=== PATIENT | female | born 1950 | race African-American/Black ===

== ENCOUNTER 2018-10-11 17:40 | Emergency (ER) | payer MEDICARE, MEDICAID ==
[2018-10-11 18:35] LABS: ANION GAP 15.7; CHLORIDE,CL 102 mmol/L (101-111); SODIUM,NA 135 mmol/L (135-145)
[2018-10-11] MEDS ORDERED: Iopamidol 755 Mg/ML 100 ML Bottle IVPUSH ONE (18:59)
[2018-10-11] MEDS ORDERED: Ondansetron 4 MG/2 ML SDV IV ONE (18:59)
[2018-10-11] MEDS ORDERED: Morphine 2 MG/ML Syringe IVPUSH ONE (18:59)
[2018-10-11] MEDS ORDERED: Sodium Chloride 0.9% 1,000 ML IV SCH (19:00)
--- NOTE | 2018-10-11 19:03 | EDM.PDOC ---
ED HPI GENERAL MEDICAL PROBLEM - General Chief Complaint: Upper Extremity Injury/Pain Stated Complaint: AMBULANCE Time Seen by Provider: 10/11/18 19:00 Source of Information: Reports: Patient History Limitations: Reports: No Limitations - History of Present Illness INITIAL COMMENTS - FREE TEXT/NARRATIVE: 2 days h/o progressive worsening left arm pain, gives h/o gout in hand but never had pain in whole arm. denies CP, has occasional SOB since smoker. denies fever, cough. Left Arm Pain Score (Numeric/FACES): 8 - Related Data Allergies Allergy/AdvReac Type Severity Reaction Status Date / Time codeine Allergy Stomach Verified 10/11/18 17:49 Upset Penicillins Allergy Rash Verified 10/11/18 17:49 povidone-iodine Allergy Rash Verified 10/11/18 17:49 [From Betadine] soap [From Betadine] Allergy Rash Verified 10/11/18 17:49 Sulfa (Sulfonamide Allergy Hives Verified 10/11/18 17:49 Antibiotics) tetracycline Allergy Cannot Verified 10/11/18 17:49 Remember Home Meds: Home Meds Albuterol [Ventolin HFA] 1 - 2 puff INH Q8HR PRN 07/25/18 [History] Allopurinol [Zyloprim] 300 mg PO DAILY 07/25/18 [History] Citalopram [Citalopram HBr] 20 mg PO DAILY 07/25/18 [History] Famotidine [Pepcid] 40 mg PO BID 07/25/18 [History] Losartan/Hydrochlorothiazide [Losartan-HCTZ 100-12.5 MG] 1 tab PO BID 07/25/18 [ History] Tiotropium [Spiriva HandiHaler] 18 mcg INH DAILY 07/25/18 [History] Verapamil HCl [Verapamil ER] 180 mg PO DAILY 07/25/18 [History] amLODIPine Besylate [Amlodipine Besylate] 10 mg PO BEDTIME 07/25/18 [History] atorvaSTATin [Lipitor] 20 mg PO DAILY 07/25/18 [History] Fluticasone/Salmeterol [Advair 250-50] 2 puff INH BID #1 diskus 07/28/18 [Rx] Past Medical History Cardiovascular History: Reports: High Cholesterol, Hypertension, [place] Respiratory History: Reports: Asthma, COPD Gastrointestinal History: Reports: GERD Genitourinary History: Reports: Urinary Incontinence 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: Musculoskeletal History: Reports: Arthritis - Past Surgical History Other HEENT Surgeries/Procedures: glasses Female Surgical History: Reports: Hysterectomy, Tubal Ligation, Other (See Below) Other Female Surgeries/Procedures: bladder repair Social & Family History - Family History Family Medical History: Noncontributory - Tobacco Use Smoking Status *Q: Current Every Day Smoker Years of Tobacco use: 47 Packs/Tins Daily: 0.5 - Caffeine Use Caffeine Use: Reports: Coffee - Recreational Drug Use Recreational Drug Use: No Review of Systems - Review of Systems Review Of Systems: ROS reveals no pertinent complaints other than HPI. ED EXAM, GENERAL - Physical Exam Exam: See Below Exam Limited By: No Limitations General Appearance: Alert, WD/WN, Mild Distress, Moderate Distress, Other ( crying) Ears: Hearing Grossly Normal Throat/Mouth: Normal Voice, No Airway Compromise Head: Atraumatic Neck: Non-Tender, Full Range of Motion Respiratory/Chest: No Respiratory Distress Cardiovascular: Regular Rate, Rhythm GI/Abdominal: Soft, Non-Tender Neurological: Alert, Oriented, Normal Cognition, Normal Gait, No Motor/Sensory Deficits Psychiatric: Tearful Skin Exam: Warm, Dry, Normal Color Lymphatic: No Adenopathy Course - Vital Signs Last Recorded V/S: Last Vital Signs Temp 36.6 C 10/11/18 17:46 Pulse 135 H 10/11/18 17:46 Resp 20 10/11/18 17:46 BP 162/111 H 10/11/18 17:46 Pulse Ox 97 10/11/18 17:46 - Orders/Labs/Meds Orders: Active Orders 24 hr Category Date Time Status CULTURE BLOOD [BC] Stat Lab 10/11/18 18:10 Results Sodium Chloride 0.9% [Normal Saline] 1,000 ml Med 10/11/18 19:00 Active IV ASDIRECTED Medication Orders Sodium Chloride (Normal Saline) 1,000 mls @ 250 mls/hr IV ASDIRECTED TONNY Last Admin: 10/11/18 19:18 Dose: 250 mls/hr Labs: Laboratory Tests 10/11/18 10/11/18 10/11/18 Range/Units 18:10 18:10 18:10 WBC 19.8 H (5.0-10.0) 10^3/uL RBC 6.02 H (4.2-5.4) 10^6/uL Hgb 15.1 (12.0-16.0) g/dL Hct 46.0 (37.0-47.0) % MCV 76.4 L (80-100) fL MCH 25.1 L (27.0-34.0) pg MCHC 32.8 L (33.0-35.0) g/dL Plt Count 300 (150-450) 10^3/uL Neut % (Auto) 74.3 (42.2-75.2) % Lymph % (Auto) 16.3 L (20.5-50.1) % [place] % (Auto) 9.2 H (2-8) % Eos % (Auto) 0.1 L (1.0-3.0) % Baso % (Auto) 0.1 (0.0-1.0) % D-Dimer, Quantitative 1520 H (0-400) ng/mL Sodium (135-145) mmol/L Potassium (3.6-5.0) mmol/L Chloride (101-111) mmol/L Carbon Dioxide (21.0-31.0) mmol/L Anion Gap BUN (7-18) mg/dL Creatinine (0.6-1.3) mg/dL Est Cr Clr Drug Dosing mL/min Estimated GFR (MDRD) BUN/Creatinine Ratio Glucose (74-105) mg/dL Lactic Acid 1.2 (0.5-2.2) mmol/L Calcium (8.4-10.2) mg/dl Total Bilirubin (0.2-1.0) mg/dL AST (10-42) IU/L ALT (10-60) IU/L Alkaline Phosphatase (42-121) IU/L Total Protein (6.7-8.2) g/dl Albumin (3.2-5.5) g/dl Globulin Albumin/Globulin Ratio Urine Color (YELLOW) Urine Appearance (CLEAR) Urine pH (5.0-9.0) Ur Specific [place] (1.005-1.030) Urine Protein (NEGATIVE) Urine Glucose (UA) (NEGATIVE) Urine Ketones (NEGATIVE) Urine Occult Blood (NEGATIVE) Urine Nitrite (NEGATIVE) Urine Bilirubin (NEGATIVE) Urine Urobilinogen (0.2-1.0) mg/dL Ur Leukocyte Esterase (NEGATIVE) Urine RBC /HPF Urine WBC (0-5/HPF) /HPF Ur Epithelial Cells /HPF Amorphous Sediment (0/HPF) /HPF Urine Bacteria (0-FEW/HPF) /HPF Urine Opiates Screen (NEGATIVE) Ur Oxycodone Screen (NEGATIVE) Urine Methadone Screen (NEGATIVE) Ur Barbiturates Screen (NEGATIVE) U Tricyclic Antidepress (NEGATIVE) Ur Phencyclidine Scrn (NEGATIVE) Ur Amphetamine Screen (NEGATIVE) U Methamphetamines Scrn (NEGATIVE) Urine MDMA Screen (NEGATIVE) U Benzodiazepines Scrn (NEGATIVE) Urine Cocaine Screen (NEGATIVE) U Marijuana (THC) Screen (NEGATIVE) 10/11/18 10/11/18 10/11/18 Range/Units 18:10 18:20 18:20 WBC (5.0-10.0) 10^3/uL RBC (4.2-5.4) 10^6/uL Hgb (12.0-16.0) g/dL Hct (37.0-47.0) % MCV (80-100) fL MCH (27.0-34.0) pg MCHC (33.0-35.0) g/dL Plt Count (150-450) 10^3/uL Neut % (Auto) (42.2-75.2) % Lymph % (Auto) (20.5-50.1) % [place] % (Auto) (2-8) % Eos % (Auto) (1.0-3.0) % Baso % (Auto) (0.0-1.0) % D-Dimer, Quantitative (0-400) ng/mL Sodium 135 (135-145) mmol/L Potassium 3.7 (3.6-5.0) mmol/L Chloride 102 (101-111) mmol/L Carbon Dioxide 21.0 (21.0-31.0) mmol/L Anion Gap 15.7 BUN 13 (7-18) mg/dL Creatinine 0.9 (0.6-1.3) mg/dL Est Cr Clr Drug Dosing 48.80 mL/min Estimated GFR (MDRD) > 60 BUN/Creatinine Ratio 14.44 Glucose 138 H (74-105) mg/dL Lactic Acid (0.5-2.2) mmol/L Calcium 8.7 (8.4-10.2) mg/dl Total Bilirubin 0.8 (0.2-1.0) mg/dL AST 18 (10-42) IU/L ALT 14 (10-60) IU/L Alkaline Phosphatase 98 (42-121) IU/L Total Protein 8.0 (6.7-8.2) g/dl Albumin 3.3 (3.2-5.5) g/dl Globulin 4.7 Albumin/Globulin Ratio 0.70 Urine Color Yellow (YELLOW) Urine Appearance Slightly cloudy (CLEAR) Urine pH 6.5 (5.0-9.0) Ur Specific [place] 1.020 (1.005-1.030) Urine Protein 30 H (NEGATIVE) Urine Glucose (UA) Negative (NEGATIVE) Urine Ketones Negative (NEGATIVE) Urine Occult Blood Trace-intact H (NEGATIVE) Urine Nitrite Negative (NEGATIVE) Urine Bilirubin Negative (NEGATIVE) Urine Urobilinogen 0.2 (0.2-1.0) mg/dL Ur Leukocyte Esterase Negative (NEGATIVE) Urine RBC 0-5 /HPF Urine WBC 0-5 (0-5/HPF) /HPF Ur Epithelial Cells Few /HPF Amorphous Sediment Occasional (0/HPF) /HPF Urine Bacteria Few (0-FEW/HPF) /HPF Urine Opiates Screen Negative (NEGATIVE) Ur Oxycodone Screen Negative (NEGATIVE) Urine Methadone Screen Negative (NEGATIVE) Ur Barbiturates Screen Negative (NEGATIVE) U Tricyclic Antidepress Negative (NEGATIVE) Ur Phencyclidine Scrn Negative (NEGATIVE) Ur Amphetamine Screen Negative (NEGATIVE) U Methamphetamines Scrn Negative (NEGATIVE) Urine MDMA Screen Negative (NEGATIVE) U Benzodiazepines Scrn Negative (NEGATIVE) Urine Cocaine Screen Negative (NEGATIVE) U Marijuana (THC) Screen Negative (NEGATIVE) Meds: Medications Generic Name Dose Route Start Last Admin Trade Name Freq PRN Reason Stop Dose Admin Sodium Chloride 1,000 mls @ 250 mls/hr 10/11/18 19:00 10/11/18 19:18 Normal Saline IV 250 mls/hr ASDIRECTED TONNY Administration Discontinued Medications Generic Name Dose Route Start Last Admin Trade Name Freq PRN Reason Stop Dose Admin Iopamidol 100 ml 10/11/18 18:59 10/11/18 19:28 Isovue-370 (76%) IVPUSH 10/11/18 19:00 100 ml ONETIME ONE Administration Morphine Sulfate 2 mg 10/11/18 18:59 10/11/18 19:19 Morphine IVPUSH 10/11/18 19:00 2 mg ONETIME ONE Administration Ondansetron HCl 4 mg 10/11/18 18:59 10/11/18 19:19 Zofran IV 10/11/18 19:00 4 mg ONETIME ONE Administration - Re-Assessments/Exams Free Text/Narrative Re-Assessment/Exam: 10/11/18 21:16 results discussed with pt who is feeling better s/p Rx. Departure - Departure Time of Disposition: 21:16 Disposition: Home, Self-Care 01 Condition: Fair Clinical Impression: Neuropathic pain of upper extremity, Renal cyst, Lung cyst - Discharge Information Instructions: Neuropathic Pain Forms: ED Department Discharge Additional Instructions: 1) see clinic tomorrow for possible MRI SCAN of neck for left arm pain and chest for left lung cyste and abdomen for renal cyste - My Orders Last 24 Hours: My Active Orders 10/11/18 19:00 Sodium Chloride 0.9% [Normal Saline] 1,000 ml IV ASDIRECTED - Assessment/Plan Last 24 Hours: My Active Orders 10/11/18 19:00 Sodium Chloride 0.9% [Normal Saline] 1,000 ml IV ASDIRECTED
== END 2018-10-11 21:32 | disposition home or self-care (01) ==
LOC: DL.ED 17:40
DX: M79.2 Neuralgia and neuritis, unspecified (principal); N28.1 Cyst of kidney, acquired; J98.4 Other disorders of lung; E78.00 Pure hypercholesterolemia, unspecified; I10 Essential (primary) hypertension; I25.2 Old myocardial infarction; J44.9 Chronic obstructive pulmonary disease, unspecified; K21.9 Gastro-esophageal reflux disease without esophagitis; F17.210 Nicotine dependence, cigarettes, uncomplicated; Z88.5 Allergy status to narcotic agent; Z88.0 Allergy status to penicillin; Z88.2 Allergy status to sulfonamides; Z88.1 Allergy status to other antibiotic agents; Z79.899 Other long term (current) drug therapy
CPT/HCPCS: 36415; 71260; 80053; 80305; 81001; 83605; 85025; 85379; 87040; 96361; 96374; 96375; 99284; J2270; J2405; J7030; Q9967

== ENCOUNTER 2019-11-16 16:16 | Inpatient (IN) | payer MEDICARE, MEDICAID ==
[2019-11-16 17:05] LABS: ANION GAP 13.6; CHLORIDE,CL 99 mmol/L (101-111); SODIUM,NA 138 mmol/L (135-145)
[2019-11-16] MEDS ORDERED: Furosemide 40 MG/4 ML VIAL IVPUSH ONE (17:16)
[2019-11-16] MEDS ORDERED: Aspirin 81 MG Tab.Chew PO ONE (17:17)
--- NOTE | 2019-11-16 17:45 | EDM.PDOC ---
<ShelleySammie Paul - Last Filed: 11/16/19 17:40> ED HPI GENERAL MEDICAL PROBLEM - General Chief Complaint: Respiratory Problem Stated Complaint: CALL IN Time Seen by Provider: 11/16/19 16:20 Source of Information: Reports: Patient History Limitations: Reports: No Limitations - History of Present Illness INITIAL COMMENTS - FREE TEXT/NARRATIVE: ED via [facility] with c/o SOB, Cough, clear phlegm, swelling yesterday, some better today. Denies fever or chills. No routine use of oxygen, no chest pain, - Related Data Allergies Allergy/AdvReac Type Severity Reaction Status Date / Time codeine Allergy Stomach Verified 11/16/19 16:30 Upset Penicillins Allergy Rash Verified 11/16/19 16:30 povidone-iodine Allergy Rash Verified 11/16/19 16:30 [From Betadine] soap [From Betadine] Allergy Rash Verified 11/16/19 16:30 Sulfa (Sulfonamide Allergy Hives Verified 11/16/19 16:30 Antibiotics) tetracycline Allergy Cannot Verified 11/16/19 16:30 Remember Home Meds: Home Meds Albuterol [Ventolin HFA] 1 - 2 puff INH Q8HR PRN 07/25/18 [History] Citalopram [Citalopram HBr] 20 mg PO DAILY 07/25/18 [History] Famotidine [Pepcid] 40 mg PO BID 07/25/18 [History] Losartan/Hydrochlorothiazide [Losartan-HCTZ 100-12.5 MG] 1 tab PO BID 07/25/18 [ History] Tiotropium [Spiriva HandiHaler] 18 mcg INH DAILY 07/25/18 [History] Verapamil HCl [Verapamil ER] 180 mg PO DAILY 07/25/18 [History] allopurinoL [Zyloprim] 300 mg PO DAILY 07/25/18 [History] amLODIPine Besylate [Amlodipine Besylate] 10 mg PO BEDTIME 07/25/18 [History] atorvaSTATin [Lipitor] 20 mg PO DAILY 07/25/18 [History] Fluticasone/Salmeterol [Advair 250-50] 2 puff INH BID #1 diskus 07/28/18 [Rx] Past Medical History HEENT History: Reports: Impaired Vision Cardiovascular History: Reports: High Cholesterol, Hypertension, [place] Respiratory History: Reports: Asthma, COPD Gastrointestinal History: Reports: GERD Genitourinary History: Reports: Urinary Incontinence 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: Musculoskeletal History: Reports: Arthritis Neurological History: Reports: None Psychiatric History: Reports: None Endocrine/Metabolic History: Reports: Obesity/BMI 30+ Hematologic History: Reports: None Immunologic History: Reports: None Oncologic (Cancer) History: Reports: None Dermatologic History: Reports: None - Infectious Disease History Infectious Disease History: Reports: None - Past Surgical History Head Surgeries/Procedures: Reports: None Other HEENT Surgeries/Procedures: glasses Female Surgical History: Reports: Hysterectomy, Tubal Ligation, Other (See Below) Other Female Surgeries/Procedures: bladder repair Social & Family History - Family History Family Medical History: Noncontributory - Tobacco Use Smoking Status *Q: Current Every Day Smoker Years of Tobacco use: 49 Packs/Tins Daily: 1 - Caffeine Use Caffeine Use: Reports: Coffee - Recreational Drug Use Recreational Drug Use: No ED ROS GENERAL - Review of Systems Review Of Systems: See Below Constitutional: Reports: Malaise. Denies: Fever, Chills HEENT: Reports: No Symptoms Respiratory: Reports: Shortness of Breath, Cough, Sputum Cardiovascular: Reports: Dyspnea on Exertion. Denies: Chest Pain, Orthopnea, Palpitations GI/Abdominal: Reports: No Symptoms Skin: Denies: No Symptoms Neurological: Reports: No Symptoms ED EXAM, GENERAL - Physical Exam Exam: See Below Exam Limited By: No Limitations General Appearance: Alert, No Apparent Distress, Lethargic Ears: Normal External Exam, Normal TMs Nose: Normal Inspection, Normal Mucosa, Nasal Tenderness Throat/Mouth: Normal Inspection, Normal Voice Head: Atraumatic, Normocephalic Neck: Normal Inspection, Full Range of Motion Respiratory/Chest: No Respiratory Distress, Lungs Clear, Normal Breath Sounds Cardiovascular: Normal Peripheral Pulses, Regular Rate, Rhythm, No JVD. No: No Edema (2) GI/Abdominal: Normal Bowel Sounds, Soft, Non-Tender Extremities: Normal Range of Motion, Pedal Edema (2+) Neurological: Alert, Oriented, Normal Cognition Psychiatric: Normal Affect Skin Exam: Warm, Dry, Intact Course - Vital Signs Last Recorded V/S: Last Vital Signs Temp 98.1 F 11/16/19 19:07 Pulse 93 11/16/19 19:07 Resp 24 H 11/16/19 19:07 BP 113/57 L 11/16/19 19:07 Pulse Ox 98 11/16/19 19:51 - Orders/Labs/Meds Orders: Active Orders 24 hr Category Date Time Status BLOOD GAS ARTERIAL [BG] Stat Lab 11/16/19 16:10 Ordered CULTURE BLOOD [BC] Stat Lab 11/16/19 16:11 Ordered CULTURE BLOOD [BC] Stat Lab 11/16/19 17:25 Results Blood Culture x2 Reflex Set [OM.PC] Stat Oth 11/16/19 16:10 Ordered Medication Orders Acetaminophen (Tylenol) 650 mg PO Q4H PRN PRN Reason: Pain (mild 1-3) Albuterol (Proventil Neb Soln) 2.5 mg NEB Q2H PRN PRN Reason: shortness of breath/wheezing Albuterol/Ipratropium (Duoneb 3.0-0.5 Mg/3 Ml) 3 ml NEB Q6H [facility] Allopurinol (Zyloprim) 300 mg PO DAILY [facility] Amlodipine Besylate (Norvasc) 10 mg PO BEDTIME [facility] Atorvastatin Calcium (Lipitor) 20 mg PO DAILY [facility] Azithromycin (Zithromax) 500 mg PO DAILY [facility] Citalopram Hydrobromide (Celexa) 20 mg PO DAILY [facility] Enoxaparin Sodium (Lovenox) 40 mg SUBCUT DAILY [facility] Famotidine (Pepcid) 40 mg PO ONETIME ONE Stop: 11/16/19 21:01 Hydrochlorothiazide (Hydrochlorothiazide) 12.5 mg PO BID [facility] Ceftriaxone Sodium 2 gm/ (Sodium Chloride) 100 mls @ 200 mls/hr IV Q24H [facility] Losartan Potassium (Cozaar) 100 mg PO BID [facility] Nicotine (Habitrol) 14 mg TRDERM DAILY [facility] Non-Formulary Medication (Famotidine [Pepcid]) 40 mg PO BID [facility] Non-Formulary Medication (Fluticasone/Salmeterol) 2 puff INH BID [facility] Ondansetron HCl (Zofran Odt) 4 mg PO Q6H PRN PRN Reason: nausea, able to take PO Ondansetron HCl (Zofran) 4 mg IVPUSH Q4H PRN PRN Reason: Nausea/Vomiting Prednisone (Prednisone) 40 mg PO DAILY [facility] Stop: 11/20/19 09:01 Senna/Docusate Sodium (Senna Plus) 1 tab PO BEDTIME PRN PRN Reason: Constipation Tiotropium [place] (Spiriva Handihaler) 18 mcg INH DAILY TONNY Verapamil HCl (Calan Sr) 180 mg PO DAILY TONNY Labs: Laboratory Tests 11/16/19 11/16/19 11/16/19 Range/Units 16:21 16:21 16:21 WBC 12.3 H (5.0-10.0) 10^3/uL RBC 5.70 H (4.2-5.4) 10^6/uL Hgb 14.2 (12.0-16.0) g/dL Hct 44.9 (37.0-47.0) % MCV 78.8 L (80-100) fL MCH 24.9 L (27.0-34.0) pg MCHC 31.6 L (33.0-35.0) g/dL Plt Count 284 (150-450) 10^3/uL Neut % (Auto) 61.4 (42.2-75.2) % Lymph % (Auto) 27.5 (20.5-50.1) % [place] % (Auto) 9.5 H (2-8) % Eos % (Auto) 1.4 (1.0-3.0) % Baso % (Auto) 0.2 (0.0-1.0) % PT 9.8 (9.0-12.0) SEC INR 1.0 (0.9-1.2) Sodium 138 (135-145) mmol/L Potassium 3.6 (3.6-5.0) mmol/L Chloride 99 L (101-111) mmol/L Carbon Dioxide 29.0 (21.0-31.0) mmol/L Anion Gap 13.6 BUN 13 (7-18) mg/dL Creatinine 1.0 (0.6-1.3) mg/dL Est Cr Clr Drug Dosing 41.40 mL/min Estimated GFR (MDRD) > 60 BUN/Creatinine Ratio 13.00 Glucose 86 (74-105) mg/dL Lactic Acid (0.5-2.0) mmol/L Calcium 8.7 (8.4-10.2) mg/dl Total Bilirubin 0.4 (0.2-1.0) mg/dL AST 17 (10-42) IU/L ALT 11 (10-60) IU/L Alkaline Phosphatase 116 (42-121) IU/L Troponin I < 0.02 (0.00-0.02) ng/ml B-Natriuretic Peptide 60 (0-100) pg/ml Total Protein 8.3 H (6.7-8.2) g/dl Albumin 3.5 (3.2-5.5) g/dl Globulin 4.8 Albumin/Globulin Ratio 0.73 02/29/20 Range/Units 17:25 WBC (5.0-10.0) 10^3/uL RBC (4.2-5.4) 10^6/uL Hgb (12.0-16.0) g/dL Hct (37.0-47.0) % MCV (80-100) fL MCH (27.0-34.0) pg MCHC (33.0-35.0) g/dL Plt Count (150-450) 10^3/uL Neut % (Auto) (42.2-75.2) % Lymph % (Auto) (20.5-50.1) % [place] % (Auto) (2-8) % Eos % (Auto) (1.0-3.0) % Baso % (Auto) (0.0-1.0) % PT (9.0-12.0) SEC INR (0.9-1.2) Sodium (135-145) mmol/L Potassium (3.6-5.0) mmol/L Chloride (101-111) mmol/L Carbon Dioxide (21.0-31.0) mmol/L Anion Gap BUN (7-18) mg/dL Creatinine (0.6-1.3) mg/dL Est Cr Clr Drug Dosing mL/min Estimated GFR (MDRD) BUN/Creatinine Ratio Glucose (74-105) mg/dL Lactic Acid 2.5 H* (0.5-2.0) mmol/L Calcium (8.4-10.2) mg/dl Total Bilirubin (0.2-1.0) mg/dL AST (10-42) IU/L ALT (10-60) IU/L Alkaline Phosphatase (42-121) IU/L Troponin I (0.00-0.02) ng/ml B-Natriuretic Peptide (0-100) pg/ml Total Protein (6.7-8.2) g/dl Albumin (3.2-5.5) g/dl Globulin Albumin/Globulin Ratio Meds: Medications Generic Name Dose Route Start Last Admin Trade Name Freq PRN Reason Stop Dose Admin Acetaminophen 650 mg 11/16/19 19:51 Tylenol PO Q4H PRN Pain (mild 1-3) Albuterol 2.5 mg 11/16/19 19:51 Proventil Neb Soln NEB Q2H PRN shortness of breath/wheezing Albuterol/Ipratropium 3 ml 11/16/19 20:00 Duoneb 3.0-0.5 Mg/3 Ml NEB Q6H [facility] Allopurinol 300 mg 11/17/19 09:00 Zyloprim PO DAILY [facility] Amlodipine Besylate 10 mg 11/16/19 21:00 Norvasc PO BEDTIME [facility] Atorvastatin Calcium 20 mg 11/17/19 09:00 Lipitor PO DAILY [facility] Azithromycin 500 mg 11/16/19 20:00 Zithromax PO DAILY [facility] Citalopram Hydrobromide 20 mg 11/17/19 09:00 Celexa PO DAILY [facility] Enoxaparin Sodium 40 mg 11/17/19 09:00 Lovenox SUBCUT DAILY [facility] Famotidine 40 mg 11/16/19 21:00 Pepcid PO 11/16/19 21:01 ONETIME ONE Hydrochlorothiazide 12.5 mg 11/16/19 21:00 Hydrochlorothiazide PO BID [facility] Ceftriaxone Sodium 2 gm/ 100 mls @ 200 mls/hr 11/16/19 20:00 Sodium Chloride IV Q24H [facility] Losartan Potassium 100 mg 11/16/19 21:00 Cozaar PO BID [facility] Nicotine 14 mg 11/16/19 20:30 Habitrol TRDERM DAILY [facility] Non-Formulary Medication 40 mg 11/16/19 21:00 Famotidine [Pepcid] PO BID [facility] Non-Formulary Medication 2 puff 11/16/19 21:00 Fluticasone/Salmeterol INH BID [facility] Ondansetron HCl 4 mg 11/16/19 19:51 Zofran Odt PO Q6H PRN nausea, able to take PO Ondansetron HCl 4 mg 11/16/19 19:51 Zofran IVPUSH Q4H PRN Nausea/Vomiting Prednisone 40 mg 11/16/19 20:45 Prednisone PO 11/20/19 09:01 DAILY TONNY Senna/Docusate Sodium 1 tab 11/16/19 19:51 Senna Plus PO BEDTIME PRN Constipation Tiotropium [place] 18 mcg 11/17/19 09:00 Spiriva Handihaler INH DAILY TONNY Verapamil HCl 180 mg 11/17/19 09:00 Calan Sr PO DAILY TONNY Discontinued Medications Generic Name Dose Route Start Last Admin Trade Name Freq PRN Reason Stop Dose Admin Aspirin 324 mg 11/16/19 17:17 11/16/19 17:23 Aspirin PO 11/16/19 17:18 324 mg ONETIME ONE Administration Furosemide 40 mg 11/16/19 17:16 11/16/19 17:25 Lasix IVPUSH 11/16/19 17:17 40 mg NOW ONE Administration Sodium Chloride 1,000 mls @ 100 mls/hr 11/16/19 20:00 Normal Saline IV ASDIRECTED [facility] - Re-Assessments/Exams Free Text/Narrative Re-Assessment/Exam: 11/16/19 18:28 Dyspnea with minimal exertion while up to commode. SOB with conversation. Diuresing with continues SOB. TC Dr Raul ALVARADO Hospitalist. accepting patient for amission CHF exacerbation Departure - Departure Disposition: Admitted As Inpatient 65 Condition: Good Clinical Impression: Congestive heart failure Qualifiers: Heart failure type: unspecified Heart failure chronicity: unspecified Qualified Code(s): I50.9 - Heart failure, unspecified Dyspnea Qualifiers: Dyspnea type: unspecified Qualified Code(s): R06.00 - Dyspnea, unspecified - Discharge Information *PRESCRIPTION DRUG MONITORING PROGRAM REVIEWED*: No *COPY OF PRESCRIPTION DRUG MONITORING REPORT IN PATIENT SONJA: No Sepsis Event Note - Evaluation Sepsis Screening Result: No Definite Risk - Focused Exam Vital Signs: Vital Signs Temp Pulse Resp BP Pulse Ox 11/16/19 16:11 98.8 F 107 H 12 147/89 H 98 Date Exam was Performed: 11/16/19 Time Exam was Performed: 17:40 <Latha Mitchell - Last Filed: 11/16/19 20:48> Departure - Departure Time of Disposition: 18:29 Sepsis Event Note - Focused Exam Date Exam was Performed: 11/16/19 Time Exam was Performed: 20:48
[2019-11-16] MEDS ORDERED: Albuterol 0.083% 2.5 MG/3 ML Neb Soln NEB PRN (19:51)
[2019-11-16] MEDS ORDERED: Ondansetron 4 MG/2 ML SDV IVPUSH PRN (19:51)
[2019-11-16] MEDS ORDERED: Acetaminophen 325 MG Tab PO PRN (19:51)
[2019-11-16] MEDS ORDERED: Ondansetron 4 MG Tab.DIS PO PRN (19:51)
[2019-11-16] MEDS ORDERED: Sodium Chloride 0.9% 1,000 ML IV SCH (20:00)
[2019-11-16] MEDS ORDERED: cefTRIAXone 2 GM in Sodium Chloride 0.9% 100 ML IV SCH (20:00)
--- NOTE | 2019-11-16 20:17 | PCM.HP ---
H&P History of Present Illness - General Date of Service: 11/16/19 (t) Admit Problem/Dx: Admission Diagnosis/Problem Admission Diagnosis/Problem Severe sepsis Source of Information: Patient, EMS Notes Reviewed, Old Records, Provider History Limitations: Reports: No Limitations - History of Present Illness Initial Comments - Free Text/Narative: Ms. Lamar is a 69-year-old female with medical history significant for COPD, essential hypertension, hyperlipidemia, history of CHF, coronary artery disease and GA, morbid obesity who presented to the ED with complaints of nausea. Patient reports that she has been having progressively worsening shortness of breath for the past 2 to 3 days. She reports that symptoms have gotten to the point where she can barely take a few steps without stopping to catch her breath. Also reports that she gets short of breath when she talks. She endorses cough with copious clear sputum production. States that cough and sputum production is new compared to baseline. Fevers or night sweats. Denies chest pains, neck pain, jaw pain, arm pain, shoulder pain, diaphoresis, headache , neck pain, nausea, vomiting, diarrhea, constipation, dysuria, hematuria, edema , or any new symptoms. States that she has spiriva at home, which was not helping. Reports she is on a water pill but does not recall the name or the dose. States she has used 2 pillows for a long time and does not know what will happen if she uses one pillow. Reports occasional PND. States she misses her medications once in a while. She smokes about half a pack cigarettes daily. She smokes marijuana from a pipe about 5 times daily. Denies alcohol or other illicit drug use. In the ED, patient was noted to have blood pressure of 147/89 with heart rate of 70 and temperature of 98.8. Respiratory rate was 12. O2 saturation was 98% on 2 L of oxygen. WBC count was 12.3. Checks x-ray showed cardiomegaly and pulmonary vascular prominence consistent with volume overload or congestive heart failure. Her lactic acid acid was 2.5. - Related Data Allergies/Adverse Reactions: Allergies Allergy/AdvReac Type Severity Reaction Status Date / Time codeine Allergy Stomach Verified 11/16/19 16:30 Upset Penicillins Allergy Rash Verified 11/16/19 16:30 povidone-iodine Allergy Rash Verified 02/29/20 16:30 [From Betadine] soap [From Betadine] Allergy Rash Verified 11/16/19 16:30 Sulfa (Sulfonamide Allergy Hives Verified 11/16/19 16:30 Antibiotics) tetracycline Allergy Cannot Verified 11/16/19 16:30 Remember Home Medications: Home Meds Albuterol [Ventolin HFA] 1 - 2 puff INH Q8HR PRN 07/25/18 [History] Citalopram [Citalopram HBr] 20 mg PO DAILY 07/25/18 [History] Famotidine [Pepcid] 40 mg PO BID 07/25/18 [History] Losartan/Hydrochlorothiazide [Losartan-HCTZ 100-12.5 MG] 1 tab PO BID 07/25/18 [ History] Tiotropium [Spiriva HandiHaler] 18 mcg INH DAILY 07/25/18 [History] Verapamil HCl [Verapamil ER] 180 mg PO DAILY 07/25/18 [History] allopurinoL [Zyloprim] 300 mg PO DAILY 07/25/18 [History] amLODIPine Besylate [Amlodipine Besylate] 10 mg PO BEDTIME 07/25/18 [History] atorvaSTATin [Lipitor] 20 mg PO DAILY 07/25/18 [History] Fluticasone/Salmeterol [Advair 250-50] 2 puff INH BID #1 diskus 07/28/18 [Rx] Past Medical History HEENT History: Reports: Impaired Vision Cardiovascular History: Reports: High Cholesterol, Hypertension, GA, SOB on Exertion Respiratory History: Reports: Asthma, COPD, SOB Gastrointestinal History: Reports: GERD Genitourinary History: Reports: Urinary Incontinence [employer]ER History: Reports: Musculoskeletal History: Reports: Arthritis Neurological History: Reports: None Psychiatric History: Reports: None Endocrine/Metabolic History: Reports: Obesity/BMI 30+ Hematologic History: Reports: None Immunologic History: Reports: None Oncologic (Cancer) History: Reports: Malignant Melanoma Dermatologic History: Reports: None - Infectious Disease History Infectious Disease History: Reports: Chicken Pox, Measles, Mumps - Past Surgical History Head Surgeries/Procedures: Reports: None HEENT Surgical History: Reports: None Other HEENT Surgeries/Procedures: glasses Cardiovascular Surgical History: Reports: None Respiratory Surgical History: Reports: None GI Surgical History: Reports: Appendectomy, Colonoscopy Female Surgical History: Reports: Hysterectomy, Tubal Ligation, Other (See Below) Other Female Surgeries/Procedures: bladder repair Endocrine Surgical History: Reports: None Neurological Surgical History: Reports: None Musculoskeletal Surgical History: Reports: Shoulder Replacement Social & Family History - Family History Family Medical History: Noncontributory - Tobacco Use Smoking Status *Q: Current Every Day Smoker Years of Tobacco use: 40 Packs/Tins Daily: 0.2 Second Hand Smoke Exposure: Yes - Caffeine Use Caffeine Use: Reports: Coffee, Soda - Recreational Drug Use Recreational Drug Use: No H&P Review of Systems - Review of Systems: Review Of Systems: Comprehensive ROS is negative, except as noted in HPI. Exam - Exam Exam: See Below - Vital Signs Vital Signs: Last Vital Signs Temp 98.1 F 11/16/19 19:07 Pulse 93 11/16/19 19:07 Resp 24 H 11/16/19 19:07 BP 113/57 L 11/16/19 19:07 Pulse Ox 98 11/16/19 19:51 Weight: 248 lb 4 oz - Exam General: Alert, Oriented, Cooperative, Moderate Distress HEENT: Conjunctiva Clear, EACs Clear, Hearing Intact, Mucosa Moist & Pierpoint Neck: Supple, Trachea Midline Lungs: Crackles, Rales, Rhonchi, Wheezing Cardiovascular: Regular Rhythm, Tachycardia GI/Abdominal Exam: Normal Bowel Sounds, Soft, No Distention Extremities: Normal Inspection, Non-Tender, No Pedal Edema Peripheral Pulses: 2+: Radial (L), Radial (R), Dorsalis Pedis (L), Dorsalis Pedis (R) Skin: Warm, Dry, Intact Neuro Extensive - Mental Status: Alert, Oriented x3, Normal Mood/Affect, Normal Cognition, Memory Intact Psychiatric: Alert, Normal Affect, Normal Mood - Patient Data Lab Results Last 24 hrs: Laboratory Results - last 24 hr 11/16/19 11/16/19 11/16/19 Range/Units 16:21 16:21 16:21 WBC 12.3 H (5.0-10.0) 10^3/uL RBC 5.70 H (4.2-5.4) 10^6/uL Hgb 14.2 (12.0-16.0) g/dL Hct 44.9 (37.0-47.0) % MCV 78.8 L (80-100) fL MCH 24.9 L (27.0-34.0) pg MCHC 31.6 L (33.0-35.0) g/dL Plt Count 284 (150-450) 10^3/uL Neut % (Auto) 61.4 (42.2-75.2) % Lymph % (Auto) 27.5 (20.5-50.1) % Terrell % (Auto) 9.5 H (2-8) % Eos % (Auto) 1.4 (1.0-3.0) % Baso % (Auto) 0.2 (0.0-1.0) % PT 9.8 (9.0-12.0) SEC INR 1.0 (0.9-1.2) Sodium 138 (135-145) mmol/L Potassium 3.6 (3.6-5.0) mmol/L Chloride 99 L (101-111) mmol/L Carbon Dioxide 29.0 (21.0-31.0) mmol/L Anion Gap 13.6 BUN 13 (7-18) mg/dL Creatinine 1.0 (0.6-1.3) mg/dL Est Cr Clr Drug Dosing 41.40 mL/min Estimated GFR (MDRD) > 60 BUN/Creatinine Ratio 13.00 Glucose 86 (74-105) mg/dL Lactic Acid (0.5-2.0) mmol/L Calcium 8.7 (8.4-10.2) mg/dl Total Bilirubin 0.4 (0.2-1.0) mg/dL AST 17 (10-42) IU/L ALT 11 (10-60) IU/L Alkaline Phosphatase 116 (42-121) IU/L Troponin I < 0.02 (0.00-0.02) ng/ml B-Natriuretic Peptide 60 (0-100) pg/ml Total Protein 8.3 H (6.7-8.2) g/dl Albumin 3.5 (3.2-5.5) g/dl Globulin 4.8 Albumin/Globulin Ratio 0.73 / Range/Units 17:25 WBC (5.0-10.0) 10^3/uL RBC (4.2-5.4) 10^6/uL Hgb (12.0-16.0) g/dL Hct (37.0-47.0) % MCV (80-100) fL MCH (27.0-34.0) pg MCHC (33.0-35.0) g/dL Plt Count (150-450) 10^3/uL Neut % (Auto) (42.2-75.2) % Lymph % (Auto) (20.5-50.1) % Terrell % (Auto) (2-8) % Eos % (Auto) (1.0-3.0) % Baso % (Auto) (0.0-1.0) % PT (9.0-12.0) SEC INR (0.9-1.2) Sodium (135-145) mmol/L Potassium (3.6-5.0) mmol/L Chloride (101-111) mmol/L Carbon Dioxide (21.0-31.0) mmol/L Anion Gap BUN (7-18) mg/dL Creatinine (0.6-1.3) mg/dL Est Cr Clr Drug Dosing mL/min Estimated GFR (MDRD) BUN/Creatinine Ratio Glucose (74-105) mg/dL Lactic Acid 2.5 H* (0.5-2.0) mmol/L Calcium (8.4-10.2) mg/dl Total Bilirubin (0.2-1.0) mg/dL AST (10-42) IU/L ALT (10-60) IU/L Alkaline Phosphatase (42-121) IU/L Troponin I (0.00-0.02) ng/ml B-Natriuretic Peptide (0-100) pg/ml Total Protein (6.7-8.2) g/dl Albumin (3.2-5.5) g/dl Globulin Albumin/Globulin Ratio Result Diagrams: 11/16/19 16:21 11/16/19 16:21 Oz Results Last 24 hrs: Microbiology 11/16/19 17:25 Anaerobic Blood Culture - Final Blood - Venous - Problem List (1) COPD exacerbation SNOMED Code(s): 226667760 ICD Code: J44.1 - CHRONIC OBSTRUCTIVE PULMONARY DISEASE W (ACUTE) EXACERBATION Status: Acute Current Visit: No (2) HTN (hypertension) SNOMED Code(s): 30248036 ICD Code: I10 - ESSENTIAL (PRIMARY) HYPERTENSION Status: Acute Current Visit: No Qualifiers: Hypertension type: essential hypertension Qualified Code(s): I10 - Essential (primary) hypertension (3) Severe sepsis with acute organ dysfunction SNOMED Code(s): 90217208 ICD Code: A41.9 - SEPSIS, UNSPECIFIED ORGANISM; R65.20 - SEVERE SEPSIS WITHOUT SEPTIC SHOCK Status: Acute Current Visit: Yes (4) COPD exacerbation SNOMED Code(s): 357830508 ICD Code: J44.1 - CHRONIC OBSTRUCTIVE PULMONARY DISEASE W (ACUTE) EXACERBATION Status: Acute Current Visit: Yes (5) CHF exacerbation SNOMED Code(s): 932305032, 31957108944744 ICD Code: I50.9 - HEART FAILURE, UNSPECIFIED Status: Acute Current Visit : Yes Problem List Initiated/Reviewed/Updated: Yes Orders Last 24hrs: Active Orders 24 hr Category Date Time Status Admission Diagnosis [ADT] Stat ADT 11/16/19 18:26 Ordered Admission Status [Patient Status] [ADT] Routine ADT 11/16/19 18:26 Active Ambulate [RC] QID Care 11/17/19 07:00 Active Cardiac Monitoring [RC] 08,20 Care 11/16/19 18:26 Active Height and Weight [RC] 06 Care 11/16/19 19:51 Active Intake and Output [RC] QSHIFT Care 11/16/19 19:53 Active Oxygen Therapy [RC] PRN Care 11/16/19 19:51 Active RT Aerosol Therapy [RC] ASDIRECTED Care 11/16/19 19:55 Active VTE/DVT Education [RC] PER UNIT ROUTINE Care 11/16/19 19:51 Active Vital Signs [RC] 00,04,08,12,16,20 Care 11/16/19 19:51 Active 2 Gram Sodium Diet [DIET] Diet 11/16/19 Dinner Active BASIC METABOLIC PANEL,BMP [CHEM] DAILY Lab 11/16/19 20:00 Ordered BLOOD GAS ARTERIAL [BG] Stat Lab 11/16/19 16:10 Ordered CBC W/O DIFF,HEMOGRAM [HEME] DAILY Lab 11/16/19 20:00 Ordered CULTURE BLOOD [BC] Stat Lab 11/16/19 16:11 Ordered CULTURE BLOOD [BC] Stat Lab 11/16/19 17:25 Results LACTIC ACID [CHEM] Q4H Lab 11/17/19 00:00 Ordered LACTIC ACID [CHEM] Q4H Lab 11/17/19 04:00 Ordered MAGNESIUM [CHEM] DAILY Lab 11/16/19 20:00 Ordered PHOSPHORUS [CHEM] DAILY Lab 11/16/19 20:00 Ordered Acetaminophen [Tylenol] Med 11/16/19 19:51 Ordered 650 mg PO Q4H PRN Albuterol [Proventil Neb Soln] Med 11/16/19 19:51 Ordered 2.5 mg NEB Q2H PRN Albuterol/Ipratropium [DuoNeb 3.0-0.5 MG/3 ML] Med 11/16/19 20:00 Ordered 3 ml NEB Q6H Azithromycin [Zithromax] Med 11/16/19 20:00 Ordered 500 mg PO DAILY Citalopram [Celexa] Med 11/17/19 09:00 Ordered 20 mg PO DAILY Docusate Sodium/Sennosides [Senna Plus] Med 11/16/19 19:51 Ordered 1 tab PO BEDTIME PRN Enoxaparin [Lovenox] Med 11/17/19 09:00 Ordered 40 mg SUBCUT DAILY Famotidine [Pepcid] Med 11/16/19 21:00 Ordered 40 mg PO BID Fluticasone/Salmeterol Med 11/16/19 21:00 Ordered 2 puff INH BID Losartan/Hydrochlorothiazide [Losartan-HCTZ 100-12.5 MG Med 11/16/19 21:00 Ordered ] 1 tab PO BID Ondansetron [Zofran ODT] Med 11/16/19 19:51 Ordered 4 mg PO Q6H PRN Ondansetron [Zofran] Med 11/16/19 19:51 Ordered 4 mg IVPUSH Q4H PRN Sodium Chloride 0.9% [Normal Saline] 1,000 ml Med 11/16/19 20:00 Ordered IV ASDIRECTED Tiotropium [Spiriva HandiHaler] Med 11/17/19 09:00 Ordered 18 mcg INH DAILY Verapamil Med 11/17/19 09:00 Ordered 180 mg PO DAILY allopurinoL [Zyloprim] Med 11/17/19 09:00 Ordered 300 mg PO DAILY amLODIPine Besylate [Amlodipine Besylate] Med 11/16/19 21:00 Ordered 10 mg PO BEDTIME atorvaSTATin [Lipitor] Med 11/17/19 09:00 Ordered 20 mg PO DAILY cefTRIAXone [Rocephin] 2 gm Med 11/16/19 20:00 Ordered Sodium Chloride 0.9% [Normal Saline] 100 ml IV Q24H Blood Culture x2 Reflex Set [OM.PC] Stat Oth 11/16/19 16:10 Ordered Resuscitation Status Routine Resus Stat 11/16/19 19:51 Ordered Medication Orders Acetaminophen (Tylenol) 650 mg PO Q4H PRN PRN Reason: Pain (mild 1-3) Albuterol (Proventil Neb Soln) 2.5 mg NEB Q2H PRN PRN Reason: shortness of breath/wheezing Albuterol/Ipratropium (Duoneb 3.0-0.5 Mg/3 Ml) 3 ml NEB Q6H REPLACED BY [facility] Allopurinol (Zyloprim) 300 mg PO DAILY REPLACED BY [facility] Atorvastatin Calcium (Lipitor) 20 mg PO DAILY REPLACED BY [facility] Azithromycin (Zithromax) 500 mg PO DAILY REPLACED BY [facility] Citalopram Hydrobromide (Celexa) 20 mg PO DAILY REPLACED BY [facility] Enoxaparin Sodium (Lovenox) 40 mg SUBCUT DAILY REPLACED BY [facility] Ceftriaxone Sodium 2 gm/ (Sodium Chloride) 100 mls @ 200 mls/hr IV Q24H REPLACED BY [facility] Sodium Chloride (Normal Saline) 1,000 mls @ 100 mls/hr IV ASDIRECTED [facility] Non-Formulary Medication (Amlodipine Besylate [Amlodipine Besylate]) 10 mg PO BEDTIME [facility] Non-Formulary Medication (Famotidine [Pepcid]) 40 mg PO BID [facility] Non-Formulary Medication (Fluticasone/Salmeterol) 2 puff INH BID REPLACED BY [facility] Non-Formulary Medication (Losartan/Hydrochlorothiazide [Losartan-Hctz 100-12.5 Mg]) 1 tab PO BID REPLACED BY [facility] Non-Formulary Medication (Verapamil) 180 mg PO DAILY REPLACED BY [facility] Ondansetron HCl (Zofran Odt) 4 mg PO Q6H PRN PRN Reason: nausea, able to take PO Ondansetron HCl (Zofran) 4 mg IVPUSH Q4H PRN PRN Reason: Nausea/Vomiting Senna/Docusate Sodium (Senna Plus) 1 tab PO BEDTIME PRN PRN Reason: Constipation Tiotropium [place] (Spiriva Handihaler) 18 mcg INH DAILY REPLACED BY [facility] Assessment/Plan Comment:: Severe sepsis with acute organ dysfunction: Patient with WBC count of 12.3, with heart rate of 107, and checks x-ray per my independent review showing probable right lower lobe infiltrate with superimposed left pleural effusion and bilateral pulmonary edema. Telemonitoring Trend lactic Started azithromycin and meropenem #CHF patient: Patient with bilateral pulmonary congestion. Patient was started on O2 prior to arrival in the ED. O2 level at home not documented. However patient with significant progressively worsening shortness of breath and chest x -ray findings confirming clinical diagnosis. Ports PND and orthopnea. Not on any diuretic at home besides hydrochlorothiazide. IV Lasix Low-sodium diet Daily weight Encourage ambulation's Incentive spirometer Echocardiogram #Acute COPD exacerbation: Patient with diffuse rhonchi, worsening cough, worsening shortness of breath, and worsening sputum production. Nebulized and inhaled treatments. IS Encourage ambulation I will hold off on steroids due to probable superimposed infection #Lactic acidosis 2.5. Monitor lactic acid level while on IV diuresis for now If lactic acid increases on diuretics, will start IV fluids #Tobacco use disorder: Patient reports that she smokes half pack cigarettes daily. Smoking cessation counseling provided Patient reports that she will try to quit smoking Nicotine patch Continue support #Hypertension: BP is at goal. Continue home blood pressure medications #Obesity: BMI of 45.4 Weight loss counseling P PX: DVT: Lovenox GI: Cardiac diet Code status: DNR/DNI
[2019-11-16] MEDS: Azithromycin 250 MG Tab PO SCH (20:55)
[2019-11-16] MEDS: Albuterol/Ipratropium 3.0-0.5 MG/3 ML Neb Soln NEB SCH (20:55)
[2019-11-16] MEDS: amLODIPine 5 MG Tab PO SCH (20:55)
[2019-11-16] MEDS: Hydrochlorothiazide 25 MG Tab PO SCH (20:56)
[2019-11-16] MEDS ORDERED: Famotidine 20 MG Tab PO ONE (21:00)
[2019-11-16] MEDS: Losartan 50 MG Tab PO SCH (21:15)
[2019-11-16] MEDS: Formoterol/Mometasone 200-5 MCG 8.8 GM Inhaler IH SCH (21:20)
[2019-11-16] MEDS: predniSONE 20 MG Tab PO SCH (21:20)
[2019-11-16] MEDS: Nicotine 14 MG/24 Hr Patch TRDERM SCH (21:20)
[2019-11-16 21:42] LABS: ANION GAP 15.1
[2019-11-17] MEDS ORDERED: Potassium Chloride 10 MEQ Tab.ER PO ONE (00:24)
[2019-11-17] MEDS: Albuterol/Ipratropium 3.0-0.5 MG/3 ML Neb Soln NEB SCH ×4 (01:18→19:41)
[2019-11-17] MEDS: POTASSIUM CHLORIDE IV SCH ×2 (01:18→05:46)
[2019-11-17] MEDS: Verapamil 180 MG Tab.ER PO SCH (08:45)
[2019-11-17] MEDS: Hydrochlorothiazide 25 MG Tab PO SCH ×2 (08:45→21:38)
[2019-11-17] MEDS: atorvaSTATin 20 MG Tab PO SCH (08:46)
[2019-11-17] MEDS: Allopurinol 300 MG Tab PO SCH (08:46)
[2019-11-17] MEDS: predniSONE 20 MG Tab PO SCH (08:46)
[2019-11-17] MEDS: Azithromycin 250 MG Tab PO SCH (08:46)
[2019-11-17] MEDS: Citalopram 20 MG Tab PO SCH (08:46)
[2019-11-17] MEDS: Nicotine 14 MG/24 Hr Patch TRDERM SCH (08:48)
[2019-11-17] MEDS: Losartan 50 MG Tab PO SCH ×2 (08:50→21:48)
[2019-11-17] MEDS: Formoterol/Mometasone 200-5 MCG 8.8 GM Inhaler IH SCH ×2 (08:50→21:43)
[2019-11-17] MEDS: Tiotropium Inhaler 18 MCG Inhalation Powder Cap Kit of 5 INH SCH (08:51)
[2019-11-17] MEDS: Enoxaparin 40 MG/0.4 ML Syringe SUBCUT SCH (08:53)
[2019-11-17] MEDS ORDERED: Furosemide 40 MG/4 ML VIAL IVPUSH ONE ×2 (09:00→18:41)
[2019-11-17] MEDS: Non-Formulary Medication 1 Each (Famotidine [Pepcid] 40 MG) PO SCH (11:44)
--- NOTE | 2019-11-17 11:46 | PCM.PN ---
- General Info Date of Service: 11/17/19 Admission Dx/Problem (Free Text): Admission Diagnosis/Problem Admission Diagnosis/Problem Severe sepsis Subjective Update: Patient continues to be hypoxic. Saturating 83% on room air. Has not been keeping nasal cannula on. Continues to have cough. Having significant urine output. No chest pain, fevers, chills, nausea, vomiting, diarrhea, constipation , dysuria, or any acute symptoms. - Review of Systems General: Reports: No Symptoms HEENT: Reports: No Symptoms Pulmonary: Reports: Shortness of Breath, Cough, Sputum, Wheezing Cardiovascular: Reports: Dyspnea on Exertion Gastrointestinal: Reports: No Symptoms Genitourinary: Reports: Frequency (Due to diuretic) Musculoskeletal: Reports: No Symptoms Skin: Reports: No Symptoms Neurological: Reports: No Symptoms Psychiatric: Reports: No Symptoms - Patient Data Vitals - Most Recent: Last Vital Signs Temp 97.4 F 11/17/19 08:21 Pulse 88 11/17/19 08:21 Resp 24 H 11/17/19 08:21 BP 116/72 11/17/19 08:21 Pulse Ox 100 11/17/19 08:21 Weight - Most Recent: 249 lb 3.2 oz I&O - Last 24 Hours: Intake & Output 11/16/19 11/17/19 11/17/19 22:59 06:59 14:59 Output Total 50 500 Balance -50 -500 Lab Results Last 24 Hours: Laboratory Results - last 24 hr 11/16/19 11/16/19 11/16/19 Range/Units 16:21 16:21 16:21 WBC 12.3 H (5.0-10.0) 10^3/uL RBC 5.70 H (4.2-5.4) 10^6/uL Hgb 14.2 (12.0-16.0) g/dL Hct 44.9 (37.0-47.0) % MCV 78.8 L (80-100) fL MCH 24.9 L (27.0-34.0) pg MCHC 31.6 L (33.0-35.0) g/dL Plt Count 284 (150-450) 10^3/uL Neut % (Auto) 61.4 (42.2-75.2) % Lymph % (Auto) 27.5 (20.5-50.1) % [place] % (Auto) 9.5 H (2-8) % Eos % (Auto) 1.4 (1.0-3.0) % Baso % (Auto) 0.2 (0.0-1.0) % PT 9.8 (9.0-12.0) SEC INR 1.0 (0.9-1.2) Sodium 138 (135-145) mmol/L Potassium 3.6 (3.6-5.0) mmol/L Chloride 99 L (101-111) mmol/L Carbon Dioxide 29.0 (21.0-31.0) mmol/L Anion Gap 13.6 BUN 13 (7-18) mg/dL Creatinine 1.0 (0.6-1.3) mg/dL Est Cr Clr Drug Dosing 41.40 mL/min Estimated GFR (MDRD) > 60 BUN/Creatinine Ratio 13.00 Glucose 86 (74-105) mg/dL Lactic Acid (0.5-2.0) mmol/L Calcium 8.7 (8.4-10.2) mg/dl Phosphorus (2.5-4.6) mg/dL Magnesium (1.8-2.5) mg/dL Total Bilirubin 0.4 (0.2-1.0) mg/dL AST 17 (10-42) IU/L ALT 11 (10-60) IU/L Alkaline Phosphatase 116 (42-121) IU/L Troponin I < 0.02 (0.00-0.02) ng/ml B-Natriuretic Peptide 60 (0-100) pg/ml Total Protein 8.3 H (6.7-8.2) g/dl Albumin 3.5 (3.2-5.5) g/dl Globulin 4.8 Albumin/Globulin Ratio 0.73 11/16/19 11/16/19 11/16/19 Range/Units 17:25 21:16 21:16 WBC 13.1 H (5.0-10.0) 10^3/uL RBC 5.45 H (4.2-5.4) 10^6/uL Hgb 13.6 (12.0-16.0) g/dL Hct 43.4 (37.0-47.0) % MCV 79.6 L (80-100) fL MCH 25.0 L (27.0-34.0) pg MCHC 31.3 L (33.0-35.0) g/dL Plt Count 282 (150-450) 10^3/uL Neut % (Auto) (42.2-75.2) % Lymph % (Auto) (20.5-50.1) % [place] % (Auto) (2-8) % Eos % (Auto) (1.0-3.0) % Baso % (Auto) (0.0-1.0) % PT (9.0-12.0) SEC INR (0.9-1.2) Sodium 138 (135-145) mmol/L Potassium 3.1 L (3.6-5.0) mmol/L Chloride 101 (101-111) mmol/L Carbon Dioxide 25.0 (21.0-31.0) mmol/L Anion Gap 15.1 BUN 13 (7-18) mg/dL Creatinine 1.1 (0.6-1.3) mg/dL Est Cr Clr Drug Dosing 37.64 mL/min Estimated GFR (MDRD) 60 BUN/Creatinine Ratio Glucose 113 H (74-105) mg/dL Lactic Acid 2.5 H* (0.5-2.0) mmol/L Calcium 8.6 (8.4-10.2) mg/dl Phosphorus 2.9 (2.5-4.6) mg/dL Magnesium 1.8 (1.8-2.5) mg/dL Total Bilirubin (0.2-1.0) mg/dL AST (10-42) IU/L ALT (10-60) IU/L Alkaline Phosphatase (42-121) IU/L Troponin I (0.00-0.02) ng/ml B-Natriuretic Peptide (0-100) pg/ml Total Protein (6.7-8.2) g/dl Albumin (3.2-5.5) g/dl Globulin Albumin/Globulin Ratio 11/17/19 11/17/19 11/17/19 Range/Units 00:30 04:09 04:09 WBC (5.0-10.0) 10^3/uL RBC (4.2-5.4) 10^6/uL Hgb (12.0-16.0) g/dL Hct (37.0-47.0) % MCV (80-100) fL MCH (27.0-34.0) pg MCHC (33.0-35.0) g/dL Plt Count (150-450) 10^3/uL Neut % (Auto) (42.2-75.2) % Lymph % (Auto) (20.5-50.1) % [place] % (Auto) (2-8) % Eos % (Auto) (1.0-3.0) % Baso % (Auto) (0.0-1.0) % PT (9.0-12.0) SEC INR (0.9-1.2) Sodium (135-145) mmol/L Potassium (3.6-5.0) mmol/L Chloride (101-111) mmol/L Carbon Dioxide (21.0-31.0) mmol/L Anion Gap BUN (7-18) mg/dL Creatinine (0.6-1.3) mg/dL Est Cr Clr Drug Dosing mL/min Estimated GFR (MDRD) BUN/Creatinine Ratio Glucose (74-105) mg/dL Lactic Acid 2.6 H* 2.5 H* (0.5-2.0) mmol/L Calcium (8.4-10.2) mg/dl Phosphorus (2.5-4.6) mg/dL Magnesium 2.0 (1.8-2.5) mg/dL Total Bilirubin (0.2-1.0) mg/dL AST (10-42) IU/L ALT (10-60) IU/L Alkaline Phosphatase (42-121) IU/L Troponin I (0.00-0.02) ng/ml B-Natriuretic Peptide (0-100) pg/ml Total Protein (6.7-8.2) g/dl Albumin (3.2-5.5) g/dl Globulin Albumin/Globulin Ratio Oz Results Last 24 Hours: Microbiology 11/16/19 21:16 Anaerobic Blood Culture - Final Blood - Venous - Lab Draw 11/16/19 17:25 Anaerobic Blood Culture - Final Blood - Venous Med Orders - Current: Current Medications Acetaminophen (Tylenol) 650 mg PO Q4H PRN PRN Reason: Pain (mild 1-3) Albuterol (Proventil Neb Soln) 2.5 mg NEB Q2H PRN PRN Reason: shortness of breath/wheezing Albuterol/Ipratropium (Duoneb 3.0-0.5 Mg/3 Ml) 3 ml NEB Q6H [facility] Last Admin: 11/17/19 07:26 Dose: 3 ml Allopurinol (Zyloprim) 300 mg PO DAILY [facility] Last Admin: 11/17/19 08:46 Dose: 300 mg Amlodipine Besylate (Norvasc) 10 mg PO BEDTIME [facility] Last Admin: 11/16/19 20:55 Dose: 10 mg Atorvastatin Calcium (Lipitor) 20 mg PO DAILY [facility] Last Admin: 11/17/19 08:46 Dose: 20 mg Azithromycin (Zithromax) 250 mg PO DAILY [facility] Citalopram Hydrobromide (Celexa) 20 mg PO DAILY [facility] Last Admin: 11/17/19 08:46 Dose: 20 mg Enoxaparin Sodium (Lovenox) 40 mg SUBCUT DAILY [facility] Last Admin: 11/17/19 08:53 Dose: 40 mg Famotidine (Pepcid) 40 mg PO DAILY [facility] Hydrochlorothiazide (Hydrochlorothiazide) 12.5 mg PO BID [facility] Last Admin: 11/17/19 08:45 Dose: 12.5 mg Ceftriaxone Sodium 2 gm/ (Sodium Chloride) 100 mls @ 200 mls/hr IV Q24H [facility] Last Infusion: 11/16/19 23:27 Dose: Infused Losartan Potassium (Cozaar) 100 mg PO BID [facility] Last Admin: 11/16/19 21:15 Dose: Not Given Mometasone Furoate/Formoterol Fumar (Dulera 200-5 Mcg) 2 puff IH BID [facility] Last Admin: 11/17/19 08:50 Dose: 2 puff Nicotine (Habitrol) 14 mg TRDERM DAILY [facility] Last Admin: 11/17/19 08:48 Dose: 14 mg Ondansetron HCl (Zofran Odt) 4 mg PO Q6H PRN PRN Reason: nausea, able to take PO Ondansetron HCl (Zofran) 4 mg IVPUSH Q4H PRN PRN Reason: Nausea/Vomiting Prednisone (Prednisone) 40 mg PO DAILY [facility] Stop: 11/20/19 09:01 Last Admin: 11/17/19 08:46 Dose: 40 mg Senna/Docusate Sodium (Senna Plus) 1 tab PO BEDTIME PRN PRN Reason: Constipation Tiotropium [place] (Spiriva Handihaler) 18 mcg INH DAILY [facility] Last Admin: 11/17/19 08:51 Dose: 18 mcg Verapamil HCl (Calan Sr) 180 mg PO DAILY [facility] Last Admin: 11/17/19 08:45 Dose: 180 mg Discontinued Medications Aspirin (Aspirin) 324 mg PO ONETIME ONE Stop: 11/16/19 17:18 Last Admin: 11/16/19 17:23 Dose: 324 mg Azithromycin (Zithromax) 500 mg PO DAILY [facility] Last Admin: 11/17/19 08:46 Dose: 500 mg Famotidine (Pepcid) 40 mg PO ONETIME ONE Stop: 11/16/19 21:01 Last Admin: 11/16/19 20:55 Dose: 40 mg Furosemide (Lasix) 40 mg IVPUSH NOW ONE Stop: 11/16/19 17:17 Last Admin: 11/16/19 17:25 Dose: 40 mg Furosemide (Lasix) 40 mg IVPUSH ONETIME ONE Stop: 11/17/19 09:01 Last Admin: 11/17/19 08:47 Dose: 40 mg Sodium Chloride (Normal Saline) 1,000 mls @ 100 mls/hr IV ASDIRECTED [facility] Potassium Chloride 20 meq/ (Premix) 0 mls @ 50 mls/hr IV Q2H [facility] Stop: 11/17/19 02:31 Last Admin: 11/17/19 05:46 Dose: 25 mls/hr Non-Formulary Medication (Famotidine [Pepcid]) 40 mg PO BID [facility] Potassium Chloride (Klor-Con 10) 40 meq PO ONETIME ONE Stop: 11/17/19 00:25 Last Admin: 11/17/19 01:17 Dose: 40 meq - Exam Quality Assessment: Supplemental Oxygen (Has not been keeping nasal cannula on but tolerates it when kept on. ) General: Alert, Oriented, Cooperative, Moderate Distress HEENT: Pupils Equal, Pupils Reactive, Mucous Membr. Moist/[place] Neck: Supple Lungs: Crackles, Rhonchi, Wheezing Cardiovascular: Regular Rhythm, No Murmurs, Tachycardia, Murmurs GI/Abdominal Exam: Normal Bowel Sounds, Soft, Non-Tender, No Distention Extremities: Normal Inspection, Non-Tender, No Pedal Edema Peripheral Pulses: 2+: Radial (L), Radial (R), Dorsalis Pedis (L), Dorsalis Pedis (R) Skin: Warm, Dry, Intact Neurological: No New Focal Deficit Psy/Mental Status: Alert, Normal Affect, Normal Mood Sepsis Event Note - Evaluation Sepsis Screening Result: Severe Sepsis Risk - Focused Exam Vital Signs: Vital Signs Temp Pulse Resp BP Pulse Ox 11/17/19 08:21 97.4 F 88 24 H 116/72 100 11/17/19 07:26 86 11/17/19 04:00 91 22 H 90 L 11/17/19 00:00 97.2 F 85 22 H 107/50 L 96 Date Exam was Performed: 11/17/19 Time Exam was Performed: 11:40 - Problem List & Annotations (1) COPD exacerbation SNOMED Code(s): 118949461 Code(s): J44.1 - CHRONIC OBSTRUCTIVE PULMONARY DISEASE W (ACUTE) EXACERBATION Status: Acute Current Visit: No (2) HTN (hypertension) SNOMED Code(s): 16654583 Code(s): I10 - ESSENTIAL (PRIMARY) HYPERTENSION Status: Acute Current Visit: No Qualifiers: Hypertension type: essential hypertension Qualified Code(s): I10 - Essential (primary) hypertension (3) Severe sepsis with acute organ dysfunction SNOMED Code(s): 16708031 Code(s): A41.9 - SEPSIS, UNSPECIFIED ORGANISM; R65.20 - SEVERE SEPSIS WITHOUT SEPTIC SHOCK Status: Acute Current Visit: Yes (4) COPD exacerbation SNOMED Code(s): 206180161 Code(s): J44.1 - CHRONIC OBSTRUCTIVE PULMONARY DISEASE W (ACUTE) EXACERBATION Status: Acute Current Visit: Yes (5) CHF exacerbation SNOMED Code(s): 453041341, 59345017290360 Code(s): I50.9 - HEART FAILURE, UNSPECIFIED Status: Acute Current Visit: Yes - Problem List Review Problem List Initiated/Reviewed/Updated: Yes - My Orders Last 24 Hours: My Active Orders 11/16/19 19:51 Height and Weight [RC] 0600 Oxygen Therapy [RC] PRN VTE/DVT Education [RC] PER UNIT ROUTINE Vital Signs [RC] 00,04,08,12,16,20 Acetaminophen [Tylenol] 650 mg PO Q4H PRN Albuterol [Proventil Neb Soln] 2.5 mg NEB Q2H PRN Docusate Sodium/Sennosides [Senna Plus] 1 tab PO BEDTIME PRN Ondansetron [Zofran ODT] 4 mg PO Q6H PRN Ondansetron [Zofran] 4 mg IVPUSH Q4H PRN Resuscitation Status Routine 11/16/19 19:53 Intake and Output [RC] QSHIFT 11/16/19 19:55 RT Aerosol Therapy [RC] ASDIRECTED 11/16/19 20:00 Albuterol/Ipratropium [DuoNeb 3.0-0.5 MG/3 ML] 3 ml NEB Q6H cefTRIAXone [Rocephin] 2 gm Sodium Chloride 0.9% [Normal Saline] 100 ml IV Q24H 11/16/19 20:30 Echo Comp wo Cont [US] Routine Nicotine [Habitrol] 14 mg TRDERM DAILY 11/16/19 20:32 Incentive Spirometry [RT Incentive Spirometry] [RC] Q1HWA 11/16/19 20:45 predniSONE 40 mg PO DAILY 11/16/19 21:00 Losartan [Cozaar] 100 mg PO BID Mometasone/Formoterol [Dulera 200-5 MCG] 2 puff IH BID amLODIPine [Norvasc] 10 mg PO BEDTIME hydroCHLOROthiazide 12.5 mg PO BID 11/16/19 Dinner 2 Gram Sodium Diet [DIET] 11/17/19 07:00 Ambulate [RC] QID 11/17/19 09:00 Citalopram [Celexa] 20 mg PO DAILY Enoxaparin [Lovenox] 40 mg SUBCUT DAILY Tiotropium [Spiriva HandiHaler] 18 mcg INH DAILY Verapamil [Calan SR] 180 mg PO DAILY allopurinoL [Zyloprim] 300 mg PO DAILY atorvaSTATin [Lipitor] 20 mg PO DAILY 11/17/19 10:00 CBC W/O DIFF,HEMOGRAM [HEME] Routine 11/18/19 05:11 BASIC METABOLIC PANEL,BMP [CHEM] AM CBC W/O DIFF,HEMOGRAM [HEME] AM MAGNESIUM [CHEM] AM PHOSPHORUS [CHEM] AM 11/18/19 09:00 Azithromycin [Zithromax] 250 mg PO DAILY Famotidine [Pepcid] 40 mg PO DAILY - Plan Plan:: #Severe sepsis with acute organ dysfunction: Patient with WBC count of 12.3, with heart rate of 107, and checks x-ray per my independent review showing probable right lower lobe infiltrate with superimposed left pleural effusion and bilateral pulmonary edema. -Telemonitoring -Trend lactic -Continue azithromycin and rocephin #CHF patient: Patient with bilateral pulmonary congestion. Patient was started on O2 prior to arrival in the ED. O2 level at home not documented. However patient with significant progressively worsening shortness of breath and chest x -ray findings confirming clinical diagnosis. Ports PND and orthopnea. Not on any diuretic at home besides hydrochlorothiazide. - Continue IV Lasix - Low-sodium diet - Daily weight - Encourage ambulation's - Incentive spirometer - Echocardiogram #Acute COPD exacerbation: Patient with diffuse rhonchi, worsening cough, worsening shortness of breath, and worsening sputum production. - Nebulized and inhaled treatments. - IS - Encourage ambulation - Continue prednisone #Lactic acidosis 2.5: Went up to 2.6 and then came back down to 2.5. - Monitor lactic acid level while on IV diuresis for now - If lactic acid increases on diuretics, will start IV fluids - Since lactic acid is not increasing much, persistent levels could be due to albuterol treatments. #Acute respiratory failure with hypoxia: Patient with O2 saturation of 83% on room air today. - Supplemental oxygen, titrate to SPO2 of 88 to 92% - Obtain ABG - Encourage IS and flutter valve use #Hypokalemia: K was down to 3.1. Mag is 2.0. - Received IV and oral replacements. - Monitor BMP - Monitor and replace electrolytes. #Tobacco use disorder: Patient reports that she smokes half pack cigarettes daily. - Smoking cessation counseling provided - Patient reports that she will try to quit smoking - Nicotine patch - Continue support #Hypertension: BP is at goal. - Continue home blood pressure medications #Obesity: BMI of 45.4 - Weight loss counseling P PX: DVT: Lovenox GI: Cardiac diet Code status: DNR/DNI
[2019-11-17] MEDS ORDERED: Sodium Chloride 0.9% 1,000 ML IV SCH ×2 (13:15→18:45)
[2019-11-17 13:43] LABS: O2 DELIVERY DEVICE NON REBR MASK
[2019-11-17 13:45] LABS: BASE EXCESS ARTERIAL 0 mmol/L ((-2)-(+3)); BICARBONATE,ARTERIAL 24.3 mmol/L (22-26); O2 SATURATION ARTERIAL 92 % (95-100); PCO2 ARTERIAL 41 mmHg (35-45); PO2 ARTERIAL 63 mmHg (70-100)
[2019-11-17 13:48] LABS: ALLEN TEST pos; O2 FLOW RATE 2
[2019-11-17] MEDS: Meropenem Premix 1 GM in Premix Bag 1 BAG IV SCH (14:09)
[2019-11-17] MEDS: guaiFENesin 100 MG/5 ML Soln 5 ML UD Cup PO PRN ×2 (15:14→23:50)
[2019-11-17] MEDS: amLODIPine 5 MG Tab PO SCH (21:36)
[2019-11-17] MEDS: Losartan 25 MG Tab PO SCH (21:39)
[2019-11-18] MEDS: Meropenem Premix 1 GM in Premix Bag 1 BAG IV SCH ×2 (02:11→14:05)
[2019-11-18] MEDS: Albuterol/Ipratropium 3.0-0.5 MG/3 ML Neb Soln NEB SCH ×4 (02:15→18:32)
[2019-11-18 07:07] LABS: ANION GAP 12.5; CHLORIDE,CL 104 mmol/L (101-111); SODIUM,NA 138 mmol/L (135-145)
[2019-11-18] MEDS: guaiFENesin 100 MG/5 ML Soln 5 ML UD Cup PO PRN ×3 (07:26→21:24)
[2019-11-18] MEDS: Nicotine 14 MG/24 Hr Patch TRDERM SCH (08:34)
[2019-11-18] MEDS: Enoxaparin 40 MG/0.4 ML Syringe SUBCUT SCH (08:34)
[2019-11-18] MEDS: predniSONE 20 MG Tab PO SCH (08:37)
[2019-11-18] MEDS: Losartan 25 MG Tab PO SCH ×2 (08:38→21:22)
[2019-11-18] MEDS: Hydrochlorothiazide 25 MG Tab PO SCH ×2 (08:39→21:23)
[2019-11-18] MEDS: Verapamil 180 MG Tab.ER PO SCH (08:39)
[2019-11-18] MEDS: Citalopram 20 MG Tab PO SCH (08:39)
[2019-11-18] MEDS: Famotidine 20 MG Tab PO SCH (08:40)
[2019-11-18] MEDS: Allopurinol 300 MG Tab PO SCH (08:40)
[2019-11-18] MEDS: atorvaSTATin 20 MG Tab PO SCH (08:40)
[2019-11-18] MEDS: Tiotropium Inhaler 18 MCG Inhalation Powder Cap Kit of 5 INH SCH (08:42)
[2019-11-18] MEDS: Formoterol/Mometasone 200-5 MCG 8.8 GM Inhaler IH SCH ×2 (08:42→21:24)
[2019-11-18] MEDS ORDERED: Azithromycin 250 MG Tab PO SCH (09:00)
[2019-11-18] MEDS ORDERED: Potassium Chloride 10 MEQ Tab.ER PO ONE (10:15)
--- NOTE | 2019-11-18 10:50 | PCM.PN ---
- General Info Date of Service: 11/18/19 Admission Dx/Problem (Free Text): Admission Diagnosis/Problem Admission Diagnosis/Problem Severe sepsis Subjective Update: Patient continues to have wheezing and shortness of breath with exertion. Lactic improved with IVF. Continues to have cough. No chest pain, fevers, chills , nausea, vomiting, diarrhea, constipation, dysuria, or any acute symptoms. - Patient Data Vitals - Most Recent: Last Vital Signs Temp 97.6 F 11/18/19 08:08 Pulse 75 11/18/19 08:08 Resp 20 11/18/19 08:08 BP 113/71 11/18/19 08:38 Pulse Ox 98 11/18/19 08:08 Weight - Most Recent: 253 lb I&O - Last 24 Hours: Intake & Output 11/17/19 11/18/19 11/18/19 22:59 06:59 14:59 Intake Total 340 1604 715 Output Total 1000 1250 Balance -660 354 715 Lab Results Last 24 Hours: Laboratory Results - last 24 hr 11/17/19 11/17/19 11/17/19 Range/Units 12:26 12:26 12:26 WBC 11.2 H (5.0-10.0) 10^3/uL RBC 5.57 H (4.2-5.4) 10^6/uL Hgb 13.7 (12.0-16.0) g/dL Hct 43.8 (37.0-47.0) % MCV 78.6 L (80-100) fL MCH 24.6 L (27.0-34.0) pg MCHC 31.3 L (33.0-35.0) g/dL Plt Count 262 (150-450) 10^3/uL ABG pH (7.35-7.45) ABG pCO2 (35-45) mmHg ABG pO2 (70-100) mmHg ABG HCO3 (22-26) mmol/L ABG O2 Saturation (95-100) % ABG Base Excess ((-2)-(+3)) mmol/L Sanju Test O2 Delivery Device Oxygen Flow Rate Sodium 135 (135-145) mmol/L Potassium 5.0 D (3.6-5.0) mmol/L Chloride 100 L (101-111) mmol/L Carbon Dioxide 22.0 (21.0-31.0) mmol/L Anion Gap 18.0 BUN 18 (7-18) mg/dL Creatinine 1.2 (0.6-1.3) mg/dL Est Cr Clr Drug Dosing 34.50 mL/min Estimated GFR (MDRD) 54 Glucose 144 H (74-105) mg/dL Lactic Acid 3.7 H* (0.5-2.0) mmol/L Calcium 8.9 (8.4-10.2) mg/dl Phosphorus (2.5-4.6) mg/dL Magnesium (1.8-2.5) mg/dL 11/17/19 11/17/19 11/17/19 Range/Units 13:35 17:47 22:10 WBC (5.0-10.0) 10^3/uL RBC (4.2-5.4) 10^6/uL Hgb (12.0-16.0) g/dL Hct (37.0-47.0) % MCV (80-100) fL MCH (27.0-34.0) pg MCHC (33.0-35.0) g/dL Plt Count (150-450) 10^3/uL ABG pH 7.39 (7.35-7.45) ABG pCO2 41 (35-45) mmHg ABG pO2 63 L (70-100) mmHg ABG HCO3 24.3 (22-26) mmol/L ABG O2 Saturation 92 L (95-100) % ABG Base Excess 0 ((-2)-(+3)) mmol/L Sanju Test pos O2 Delivery Device Non rebr mask Oxygen Flow Rate 2 Sodium (135-145) mmol/L Potassium (3.6-5.0) mmol/L Chloride (101-111) mmol/L Carbon Dioxide (21.0-31.0) mmol/L Anion Gap BUN (7-18) mg/dL Creatinine (0.6-1.3) mg/dL Est Cr Clr Drug Dosing mL/min Estimated GFR (MDRD) Glucose (74-105) mg/dL Lactic Acid 4.5 H* 2.7 H* (0.5-2.0) mmol/L Calcium (8.4-10.2) mg/dl Phosphorus (2.5-4.6) mg/dL Magnesium (1.8-2.5) mg/dL 11/18/19 11/18/19 11/18/19 Range/Units 02:05 06:05 06:05 WBC 13.2 H (5.0-10.0) 10^3/uL RBC 4.80 (4.2-5.4) 10^6/uL Hgb 11.9 L D (12.0-16.0) g/dL Hct 37.8 (37.0-47.0) % MCV 78.8 L (80-100) fL MCH 24.8 L (27.0-34.0) pg MCHC 31.5 L (33.0-35.0) g/dL Plt Count 253 (150-450) 10^3/uL ABG pH (7.35-7.45) ABG pCO2 (35-45) mmHg ABG pO2 (70-100) mmHg ABG HCO3 (22-26) mmol/L ABG O2 Saturation (95-100) % ABG Base Excess ((-2)-(+3)) mmol/L Sanju Test O2 Delivery Device Oxygen Flow Rate Sodium 138 (135-145) mmol/L Potassium 3.5 L D (3.6-5.0) mmol/L Chloride 104 (101-111) mmol/L Carbon Dioxide 25.0 (21.0-31.0) mmol/L Anion Gap 12.5 BUN 19 H (7-18) mg/dL Creatinine 1.0 (0.6-1.3) mg/dL Est Cr Clr Drug Dosing 41.40 mL/min Estimated GFR (MDRD) > 60 Glucose 110 H (74-105) mg/dL Lactic Acid 1.3 (0.5-2.0) mmol/L Calcium 8.1 L (8.4-10.2) mg/dl Phosphorus 2.9 (2.5-4.6) mg/dL Magnesium 1.9 (1.8-2.5) mg/dL Oz Results Last 24 Hours: Microbiology 11/16/19 21:16 Aerobic Blood Culture - Preliminary Blood - Venous - Lab Draw NO GROWTH AFTER 1 DAY Anaerobic Blood Culture - Final 11/16/19 17:25 Aerobic Blood Culture - Preliminary Blood - Venous NO GROWTH AFTER 1 DAY Anaerobic Blood Culture - Final Med Orders - Current: Current Medications Acetaminophen (Tylenol) 650 mg PO Q4H PRN PRN Reason: Pain (mild 1-3) Albuterol/Ipratropium (Duoneb 3.0-0.5 Mg/3 Ml) 3 ml NEB Q6HRRT [facility] Allopurinol (Zyloprim) 300 mg PO DAILY [facility] Last Admin: 11/18/19 08:40 Dose: 300 mg Amlodipine Besylate (Norvasc) 10 mg PO BEDTIME [facility] Last Admin: 11/17/19 21:36 Dose: 10 mg Atorvastatin Calcium (Lipitor) 20 mg PO DAILY [facility] Last Admin: 11/18/19 08:40 Dose: 20 mg Citalopram Hydrobromide (Celexa) 20 mg PO DAILY [facility] Last Admin: 11/18/19 08:39 Dose: 20 mg Enoxaparin Sodium (Lovenox) 40 mg SUBCUT DAILY [facility] Last Admin: 11/18/19 08:34 Dose: 40 mg Famotidine (Pepcid) 40 mg PO DAILY [facility] Last Admin: 11/18/19 08:40 Dose: 40 mg Guaifenesin (Robitussin) 100 mg PO Q6H PRN PRN Reason: Cough Last Admin: 11/18/19 07:26 Dose: 100 mg Hydrochlorothiazide (Hydrochlorothiazide) 12.5 mg PO BID [facility] Last Admin: 11/18/19 08:39 Dose: 12.5 mg Meropenem/Sodium Chloride 1 gm (/ Premix) 50 mls @ 100 mls/hr IV Q12H [facility] Last Infusion: 11/18/19 02:49 Dose: Infused Vancomycin HCl 1.5 gm/ Premix 300 mls @ 200 mls/hr IV Q24H [facility] Losartan Potassium (Cozaar) 100 mg PO BID [facility] Last Admin: 11/18/19 08:38 Dose: 100 mg Mometasone Furoate/Formoterol Fumar (Dulera 200-5 Mcg) 2 puff IH BID [facility] Last Admin: 11/18/19 08:42 Dose: 2 puff Nicotine (Habitrol) 14 mg TRDERM DAILY [facility] Last Admin: 11/18/19 08:34 Dose: 14 mg Ondansetron HCl (Zofran Odt) 4 mg PO Q6H PRN PRN Reason: nausea, able to take PO Ondansetron HCl (Zofran) 4 mg IVPUSH Q4H PRN PRN Reason: Nausea/Vomiting Prednisone (Prednisone) 40 mg PO DAILY [facility] Stop: 11/20/19 09:01 Last Admin: 11/18/19 08:37 Dose: 40 mg Senna/Docusate Sodium (Senna Plus) 1 tab PO BEDTIME PRN PRN Reason: Constipation Tiotropium [place] (Spiriva Handihaler) 18 mcg INH DAILY [facility] Last Admin: 11/18/19 08:42 Dose: 18 mcg Vancomycin HCl (Pharmacy To Dose - Vancomycin) 1 dose .XX ASDIRECTED [facility] Verapamil HCl (Calan Sr) 180 mg PO DAILY [facility] Last Admin: 11/18/19 08:39 Dose: 180 mg Discontinued Medications Albuterol (Proventil Neb Soln) 2.5 mg NEB Q2H PRN PRN Reason: shortness of breath/wheezing Albuterol/Ipratropium (Duoneb 3.0-0.5 Mg/3 Ml) 3 ml NEB Q6H [facility] Last Admin: 11/18/19 07:27 Dose: 3 ml Aspirin (Aspirin) 324 mg PO ONETIME ONE Stop: 11/16/19 17:18 Last Admin: 11/16/19 17:23 Dose: 324 mg Azithromycin (Zithromax) 500 mg PO DAILY [facility] Last Admin: 11/17/19 08:46 Dose: 500 mg Azithromycin (Zithromax) 250 mg PO DAILY [facility] Famotidine (Pepcid) 40 mg PO ONETIME ONE Stop: 11/16/19 21:01 Last Admin: 11/16/19 20:55 Dose: 40 mg Furosemide (Lasix) 40 mg IVPUSH NOW ONE Stop: 11/16/19 17:17 Last Admin: 11/16/19 17:25 Dose: 40 mg Furosemide (Lasix) 40 mg IVPUSH ONETIME ONE Stop: 11/17/19 09:01 Last Admin: 11/17/19 08:47 Dose: 40 mg Furosemide (Lasix) 40 mg IVPUSH NOW ONE Stop: 11/17/19 18:42 Last Admin: 11/17/19 19:35 Dose: 40 mg Ceftriaxone Sodium 2 gm/ (Sodium Chloride) 100 mls @ 200 mls/hr IV Q24H [facility] Last Infusion: 11/16/19 23:27 Dose: Infused Sodium Chloride (Normal Saline) 1,000 mls @ 100 mls/hr IV ASDIRECTED [facility] Potassium Chloride 20 meq/ (Premix) 0 mls @ 50 mls/hr IV Q2H [facility] Stop: 11/17/19 02:31 Last Admin: 11/17/19 05:46 Dose: 25 mls/hr Sodium Chloride (Normal Saline) 1,000 mls @ 200 mls/hr IV ASDIRECTED [facility] Stop: 11/17/19 18:14 Last Admin: 11/17/19 13:22 Dose: 200 mls/hr Vancomycin HCl 1,500 mg/ (Sodium Chloride) 500 mls @ 333.333 mls/hr IV Q24H [facility] Last Admin: 11/17/19 15:11 Dose: 333.333 mls/hr Sodium Chloride (Normal Saline) 1,000 mls @ 100 mls/hr IV ASDIRECTED [facility] Last Infusion: 11/18/19 09:42 Dose: Infused Losartan Potassium (Cozaar) 100 mg PO BID [facility] Last Admin: 11/17/19 21:48 Dose: Not Given Non-Formulary Medication (Famotidine [Pepcid]) 40 mg PO BID [facility] Last Admin: 11/17/19 11:44 Dose: Not Given Potassium Chloride (Klor-Con 10) 40 meq PO ONETIME ONE Stop: 11/17/19 00:25 Last Admin: 11/17/19 01:17 Dose: 40 meq Potassium Chloride (Klor-Con 10) 40 meq PO ONETIME ONE Stop: 11/18/19 10:16 Last Admin: 11/18/19 10:22 Dose: 40 meq - Exam General: Alert, Oriented, Cooperative, No Acute Distress HEENT: Pupils Equal, Pupils Reactive, EOMI Neck: Supple Lungs: Wheezing Cardiovascular: Regular Rate, Regular Rhythm GI/Abdominal Exam: Normal Bowel Sounds, Soft, Non-Tender, No Distention Extremities: Normal Inspection, Normal Range of Motion, No Pedal Edema Peripheral Pulses: 2+: Radial (L), Radial (R), Dorsalis Pedis (L), Dorsalis Pedis (R) Skin: Warm, Dry, Intact Neurological: No New Focal Deficit Psy/Mental Status: Alert, Normal Affect, Normal Mood Sepsis Event Note - Evaluation Sepsis Screening Result: Sepsis Risk - Focused Exam Vital Signs: Vital Signs Temp Pulse Resp BP BP Pulse Ox Pulse Ox 11/18/19 08:38 113/71 11/18/19 08:08 97.6 F 75 20 113/71 98 11/18/19 07:28 78 96 11/18/19 02:58 98.4 F 74 24 H 112/59 L 99 11/18/19 02:24 74 99 Date Exam was Performed: 11/18/19 Time Exam was Performed: 10:42 - Problem List & Annotations (1) COPD exacerbation SNOMED Code(s): 552103244 Code(s): J44.1 - CHRONIC OBSTRUCTIVE PULMONARY DISEASE W (ACUTE) EXACERBATION Status: Acute Current Visit: No (2) HTN (hypertension) SNOMED Code(s): 56665972 Code(s): I10 - ESSENTIAL (PRIMARY) HYPERTENSION Status: Acute Current Visit: No Qualifiers: Hypertension type: essential hypertension Qualified Code(s): I10 - Essential (primary) hypertension (3) Severe sepsis with acute organ dysfunction SNOMED Code(s): 14036063 Code(s): A41.9 - SEPSIS, UNSPECIFIED ORGANISM; R65.20 - SEVERE SEPSIS WITHOUT SEPTIC SHOCK Status: Acute Current Visit: Yes (4) COPD exacerbation SNOMED Code(s): 436251746 Code(s): J44.1 - CHRONIC OBSTRUCTIVE PULMONARY DISEASE W (ACUTE) EXACERBATION Status: Acute Current Visit: Yes (5) CHF exacerbation SNOMED Code(s): 648932528, 94702242747286 Code(s): I50.9 - HEART FAILURE, UNSPECIFIED Status: Acute Current Visit: Yes - Problem List Review Problem List Initiated/Reviewed/Updated: Yes - My Orders Last 24 Hours: My Active Orders 11/17/19 13:15 Pharmacy to Dose - Vancomycin 1 dose .XX ASDIRECTED 11/17/19 14:00 Meropenem Premix [Meropenem] 1 gm Premix Bag 1 bag IV Q12H 11/17/19 15:00 guaiFENesin [Robitussin] 100 mg PO Q6H PRN 11/17/19 18:39 Communication Order [RC] ROUTINE 11/17/19 18:42 Urinary Catheter Assessment [RC] 11/17/19 21:29 Losartan [Cozaar] 100 mg PO BID 11/18/19 09:00 Famotidine [Pepcid] 40 mg PO DAILY 11/18/19 10:23 Remove Awad Catheter [Urinary Catheter Removal] [RC] Per Unit Routine 11/18/19 13:00 Albuterol/Ipratropium [DuoNeb 3.0-0.5 MG/3 ML] 3 ml NEB Q6HRRT 11/18/19 15:00 VANCOmycin/Water for INJ (PEG) [VANCOmycin 1.5 GM/300 ML Premix] 1.5 gm Premix Bag 1 bag IV Q24H - Plan Plan:: #Severe sepsis with acute organ dysfunction: Patient with WBC count of 12.3, with heart rate of 107, and checks x-ray per my independent review showing probable right lower lobe infiltrate with superimposed left pleural effusion and bilateral pulmonary edema. Lactic acidosis resolved with IVF and broadened antibiotics. -Continue vancomycin and meropenem #CHF patient: Patient with bilateral pulmonary congestion. Patient was started on O2 prior to arrival in the ED. O2 level at home not documented. However patient with significant progressively worsening shortness of breath and chest x -ray findings confirming clinical diagnosis. Ports PND and orthopnea. Not on any diuretic at home besides hydrochlorothiazide. - Continue IV Lasix - Low-sodium diet - Daily weight - Encourage ambulation's - Incentive spirometer - Echocardiogram report pending. #Acute COPD exacerbation: Patient with diffuse rhonchi, worsening cough, worsening shortness of breath, and worsening sputum production. - Nebulized and inhaled treatments. - IS - Encourage ambulation - Continue prednisone #Lactic acidosis: Resolved. Lactic went up to 4.5. -Improved with discontinue albuterol, IVF, and broadened Abx spectrum. W #Acute respiratory failure with hypoxia: Patient with O2 saturation of 83% on room air on 11/17/2019. - Encourage IS and flutter valve use #Hypokalemia: K was down to 3.1. Mag is 2.0. - Received IV and oral replacements. - Monitor BMP - Monitor and replace electrolytes. #Tobacco use disorder: Patient reports that she smokes half pack cigarettes daily. - Smoking cessation counseling provided - Patient reports that she will try to quit smoking - Nicotine patch - Continue support #Hypertension: BP is at goal. - Continue home blood pressure medications #Obesity: BMI of 45.4 - Weight loss counseling P PX: DVT: Lovenox GI: Cardiac diet Code status: DNR/DNI
[2019-11-18] MEDS: amLODIPine 5 MG Tab PO SCH (21:22)
[2019-11-19] MEDS: Albuterol/Ipratropium 3.0-0.5 MG/3 ML Neb Soln NEB SCH ×5 (00:29→18:00)
[2019-11-19] MEDS: Meropenem Premix 1 GM in Premix Bag 1 BAG IV SCH ×2 (01:53→17:27)
[2019-11-19 07:04] LABS: ANION GAP 13.1; CHLORIDE,CL 104 mmol/L (101-111); SODIUM,NA 138 mmol/L (135-145)
[2019-11-19] MEDS: Nicotine 14 MG/24 Hr Patch TRDERM SCH (09:36)
[2019-11-19] MEDS: Enoxaparin 40 MG/0.4 ML Syringe SUBCUT SCH (09:36)
[2019-11-19] MEDS: Allopurinol 300 MG Tab PO SCH (09:36)
[2019-11-19] MEDS: atorvaSTATin 20 MG Tab PO SCH (09:36)
[2019-11-19] MEDS: Citalopram 20 MG Tab PO SCH (09:37)
[2019-11-19] MEDS: Losartan 25 MG Tab PO SCH ×2 (09:37→21:47)
[2019-11-19] MEDS: Verapamil 180 MG Tab.ER PO SCH (09:37)
[2019-11-19] MEDS: predniSONE 20 MG Tab PO SCH (09:38)
[2019-11-19] MEDS: Hydrochlorothiazide 25 MG Tab PO SCH ×2 (09:39→21:48)
[2019-11-19] MEDS: Famotidine 20 MG Tab PO SCH (09:39)
[2019-11-19] MEDS: Tiotropium Inhaler 18 MCG Inhalation Powder Cap Kit of 5 INH SCH (09:40)
[2019-11-19] MEDS: Formoterol/Mometasone 200-5 MCG 8.8 GM Inhaler IH SCH ×2 (09:41→21:51)
[2019-11-19] MEDS ORDERED: Iopamidol 755 Mg/ML 100 ML Bottle IVPUSH ONE (11:31)
--- NOTE | 2019-11-19 11:34 | PCM.PN ---
- General Info Date of Service: 11/19/19 Admission Dx/Problem (Free Text): Admission Diagnosis/Problem Admission Diagnosis/Problem Severe sepsis Subjective Update: Patient continues to have wheezing and shortness of breath with exertion. Walking desat had to be stopped as patient was significantly wheezy, short of breath, and tired after walking for one minute. Continues to have cough. No chest pain, fevers, chills, nausea, vomiting, diarrhea, constipation, dysuria, or any other acute symptoms. - Patient Data Vitals - Most Recent: Last Vital Signs Temp 98.0 F 11/19/19 08:05 Pulse 78 11/19/19 08:05 Resp 20 11/19/19 08:05 BP 107/64 11/19/19 09:37 Pulse Ox 98 11/19/19 08:05 Weight - Most Recent: 254 lb 9.6 oz I&O - Last 24 Hours: Intake & Output 11/18/19 11/19/19 11/19/19 22:59 06:59 14:59 Intake Total 1916 650 520 Output Total 900 1300 Balance 1016 -650 520 Lab Results Last 24 Hours: Laboratory Results - last 24 hr 11/19/19 11/19/19 Range/Units 06:00 06:00 WBC 15.2 H (5.0-10.0) 10^3/uL RBC 4.90 (4.2-5.4) 10^6/uL Hgb 12.2 (12.0-16.0) g/dL Hct 39.2 (37.0-47.0) % MCV 80.0 (80-100) fL MCH 24.9 L (27.0-34.0) pg MCHC 31.1 L (33.0-35.0) g/dL Plt Count 263 (150-450) 10^3/uL Sodium 138 (135-145) mmol/L Potassium 4.1 (3.6-5.0) mmol/L Chloride 104 (101-111) mmol/L Carbon Dioxide 25.0 (21.0-31.0) mmol/L Anion Gap 13.1 BUN 20 H (7-18) mg/dL Creatinine 0.9 (0.6-1.3) mg/dL Est Cr Clr Drug Dosing 46.00 mL/min Estimated GFR (MDRD) > 60 Glucose 109 H (74-105) mg/dL Calcium 8.5 (8.4-10.2) mg/dl Oz Results Last 24 Hours: Microbiology 11/16/19 21:16 Aerobic Blood Culture - Preliminary Blood - Venous - Lab Draw NO GROWTH AFTER 2 DAYS Anaerobic Blood Culture - Final 11/16/19 17:25 Aerobic Blood Culture - Preliminary Blood - Venous NO GROWTH AFTER 2 DAYS Anaerobic Blood Culture - Final Med Orders - Current: Current Medications Acetaminophen (Tylenol) 650 mg PO Q4H PRN PRN Reason: Pain (mild 1-3) Last Admin: 11/18/19 21:43 Dose: 650 mg Albuterol/Ipratropium (Duoneb 3.0-0.5 Mg/3 Ml) 3 ml NEB Q6HRRT [facility] Last Admin: 11/19/19 08:06 Dose: 3 ml Allopurinol (Zyloprim) 300 mg PO DAILY [facility] Last Admin: 11/19/19 09:36 Dose: 300 mg Amlodipine Besylate (Norvasc) 10 mg PO BEDTIME [facility] Last Admin: 11/18/19 21:22 Dose: 10 mg Atorvastatin Calcium (Lipitor) 20 mg PO DAILY [facility] Last Admin: 11/19/19 09:36 Dose: 20 mg Citalopram Hydrobromide (Celexa) 20 mg PO DAILY [facility] Last Admin: 11/19/19 09:37 Dose: 20 mg Enoxaparin Sodium (Lovenox) 40 mg SUBCUT DAILY [facility] Last Admin: 11/19/19 09:36 Dose: 40 mg Famotidine (Pepcid) 40 mg PO DAILY [facility] Last Admin: 11/19/19 09:39 Dose: 40 mg Guaifenesin (Robitussin) 100 mg PO Q6H PRN PRN Reason: Cough Last Admin: 11/18/19 21:24 Dose: 100 mg Hydrochlorothiazide (Hydrochlorothiazide) 12.5 mg PO BID [facility] Last Admin: 11/19/19 09:39 Dose: 12.5 mg Meropenem/Sodium Chloride 1 gm (/ Premix) 50 mls @ 100 mls/hr IV Q12H [facility] Last Infusion: 11/19/19 02:29 Dose: Infused Vancomycin HCl 1.5 gm/ Premix 300 mls @ 200 mls/hr IV Q24H [facility] Last Infusion: 11/18/19 16:45 Dose: 200 mls/hr Losartan Potassium (Cozaar) 100 mg PO BID [facility] Last Admin: 11/19/19 09:37 Dose: 100 mg Mometasone Furoate/Formoterol Fumar (Dulera 200-5 Mcg) 2 puff IH BID [facility] Last Admin: 11/19/19 09:41 Dose: 2 puff Nicotine (Habitrol) 14 mg TRDERM DAILY [facility] Last Admin: 11/19/19 09:36 Dose: 14 mg Ondansetron HCl (Zofran Odt) 4 mg PO Q6H PRN PRN Reason: nausea, able to take PO Ondansetron HCl (Zofran) 4 mg IVPUSH Q4H PRN PRN Reason: Nausea/Vomiting Prednisone (Prednisone) 40 mg PO DAILY [facility] Stop: 11/20/19 09:01 Last Admin: 11/19/19 09:38 Dose: 40 mg Senna/Docusate Sodium (Senna Plus) 1 tab PO BEDTIME PRN PRN Reason: Constipation Tiotropium [place] (Spiriva Handihaler) 18 mcg INH DAILY [facility] Last Admin: 11/19/19 09:40 Dose: 18 mcg Vancomycin HCl (Pharmacy To Dose - Vancomycin) 1 dose .XX ASDIRECTED [facility] Verapamil HCl (Calan Sr) 180 mg PO DAILY [facility] Last Admin: 11/19/19 09:37 Dose: 180 mg Discontinued Medications Albuterol (Proventil Neb Soln) 2.5 mg NEB Q2H PRN PRN Reason: shortness of breath/wheezing Albuterol/Ipratropium (Duoneb 3.0-0.5 Mg/3 Ml) 3 ml NEB Q6H [facility] Last Admin: 11/18/19 07:27 Dose: 3 ml Aspirin (Aspirin) 324 mg PO ONETIME ONE Stop: 11/16/19 17:18 Last Admin: 11/16/19 17:23 Dose: 324 mg Azithromycin (Zithromax) 500 mg PO DAILY [facility] Last Admin: 11/17/19 08:46 Dose: 500 mg Azithromycin (Zithromax) 250 mg PO DAILY [facility] Famotidine (Pepcid) 40 mg PO ONETIME ONE Stop: 11/16/19 21:01 Last Admin: 11/16/19 20:55 Dose: 40 mg Furosemide (Lasix) 40 mg IVPUSH NOW ONE Stop: 02/29/20 17:17 Last Admin: 11/16/19 17:25 Dose: 40 mg Furosemide (Lasix) 40 mg IVPUSH ONETIME ONE Stop: 11/17/19 09:01 Last Admin: 11/17/19 08:47 Dose: 40 mg Furosemide (Lasix) 40 mg IVPUSH NOW ONE Stop: 11/17/19 18:42 Last Admin: 11/17/19 19:35 Dose: 40 mg Ceftriaxone Sodium 2 gm/ (Sodium Chloride) 100 mls @ 200 mls/hr IV Q24H [facility] Last Infusion: 11/16/19 23:27 Dose: Infused Sodium Chloride (Normal Saline) 1,000 mls @ 100 mls/hr IV ASDIRECTED [facility] Potassium Chloride 20 meq/ (Premix) 0 mls @ 50 mls/hr IV Q2H [facility] Stop: 11/17/19 02:31 Last Admin: 11/17/19 05:46 Dose: 25 mls/hr Sodium Chloride (Normal Saline) 1,000 mls @ 200 mls/hr IV ASDIRECTED [facility] Stop: 11/17/19 18:14 Last Admin: 11/17/19 13:22 Dose: 200 mls/hr Vancomycin HCl 1,500 mg/ (Sodium Chloride) 500 mls @ 333.333 mls/hr IV Q24H [facility] Last Admin: 11/17/19 15:11 Dose: 333.333 mls/hr Sodium Chloride (Normal Saline) 1,000 mls @ 100 mls/hr IV ASDIRECTED [facility] Last Infusion: 11/18/19 09:42 Dose: Infused Losartan Potassium (Cozaar) 100 mg PO BID [facility] Last Admin: 11/17/19 21:48 Dose: Not Given Non-Formulary Medication (Famotidine [Pepcid]) 40 mg PO BID [facility] Last Admin: 11/17/19 11:44 Dose: Not Given Potassium Chloride (Klor-Con 10) 40 meq PO ONETIME ONE Stop: 11/17/19 00:25 Last Admin: 11/17/19 01:17 Dose: 40 meq Potassium Chloride (Klor-Con 10) 40 meq PO ONETIME ONE Stop: 11/18/19 10:16 Last Admin: 11/18/19 10:22 Dose: 40 meq - Exam General: Alert, Oriented, Cooperative, Moderate Distress (Respiratory distress. ) HEENT: Pupils Equal, Pupils Reactive, Mucous Membr. Moist/[place] Neck: Supple Lungs: Decreased Breath Sounds (Lower lungs. ), Rhonchi (Bilateral. ), Wheezing Cardiovascular: Regular Rhythm, Tachycardia GI/Abdominal Exam: Normal Bowel Sounds, Soft, Non-Tender, No Distention Extremities: Normal Inspection, Non-Tender, No Pedal Edema Peripheral Pulses: 2+: Radial (L), Radial (R), Dorsalis Pedis (L), Dorsalis Pedis (R) Skin: Warm, Dry, Intact Neurological: No New Focal Deficit Psy/Mental Status: Alert, Normal Affect, Normal Mood Sepsis Event Note - Evaluation Sepsis Screening Result: Sepsis Risk - Focused Exam Vital Signs: Vital Signs Temp Pulse Resp BP BP BP Pulse Ox 11/19/19 09:37 107/64 11/19/19 08:05 98.0 F 78 20 107/64 98 11/19/19 07:00 104 H 11/19/19 06:09 24 H 95 11/19/19 04:00 98.4 F 90 24 H 136/63 94 L 11/19/19 01:00 98 Pulse Ox Pulse Ox 11/19/19 09:37 11/19/19 08:05 11/19/19 07:00 91 L 11/19/19 06:09 11/19/19 04:00 11/19/19 01:00 92 L Date Exam was Performed: 11/19/19 Time Exam was Performed: 11:28 - Problem List & Annotations (1) COPD exacerbation SNOMED Code(s): 802054529 Code(s): J44.1 - CHRONIC OBSTRUCTIVE PULMONARY DISEASE W (ACUTE) EXACERBATION Status: Acute Current Visit: No (2) HTN (hypertension) SNOMED Code(s): 72525890 Code(s): I10 - ESSENTIAL (PRIMARY) HYPERTENSION Status: Acute Current Visit: No Qualifiers: Hypertension type: essential hypertension Qualified Code(s): I10 - Essential (primary) hypertension (3) Severe sepsis with acute organ dysfunction SNOMED Code(s): 48383442 Code(s): A41.9 - SEPSIS, UNSPECIFIED ORGANISM; R65.20 - SEVERE SEPSIS WITHOUT SEPTIC SHOCK Status: Acute Current Visit: Yes (4) COPD exacerbation SNOMED Code(s): 562613911 Code(s): J44.1 - CHRONIC OBSTRUCTIVE PULMONARY DISEASE W (ACUTE) EXACERBATION Status: Acute Current Visit: Yes (5) CHF exacerbation SNOMED Code(s): 318974580, 42850177695644 Code(s): I50.9 - HEART FAILURE, UNSPECIFIED Status: Acute Current Visit: Yes - Problem List Review Problem List Initiated/Reviewed/Updated: Yes - My Orders Last 24 Hours: My Active Orders 11/18/19 13:00 Albuterol/Ipratropium [DuoNeb 3.0-0.5 MG/3 ML] 3 ml NEB Q6HRRT 11/18/19 15:00 VANCOmycin/Water for INJ (PEG) [VANCOmycin 1.5 GM/300 ML Premix] 1.5 gm Premix Bag 1 bag IV Q24H 11/19/19 09:03 6 Minute Walk Test [RT Physical Performance Test] [RESPCARE] Routine 11/19/19 11:13 PT Evaluation and Treatment [CONS] Routine 11/19/19 11:26 Chest w Cont [CT] Routine 11/20/19 05:11 CBC W/O DIFF,HEMOGRAM [HEME] AM - Plan Plan:: #Severe sepsis with acute organ dysfunction: Patient with WBC count of 12.3 on presentation, with heart rate of 107, and checks x-ray per my independent review showed probable right lower lobe infiltrate with superimposed left pleural effusion and bilateral pulmonary edema. Lactic acidosis resolved with IVF and broadened antibiotics. -Worsening leukocytosis could be due to steroids. -Continues to have shortness of breath. -Continue vancomycin and meropenem #CHF patient: Patient with bilateral pulmonary congestion. Patient was started on O2 prior to arrival in the ED. O2 level at home not documented. However patient with significant progressively worsening shortness of breath and chest x -ray findings confirming clinical diagnosis. Ports PND and orthopnea. Not on any diuretic at home besides hydrochlorothiazide. - Continue IV Lasix - Low-sodium diet - Daily weight - Encourage ambulation's - Incentive spirometer - Echocardiogram report pending. #Acute COPD exacerbation: Patient with diffuse rhonchi, worsening cough, worsening shortness of breath, and worsening sputum production. - Nebulized and inhaled treatments. - IS - Encourage ambulation - Continue prednisone #Lactic acidosis: Resolved. Lactic went up to 4.5. -Improved with discontinue albuterol, IVF, and broadened Abx spectrum. W #Acute respiratory failure with hypoxia: Patient with O2 saturation of 83% on room air on 11/17/2019. - Encourage IS and flutter valve use - Obtain CT chest with contrast to rule out PE. #Hypokalemia: K was down to 3.1. Mag is 2.0. - Received IV and oral replacements. - Monitor BMP - Monitor and replace electrolytes. #Tobacco use disorder: Patient reports that she smokes half pack cigarettes daily. - Smoking cessation counseling provided - Patient reports that she will try to quit smoking - Nicotine patch - Continue support #Hypertension: BP is at goal. - Continue home blood pressure medications #Obesity: BMI of 45.4 - Weight loss counseling P PX: DVT: Lovenox GI: Cardiac diet Code status: DNR/DNI
--- NOTE | 2019-11-19 13:58 | PCM.PRNOTE ---
- Free Text/Narrative Note: Consulted by apartment house manager to insert an IV on a patient who has had multiple attempts by RN. Request by radiology for an 18 in AC secondary to PE protocol. Upon entering the room, pt is sitting in bed with some labored breathing. Pt is calm and understanding. A tourniquet was applied to the right bicep. Using ultrasound, a suitable vein was located medially to the AC fossa. The right AC area was cleaned with alcohol. Using a 18 gauge angiocath, an IV was inserted into the medial aspect of the right AC on first attempt. Excellent blood return. IV flushes without difficulty. IV was covered with tegaderm and secured with tape. RN was notified. Procedure Date & Time: 11/19/19 [id number]
--- NOTE | 2019-11-19 15:33 | CT ---
EXAMINATION: Chest wo Cont SEX: Female AGE: 69 years CLINICAL HISTORY: 69-year-old 254 pound hospitalized female patient (previous hysterectomy and appendectomy) with SOB. Rule out pulmonary embolism this patient with known malignant melanoma. Chest radiograph 16 November 2019 demonstrates "cardiomegaly and vascular prominence consistent with CHF". Chest CT 11 October 2018 revealed "cyst left lung base, and bibasilar atelectasis/infiltrate but no evidence of pulmonary embolism". No serum D dimer result immediately available. Scan technique: Volume acquisition of data unenhanced CT scan of the chest (bony thorax, lungs and mediastinum) obtained with the patient lying supine upon the Siemens multi slice scanner [place], [place]. All data archived in the PACS system for storage, reformatting axial/sagittal/coronal planes and study (bony thorax/lung/mediastinal windows). Note: No vascular access obtainable despite multiple "sticks" by various Hospital nurses with different skill sets. Interpretation: 1. Reasonable inspiratory effort morbidly obese female. Bilateral orthopedic shoulder procedures and lumbar spinal fusion. 2. 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 No fracture or dislocation. 3. Extreme posterior segment (costophrenic sulci) lower lobe atelectasis bilaterally present September 2018. Cyst left base. 4. No new lung mass, hilar lymphadenopathy or focal lobar pneumonia compared directly to images 11 October 2018. 5. Symmetric prominence of the unenhanced proximal pulmonary artery segments unchanged when compared to 2019 exam. 6. Main coronary artery calcifications. Normal cardiac size and configuration. No pericardial effusion. No pulmonary vascular congestion, alveolar edema or dependent new pleural fluid accumulation (effusion). Calcifications normal caliber aorta. 7. Inhomogeneously dense gallbladder RUQ. Unenhanced liver, stomach, spleen and most of the pancreas unremarkable. CONCLUSION: No acute new cardiopulmonary abnormality appreciated on this unenhanced CT scan of the chest. No sign of heart failure, new lung mass or focal lobar pneumonia. Usual signs of senescence and evidence of previous surgery.
[2019-11-19] MEDS: Levofloxacin 500 MG Tab PO SCH (17:31)
[2019-11-19] MEDS: amLODIPine 5 MG Tab PO SCH (21:48)
[2019-11-20] MEDS: Albuterol/Ipratropium 3.0-0.5 MG/3 ML Neb Soln NEB SCH ×6 (00:35→18:28)
[2019-11-20] MEDS: Meropenem Premix 1 GM in Premix Bag 1 BAG IV SCH (02:54)
[2019-11-20] MEDS: Losartan 25 MG Tab PO SCH ×2 (09:05→20:34)
[2019-11-20] MEDS: Allopurinol 300 MG Tab PO SCH (09:06)
[2019-11-20] MEDS: Citalopram 20 MG Tab PO SCH (09:06)
[2019-11-20] MEDS: predniSONE 20 MG Tab PO SCH ×2 (09:07→10:54)
[2019-11-20] MEDS: Hydrochlorothiazide 25 MG Tab PO SCH ×2 (09:07→20:32)
[2019-11-20] MEDS: Verapamil 180 MG Tab.ER PO SCH (09:08)
[2019-11-20] MEDS: atorvaSTATin 20 MG Tab PO SCH (09:08)
[2019-11-20] MEDS: Famotidine 20 MG Tab PO SCH (09:08)
[2019-11-20] MEDS: Nicotine 14 MG/24 Hr Patch TRDERM SCH (09:08)
[2019-11-20] MEDS: Enoxaparin 40 MG/0.4 ML Syringe SUBCUT SCH (09:10)
[2019-11-20] MEDS: Formoterol/Mometasone 200-5 MCG 8.8 GM Inhaler IH SCH ×2 (09:11→20:36)
[2019-11-20] MEDS: Tiotropium Inhaler 18 MCG Inhalation Powder Cap Kit of 5 INH SCH (09:12)
--- NOTE | 2019-11-20 10:20 | PCM.PN ---
- General Info Date of Service: 11/20/19 Admission Dx/Problem (Free Text): Admission Diagnosis/Problem Admission Diagnosis/Problem Severe sepsis Subjective Update: I saw and examined the patient at the bedside SOB is improved Cough is improved No CP, no dysuria Possible DC tomorrow Counseled the patient on need to quit smoking - Review of Systems General: Reports: No Symptoms HEENT: Reports: No Symptoms Pulmonary: Reports: Shortness of Breath, Cough, Wheezing Cardiovascular: Reports: No Symptoms Gastrointestinal: Reports: No Symptoms Genitourinary: Reports: No Symptoms Musculoskeletal: Reports: No Symptoms Skin: Reports: No Symptoms - Patient Data Vitals - Most Recent: Last Vital Signs Temp 36.8 C 11/20/19 08:06 Pulse 78 11/20/19 08:06 Resp 20 11/20/19 08:06 BP 122/79 11/20/19 09:05 Pulse Ox 94 L 11/20/19 08:06 Weight - Most Recent: 114.124 kg I&O - Last 24 Hours: Intake & Output 11/19/19 11/20/19 11/20/19 22:59 06:59 14:59 Intake Total 520 320 Output Total 500 Balance 520 -180 Lab Results Last 24 Hours: Laboratory Results - last 24 hr 11/20/19 Range/Units 06:07 WBC 15.4 H (5.0-10.0) 10^3/uL RBC 5.15 (4.2-5.4) 10^6/uL Hgb 12.9 (12.0-16.0) g/dL Hct 40.4 (37.0-47.0) % MCV 78.4 L (80-100) fL MCH 25.0 L (27.0-34.0) pg MCHC 31.9 L (33.0-35.0) g/dL Plt Count 275 (150-450) 10^3/uL Oz Results Last 24 Hours: Microbiology 11/16/19 21:16 Aerobic Blood Culture - Preliminary Blood - Venous - Lab Draw NO GROWTH AFTER 3 DAYS Anaerobic Blood Culture - Final 11/16/19 17:25 Aerobic Blood Culture - Preliminary Blood - Venous NO GROWTH AFTER 3 DAYS Anaerobic Blood Culture - Final Med Orders - Current: Current Medications Acetaminophen (Tylenol) 650 mg PO Q4H PRN PRN Reason: Pain (mild 1-3) Last Admin: 11/18/19 21:43 Dose: 650 mg Albuterol/Ipratropium (Duoneb 3.0-0.5 Mg/3 Ml) 3 ml NEB Q6HRRT [facility] Last Admin: 11/20/19 07:55 Dose: 3 ml Albuterol/Ipratropium (Duoneb 3.0-0.5 Mg/3 Ml) 3 ml NEB Q6HRRT [facility] Allopurinol (Zyloprim) 300 mg PO DAILY [facility] Last Admin: 11/20/19 09:06 Dose: 300 mg Amlodipine Besylate (Norvasc) 10 mg PO BEDTIME [facility] Last Admin: 11/19/19 21:48 Dose: 10 mg Atorvastatin Calcium (Lipitor) 20 mg PO DAILY [facility] Last Admin: 11/20/19 09:08 Dose: 20 mg Citalopram Hydrobromide (Celexa) 20 mg PO DAILY [facility] Last Admin: 11/20/19 09:06 Dose: 20 mg Enoxaparin Sodium (Lovenox) 40 mg SUBCUT DAILY [facility] Last Admin: 11/20/19 09:10 Dose: 40 mg Famotidine (Pepcid) 40 mg PO DAILY [facility] Last Admin: 11/20/19 09:08 Dose: 40 mg Guaifenesin (Robitussin) 100 mg PO Q6H PRN PRN Reason: Cough Last Admin: 11/18/19 21:24 Dose: 100 mg Hydrochlorothiazide (Hydrochlorothiazide) 12.5 mg PO BID [facility] Last Admin: 11/20/19 09:07 Dose: 12.5 mg Levofloxacin (Levaquin) 750 mg PO DAILY@1400 [facility] Last Admin: 11/19/19 17:31 Dose: 750 mg Losartan Potassium (Cozaar) 100 mg PO BID [facility] Last Admin: 11/20/19 09:05 Dose: 100 mg Mometasone Furoate/Formoterol Fumar (Dulera 200-5 Mcg) 2 puff IH BID [facility] Last Admin: 11/20/19 09:11 Dose: 2 puff Nicotine (Habitrol) 14 mg TRDERM DAILY [facility] Last Admin: 11/20/19 09:08 Dose: 14 mg Ondansetron HCl (Zofran Odt) 4 mg PO Q6H PRN PRN Reason: nausea, able to take PO Ondansetron HCl (Zofran) 4 mg IVPUSH Q4H PRN PRN Reason: Nausea/Vomiting Prednisone (Prednisone) 50 mg PO WITHBREAKFAST [facility] Senna/Docusate Sodium (Senna Plus) 1 tab PO BEDTIME PRN PRN Reason: Constipation Tiotropium [place] (Spiriva Handihaler) 18 mcg INH DAILY [facility] Last Admin: 11/20/19 09:12 Dose: 18 mcg Vancomycin HCl (Pharmacy To Dose - Vancomycin) 1 dose .XX ASDIRECTED [facility] Verapamil HCl (Calan Sr) 180 mg PO DAILY [facility] Last Admin: 11/20/19 09:08 Dose: 180 mg Discontinued Medications Albuterol (Proventil Neb Soln) 2.5 mg NEB Q2H PRN PRN Reason: shortness of breath/wheezing Albuterol/Ipratropium (Duoneb 3.0-0.5 Mg/3 Ml) 3 ml NEB Q6H [facility] Last Admin: 11/18/19 07:27 Dose: 3 ml Aspirin (Aspirin) 324 mg PO ONETIME ONE Stop: 11/16/19 17:18 Last Admin: 11/16/19 17:23 Dose: 324 mg Azithromycin (Zithromax) 500 mg PO DAILY [facility] Last Admin: 11/17/19 08:46 Dose: 500 mg Azithromycin (Zithromax) 250 mg PO DAILY [facility] Famotidine (Pepcid) 40 mg PO ONETIME ONE Stop: 11/16/19 21:01 Last Admin: 11/16/19 20:55 Dose: 40 mg Furosemide (Lasix) 40 mg IVPUSH NOW ONE Stop: 11/16/19 17:17 Last Admin: 11/16/19 17:25 Dose: 40 mg Furosemide (Lasix) 40 mg IVPUSH ONETIME ONE Stop: 11/17/19 09:01 Last Admin: 11/17/19 08:47 Dose: 40 mg Furosemide (Lasix) 40 mg IVPUSH NOW ONE Stop: 11/17/19 18:42 Last Admin: 11/17/19 19:35 Dose: 40 mg Ceftriaxone Sodium 2 gm/ (Sodium Chloride) 100 mls @ 200 mls/hr IV Q24H [facility] Last Infusion: 11/16/19 23:27 Dose: Infused Sodium Chloride (Normal Saline) 1,000 mls @ 100 mls/hr IV ASDIRECTED [facility] Potassium Chloride 20 meq/ (Premix) 0 mls @ 50 mls/hr IV Q2H [facility] Stop: 11/17/19 02:31 Last Admin: 11/17/19 05:46 Dose: 25 mls/hr Sodium Chloride (Normal Saline) 1,000 mls @ 200 mls/hr IV ASDIRECTED [facility] Stop: 11/17/19 18:14 Last Admin: 11/17/19 13:22 Dose: 200 mls/hr Meropenem/Sodium Chloride 1 gm (/ Premix) 50 mls @ 100 mls/hr IV Q12H [facility] Last Infusion: 11/19/19 02:29 Dose: Infused Vancomycin HCl 1,500 mg/ (Sodium Chloride) 500 mls @ 333.333 mls/hr IV Q24H [facility] Last Admin: 11/17/19 15:11 Dose: 333.333 mls/hr Sodium Chloride (Normal Saline) 1,000 mls @ 100 mls/hr IV ASDIRECTED [facility] Last Infusion: 11/18/19 09:42 Dose: Infused Vancomycin HCl 1.5 gm/ Premix 300 mls @ 200 mls/hr IV Q24H [facility] Last Infusion: 11/18/19 16:45 Dose: 200 mls/hr Meropenem/Sodium Chloride 1 gm (/ Premix) 50 mls @ 100 mls/hr IV Q12H [facility] Last Admin: 11/20/19 02:54 Dose: Not Given Vancomycin HCl 1.5 gm/ Premix 300 mls @ 200 mls/hr IV Q24H [facility] Last Admin: 11/19/19 17:26 Dose: Not Given Iopamidol (Isovue-370 (76%)) 100 ml IVPUSH ONETIME ONE Stop: 11/19/19 11:32 Last Admin: 11/20/19 07:39 Dose: Not Given Losartan Potassium (Cozaar) 100 mg PO BID [facility] Last Admin: 11/17/19 21:48 Dose: Not Given Non-Formulary Medication (Famotidine [Pepcid]) 40 mg PO BID [facility] Last Admin: 11/17/19 11:44 Dose: Not Given Potassium Chloride (Klor-Con 10) 40 meq PO ONETIME ONE Stop: 11/17/19 00:25 Last Admin: 11/17/19 01:17 Dose: 40 meq Potassium Chloride (Klor-Con 10) 40 meq PO ONETIME ONE Stop: 11/18/19 10:16 Last Admin: 11/18/19 10:22 Dose: 40 meq Prednisone (Prednisone) 40 mg PO DAILY [facility] Stop: 11/20/19 09:01 Last Admin: 11/20/19 09:07 Dose: 40 mg - Exam General: Alert, Oriented HEENT: Pupils Equal, Pupils Reactive Neck: Supple Lungs: Wheezing Cardiovascular: Regular Rate, Regular Rhythm GI/Abdominal Exam: Normal Bowel Sounds, Soft, Non-Tender Extremities: Normal Inspection, Normal Range of Motion, Non-Tender, No Pedal Edema Sepsis Event Note - Evaluation Sepsis Screening Result: Sepsis Risk - Focused Exam Vital Signs: Vital Signs Temp Pulse Resp BP BP BP Pulse Ox 11/20/19 09:05 122/79 11/20/19 08:06 36.8 C 78 20 122/79 94 L 11/20/19 07:00 93 11/20/19 04:48 37.2 C 96 20 118/67 91 L 11/20/19 00:35 84 11/19/19 23:06 37.1 C 89 22 H 135/67 95 Pulse Ox 11/20/19 09:05 11/20/19 08:06 11/20/19 07:00 90 L 11/20/19 04:48 11/20/19 00:35 90 L 11/19/19 23:06 Date Exam was Performed: 11/20/19 Time Exam was Performed: 10:17 - Problem List Review Problem List Initiated/Reviewed/Updated: Yes - My Orders Last 24 Hours: My Active Orders 11/20/19 09:23 RT Chest Physiotherapy [RC] ASDIRECTED RT Incentive Spirometry [RC] ASDIRECTED predniSONE 50 mg PO WITHBREAKFAST 11/20/19 10:00 Albuterol/Ipratropium [DuoNeb 3.0-0.5 MG/3 ML] 3 ml NEB Q6HRRT - Plan Plan:: #Severe sepsis with acute organ dysfunction: Patient with WBC count of 12.3 on presentation, with heart rate of 107, and checks x-ray per my independent review showed probable right lower lobe infiltrate with superimposed left pleural effusion and bilateral pulmonary edema. Lactic acidosis resolved with IVF and broadened antibiotics. -continue levaquin orally. Will plan to treat for 10 days total #Acute COPD exacerbation: improving with treatment - Nebulized and inhaled treatments. - IS - Encourage ambulation - Continue prednisone, ICS/LABA therapy, tiotropium #Tobacco use disorder: Patient reports that she smokes half pack cigarettes daily. - Smoking cessation counseling provided - Patient reports that she will try to quit smoking - Nicotine patch - Continue support #Hypertension: BP is at goal. - Continue home blood pressure medications #Obesity: BMI of 45.4 - Weight loss counseling P PX: DVT: Lovenox GI: Cardiac diet Code status: DNR/DNI
[2019-11-20] MEDS: Levofloxacin 500 MG Tab PO SCH (14:12)
[2019-11-20] MEDS ORDERED: Albuterol/Ipratropium 3.0-0.5 MG/3 ML Neb Soln NEB PRN (16:25)
[2019-11-20] MEDS: amLODIPine 5 MG Tab PO SCH (20:31)
[2019-11-21] MEDS: Albuterol/Ipratropium 3.0-0.5 MG/3 ML Neb Soln NEB SCH ×4 (00:25→17:47)
[2019-11-21] MEDS: Losartan 25 MG Tab PO SCH ×2 (08:12→20:19)
[2019-11-21] MEDS: predniSONE 20 MG Tab PO SCH (08:12)
[2019-11-21] MEDS: Hydrochlorothiazide 25 MG Tab PO SCH ×2 (08:14→20:17)
[2019-11-21] MEDS: Verapamil 180 MG Tab.ER PO SCH (08:14)
[2019-11-21] MEDS: Citalopram 20 MG Tab PO SCH (08:15)
[2019-11-21] MEDS: atorvaSTATin 20 MG Tab PO SCH (08:15)
[2019-11-21] MEDS: Allopurinol 300 MG Tab PO SCH (08:15)
[2019-11-21] MEDS: Famotidine 20 MG Tab PO SCH (08:16)
[2019-11-21] MEDS: Nicotine 14 MG/24 Hr Patch TRDERM SCH (08:16)
[2019-11-21] MEDS: Enoxaparin 40 MG/0.4 ML Syringe SUBCUT SCH (08:18)
[2019-11-21] MEDS: Formoterol/Mometasone 200-5 MCG 8.8 GM Inhaler IH SCH ×2 (08:19→20:17)
[2019-11-21] MEDS: Tiotropium Inhaler 18 MCG Inhalation Powder Cap Kit of 5 INH SCH (08:20)
[2019-11-21] MEDS: Loperamide 2 MG Cap PO PRN (09:46)
--- NOTE | 2019-11-21 09:51 | PCM.PN ---
- General Info Date of Service: 11/21/19 Admission Dx/Problem (Free Text): Admission Diagnosis/Problem Admission Diagnosis/Problem Severe sepsis Subjective Update: I saw and examined the patient at the bedside SOB is improved Cough is improved No CP, no dysuria Complains of loose stools. Still desats significantly with ambulation Possible DC tomorrow. Will need walking desat prior to DC - Review of Systems General: Reports: No Symptoms HEENT: Reports: No Symptoms Pulmonary: Reports: No Symptoms Cardiovascular: Reports: No Symptoms Gastrointestinal: Reports: Other (loose stools) Genitourinary: Reports: No Symptoms Musculoskeletal: Reports: No Symptoms Skin: Reports: No Symptoms Neurological: Reports: No Symptoms Psychiatric: Reports: No Symptoms - Patient Data Vitals - Most Recent: Last Vital Signs Temp 36.2 C 11/21/19 08:04 Pulse 87 11/21/19 08:04 Resp 20 11/21/19 08:04 BP 131/86 11/21/19 08:12 Pulse Ox 97 11/21/19 08:04 Weight - Most Recent: 114.305 kg I&O - Last 24 Hours: Intake & Output 11/20/19 11/21/19 11/21/19 22:59 06:59 14:59 Intake Total 300 500 770 Output Total 150 1500 300 Balance 150 -1000 470 Oz Results Last 24 Hours: Microbiology 11/16/19 21:16 Aerobic Blood Culture - Preliminary Blood - Venous - Lab Draw NO GROWTH AFTER 4 DAYS Anaerobic Blood Culture - Final 11/16/19 17:25 Aerobic Blood Culture - Preliminary Blood - Venous NO GROWTH AFTER 4 DAYS Anaerobic Blood Culture - Final Med Orders - Current: Current Medications Acetaminophen (Tylenol) 650 mg PO Q4H PRN PRN Reason: Pain (mild 1-3) Last Admin: 11/18/19 21:43 Dose: 650 mg Albuterol/Ipratropium (Duoneb 3.0-0.5 Mg/3 Ml) 3 ml NEB Q6HRRT [facility] Last Admin: 11/21/19 07:40 Dose: 3 ml Albuterol/Ipratropium (Duoneb 3.0-0.5 Mg/3 Ml) 3 ml NEB Q2H PRN PRN Reason: Shortness of Breath Allopurinol (Zyloprim) 300 mg PO DAILY [facility] Last Admin: 11/21/19 08:15 Dose: 300 mg Amlodipine Besylate (Norvasc) 10 mg PO BEDTIME [facility] Last Admin: 11/20/19 20:31 Dose: 10 mg Atorvastatin Calcium (Lipitor) 20 mg PO DAILY [facility] Last Admin: 11/21/19 08:15 Dose: 20 mg Citalopram Hydrobromide (Celexa) 20 mg PO DAILY [facility] Last Admin: 11/21/19 08:15 Dose: 20 mg Enoxaparin Sodium (Lovenox) 40 mg SUBCUT DAILY [facility] Last Admin: 11/21/19 08:18 Dose: 40 mg Famotidine (Pepcid) 40 mg PO DAILY [facility] Last Admin: 11/21/19 08:16 Dose: 40 mg Guaifenesin (Robitussin) 100 mg PO Q6H PRN PRN Reason: Cough Last Admin: 11/18/19 21:24 Dose: 100 mg Hydrochlorothiazide (Hydrochlorothiazide) 12.5 mg PO BID [facility] Last Admin: 11/21/19 08:14 Dose: 12.5 mg Levofloxacin (Levaquin) 750 mg PO DAILY@1400 [facility] Last Admin: 11/20/19 14:12 Dose: 750 mg Loperamide HCl (Imodium) 2 mg PO Q4H PRN PRN Reason: Diarrhea Last Admin: 11/21/19 09:46 Dose: 2 mg Losartan Potassium (Cozaar) 100 mg PO BID [facility] Last Admin: 11/21/19 08:12 Dose: 100 mg Mometasone Furoate/Formoterol Fumar (Dulera 200-5 Mcg) 2 puff IH BID [facility] Last Admin: 11/21/19 08:19 Dose: 2 puff Nicotine (Habitrol) 14 mg TRDERM DAILY [facility] Last Admin: 11/21/19 08:16 Dose: 14 mg Ondansetron HCl (Zofran Odt) 4 mg PO Q6H PRN PRN Reason: nausea, able to take PO Prednisone (Prednisone) 50 mg PO WITHBREAKFAST [facility] Last Admin: 11/21/19 08:12 Dose: 50 mg Senna/Docusate Sodium (Senna Plus) 1 tab PO BEDTIME PRN PRN Reason: Constipation Tiotropium [place] (Spiriva Handihaler) 18 mcg INH DAILY [facility] Last Admin: 11/21/19 08:20 Dose: 18 mcg Verapamil HCl (Calan Sr) 180 mg PO DAILY [facility] Last Admin: 11/21/19 08:14 Dose: 180 mg Discontinued Medications Albuterol (Proventil Neb Soln) 2.5 mg NEB Q2H PRN PRN Reason: shortness of breath/wheezing Albuterol/Ipratropium (Duoneb 3.0-0.5 Mg/3 Ml) 3 ml NEB Q6H [facility] Last Admin: 11/18/19 07:27 Dose: 3 ml Albuterol/Ipratropium (Duoneb 3.0-0.5 Mg/3 Ml) 3 ml NEB Q6HRRT [facility] Last Admin: 11/20/19 14:13 Dose: Not Given Aspirin (Aspirin) 324 mg PO ONETIME ONE Stop: 11/16/19 17:18 Last Admin: 11/16/19 17:23 Dose: 324 mg Azithromycin (Zithromax) 500 mg PO DAILY [facility] Last Admin: 11/17/19 08:46 Dose: 500 mg Azithromycin (Zithromax) 250 mg PO DAILY [facility] Famotidine (Pepcid) 40 mg PO ONETIME ONE Stop: 11/16/19 21:01 Last Admin: 11/16/19 20:55 Dose: 40 mg Furosemide (Lasix) 40 mg IVPUSH NOW ONE Stop: 11/16/19 17:17 Last Admin: 11/16/19 17:25 Dose: 40 mg Furosemide (Lasix) 40 mg IVPUSH ONETIME ONE Stop: 11/17/19 09:01 Last Admin: 11/17/19 08:47 Dose: 40 mg Furosemide (Lasix) 40 mg IVPUSH NOW ONE Stop: 11/17/19 18:42 Last Admin: 11/17/19 19:35 Dose: 40 mg Ceftriaxone Sodium 2 gm/ (Sodium Chloride) 100 mls @ 200 mls/hr IV Q24H [facility] Last Infusion: 11/16/19 23:27 Dose: Infused Sodium Chloride (Normal Saline) 1,000 mls @ 100 mls/hr IV ASDIRECTED [facility] Potassium Chloride 20 meq/ (Premix) 0 mls @ 50 mls/hr IV Q2H [facility] Stop: 11/17/19 02:31 Last Admin: 11/17/19 05:46 Dose: 25 mls/hr Sodium Chloride (Normal Saline) 1,000 mls @ 200 mls/hr IV ASDIRECTED [facility] Stop: 11/17/19 18:14 Last Admin: 11/17/19 13:22 Dose: 200 mls/hr Meropenem/Sodium Chloride 1 gm (/ Premix) 50 mls @ 100 mls/hr IV Q12H [facility] Last Infusion: 11/19/19 02:29 Dose: Infused Vancomycin HCl 1,500 mg/ (Sodium Chloride) 500 mls @ 333.333 mls/hr IV Q24H [facility] Last Infusion: 11/17/19 18:45 Dose: Infused Sodium Chloride (Normal Saline) 1,000 mls @ 100 mls/hr IV ASDIRECTED [facility] Last Infusion: 11/18/19 09:42 Dose: Infused Vancomycin HCl 1.5 gm/ Premix 300 mls @ 200 mls/hr IV Q24H [facility] Last Infusion: 11/18/19 16:45 Dose: 200 mls/hr Meropenem/Sodium Chloride 1 gm (/ Premix) 50 mls @ 100 mls/hr IV Q12H [facility] Last Admin: 11/20/19 02:54 Dose: Not Given Vancomycin HCl 1.5 gm/ Premix 300 mls @ 200 mls/hr IV Q24H [facility] Last Admin: 11/19/19 17:26 Dose: Not Given Iopamidol (Isovue-370 (76%)) 100 ml IVPUSH ONETIME ONE Stop: 11/19/19 11:32 Last Admin: 11/20/19 07:39 Dose: Not Given Losartan Potassium (Cozaar) 100 mg PO BID [facility] Last Admin: 11/17/19 21:48 Dose: Not Given Non-Formulary Medication (Famotidine [Pepcid]) 40 mg PO BID [facility] Last Admin: 11/17/19 11:44 Dose: Not Given Ondansetron HCl (Zofran) 4 mg IVPUSH Q4H PRN PRN Reason: Nausea/Vomiting Potassium Chloride (Klor-Con 10) 40 meq PO ONETIME ONE Stop: 11/17/19 00:25 Last Admin: 11/17/19 01:17 Dose: 40 meq Potassium Chloride (Klor-Con 10) 40 meq PO ONETIME ONE Stop: 11/18/19 10:16 Last Admin: 11/18/19 10:22 Dose: 40 meq Prednisone (Prednisone) 40 mg PO DAILY [facility] Stop: 11/20/19 09:01 Last Admin: 11/20/19 09:07 Dose: 40 mg Vancomycin HCl (Pharmacy To Dose - Vancomycin) 1 dose .XX ASDIRECTED [facility] - Exam General: Alert, Oriented HEENT: Pupils Equal Neck: Supple Lungs: Clear to Auscultation, Normal Respiratory Effort. No: Wheezing Cardiovascular: Regular Rate, Regular Rhythm GI/Abdominal Exam: Normal Bowel Sounds, Soft, Non-Tender Extremities: No Pedal Edema Sepsis Event Note - Evaluation Sepsis Screening Result: Sepsis Risk - Focused Exam Vital Signs: Vital Signs Temp Pulse Resp BP BP Pulse Ox Pulse Ox 11/21/19 08:12 131/86 11/21/19 08:04 36.2 C 87 20 131/86 97 11/21/19 07:00 74 92 L 11/21/19 02:21 36.4 C 95 20 133/82 95 11/21/19 00:25 90 92 L 11/20/19 23:11 37.1 C 101 H 22 H 122/66 92 L Date Exam was Performed: 11/21/19 Time Exam was Performed: 09:48 - Problem List Review Problem List Initiated/Reviewed/Updated: Yes - My Orders Last 24 Hours: My Active Orders 11/20/19 09:23 RT Chest Physiotherapy [RC] ASDIRECTED RT Incentive Spirometry [RC] ASDIRECTED predniSONE 50 mg PO WITHBREAKFAST 11/20/19 16:25 Albuterol/Ipratropium [DuoNeb 3.0-0.5 MG/3 ML] 3 ml NEB Q2H PRN 11/20/19 16:26 RT Aerosol Therapy [RC] ASDIRECTED 11/21/19 08:56 Loperamide [Imodium] 2 mg PO Q4H PRN - Plan Plan:: #Severe sepsis with acute organ dysfunction: Patient with WBC count of 12.3 on presentation, with heart rate of 107, and checks x-ray per my independent review showed probable right lower lobe infiltrate with superimposed left pleural effusion and bilateral pulmonary edema. Lactic acidosis resolved with IVF and broadened antibiotics. -continue levaquin orally. Will plan to treat for 10 days total #Acute COPD exacerbation: improving with treatment - No wheezing today - Nebulized and inhaled treatments. - IS - Encourage ambulation - Continue prednisone, ICS/LABA therapy, tiotropium #Tobacco use disorder: Patient reports that she smokes half pack cigarettes daily. - Smoking cessation counseling provided - Patient reports that she will try to quit smoking - Nicotine patch - Continue support #Hypertension: BP is at goal. - Continue home blood pressure medications #Obesity: BMI of 45.4 - Weight loss counseling P PX: DVT: Lovenox GI: Cardiac diet Code status: DNR/DNI Imodium for loose stools Still desats significantly with ambulation Possible DC tomorrow. Will need walking desat prior to DC
[2019-11-21] MEDS: Levofloxacin 500 MG Tab PO SCH (14:52)
[2019-11-21] MEDS: amLODIPine 5 MG Tab PO SCH (20:20)
[2019-11-22] MEDS: Albuterol/Ipratropium 3.0-0.5 MG/3 ML Neb Soln NEB SCH ×3 (00:19→13:30)
[2019-11-22] MEDS: predniSONE 20 MG Tab PO SCH (07:44)
[2019-11-22] MEDS: Loperamide 2 MG Cap PO PRN (07:44)
[2019-11-22] MEDS: Losartan 25 MG Tab PO SCH (08:43)
[2019-11-22] MEDS: Allopurinol 300 MG Tab PO SCH (08:44)
[2019-11-22] MEDS: atorvaSTATin 20 MG Tab PO SCH (08:44)
[2019-11-22] MEDS: Hydrochlorothiazide 25 MG Tab PO SCH (08:45)
[2019-11-22] MEDS: Famotidine 20 MG Tab PO SCH (08:45)
[2019-11-22] MEDS: Citalopram 20 MG Tab PO SCH (08:45)
[2019-11-22] MEDS: Tiotropium Inhaler 18 MCG Inhalation Powder Cap Kit of 5 INH SCH (08:46)
[2019-11-22] MEDS: Formoterol/Mometasone 200-5 MCG 8.8 GM Inhaler IH SCH (08:46)
[2019-11-22] MEDS: Verapamil 180 MG Tab.ER PO SCH (08:46)
[2019-11-22] MEDS: Enoxaparin 40 MG/0.4 ML Syringe SUBCUT SCH (08:46)
[2019-11-22] MEDS: Nicotine 14 MG/24 Hr Patch TRDERM SCH (08:48)
--- NOTE | 2019-11-22 10:29 | PCM.DCSUM1 ---
Discharge Summary - Hospital Course Free Text/Narrative:: 69 y.o female with medical history significant for COPD, smoking, essential hypertension, hyperlipidemia, history of CHF, coronary artery disease and [place], morbid obesity who is admitted for sepsis, COPD exacerbation, and acute respiratory failure with hypoxia. She was treated with antibiotics, COPD protocol including ICS/LABA therapy and steroids and symptoms improved. She still tends to desat with ambulation and may need home oxygen prior to discharge. She was evaluated by PT/OT and swingbed was recommended for weakness. Continue ICS/LABA therapy Can stop oral steroids Complete seven days of oral levofloxacin Follow up with PCP Discussed extensively with patient regarding the need to quit smoking Diagnosis: Stroke: No - Discharge Data Discharge Date: 11/22/19 Discharge Disposition: DC/Tfer W/I Hosp To Swing 61 Condition: Stable - Referral to Home Health Primary Care Physician: Jona Dahl NP - Patient Summary/Data Consults: Consultations 11/19/19 11:13 PT Evaluation and Treatment [CONS] Routine - Discharge Plan *PRESCRIPTION DRUG MONITORING PROGRAM REVIEWED*: No *COPY OF PRESCRIPTION DRUG MONITORING REPORT IN PATIENT SONJA: No Home Medications: Home Meds Albuterol [Ventolin HFA] 1 - 2 puff INH Q8HR PRN 07/25/18 [History] Citalopram [Citalopram HBr] 20 mg PO DAILY 07/25/18 [History] Famotidine [Pepcid] 40 mg PO BID 07/25/18 [History] Losartan/Hydrochlorothiazide [Losartan-HCTZ 100-12.5 MG] 1 tab PO BID 07/25/18 [ History] Tiotropium [Spiriva HandiHaler] 18 mcg INH DAILY 07/25/18 [History] Verapamil HCl [Verapamil ER] 180 mg PO DAILY 07/25/18 [History] allopurinoL [Zyloprim] 300 mg PO DAILY 07/25/18 [History] amLODIPine Besylate [Amlodipine Besylate] 10 mg PO BEDTIME 07/25/18 [History] atorvaSTATin [Lipitor] 20 mg PO DAILY 07/25/18 [History] Fluticasone/Salmeterol [Advair 250-50] 2 puff INH BID #1 diskus 07/28/18 [Rx] Oxygen Therapy Mode: Nasal Cannula Forms: ED Department Discharge Referrals: PCP,Unobtain [Ordering Only Provider] - - Discharge Summary/Plan Comment DC Time >30 min.: Yes - General Info Date of Service: 11/22/19 Admission Dx/Problem (Free Text: Admission Diagnosis/Problem Admission Diagnosis/Problem Severe sepsis Subjective Update: I saw and examined the patient at the bedside No cough or SOB No CP, no dysuria Complains of generalized weakness Still desats significantly with ambulation - Review of Systems General: Reports: Weakness HEENT: Reports: No Symptoms Pulmonary: Reports: No Symptoms Cardiovascular: Reports: No Symptoms Gastrointestinal: Reports: No Symptoms Genitourinary: Reports: No Symptoms Musculoskeletal: Reports: No Symptoms Skin: Reports: No Symptoms Neurological: Reports: No Symptoms - Patient Data Vitals - Most Recent: Last Vital Signs Temp 36.0 C L 11/22/19 07:44 Pulse 73 11/22/19 07:44 Resp 18 11/22/19 07:44 BP 125/75 11/22/19 08:43 Pulse Ox 100 11/22/19 07:44 Weight - Most Recent: 113.852 kg I&O - Last 24 hours: Intake & Output 11/21/19 11/22/19 11/22/19 22:59 06:59 14:59 Intake Total 639 655 400 Output Total 500 500 800 Balance 139 155 -400 RUTHIE Results - Last 24 hrs: Microbiology 11/16/19 21:16 Aerobic Blood Culture - Final Blood - Venous - Lab Draw NO GROWTH AFTER 5 DAYS Anaerobic Blood Culture - Final 11/16/19 17:25 Aerobic Blood Culture - Final Blood - Venous NO GROWTH AFTER 5 DAYS Anaerobic Blood Culture - Final Med Orders - Current: Current Medications Acetaminophen (Tylenol) 650 mg PO Q4H PRN PRN Reason: Pain (mild 1-3) Last Admin: 11/18/19 21:43 Dose: 650 mg Albuterol/Ipratropium (Duoneb 3.0-0.5 Mg/3 Ml) 3 ml NEB Q6HRRT [facility] Last Admin: 11/22/19 07:25 Dose: 3 ml Albuterol/Ipratropium (Duoneb 3.0-0.5 Mg/3 Ml) 3 ml NEB Q2H PRN PRN Reason: Shortness of Breath Allopurinol (Zyloprim) 300 mg PO DAILY [facility] Last Admin: 11/22/19 08:44 Dose: 300 mg Amlodipine Besylate (Norvasc) 10 mg PO BEDTIME [facility] Last Admin: 11/21/19 20:20 Dose: 10 mg Atorvastatin Calcium (Lipitor) 20 mg PO DAILY [facility] Last Admin: 11/22/19 08:44 Dose: 20 mg Citalopram Hydrobromide (Celexa) 20 mg PO DAILY [facility] Last Admin: 11/22/19 08:45 Dose: 20 mg Enoxaparin Sodium (Lovenox) 40 mg SUBCUT DAILY [facility] Last Admin: 11/22/19 08:46 Dose: 40 mg Famotidine (Pepcid) 40 mg PO DAILY [facility] Last Admin: 11/22/19 08:45 Dose: 40 mg Guaifenesin (Robitussin) 100 mg PO Q6H PRN PRN Reason: Cough Last Admin: 11/18/19 21:24 Dose: 100 mg Hydrochlorothiazide (Hydrochlorothiazide) 12.5 mg PO BID [facility] Last Admin: 11/22/19 08:45 Dose: 12.5 mg Levofloxacin (Levaquin) 750 mg PO DAILY@1400 [facility] Last Admin: 11/21/19 14:52 Dose: 750 mg Loperamide HCl (Imodium) 2 mg PO Q4H PRN PRN Reason: Diarrhea Last Admin: 11/22/19 07:44 Dose: 2 mg Losartan Potassium (Cozaar) 100 mg PO BID [facility] Last Admin: 11/22/19 08:43 Dose: 100 mg Mometasone Furoate/Formoterol Fumar (Dulera 200-5 Mcg) 2 puff IH BID [facility] Last Admin: 11/22/19 08:46 Dose: 2 puff Nicotine (Habitrol) 14 mg TRDERM DAILY [facility] Last Admin: 11/22/19 08:48 Dose: 14 mg Ondansetron HCl (Zofran Odt) 4 mg PO Q6H PRN PRN Reason: nausea, able to take PO Prednisone (Prednisone) 50 mg PO WITHBREAKFAST [facility] Last Admin: 11/22/19 07:44 Dose: 50 mg Senna/Docusate Sodium (Senna Plus) 1 tab PO BEDTIME PRN PRN Reason: Constipation Tiotropium [place] (Spiriva Handihaler) 18 mcg INH DAILY [facility] Last Admin: 11/22/19 08:46 Dose: 18 mcg Verapamil HCl (Calan Sr) 180 mg PO DAILY [facility] Last Admin: 11/22/19 08:46 Dose: 180 mg Discontinued Medications Albuterol (Proventil Neb Soln) 2.5 mg NEB Q2H PRN PRN Reason: shortness of breath/wheezing Albuterol/Ipratropium (Duoneb 3.0-0.5 Mg/3 Ml) 3 ml NEB Q6H [facility] Last Admin: 11/18/19 07:27 Dose: 3 ml Albuterol/Ipratropium (Duoneb 3.0-0.5 Mg/3 Ml) 3 ml NEB Q6HRRT [facility] Last Admin: 11/20/19 14:13 Dose: Not Given Aspirin (Aspirin) 324 mg PO ONETIME ONE Stop: 11/16/19 17:18 Last Admin: 11/16/19 17:23 Dose: 324 mg Azithromycin (Zithromax) 500 mg PO DAILY [facility] Last Admin: 11/17/19 08:46 Dose: 500 mg Azithromycin (Zithromax) 250 mg PO DAILY [facility] Famotidine (Pepcid) 40 mg PO ONETIME ONE Stop: 11/16/19 21:01 Last Admin: 11/16/19 20:55 Dose: 40 mg Furosemide (Lasix) 40 mg IVPUSH NOW ONE Stop: 11/16/19 17:17 Last Admin: 11/16/19 17:25 Dose: 40 mg Furosemide (Lasix) 40 mg IVPUSH ONETIME ONE Stop: 11/17/19 09:01 Last Admin: 11/17/19 08:47 Dose: 40 mg Furosemide (Lasix) 40 mg IVPUSH NOW ONE Stop: 11/17/19 18:42 Last Admin: 11/17/19 19:35 Dose: 40 mg Ceftriaxone Sodium 2 gm/ (Sodium Chloride) 100 mls @ 200 mls/hr IV Q24H [facility] Last Infusion: 11/16/19 23:27 Dose: Infused Sodium Chloride (Normal Saline) 1,000 mls @ 100 mls/hr IV ASDIRECTED [facility] Potassium Chloride 20 meq/ (Premix) 0 mls @ 50 mls/hr IV Q2H [facility] Stop: 11/17/19 02:31 Last Admin: 11/17/19 05:46 Dose: 25 mls/hr Sodium Chloride (Normal Saline) 1,000 mls @ 200 mls/hr IV ASDIRECTED [facility] Stop: 11/17/19 18:14 Last Admin: 11/17/19 13:22 Dose: 200 mls/hr Meropenem/Sodium Chloride 1 gm (/ Premix) 50 mls @ 100 mls/hr IV Q12H [facility] Last Infusion: 11/19/19 02:29 Dose: Infused Vancomycin HCl 1,500 mg/ (Sodium Chloride) 500 mls @ 333.333 mls/hr IV Q24H [facility] Last Infusion: 11/17/19 18:45 Dose: Infused Sodium Chloride (Normal Saline) 1,000 mls @ 100 mls/hr IV ASDIRECTED [facility] Last Infusion: 11/18/19 09:42 Dose: Infused Vancomycin HCl 1.5 gm/ Premix 300 mls @ 200 mls/hr IV Q24H [facility] Last Infusion: 11/18/19 16:45 Dose: 200 mls/hr Meropenem/Sodium Chloride 1 gm (/ Premix) 50 mls @ 100 mls/hr IV Q12H [facility] Last Admin: 11/20/19 02:54 Dose: Not Given Vancomycin HCl 1.5 gm/ Premix 300 mls @ 200 mls/hr IV Q24H [facility] Last Admin: 11/19/19 17:26 Dose: Not Given Iopamidol (Isovue-370 (76%)) 100 ml IVPUSH ONETIME ONE Stop: 11/19/19 11:32 Last Admin: 11/20/19 07:39 Dose: Not Given Losartan Potassium (Cozaar) 100 mg PO BID [facility] Last Admin: 11/17/19 21:48 Dose: Not Given Non-Formulary Medication (Famotidine [Pepcid]) 40 mg PO BID [facility] Last Admin: 11/17/19 11:44 Dose: Not Given Ondansetron HCl (Zofran) 4 mg IVPUSH Q4H PRN PRN Reason: Nausea/Vomiting Potassium Chloride (Klor-Con 10) 40 meq PO ONETIME ONE Stop: 11/17/19 00:25 Last Admin: 11/17/19 01:17 Dose: 40 meq Potassium Chloride (Klor-Con 10) 40 meq PO ONETIME ONE Stop: 11/18/19 10:16 Last Admin: 11/18/19 10:22 Dose: 40 meq Prednisone (Prednisone) 40 mg PO DAILY [facility] Stop: 11/20/19 09:01 Last Admin: 11/20/19 09:07 Dose: 40 mg Vancomycin HCl (Pharmacy To Dose - Vancomycin) 1 dose .XX ASDIRECTED [facility] - Exam General: Reports: Alert, Oriented HEENT: Reports: Pupils Equal, Pupils Reactive Lungs: Reports: Clear to Auscultation, Normal Respiratory Effort Cardiovascular: Reports: Regular Rate, Regular Rhythm, No Murmurs GI/Abdominal Exam: Normal Bowel Sounds, Soft, Non-Tender Extremities: Normal Inspection, Non-Tender, No Pedal Edema
== END 2019-11-22 13:30 | disposition swing bed (61) | DRG 871 ==
LOC: DL.ED 16:16 → DL.MS 18:26
PROVIDERS: ADMIT Internal Medicine; ATTEND Hospitalist
PROC: 05HY33Z Insertion of Infusion Device into Upper Vein, Percutaneous Approach (ICD-10-PCS; principal; 2019-11-19)
DX: A41.9 Sepsis, unspecified organism (principal); J96.01 Acute respiratory failure with hypoxia; J44.1 Chronic obstructive pulmonary disease with (acute) exacerbation; Z68.42 Body mass index [BMI] 45.0-49.9, adult; R65.20 Severe sepsis without septic shock; E78.5 Hyperlipidemia, unspecified; Z66 Do not resuscitate; I25.10 Atherosclerotic heart disease of native coronary artery without angina pectoris; E87.6 Hypokalemia; I11.0 Hypertensive heart disease with heart failure; E66.01 Morbid (severe) obesity due to excess calories; I50.9 Heart failure, unspecified; R06.00 Dyspnea, unspecified; H54.7 Unspecified visual loss; Z96.619 Presence of unspecified artificial shoulder joint; E78.00 Pure hypercholesterolemia, unspecified; F17.210 Nicotine dependence, cigarettes, uncomplicated; I25.2 Old myocardial infarction; J44.9 Chronic obstructive pulmonary disease, unspecified; K21.9 Gastro-esophageal reflux disease without esophagitis; R32 Unspecified urinary incontinence; M19.90 Unspecified osteoarthritis, unspecified site; Z79.51 Long term (current) use of inhaled steroids; E66.9 Obesity, unspecified; Z90.710 Acquired absence of both cervix and uterus; Z90.49 Acquired absence of other specified parts of digestive tract; F17.200 Nicotine dependence, unspecified, uncomplicated; Z98.51 Tubal ligation status; Z71.6 Tobacco abuse counseling; Z88.1 Allergy status to other antibiotic agents; Z88.5 Allergy status to narcotic agent; Z88.0 Allergy status to penicillin; Z88.2 Allergy status to sulfonamides; Z88.8 Allergy status to other drugs, medicaments and biological substances; Z79.899 Other long term (current) drug therapy
CPT/HCPCS: 36415; 36600; 71045; 80053; 83605; 83880; 84484; 85025; 85610; 87040; 93005; 96374; 99284; 99285; A9270; J1940; 51702; 71250; 80048; 82803; 83735; 84100; 85027; 93306; 94640; 97110-GP; 97116-GP; 97162-GP; J0696; J1650; J2185; J3370; J3480; J7030; J7040; J7050; J7620-GY

== ENCOUNTER 2019-11-22 10:17 | Inpatient (IN) | payer MEDICARE, MEDICAID ==
[2019-11-22] MEDS ORDERED: Albuterol/Ipratropium 3.0-0.5 MG/3 ML Neb Soln NEB PRN (10:24)
[2019-11-22] MEDS ORDERED: Ondansetron 4 MG Tab.DIS PO PRN (10:24)
--- NOTE | 2019-11-22 10:29 | PCM.HP ---
H&P History of Present Illness - General Date of Service: 11/22/19 Admit Problem/Dx: Admission Diagnosis/Problem Admission Diagnosis/Problem Weakness Source of Information: Patient History Limitations: Reports: No Limitations - History of Present Illness Initial Comments - Free Text/Narative: 69 y.o female with medical history significant for COPD, smoking, essential hypertension, hyperlipidemia, history of CHF, coronary artery disease and [place], morbid obesity who is admitted for sepsis, COPD exacerbation, and acute respiratory failure with hypoxia. She was treated with antibiotics, COPD protocol including ICS/LABA therapy and steroids and symptoms improved. She still tends to desat with ambulation and may need home oxygen prior to discharge. She was evaluated by PT/OT and swingbed was recommended for weakness. - Related Data Allergies/Adverse Reactions: Allergies Allergy/AdvReac Type Severity Reaction Status Date / Time codeine Allergy Stomach Verified 11/16/19 16:30 Upset Penicillins Allergy Rash Verified 11/16/19 16:30 povidone-iodine Allergy Rash Verified 11/16/19 16:30 [From Betadine] soap [From Betadine] Allergy Rash Verified 11/16/19 16:30 Sulfa (Sulfonamide Allergy Hives Verified 11/16/19 16:30 Antibiotics) tetracycline Allergy Cannot Verified 11/16/19 16:30 Remember Home Medications: Home Meds Albuterol [Ventolin HFA] 1 - 2 puff INH Q8HR PRN 07/25/18 [History] Citalopram [Citalopram HBr] 20 mg PO DAILY 07/25/18 [History] Famotidine [Pepcid] 40 mg PO BID 07/25/18 [History] Losartan/Hydrochlorothiazide [Losartan-HCTZ 100-12.5 MG] 1 tab PO BID 07/25/18 [ History] Tiotropium [Spiriva HandiHaler] 18 mcg INH DAILY 07/25/18 [History] Verapamil HCl [Verapamil ER] 180 mg PO DAILY 07/25/18 [History] allopurinoL [Zyloprim] 300 mg PO DAILY 07/25/18 [History] amLODIPine Besylate [Amlodipine Besylate] 10 mg PO BEDTIME 07/25/18 [History] atorvaSTATin [Lipitor] 20 mg PO DAILY 07/25/18 [History] Fluticasone/Salmeterol [Advair 250-50] 2 puff INH BID #1 diskus 07/28/18 [Rx] Past Medical History HEENT History: Reports: Impaired Vision Cardiovascular History: Reports: High Cholesterol, Hypertension, [place], SOB on Exertion Respiratory History: Reports: Asthma, COPD, SOB Gastrointestinal History: Reports: GERD Genitourinary History: Reports: Urinary Incontinence [employer] History: Reports: Musculoskeletal History: Reports: Arthritis Neurological History: Reports: None Psychiatric History: Reports: None Endocrine/Metabolic History: Reports: Obesity/BMI 30+ Hematologic History: Reports: None Immunologic History: Reports: None Oncologic (Cancer) History: Reports: Malignant Melanoma Dermatologic History: Reports: None - Infectious Disease History Infectious Disease History: Reports: Chicken Pox, Measles, Mumps - Past Surgical History Head Surgeries/Procedures: Reports: None HEENT Surgical History: Reports: None Other HEENT Surgeries/Procedures: glasses Cardiovascular Surgical History: Reports: None Respiratory Surgical History: Reports: None GI Surgical History: Reports: Appendectomy, Colonoscopy Female Surgical History: Reports: Hysterectomy, Tubal Ligation, Other (See Below) Other Female Surgeries/Procedures: bladder repair Endocrine Surgical History: Reports: None Neurological Surgical History: Reports: None Musculoskeletal Surgical History: Reports: Shoulder Replacement Social & Family History - Family History Family Medical History: Noncontributory - Caffeine Use Caffeine Use: Reports: Coffee, Soda H&P Review of Systems - Review of Systems: Review Of Systems: See Below General: Reports: Weakness HEENT: Reports: No Symptoms Pulmonary: Reports: No Symptoms Cardiovascular: Reports: No Symptoms Gastrointestinal: Reports: No Symptoms Genitourinary: Reports: No Symptoms Musculoskeletal: Reports: No Symptoms Skin: Reports: No Symptoms Psychiatric: Reports: No Symptoms Neurological: Reports: No Symptoms Exam - Exam Exam: See Below - Exam General: Alert, Oriented HEENT: Conjunctiva Clear Neck: Supple, Trachea Midline Lungs: Clear to Auscultation, Normal Respiratory Effort Cardiovascular: Regular Rate, Regular Rhythm GI/Abdominal Exam: Normal Bowel Sounds, Soft, Non-Tender Extremities: Normal Inspection, Non-Tender, No Pedal Edema Problem List Initiated/Reviewed/Updated: Yes Orders Last 24hrs: Active Orders 24 hr Category Date Time Status Patient Status [ADT] Routine ADT 11/22/19 10:27 Ordered Ambulate [RC] QID Care 11/22/19 10:24 Ordered Communication Order [RC] ROUTINE Care 11/22/19 10:24 Ordered Height and Weight [RC] DAILY Care 11/22/19 10:24 Ordered Incentive Spirometry [RT Incentive Spirometry] [RC] Care 11/22/19 10:24 Ordered Q1HWA Intake and Output [RC] QSHIFT Care 11/22/19 10:24 Ordered Oxygen Therapy [RC] PRN Care 11/22/19 10:24 Ordered RT Aerosol Therapy [RC] ASDIRECTED Care 11/22/19 10:24 Ordered RT Aerosol Therapy [RC] ASDIRECTED Care 11/22/19 10:24 Ordered RT Aerosol Therapy [RC] ASDIRECTED Care 11/22/19 10:24 Ordered RT Chest Physiotherapy [RC] ASDIRECTED Care 11/22/19 10:24 Ordered RT Post Treatment Assessment [RC] Click to Edit Care 11/22/19 10:24 Ordered RT Pre-Treatment Assessment [RC] Click to Edit Care 11/22/19 10:24 Ordered VTE/DVT Education [RC] PER UNIT ROUTINE Care 11/22/19 10:24 Ordered Vital Signs [RC] PER UNIT ROUTINE Care 11/22/19 10:27 Ordered OT Evaluation and Treatment [CONS] Routine Cons 11/22/19 10:27 Ordered PT Evaluation and Treatment [CONS] Routine Cons 11/22/19 10:24 Ordered 2 Gram Sodium Diet [DIET] Diet 11/22/19 Dinner Ordered Acetaminophen [Tylenol] Med 11/22/19 10:24 Ordered 650 mg PO Q4H PRN Albuterol/Ipratropium [DuoNeb 3.0-0.5 MG/3 ML] Med 11/22/19 10:24 Ordered 3 ml NEB Q2H PRN Citalopram [Celexa] Med 11/23/19 09:00 Ordered 20 mg PO DAILY Docusate Sodium/Sennosides [Senna Plus] Med 11/22/19 10:24 Ordered 1 tab PO BEDTIME PRN Enoxaparin [Lovenox] Med 11/23/19 09:00 Ordered 40 mg SUBCUT DAILY Famotidine [Pepcid] Med 11/23/19 09:00 Ordered 40 mg PO DAILY Loperamide [Imodium] Med 11/22/19 10:24 Ordered 2 mg PO Q4H PRN Losartan [Cozaar] Med 11/22/19 21:00 Ordered 100 mg PO BID Mometasone/Formoterol [Dulera 200-5 MCG] Med 11/22/19 21:00 Ordered 2 puff IH BID Nicotine [Habitrol] Med 11/23/19 09:00 Ordered 14 mg TRDERM DAILY Ondansetron [Zofran ODT] Med 11/22/19 10:24 Ordered 4 mg PO Q6H PRN Tiotropium [Spiriva HandiHaler] Med 11/23/19 09:00 Ordered 18 mcg INH DAILY Verapamil [Calan SR] Med 11/23/19 09:00 Ordered 180 mg PO DAILY allopurinoL [Zyloprim] Med 11/23/19 09:00 Ordered 300 mg PO DAILY amLODIPine [Norvasc] Med 11/22/19 21:00 Ordered 10 mg PO BEDTIME atorvaSTATin [Lipitor] Med 11/23/19 09:00 Ordered 20 mg PO DAILY guaiFENesin [Robitussin] Med 11/22/19 10:24 Ordered 100 mg PO Q6H PRN hydroCHLOROthiazide Med 11/22/19 21:00 Ordered 12.5 mg PO BID levoFLOXacin [Levaquin] Med 11/22/19 14:00 Ordered 750 mg PO DAILY@1400 predniSONE Med 11/23/19 08:00 Ordered 50 mg PO WITHBREAKFAST 6 Minute Walk Test [RT Physical Performance Test] [ Oth 11/22/19 10:24 Ordered RESPCARE] Routine Resuscitation Status Routine Resus Stat 11/22/19 10:27 Ordered Medication Orders Acetaminophen (Tylenol) 650 mg PO Q4H PRN PRN Reason: Pain (mild 1-3) Albuterol/Ipratropium (Duoneb 3.0-0.5 Mg/3 Ml) 3 ml NEB Q2H PRN PRN Reason: Shortness of Breath Allopurinol (Zyloprim) 300 mg PO DAILY [facility] Amlodipine Besylate (Norvasc) 10 mg PO BEDTIME [facility] Atorvastatin Calcium (Lipitor) 20 mg PO DAILY [facility] Citalopram Hydrobromide (Celexa) 20 mg PO DAILY [facility] Enoxaparin Sodium (Lovenox) 40 mg SUBCUT DAILY [facility] Famotidine (Pepcid) 40 mg PO DAILY [facility] Guaifenesin (Robitussin) 100 mg PO Q6H PRN PRN Reason: Cough Hydrochlorothiazide (Hydrochlorothiazide) 12.5 mg PO BID [facility] Levofloxacin (Levaquin) 750 mg PO DAILY@1400 [facility] Loperamide HCl (Imodium) 2 mg PO Q4H PRN PRN Reason: Diarrhea Losartan Potassium (Cozaar) 100 mg PO BID [facility] Mometasone Furoate/Formoterol Fumar (Dulera 200-5 Mcg) 2 puff IH BID [facility] Nicotine (Habitrol) 14 mg TRDERM DAILY [facility] Ondansetron HCl (Zofran Odt) 4 mg PO Q6H PRN PRN Reason: nausea, able to take PO Prednisone (Prednisone) 50 mg PO WITHBREAKFAST [facility] Senna/Docusate Sodium (Senna Plus) 1 tab PO BEDTIME PRN PRN Reason: Constipation Tiotropium [place] (Spiriva Handihaler) 18 mcg INH DAILY [facility] Verapamil HCl (Calan Sr) 180 mg PO DAILY [facility] Assessment/Plan Comment:: #Generalized weakness -s/p hospitalization -continue PT/OT #Pneumonia, Sepsis -recovering -continue levaquin orally. Antibiotic end date: 11/28/2019 #COPD: improving from acute exacerbation - IS - Encourage ambulation - Continue ICS/LABA therapy, tiotropium #Tobacco use disorder: Patient reports that she smokes half pack cigarettes daily. - Smoking cessation counseling provided - Patient reports that she will try to quit smoking - Nicotine patch - Continue support #Hypertension: BP is at goal. - Continue home blood pressure medications #Obesity: BMI of 45.4 - Weight loss counseling PPX: DVT: Lovenox GI: Cardiac diet Code status: DNR/DNI Imodium for loose stools Still desats significantly with ambulation Will need walking desat prior to DC
[2019-11-22] MEDS ORDERED: Loperamide 2 MG Cap PO PRN (12:00)
[2019-11-22] MEDS: Levofloxacin 500 MG Tab PO SCH (15:10)
[2019-11-22] MEDS: Hydrochlorothiazide 25 MG Tab PO SCH (20:47)
[2019-11-22] MEDS: Losartan 25 MG Tab PO SCH (20:48)
[2019-11-22] MEDS: Check Patch TRDERM SCH (20:48)
[2019-11-22] MEDS: Formoterol/Mometasone 200-5 MCG 8.8 GM Inhaler IH SCH (20:49)
[2019-11-22] MEDS: amLODIPine 5 MG Tab PO SCH (20:50)
[2019-11-23] MEDS: Acetaminophen 325 MG Tab PO PRN (02:48)
[2019-11-23] MEDS: guaiFENesin 100 MG/5 ML Soln 5 ML UD Cup PO PRN ×2 (02:49→21:10)
[2019-11-23] MEDS ORDERED: predniSONE 20 MG Tab PO SCH (08:00)
[2019-11-23] MEDS: Tiotropium Inhaler 18 MCG Inhalation Powder Cap Kit of 5 INH SCH (09:25)
[2019-11-23] MEDS: Enoxaparin 40 MG/0.4 ML Syringe SUBCUT SCH (09:25)
[2019-11-23] MEDS: atorvaSTATin 20 MG Tab PO SCH (09:26)
[2019-11-23] MEDS: Formoterol/Mometasone 200-5 MCG 8.8 GM Inhaler IH SCH ×2 (09:26→21:12)
[2019-11-23] MEDS: Citalopram 20 MG Tab PO SCH (09:26)
[2019-11-23] MEDS: Nicotine 14 MG/24 Hr Patch TRDERM SCH (09:26)
[2019-11-23] MEDS: Losartan 25 MG Tab PO SCH ×2 (09:27→21:10)
[2019-11-23] MEDS: Verapamil 180 MG Tab.ER PO SCH (09:29)
[2019-11-23] MEDS: Hydrochlorothiazide 25 MG Tab PO SCH ×2 (09:29→21:11)
[2019-11-23] MEDS: Famotidine 20 MG Tab PO SCH (09:44)
[2019-11-23] MEDS: Allopurinol 300 MG Tab PO SCH (09:44)
[2019-11-23] MEDS: Levofloxacin 500 MG Tab PO SCH (13:24)
[2019-11-23] MEDS: Check Patch TRDERM SCH (21:10)
[2019-11-23] MEDS: amLODIPine 5 MG Tab PO SCH (21:11)
[2019-11-24] MEDS: Hydrochlorothiazide 25 MG Tab PO SCH ×2 (09:38→21:42)
[2019-11-24] MEDS: Famotidine 20 MG Tab PO SCH (09:39)
[2019-11-24] MEDS: Verapamil 180 MG Tab.ER PO SCH (09:39)
[2019-11-24] MEDS: Citalopram 20 MG Tab PO SCH (09:39)
[2019-11-24] MEDS: atorvaSTATin 20 MG Tab PO SCH (09:40)
[2019-11-24] MEDS: Losartan 25 MG Tab PO SCH ×2 (09:40→21:42)
[2019-11-24] MEDS: Allopurinol 300 MG Tab PO SCH (09:40)
[2019-11-24] MEDS: Nicotine 14 MG/24 Hr Patch TRDERM SCH (09:42)
[2019-11-24] MEDS: Formoterol/Mometasone 200-5 MCG 8.8 GM Inhaler IH SCH ×2 (09:44→21:42)
[2019-11-24] MEDS: Tiotropium Inhaler 18 MCG Inhalation Powder Cap Kit of 5 INH SCH (09:45)
[2019-11-24] MEDS: Enoxaparin 40 MG/0.4 ML Syringe SUBCUT SCH (09:47)
[2019-11-24] MEDS: Levofloxacin 500 MG Tab PO SCH (13:41)
[2019-11-24] MEDS: amLODIPine 5 MG Tab PO SCH (21:43)
[2019-11-24] MEDS: Check Patch TRDERM SCH (21:45)
[2019-11-25] MEDS: Acetaminophen 325 MG Tab PO PRN ×2 (02:38→18:43)
[2019-11-25] MEDS: Verapamil 180 MG Tab.ER PO SCH (09:51)
[2019-11-25] MEDS: Hydrochlorothiazide 25 MG Tab PO SCH ×2 (09:52→21:03)
[2019-11-25] MEDS: atorvaSTATin 20 MG Tab PO SCH (09:52)
[2019-11-25] MEDS: Citalopram 20 MG Tab PO SCH (09:53)
[2019-11-25] MEDS: Allopurinol 300 MG Tab PO SCH (09:53)
[2019-11-25] MEDS: Famotidine 20 MG Tab PO SCH (09:53)
[2019-11-25] MEDS: Nicotine 14 MG/24 Hr Patch TRDERM SCH (09:54)
[2019-11-25] MEDS: Formoterol/Mometasone 200-5 MCG 8.8 GM Inhaler IH SCH ×2 (09:55→21:05)
[2019-11-25] MEDS: Enoxaparin 40 MG/0.4 ML Syringe SUBCUT SCH (09:55)
[2019-11-25] MEDS: Tiotropium Inhaler 18 MCG Inhalation Powder Cap Kit of 5 INH SCH (09:55)
[2019-11-25] MEDS: Losartan 25 MG Tab PO SCH (12:01)
[2019-11-25] MEDS: Losartan 50 MG Tab PO SCH ×2 (12:24→20:55)
[2019-11-25] MEDS: Levofloxacin 500 MG Tab PO SCH (13:53)
[2019-11-25] MEDS: amLODIPine 5 MG Tab PO SCH (21:02)
[2019-11-25] MEDS: Check Patch TRDERM SCH (21:04)
[2019-11-26] MEDS: Enoxaparin 40 MG/0.4 ML Syringe SUBCUT SCH (08:35)
[2019-11-26] MEDS: Formoterol/Mometasone 200-5 MCG 8.8 GM Inhaler IH SCH ×2 (08:35→22:33)
[2019-11-26] MEDS: Allopurinol 300 MG Tab PO SCH (08:36)
[2019-11-26] MEDS: Hydrochlorothiazide 25 MG Tab PO SCH ×2 (08:36→22:34)
[2019-11-26] MEDS: Citalopram 20 MG Tab PO SCH (08:36)
[2019-11-26] MEDS: Famotidine 20 MG Tab PO SCH (08:37)
[2019-11-26] MEDS: atorvaSTATin 20 MG Tab PO SCH (08:37)
[2019-11-26] MEDS: Losartan 50 MG Tab PO SCH ×2 (08:38→22:32)
[2019-11-26] MEDS: Nicotine 14 MG/24 Hr Patch TRDERM SCH (08:39)
[2019-11-26] MEDS: Verapamil 180 MG Tab.ER PO SCH (08:39)
[2019-11-26] MEDS: Tiotropium Inhaler 18 MCG Inhalation Powder Cap Kit of 5 INH SCH (08:40)
[2019-11-26] MEDS: Acetaminophen 325 MG Tab PO PRN (12:30)
[2019-11-26] MEDS: guaiFENesin 100 MG/5 ML Soln 5 ML UD Cup PO PRN (12:33)
[2019-11-26] MEDS: Levofloxacin 500 MG Tab PO SCH (13:40)
[2019-11-26] MEDS: Check Patch TRDERM SCH (22:31)
[2019-11-26] MEDS: amLODIPine 5 MG Tab PO SCH (22:34)
[2019-11-27] MEDS: Tiotropium Inhaler 18 MCG Inhalation Powder Cap Kit of 5 INH SCH (09:34)
[2019-11-27] MEDS: Formoterol/Mometasone 200-5 MCG 8.8 GM Inhaler IH SCH ×2 (09:34→21:22)
[2019-11-27] MEDS: Famotidine 20 MG Tab PO SCH (09:35)
[2019-11-27] MEDS: Allopurinol 300 MG Tab PO SCH (09:36)
[2019-11-27] MEDS: Citalopram 20 MG Tab PO SCH (09:37)
[2019-11-27] MEDS: Verapamil 180 MG Tab.ER PO SCH ×2 (09:37→09:47)
[2019-11-27] MEDS: atorvaSTATin 20 MG Tab PO SCH (09:37)
[2019-11-27] MEDS: Losartan 50 MG Tab PO SCH ×2 (09:40→21:12)
[2019-11-27] MEDS: Hydrochlorothiazide 25 MG Tab PO SCH ×2 (09:41→21:11)
[2019-11-27] MEDS: Nicotine 14 MG/24 Hr Patch TRDERM SCH (09:42)
[2019-11-27] MEDS: Acetaminophen 325 MG Tab PO PRN (09:46)
[2019-11-27] MEDS: Enoxaparin 40 MG/0.4 ML Syringe SUBCUT SCH ×2 (09:46→09:48)
[2019-11-27] MEDS: Levofloxacin 500 MG Tab PO SCH (14:43)
[2019-11-27] MEDS: Check Patch TRDERM SCH (21:09)
[2019-11-27] MEDS: amLODIPine 5 MG Tab PO SCH (21:12)
[2019-11-28] MEDS: Citalopram 20 MG Tab PO SCH (08:33)
[2019-11-28] MEDS: Verapamil 180 MG Tab.ER PO SCH (08:33)
[2019-11-28] MEDS: Losartan 50 MG Tab PO SCH ×2 (08:34→20:25)
[2019-11-28] MEDS: Hydrochlorothiazide 25 MG Tab PO SCH ×2 (08:35→20:26)
[2019-11-28] MEDS: Nicotine 14 MG/24 Hr Patch TRDERM SCH (08:35)
[2019-11-28] MEDS: atorvaSTATin 20 MG Tab PO SCH (08:36)
[2019-11-28] MEDS: Enoxaparin 40 MG/0.4 ML Syringe SUBCUT SCH (08:37)
[2019-11-28] MEDS: Famotidine 20 MG Tab PO SCH (08:37)
[2019-11-28] MEDS: Allopurinol 300 MG Tab PO SCH (08:38)
[2019-11-28] MEDS: Tiotropium Inhaler 18 MCG Inhalation Powder Cap Kit of 5 INH SCH (09:12)
[2019-11-28] MEDS: Formoterol/Mometasone 200-5 MCG 8.8 GM Inhaler IH SCH ×2 (09:12→20:24)
[2019-11-28] MEDS: Acetaminophen 325 MG Tab PO PRN (14:07)
[2019-11-28] MEDS: Levofloxacin 500 MG Tab PO SCH (14:09)
[2019-11-28] MEDS: guaiFENesin 100 MG/5 ML Soln 5 ML UD Cup PO PRN (16:45)
[2019-11-28] MEDS: Check Patch TRDERM SCH (20:23)
[2019-11-28] MEDS: amLODIPine 5 MG Tab PO SCH (20:26)
[2019-11-29] MEDS: guaiFENesin 100 MG/5 ML Soln 5 ML UD Cup PO PRN (00:01)
[2019-11-29] MEDS: Famotidine 20 MG Tab PO SCH (08:59)
[2019-11-29] MEDS: Citalopram 20 MG Tab PO SCH (09:00)
[2019-11-29] MEDS: atorvaSTATin 20 MG Tab PO SCH (09:00)
[2019-11-29] MEDS: Losartan 50 MG Tab PO SCH (09:00)
[2019-11-29] MEDS: Allopurinol 300 MG Tab PO SCH (09:01)
[2019-11-29] MEDS: Nicotine 14 MG/24 Hr Patch TRDERM SCH (09:01)
[2019-11-29] MEDS: Formoterol/Mometasone 200-5 MCG 8.8 GM Inhaler IH SCH (09:01)
[2019-11-29] MEDS: Tiotropium Inhaler 18 MCG Inhalation Powder Cap Kit of 5 INH SCH (09:02)
[2019-11-29] MEDS: Enoxaparin 40 MG/0.4 ML Syringe SUBCUT SCH (09:05)
[2019-11-29] MEDS: Hydrochlorothiazide 25 MG Tab PO SCH (09:05)
[2019-11-29] MEDS: Verapamil 180 MG Tab.ER PO SCH (09:06)
--- NOTE | 2019-11-29 11:27 | PN ---
DATE: 11/29/2019 SUBJECTIVE: The patient is doing well. The patient denies any worsening of shortness of breath. She mentioned that she is ready to be discharged. She denies any chest pain, orthopnea, PND, abdominal pain, fever, chills, or any other complaints. OBJECTIVE: Vital Signs: Blood pressure is 103/65, pulse of 102, respirations 20, temperature of 99.2, and saturation is 99% on room air. Heart: Regular rate and rhythm. No gallops. No rubs. Lungs: Diminished breath sounds on both bases, still with some mild expiratory wheeze, but no significant crackles. Abdomen: Obese, otherwise soft and nontender. Bowel sounds positive. Extremities: Negative for any significant pedal edema. No calf tenderness. PLAN: We will discharge the patient home today. [facility] /[id number]
--- NOTE | 2019-11-29 23:39 | DISCH ---
FINAL DIAGNOSES: 1. General debility status post hospitalization. 2. Pneumonia. 3. Chronic obstructive pulmonary disease with recent exacerbation. 4. Tobacco use disorder. 5. Hypertension. 6. Obesity. BRIEF HISTORY OF PRESENT ILLNESS: The patient is a 69-year-old female with history of COPD, smoking, essential hypertension, hyperlipidemia, coronary artery disease, and history of [place], who was admitted to [facility] for sepsis and COPD exacerbation and respiratory failure with hypoxia. She was treated with antibiotic and COPD protocol and long-acting bronchodilator and inhaled corticosteroids and she improved, but she was still desaturating with ambulation, and she was admitted to Swing Bed for PT and OT and strengthening. The patient did well during the swing bed hospitalization and it was uncomplicated, and she mentioned that she was feeling much better, and she was subsequently discharged. CONDITION ON DISCHARGE: Improved. DISCHARGE INSTRUCTIONS: Written and basically we will resume her home medications and continue with oral antibiotics for the next 5 days. Follow up with Jona Dahl, who is her primary care provider in about a week with some lab workup. [facility] /[id number]
== END 2019-11-29 12:50 | disposition home or self-care (01) | DRG 947 ==
LOC: DL.MS 10:27 → UNDOADMIN 13:30 → DL.MS 13:30
PROVIDERS: ADMIT Hospitalist; ATTEND Internal Medicine
DX: R53.1 Weakness (principal); A41.9 Sepsis, unspecified organism; J18.9 Pneumonia, unspecified organism; J44.0 Chronic obstructive pulmonary disease with (acute) lower respiratory infection; J44.1 Chronic obstructive pulmonary disease with (acute) exacerbation; Z68.42 Body mass index [BMI] 45.0-49.9, adult; Z66 Do not resuscitate; E66.01 Morbid (severe) obesity due to excess calories; F17.210 Nicotine dependence, cigarettes, uncomplicated; E78.00 Pure hypercholesterolemia, unspecified; I11.0 Hypertensive heart disease with heart failure; I50.9 Heart failure, unspecified; K21.9 Gastro-esophageal reflux disease without esophagitis; Z71.6 Tobacco abuse counseling; Z88.5 Allergy status to narcotic agent; Z88.0 Allergy status to penicillin; Z88.8 Allergy status to other drugs, medicaments and biological substances; Z88.2 Allergy status to sulfonamides; Z79.899 Other long term (current) drug therapy; I25.2 Old myocardial infarction; Z90.710 Acquired absence of both cervix and uterus; Z90.49 Acquired absence of other specified parts of digestive tract
CPT/HCPCS: 94010; 94618; 94667; 97110-GO; 97110-GP; 97116-GP; 97162-GP; 97165-GO; 97530-GO; A9270-GY; J1650

== ENCOUNTER 2019-12-06 13:31 | Inpatient (IN) | payer MEDICARE, MEDICAID ==
[2019-12-06] MEDS ORDERED: Albuterol/Ipratropium 3.0-0.5 MG/3 ML Neb Soln NEB ONE (13:47)
[2019-12-06] MEDS ORDERED: Furosemide 40 MG/4 ML VIAL IVPUSH ONE (13:47)
[2019-12-06] MEDS ORDERED: methylPREDNISolone Sodium Succinate 125 MG/2 ML SDV IVPUSH ONE (13:47)
--- NOTE | 2019-12-06 14:00 | EDM.PDOC ---
ED HPI GENERAL MEDICAL PROBLEM - General Chief Complaint: Respiratory Problem Stated Complaint: UNKNOWN-AMBULANCE Time Seen by Provider: 12/06/19 13:42 Source of Information: Reports: Patient, RN History Limitations: Reports: No Limitations - History of Present Illness INITIAL COMMENTS - FREE TEXT/NARRATIVE: Patient presents with EMS for complaints of shortness of breath 30 minutes ago. Patient reports that she was sitting on her couch and started coughing and became short of breath. She reports coughing up blood and sputum twice. She was just discharged from the hospital 1 week ago for complaints of the same. She denies any fever, chills, or recent travel. She is still smoking. Uses an inhaler as prescribed. No chest pain, palpitations, swollen legs reported. Onset: Today Duration: Getting Worse Location: Reports: Chest Quality: Reports: Ache Severity: Moderate Improves with: Reports: None - Related Data Allergies Allergy/AdvReac Type Severity Reaction Status Date / Time codeine Allergy Stomach Verified 11/22/19 14:27 Upset Penicillins Allergy Rash Verified 11/22/19 14:27 povidone-iodine Allergy Rash Verified 11/22/19 14:27 [From Betadine] soap [From Betadine] Allergy Rash Verified 11/22/19 14:27 Sulfa (Sulfonamide Allergy Hives Verified 11/22/19 14:27 Antibiotics) tetracycline Allergy Cannot Verified 11/22/19 14:27 Remember Home Meds: Home Meds Albuterol [Ventolin HFA] 1 - 2 puff INH Q8HR PRN 07/25/18 [History] Citalopram [Citalopram HBr] 20 mg PO DAILY 07/25/18 [History] Famotidine [Pepcid] 40 mg PO BID 07/25/18 [History] Losartan/Hydrochlorothiazide [Losartan-HCTZ 100-12.5 MG] 1 tab PO BID 07/25/18 [ History] Tiotropium [Spiriva HandiHaler] 18 mcg INH DAILY 07/25/18 [History] Verapamil HCl [Verapamil ER] 180 mg PO DAILY 07/25/18 [History] allopurinoL [Zyloprim] 300 mg PO DAILY 07/25/18 [History] amLODIPine Besylate [Amlodipine Besylate] 10 mg PO BEDTIME 07/25/18 [History] atorvaSTATin [Lipitor] 20 mg PO DAILY 07/25/18 [History] Fluticasone/Salmeterol [Advair 250-50] 2 puff INH BID #1 diskus 07/28/18 [Rx] Docusate Sodium/Sennosides [Senna Plus] 1 tab PO BEDTIME PRN tablet 11/29/19 [ Rx] Furosemide [Lasix] 20 mg PO DAILY 30 Days tablet 11/29/19 [Rx] levoFLOXacin [Levaquin] 750 mg PO DAILY@1400 #5 tablet 11/29/19 [Rx] Past Medical History HEENT History: Reports: Impaired Vision Cardiovascular History: Reports: High Cholesterol, Hypertension, MA, SOB on Exertion Respiratory History: Reports: Asthma, COPD, SOB Gastrointestinal History: Reports: GERD Genitourinary History: Reports: Urinary Incontinence [employer] History: Reports: Musculoskeletal History: Reports: Arthritis Neurological History: Reports: None Psychiatric History: Reports: None Endocrine/Metabolic History: Reports: Obesity/BMI 30+ Hematologic History: Reports: None Immunologic History: Reports: None Oncologic (Cancer) History: Reports: Malignant Melanoma Dermatologic History: Reports: None - Infectious Disease History Infectious Disease History: Reports: Chicken Pox, Measles, Mumps - Past Surgical History Head Surgeries/Procedures: Reports: None HEENT Surgical History: Reports: None Other HEENT Surgeries/Procedures: glasses Cardiovascular Surgical History: Reports: None Respiratory Surgical History: Reports: None GI Surgical History: Reports: Appendectomy, Colonoscopy Female Surgical History: Reports: Hysterectomy, Tubal Ligation, Other (See Below) Other Female Surgeries/Procedures: bladder repair Endocrine Surgical History: Reports: None Neurological Surgical History: Reports: None Musculoskeletal Surgical History: Reports: Shoulder Replacement Social & Family History - Family History Family Medical History: Noncontributory - Caffeine Use Caffeine Use: Reports: Coffee, Soda ED ROS GENERAL - Review of Systems Review Of Systems: Comprehensive ROS is negative, except as noted in HPI. ED EXAM, GENERAL - Physical Exam Exam: See Below Exam Limited By: No Limitations General Appearance: Alert, Moderate Distress Eye Exam: Bilateral Eye: Normal Inspection Ears: Normal External Exam, Normal Canal, Hearing Grossly Normal, Normal TMs Nose: Normal Inspection, Normal Mucosa, No Blood Throat/Mouth: Normal Inspection, Normal Lips, Normal Teeth, Normal Gums, Normal Oropharynx, Normal Voice, No Airway Compromise Head: Atraumatic, Normocephalic Neck: Normal Inspection, Supple, Non-Tender, Full Range of Motion Respiratory/Chest: No Accessory Muscle Use, Chest Non-Tender, Crackles (mild diffuse ), Wheezing (diffuse expiratory) Cardiovascular: Normal Peripheral Pulses, Regular Rate, Rhythm, No Edema GI/Abdominal: Normal Bowel Sounds (Female) Exam: Deferred Rectal (Female) Exam: Deferred Extremities: Normal Inspection, Normal Range of Motion, Non-Tender, No Pedal Edema Neurological: Alert, Oriented Psychiatric: Normal Affect, Normal Mood Skin Exam: Dry Lymphatic: No Adenopathy Course - Vital Signs Last Recorded V/S: Last Vital Signs Temp 98.6 F 12/06/19 16:14 Pulse 75 12/06/19 16:14 Resp 26 H 12/06/19 16:14 BP 115/49 L 12/06/19 16:14 Pulse Ox 94 L 12/06/19 16:14 - Orders/Labs/Meds Orders: Active Orders 24 hr Category Date Time Status RT Aerosol Therapy [RC] ASDIRECTED Care 12/06/19 13:47 Active Isolation [COMM] Routine Oth 12/06/19 13:42 Active Medication Orders Acetaminophen (Tylenol) 650 mg PO Q4H PRN PRN Reason: Pain (Mild 1-3)/fever Albuterol/Ipratropium (Duoneb 3.0-0.5 Mg/3 Ml) 3 ml NEB Q6HRRT TONNY Albuterol/Ipratropium (Duoneb 3.0-0.5 Mg/3 Ml) 3 ml NEB Q2H PRN PRN Reason: sob Allopurinol (Zyloprim) 300 mg PO DAILY [facility] Atorvastatin Calcium (Lipitor) 20 mg PO DAILY TONNY Budesonide (Pulmicort) 0.5 mg NEB BIDRT OTNNY Citalopram Hydrobromide (Celexa) 20 mg PO DAILY TONNY Furosemide (Lasix) 20 mg PO DAILY [facility] Heparin Sodium (Porcine) (Heparin Sodium) 5,000 units SUBCUT Q8HR TONNY Levofloxacin/Dextrose 750 mg/ (Premix) 150 mls @ 100 mls/hr IV Q24H [facility] Methylprednisolone Sodium Succinate (Solu-Medrol) 40 mg IVPUSH Q8H TONNY Non-Formulary Medication (Amlodipine Besylate [Amlodipine Besylate]) 10 mg PO BEDTIME TONNY Non-Formulary Medication (Famotidine [Pepcid]) 40 mg PO BID TONNY Non-Formulary Medication (Losartan/Hydrochlorothiazide [Losartan-Hctz 100-12.5 Mg]) 1 tab PO BID TONNY Non-Formulary Medication (Verapamil) 180 mg PO DAILY TONNY Ondansetron HCl (Zofran Odt) 4 mg PO Q6H PRN PRN Reason: nausea, able to take PO Senna/Docusate Sodium (Senna Plus) 1 tab PO BEDTIME PRN PRN Reason: Constipation Sodium Chloride (Saline Flush) 10 ml FLUSH ASDIRECTED PRN PRN Reason: Keep Vein Open Zolpidem Tartrate (Ambien) 5 mg PO BEDTIME PRN PRN Reason: Sleep Labs: Laboratory Tests 12/06/19 12/06/19 Range/Units 14:09 14:09 WBC 13.7 H (5.0-10.0) 10^3/uL RBC 5.22 (4.2-5.4) 10^6/uL Hgb 13.0 (12.0-16.0) g/dL Hct 41.7 (37.0-47.0) % MCV 79.9 L (80-100) fL MCH 24.9 L (27.0-34.0) pg MCHC 31.2 L (33.0-35.0) g/dL Plt Count 202 (150-450) 10^3/uL Neut % (Auto) 68.8 (42.2-75.2) % Lymph % (Auto) 24.2 (20.5-50.1) % Sebastian % (Auto) 5.8 (2-8) % Eos % (Auto) 1.1 (1.0-3.0) % Baso % (Auto) 0.1 (0.0-1.0) % Sodium 143 (136-145) mmol/L Potassium 4.1 (3.5-5.1) mmol/L Chloride 105 (98-107) mmol/L Carbon Dioxide 31 (21-32) mmol/L Anion Gap 11.1 (7-13) mEq/L BUN 11 (7-18) mg/dL Creatinine 1.03 H (0.55-1.02) mg/dL Est Cr Clr Drug Dosing 40.20 mL/min Estimated GFR (MDRD) > 60 BUN/Creatinine Ratio 10.7 (No establ ref range) Glucose 117 H (74-99) mg/dL Calcium 7.8 L (8.5-10.1) mg/dL Total Bilirubin 0.5 (0.2-1.0) mg/dL AST 19 (15-37) U/L ALT 16 (14-59) U/L Alkaline Phosphatase 101 (46-116) U/L Troponin I < 0.017 (0.000-0.056) ng/mL B-Natriuretic Peptide 50 (0-100) pg/ml Total Protein 7.2 (6.4-8.2) g/dL Albumin 2.7 L (3.4-5.0) g/dL Globulin 4.5 Albumin/Globulin Ratio 0.60 Meds: Medications Generic Name Dose Route Start Last Admin Trade Name Freq PRN Reason Stop Dose Admin Acetaminophen 650 mg 12/06/19 16:47 Tylenol PO Q4H PRN Pain (Mild 1-3)/fever Albuterol/Ipratropium 3 ml 12/06/19 18:00 Duoneb 3.0-0.5 Mg/3 Ml NEB Q6HRRT TONNY Albuterol/Ipratropium 3 ml 12/06/19 16:40 Duoneb 3.0-0.5 Mg/3 Ml NEB Q2H PRN sob Allopurinol 300 mg 12/07/19 09:00 Zyloprim PO DAILY [facility] Atorvastatin Calcium 20 mg 12/07/19 09:00 Lipitor PO DAILY TONNY Budesonide 0.5 mg 12/06/19 18:00 Pulmicort NEB BIDRT TONNY Citalopram Hydrobromide 20 mg 12/07/19 09:00 Celexa PO DAILY TONNY Furosemide 20 mg 12/07/19 09:00 Lasix PO DAILY [facility] Heparin Sodium (Porcine) 5,000 units 12/06/19 22:00 Heparin Sodium SUBCUT Q8HR TONNY Levofloxacin/Dextrose 750 mg/ 150 mls @ 100 mls/hr 12/06/19 17:00 Premix IV Q24H TONNY Methylprednisolone Sodium Succinate 40 mg 12/06/19 22:00 Solu-Medrol IVPUSH Q8H TONNY Non-Formulary Medication 10 mg 12/06/19 21:00 Amlodipine Besylate [Amlodipine Besylate] PO BEDTIME TONNY Non-Formulary Medication 40 mg 12/06/19 21:00 Famotidine [Pepcid] PO BID TONNY Non-Formulary Medication 1 tab 12/06/19 21:00 Losartan/Hydrochlorothiazide [Losartan-Hctz 100-12.5 Mg] PO BID TONNY Non-Formulary Medication 180 mg 12/07/19 09:00 Verapamil PO DAILY TONNY Ondansetron HCl 4 mg 12/06/19 16:47 Zofran Odt PO Q6H PRN nausea, able to take PO Senna/Docusate Sodium 1 tab 12/06/19 16:42 Senna Plus PO BEDTIME PRN Constipation Sodium Chloride 10 ml 12/06/19 16:47 Saline Flush FLUSH ASDIRECTED PRN Keep Vein Open Zolpidem Tartrate 5 mg 12/06/19 16:47 Ambien PO BEDTIME PRN Sleep Discontinued Medications Generic Name Dose Route Start Last Admin Trade Name Freq PRN Reason Stop Dose Admin Albuterol/Ipratropium 3 ml 12/06/19 13:47 12/06/19 14:07 Duoneb 3.0-0.5 Mg/3 Ml NEB 12/06/19 13:48 3 ml ONETIME ONE Administration Furosemide 40 mg 12/06/19 13:47 12/06/19 14:32 Lasix IVPUSH 12/06/19 13:48 40 mg NOW ONE Administration Methylprednisolone Sodium Succinate 125 mg 12/06/19 13:47 12/06/19 14:32 Solu-Medrol IVPUSH 12/06/19 13:48 125 mg ONETIME ONE Administration - Radiology Interpretation Free Text/Narrative:: Chest x-ray: Suggestion dependent pleural effusions (see above). No other new evidence of cardiopulmonary abnormality. See report. - Re-Assessments/Exams Free Text/Narrative Re-Assessment/Exam: Reviewed labs, EKG, and chest x-ray results with patient. DuoNeb, Lasix 40 mg, and Solu-Medrol 125 mg were administered with some relief. Patient is still short of breath with diffuse wheezing. Patient transferred to inpatient with Dr. Garcia admitting. Patient verbalized and agreement to treatment plan. Departure - Departure Time of Disposition: 15:30 Disposition: Admitted As Inpatient 65 Condition: Fair Clinical Impression: COPD exacerbation - Discharge Information Sepsis Event Note - Evaluation Sepsis Screening Result: No Definite Risk - Focused Exam Vital Signs: Vital Signs Temp Pulse Resp BP Pulse Ox Pulse Ox 03/20/20 13:47 84 94 L 12/06/19 13:39 98.8 F 89 20 114/64 91 L Date Exam was Performed: 12/06/19 Time Exam was Performed: 17:01 - My Orders Last 24 Hours: My Active Orders 12/06/19 13:42 Isolation [COMM] Routine 12/06/19 13:47 RT Aerosol Therapy [RC] ASDIRECTED - Assessment/Plan Last 24 Hours: My Active Orders 12/06/19 13:42 Isolation [COMM] Routine 12/06/19 13:47 RT Aerosol Therapy [RC] ASDIRECTED
--- NOTE | 2019-12-06 14:30 | CR ---
EXAMINATION: Chest 1V Frontal SEX: Female AGE: 69 years CLINICAL HISTORY: 69-year-old obese female experiencing shortness of breath (SOB). Comparison exam October. INTERPRETATION: Abnormal. 1. Right hemidiaphragm partially obscured suggesting interval accumulation dependent pleural fluid (effusion), on the right however this could represent technique differences large patient. 2. Total right shoulder replacement. External registered nurse cardiac telemetry leads. 3. Normal cardiac silhouette without pulmonary vascular congestion, cephalization of flow or alveolar edema. 4. No new lung mass, hilar lymphadenopathy or focal lobar pneumonia. 5. No pneumothorax or pneumomediastinum. Midline tracheal airway unremarkable. CONCLUSION: Suggestion dependent pleural effusions (see above). No other new evidence of cardiopulmonary abnormality.
[2019-12-06 14:37] LABS: ANION GAP 11.1 mEq/L (7-13); CHLORIDE,CL 105 mmol/L (98-107); SODIUM,NA 143 mmol/L (136-145)
[2019-12-06] MEDS ORDERED: Albuterol/Ipratropium 3.0-0.5 MG/3 ML Neb Soln NEB PRN (16:40)
[2019-12-06] MEDS ORDERED: Acetaminophen 325 MG Tab PO PRN (16:47)
[2019-12-06] MEDS ORDERED: Ondansetron 4 MG Tab.DIS PO PRN (16:47)
--- NOTE | 2019-12-06 16:54 | PCM.HP ---
H&P History of Present Illness - General Date of Service: 12/06/19 Admit Problem/Dx: Admission Diagnosis/Problem Admission Diagnosis/Problem Exacerbation of chronic obstructive pulmonary disease Source of Information: Patient, Provider (ER) - History of Present Illness Initial Comments - Free Text/Narative: 69-year-old lady with a history of hypertension, dyslipidemia, COPD. The patient is still smoking. The patient was recently hospitalized and treated for COPD. She was discharged and she says she was not taking antibiotics at home. She has no recent travel, sick contact. She lives with son who is healthy. She presented to the emergency room with shortness of breath, cough, small amount of bloody sputum. She denies fever. No chest pain. No leg swelling. - Related Data Allergies/Adverse Reactions: Allergies Allergy/AdvReac Type Severity Reaction Status Date / Time codeine Allergy Stomach Verified 11/22/19 14:27 Upset Penicillins Allergy Rash Verified 11/22/19 14:27 povidone-iodine Allergy Rash Verified 11/22/19 14:27 [From Betadine] soap [From Betadine] Allergy Rash Verified 11/22/19 14:27 Sulfa (Sulfonamide Allergy Hives Verified 11/22/19 14:27 Antibiotics) tetracycline Allergy Cannot Verified 11/22/19 14:27 Remember Home Medications: Home Meds Albuterol [Ventolin HFA] 1 - 2 puff INH Q8HR PRN 07/25/18 [History] Citalopram [Citalopram HBr] 20 mg PO DAILY 07/25/18 [History] Famotidine [Pepcid] 40 mg PO BID 07/25/18 [History] Losartan/Hydrochlorothiazide [Losartan-HCTZ 100-12.5 MG] 1 tab PO BID 07/25/18 [ History] Tiotropium [Spiriva HandiHaler] 18 mcg INH DAILY 07/25/18 [History] Verapamil HCl [Verapamil ER] 180 mg PO DAILY 07/25/18 [History] allopurinoL [Zyloprim] 300 mg PO DAILY 07/25/18 [History] amLODIPine Besylate [Amlodipine Besylate] 10 mg PO BEDTIME 07/25/18 [History] atorvaSTATin [Lipitor] 20 mg PO DAILY 07/25/18 [History] Fluticasone/Salmeterol [Advair 250-50] 2 puff INH BID #1 diskus 07/28/18 [Rx] Docusate Sodium/Sennosides [Senna Plus] 1 tab PO BEDTIME PRN tablet 11/29/19 [ Rx] Furosemide [Lasix] 20 mg PO DAILY 30 Days tablet 11/29/19 [Rx] levoFLOXacin [Levaquin] 750 mg PO DAILY@1400 #5 tablet 11/29/19 [Rx] Past Medical History HEENT History: Reports: Impaired Vision Cardiovascular History: Reports: High Cholesterol, Hypertension, PR, SOB on Exertion Respiratory History: Reports: Asthma, COPD, SOB Gastrointestinal History: Reports: GERD Genitourinary History: Reports: Urinary Incontinence [employer] History: Reports: Musculoskeletal History: Reports: Arthritis Neurological History: Reports: None Psychiatric History: Reports: None Endocrine/Metabolic History: Reports: Obesity/BMI 30+ Hematologic History: Reports: None Immunologic History: Reports: None Oncologic (Cancer) History: Reports: Malignant Melanoma Dermatologic History: Reports: None - Infectious Disease History Infectious Disease History: Reports: Chicken Pox, Measles, Mumps - Past Surgical History Head Surgeries/Procedures: Reports: None HEENT Surgical History: Reports: None Other HEENT Surgeries/Procedures: glasses Cardiovascular Surgical History: Reports: None Respiratory Surgical History: Reports: None GI Surgical History: Reports: Appendectomy, Colonoscopy Female Surgical History: Reports: Hysterectomy, Tubal Ligation, Other (See Below) Other Female Surgeries/Procedures: bladder repair Endocrine Surgical History: Reports: None Neurological Surgical History: Reports: None Musculoskeletal Surgical History: Reports: Shoulder Replacement Social & Family History - Family History Family Medical History: Noncontributory - Tobacco Use Smoking Status *Q: Current Every Day Smoker Years of Tobacco use: 40 Packs/Tins Daily: 0.5 Second Hand Smoke Exposure: Yes - Caffeine Use Caffeine Use: Reports: Coffee, Soda - Recreational Drug Use Recreational Drug Use: Yes Drug Use in Last 12 Months: Yes Recreational Drug Type: Reports: Marijuana/Hashish Recreational Drug Use Frequency: Daily H&P Review of Systems - Review of Systems: Review Of Systems: See Below General: Reports: No Symptoms. Denies: Fever, Chills Pulmonary: Reports: Shortness of Breath, Wheezing Cardiovascular: Denies: Chest Pain, Palpitations, Edema Gastrointestinal: Denies: Abdominal Pain Genitourinary: Denies: Dysuria Exam - Exam Exam: See Below - Vital Signs Vital Signs: Last Vital Signs Temp 98.6 F 12/06/19 16:14 Pulse 75 12/06/19 16:14 Resp 26 H 12/06/19 16:14 BP 115/49 L 12/06/19 16:14 Pulse Ox 94 L 12/06/19 16:14 Weight: 239 lb 4.8 oz - Exam Quality Assessment: No: Supplemental Oxygen General: Alert, Oriented Neck: Supple Lungs: Decreased Breath Sounds, Wheezing Cardiovascular: Regular Rate, Regular Rhythm GI/Abdominal Exam: Normal Bowel Sounds, Soft, Non-Tender Extremities: No Pedal Edema Neuro Extensive - Mental Status: Alert, Oriented x3, Normal Mood/Affect Psychiatric: Alert, Normal Affect, Normal Mood - Patient Data Lab Results Last 24 hrs: Laboratory Results - last 24 hr 12/06/19 12/06/19 Range/Units 14:09 14:09 WBC 13.7 H (5.0-10.0) 10^3/uL RBC 5.22 (4.2-5.4) 10^6/uL Hgb 13.0 (12.0-16.0) g/dL Hct 41.7 (37.0-47.0) % MCV 79.9 L (80-100) fL MCH 24.9 L (27.0-34.0) pg MCHC 31.2 L (33.0-35.0) g/dL Plt Count 202 (150-450) 10^3/uL Neut % (Auto) 68.8 (42.2-75.2) % Lymph % (Auto) 24.2 (20.5-50.1) % [place] % (Auto) 5.8 (2-8) % Eos % (Auto) 1.1 (1.0-3.0) % Baso % (Auto) 0.1 (0.0-1.0) % Sodium 143 (136-145) mmol/L Potassium 4.1 (3.5-5.1) mmol/L Chloride 105 (98-107) mmol/L Carbon Dioxide 31 (21-32) mmol/L Anion Gap 11.1 (7-13) mEq/L BUN 11 (7-18) mg/dL Creatinine 1.03 H (0.55-1.02) mg/dL Est Cr Clr Drug Dosing 40.20 mL/min Estimated GFR (MDRD) > 60 BUN/Creatinine Ratio 10.7 (No establ ref range) Glucose 117 H (74-99) mg/dL Calcium 7.8 L (8.5-10.1) mg/dL Total Bilirubin 0.5 (0.2-1.0) mg/dL AST 19 (15-37) U/L ALT 16 (14-59) U/L Alkaline Phosphatase 101 (46-116) U/L Troponin I < 0.017 (0.000-0.056) ng/mL B-Natriuretic Peptide 50 (0-100) pg/ml Total Protein 7.2 (6.4-8.2) g/dL Albumin 2.7 L (3.4-5.0) g/dL Globulin 4.5 Albumin/Globulin Ratio 0.60 Result Diagrams: 12/06/19 14:09 12/06/19 14:09 Oz Results Last 24 hrs: Microbiology 12/06/19 13:33 Influenza Type A Antigen Screen - Final Nasal, Left NEGATIVE INFLUENZA A VIRUS AG REFERENCE RANGE: NEGATIVE Influenza Type B Antigen Screen - Final NEGATIVE INFLUENZA B VIRUS AG REFERENCE RANGE: NEGATIVE - Problem List (1) COPD exacerbation SNOMED Code(s): 167087975 ICD Code: J44.1 - CHRONIC OBSTRUCTIVE PULMONARY DISEASE W (ACUTE) EXACERBATION Status: Acute Current Visit: No (2) HTN (hypertension) SNOMED Code(s): 47406927 ICD Code: I10 - ESSENTIAL (PRIMARY) HYPERTENSION Status: Acute Current Visit: No Qualifiers: Hypertension type: essential hypertension Qualified Code(s): I10 - Essential (primary) hypertension Problem List Initiated/Reviewed/Updated: Yes Orders Last 24hrs: Active Orders 24 hr Category Date Time Status Admission Diagnosis [ADT] Stat ADT 12/06/19 15:31 Ordered Admission Status [Patient Status] [ADT] Routine ADT 12/06/19 15:31 Active Antiembolic Devices [RC] PER UNIT ROUTINE Care 12/06/19 16:48 Ordered Oxygen Therapy [RC] PRN Care 12/06/19 16:47 Ordered Peripheral IV Care [RC] . DIRECTED Care 12/06/19 16:48 Ordered RT Aerosol Therapy [RC] ASDIRECTED Care 12/06/19 13:47 Active RT Aerosol Therapy [RC] ASDIRECTED Care 12/06/19 16:40 Ordered Up With Assistance [RC] ASDIRECTED Care 12/06/19 16:47 Ordered VTE/DVT Education [RC] PER UNIT ROUTINE Care 12/06/19 16:47 Ordered Vital Signs [RC] Q4H Care 12/06/19 16:47 Ordered Regular Diet [DIET] Diet 12/06/19 Dinner Ordered B-TYPE NATRIURETIC PEPTIDE,BNP [CHEM] AM Lab 12/08/19 05:11 Ordered BASIC METABOLIC PANEL,BMP [CHEM] AM Lab 12/07/19 05:15 Ordered CBC WITH AUTO DIFF [HEME] AM Lab 12/07/19 05:15 Ordered CULTURE SPUTUM + SMEAR [RM] Routine Lab 12/06/19 16:49 Ordered Acetaminophen [Tylenol] Med 12/06/19 16:47 Ordered 650 mg PO Q4H PRN Albuterol/Ipratropium [DuoNeb 3.0-0.5 MG/3 ML] Med 12/06/19 16:40 Ordered 3 ml NEB Q2H PRN Albuterol/Ipratropium [DuoNeb 3.0-0.5 MG/3 ML] Med 12/06/19 18:00 Ordered 3 ml NEB Q6HRRT Budesonide [Pulmicort] Med 12/06/19 18:00 Ordered 0.5 mg NEB BIDRT Citalopram [Celexa] Med 12/07/19 09:00 Ordered 20 mg PO DAILY Docusate Sodium/Sennosides [Senna Plus] Med 12/06/19 16:42 Ordered 1 tab PO BEDTIME PRN Famotidine [Pepcid] Med 12/06/19 21:00 Ordered 40 mg PO BID Furosemide [Lasix] Med 12/07/19 09:00 Ordered 20 mg PO DAILY Heparin Sodium Med 12/06/19 22:00 Ordered 5,000 units SUBCUT Q8HR Levofloxacin/Dextrose 5%-Water [Levaquin in D5W 750 MG/ Med 12/06/19 16:45 Ordered 150 ML] 750 mg Premix Bag 1 bag IV Q24H Losartan/Hydrochlorothiazide [Losartan-HCTZ 100-12.5 MG Med 12/06/19 21:00 Ordered ] 1 tab PO BID Ondansetron [Zofran ODT] Med 12/06/19 16:47 Ordered 4 mg PO Q6H PRN Sodium Chloride 0.9% [Saline Flush] Med 12/06/19 16:47 Ordered 10 ml FLUSH ASDIRECTED PRN Verapamil Med 12/07/19 09:00 Ordered 180 mg PO DAILY Zolpidem [Ambien] Med 12/06/19 16:47 Ordered 5 mg PO BEDTIME PRN allopurinoL [Zyloprim] Med 12/07/19 09:00 Ordered 300 mg PO DAILY amLODIPine Besylate [Amlodipine Besylate] Med 12/06/19 21:00 Ordered 10 mg PO BEDTIME atorvaSTATin [Lipitor] Med 12/07/19 09:00 Ordered 20 mg PO DAILY methylPREDNISolone Sod Succ [Solu-MEDROL] Med 12/06/19 16:45 Ordered 40 mg IVPUSH Q8H Antiembolic Hose [OM.PC] Per Unit Routine Oth 12/06/19 16:47 Ordered Isolation [COMM] Routine Oth 12/06/19 13:42 Active Peripheral IV Insertion Adult [OM.PC] Routine Oth 12/06/19 16:47 Ordered Saline Lock Insert [OM.PC] Routine Oth 12/06/19 16:47 Ordered Resuscitation Status Routine Resus Stat 12/06/19 16:47 Ordered Medication Orders Acetaminophen (Tylenol) 650 mg PO Q4H PRN PRN Reason: Pain (Mild 1-3)/fever Albuterol/Ipratropium (Duoneb 3.0-0.5 Mg/3 Ml) 3 ml NEB Q6HRRT [facility] Albuterol/Ipratropium (Duoneb 3.0-0.5 Mg/3 Ml) 3 ml NEB Q2H PRN PRN Reason: sob Allopurinol (Zyloprim) 300 mg PO DAILY [facility] Atorvastatin Calcium (Lipitor) 20 mg PO DAILY [facility] Budesonide (Pulmicort) 0.5 mg NEB BIDRT [facility] Citalopram Hydrobromide (Celexa) 20 mg PO DAILY [facility] Furosemide (Lasix) 20 mg PO DAILY [facility] Heparin Sodium (Porcine) (Heparin Sodium) 5,000 units SUBCUT Q8HR [facility] Levofloxacin/Dextrose 750 mg/ (Premix) 150 mls @ 100 mls/hr IV Q24H [facility] Methylprednisolone Sodium Succinate (Solu-Medrol) 40 mg IVPUSH Q8H [facility] Non-Formulary Medication (Amlodipine Besylate [Amlodipine Besylate]) 10 mg PO BEDTIME [facility] Non-Formulary Medication (Famotidine [Pepcid]) 40 mg PO BID [facility] Non-Formulary Medication (Losartan/Hydrochlorothiazide [Losartan-Hctz 100-12.5 Mg]) 1 tab PO BID [facility] Non-Formulary Medication (Verapamil) 180 mg PO DAILY [facility] Ondansetron HCl (Zofran Odt) 4 mg PO Q6H PRN PRN Reason: nausea, able to take PO Senna/Docusate Sodium (Senna Plus) 1 tab PO BEDTIME PRN PRN Reason: Constipation Sodium Chloride (Saline Flush) 10 ml FLUSH ASDIRECTED PRN PRN Reason: Keep Vein Open Zolpidem Tartrate (Ambien) 5 mg PO BEDTIME PRN PRN Reason: Sleep Assessment/Plan Comment:: 69-year-old lady with a history of hypertension, dyslipidemia, COPD. The patient is still smoking. The patient was recently hospitalized and treated for COPD. She was discharged and she says she was not taking antibiotics at home. She has no recent travel, sick contact. She lives with son who is healthy. She presented to the emergency room with shortness of breath, cough, small amount of bloody sputum. She denies fever. No chest pain. No leg swelling. Shortness of breath Acute hypoxemic respiratory failure On presentation to the emergency room oxygen saturation was below 88 Supplement oxygen as needed Likely secondary to acute COPD exacerbation Treat with [place] scheduled and as needed Give Solu-Medrol IV Possible upper respiratory tract infection No apparent pneumonia on chest x-ray Low risk for COVID-19 Obtain sputum culture Start levofloxacin Hypertension Treat with Norvasc, losartan, hydrochlorothiazide, verapamil Dyslipidemia Continue Lipitor Difficult to exclude pleural effusion given the patients body habitus chest x-ray is nondiagnostic No significant leg edema Continue diuretics Check BNP in the morning DVT prophylaxis with subcutaneous heparin
[2019-12-06] MEDS ORDERED: Levofloxacin/Dextrose 5%-Water 750 MG in Premix Bag 1 BAG IV SCH ×4 (17:00)
[2019-12-06] MEDS: Sodium Chloride 0.9% 10 ML Syringe FLUSH PRN ×2 (17:28→21:43)
[2019-12-06] MEDS: Albuterol/Ipratropium 3.0-0.5 MG/3 ML Neb Soln NEB SCH (18:24)
[2019-12-06] MEDS: Budesonide 0.5 MG/2 ML Neb Susp NEB SCH (18:24)
[2019-12-06] MEDS: Losartan 50 MG Tab PO SCH (21:42)
[2019-12-06] MEDS: methylPREDNISolone Sodium Succinate 40 MG/1 ML SDV IVPUSH SCH (21:42)
[2019-12-06] MEDS: Famotidine 20 MG Tab PO SCH (21:42)
[2019-12-06] MEDS: amLODIPine 5 MG Tab PO SCH (21:42)
[2019-12-06] MEDS: Zolpidem 5 MG Tab PO PRN (21:43)
[2019-12-06] MEDS: Heparin Sodium 5,000 Units/ML Vial SUBCUT SCH (21:43)
[2019-12-07] MEDS: Heparin Sodium 5,000 Units/ML Vial SUBCUT SCH ×3 (05:32→21:42)
[2019-12-07] MEDS: methylPREDNISolone Sodium Succinate 40 MG/1 ML SDV IVPUSH SCH ×3 (05:32→21:37)
[2019-12-07] MEDS: Sodium Chloride 0.9% 10 ML Syringe FLUSH PRN ×2 (05:32→08:59)
[2019-12-07 06:53] LABS: ANION GAP 13.3 mEq/L (7-13)
[2019-12-07] MEDS: Albuterol/Ipratropium 3.0-0.5 MG/3 ML Neb Soln NEB SCH ×4 (07:44→17:42)
[2019-12-07] MEDS: Budesonide 0.5 MG/2 ML Neb Susp NEB SCH ×2 (07:45→17:42)
[2019-12-07] MEDS: Famotidine 20 MG Tab PO SCH ×2 (08:58→20:39)
[2019-12-07] MEDS: Allopurinol 300 MG Tab PO SCH (08:58)
[2019-12-07] MEDS: Losartan 50 MG Tab PO SCH ×2 (08:58→20:40)
[2019-12-07] MEDS: atorvaSTATin 20 MG Tab PO SCH (08:59)
[2019-12-07] MEDS: Citalopram 20 MG Tab PO SCH (08:59)
[2019-12-07] MEDS: Furosemide 20 MG Tab PO SCH (08:59)
[2019-12-07] MEDS: Verapamil 180 MG Tab.ER PO SCH (08:59)
[2019-12-07] MEDS ORDERED: Benzocaine/Cetylpyridinium/Menthol Lozenge MUCMEM PRN (10:12)
--- NOTE | 2019-12-07 11:09 | PCM.PN ---
- General Info Date of Service: 12/07/19 Admission Dx/Problem (Free Text): Admission Diagnosis/Problem Admission Diagnosis/Problem Exacerbation of chronic obstructive pulmonary disease Subjective Update: Today she was seen in room, doing much better, shortness of breath has improved , No fever of chill, appetite is good, still has cough. slept well last night and have regular BM Functional Status: Reports: Pain Controlled, Tolerating Diet, Ambulating, Urinating - Review of Systems General: Reports: Weakness, Appetite (good). Denies: Fever, Chills HEENT: Denies: Headaches, Sinus Congestion, Sore Throat, Visual Changes Pulmonary: Reports: Shortness of Breath (mild), Cough. Denies: Sputum, Wheezing Cardiovascular: Denies: Chest Pain, Dyspnea on Exertion, Lightheadedness Gastrointestinal: Denies: Abdominal Pain, Constipation, Difficulty Swallowing, Nausea, Vomiting Genitourinary: Denies: Dysuria, Burning, Urgency, Flank Pain Musculoskeletal: Denies: Neck Pain, Shoulder Pain, Leg Pain, Joint Swelling Skin: Denies: Cyanosis, Jaundice, Bruising, Rash Neurological: Reports: Weakness. Denies: Confusion, Numbness, Tremors Psychiatric: Denies: Confusion, Anxiety, Agitation - Patient Data Vitals - Most Recent: Last Vital Signs Temp 36.4 C 12/07/19 08:00 Pulse 103 H 12/07/19 08:00 Resp 22 H 12/07/19 08:00 BP 123/71 12/07/19 08:58 Pulse Ox 92 L 12/07/19 08:00 Weight - Most Recent: 108.545 kg I&O - Last 24 Hours: Intake & Output 12/06/19 12/07/19 12/07/19 22:59 06:59 14:59 Intake Total 520 450 240 Output Total 250 400 Balance 270 50 240 Lab Results Last 24 Hours: Laboratory Results - last 24 hr 12/06/19 12/06/19 12/07/19 Range/Units 14:09 14:09 06:20 WBC 13.7 H 9.3 (5.0-10.0) 10^3/uL RBC 5.22 5.13 (4.2-5.4) 10^6/uL Hgb 13.0 12.7 (12.0-16.0) g/dL Hct 41.7 39.9 (37.0-47.0) % MCV 79.9 L 77.8 L (80-100) fL MCH 24.9 L 24.8 L (27.0-34.0) pg MCHC 31.2 L 31.8 L (33.0-35.0) g/dL Plt Count 202 247 (150-450) 10^3/uL Neut % (Auto) 68.8 89.0 H (42.2-75.2) % Lymph % (Auto) 24.2 10.2 L (20.5-50.1) % [place] % (Auto) 5.8 0.6 L (2-8) % Eos % (Auto) 1.1 0.1 L (1.0-3.0) % Baso % (Auto) 0.1 0.1 (0.0-1.0) % Sodium 143 (136-145) mmol/L Potassium 4.1 (3.5-5.1) mmol/L Chloride 105 (98-107) mmol/L Carbon Dioxide 31 (21-32) mmol/L Anion Gap 11.1 (7-13) mEq/L BUN 11 (7-18) mg/dL Creatinine 1.03 H (0.55-1.02) mg/dL Est Cr Clr Drug Dosing 40.20 mL/min Estimated GFR (MDRD) > 60 BUN/Creatinine Ratio 10.7 (No establ ref range) Glucose 117 H (74-99) mg/dL Calcium 7.8 L (8.5-10.1) mg/dL Total Bilirubin 0.5 (0.2-1.0) mg/dL AST 19 (15-37) U/L ALT 16 (14-59) U/L Alkaline Phosphatase 101 (46-116) U/L Troponin I < 0.017 (0.000-0.056) ng/mL B-Natriuretic Peptide 50 (0-100) pg/ml Total Protein 7.2 (6.4-8.2) g/dL Albumin 2.7 L (3.4-5.0) g/dL Globulin 4.5 Albumin/Globulin Ratio 0.60 03/21/20 Range/Units 06:20 WBC (5.0-10.0) 10^3/uL RBC (4.2-5.4) 10^6/uL Hgb (12.0-16.0) g/dL Hct (37.0-47.0) % MCV (80-100) fL MCH (27.0-34.0) pg MCHC (33.0-35.0) g/dL Plt Count (150-450) 10^3/uL Neut % (Auto) (42.2-75.2) % Lymph % (Auto) (20.5-50.1) % [place] % (Auto) (2-8) % Eos % (Auto) (1.0-3.0) % Baso % (Auto) (0.0-1.0) % Sodium 138 (136-145) mmol/L Potassium 3.3 L (3.5-5.1) mmol/L Chloride 99 (98-107) mmol/L Carbon Dioxide 29 (21-32) mmol/L Anion Gap 13.3 H (7-13) mEq/L BUN 21 H (7-18) mg/dL Creatinine 1.51 H (0.55-1.02) mg/dL Est Cr Clr Drug Dosing 27.42 mL/min Estimated GFR (MDRD) 41 BUN/Creatinine Ratio (No establ ref range) Glucose 241 H (74-99) mg/dL Calcium 8.1 L (8.5-10.1) mg/dL Total Bilirubin (0.2-1.0) mg/dL AST (15-37) U/L ALT (14-59) U/L Alkaline Phosphatase (46-116) U/L Troponin I (0.000-0.056) ng/mL B-Natriuretic Peptide (0-100) pg/ml Total Protein (6.4-8.2) g/dL Albumin (3.4-5.0) g/dL Globulin Albumin/Globulin Ratio Oz Results Last 24 Hours: Microbiology 12/06/19 18:22 Gram Stain - Final Sputum - Expectorated 12/06/19 13:33 Influenza Type A Antigen Screen - Final Nasal, Left NEGATIVE INFLUENZA A VIRUS AG REFERENCE RANGE: NEGATIVE Influenza Type B Antigen Screen - Final NEGATIVE INFLUENZA B VIRUS AG REFERENCE RANGE: NEGATIVE Med Orders - Current: Current Medications Acetaminophen (Tylenol) 650 mg PO Q4H PRN PRN Reason: Pain (Mild 1-3)/fever Albuterol/Ipratropium (Duoneb 3.0-0.5 Mg/3 Ml) 3 ml NEB Q6HRRT [facility] Last Admin: 12/07/19 07:44 Dose: 3 ml Albuterol/Ipratropium (Duoneb 3.0-0.5 Mg/3 Ml) 3 ml NEB Q2H PRN PRN Reason: sob Allopurinol (Zyloprim) 300 mg PO DAILY [facility] Last Admin: 12/07/19 08:58 Dose: 300 mg Amlodipine Besylate (Norvasc) 10 mg PO BEDTIME [facility] Last Admin: 12/06/19 21:42 Dose: 10 mg Atorvastatin Calcium (Lipitor) 20 mg PO DAILY [facility] Last Admin: 12/07/19 08:59 Dose: 20 mg Benzocaine/Menthol (Cepacol Sore Throat) 1 lozenge MUCMEM Q6H PRN PRN Reason: Cough Budesonide (Pulmicort) 0.5 mg NEB BIDRT [facility] Last Admin: 12/07/19 07:45 Dose: 0.5 mg Citalopram Hydrobromide (Celexa) 20 mg PO DAILY [facility] Last Admin: 12/07/19 08:59 Dose: 20 mg Famotidine (Pepcid) 40 mg PO BID [facility] Last Admin: 12/07/19 08:58 Dose: 40 mg Furosemide (Lasix) 20 mg PO DAILY [facility] Last Admin: 12/07/19 08:59 Dose: 20 mg Heparin Sodium (Porcine) (Heparin Sodium) 5,000 units SUBCUT Q8HR [facility] Last Admin: 12/07/19 05:32 Dose: 5,000 units Levofloxacin/Dextrose 750 mg/ (Premix) 150 mls @ 100 mls/hr IV Q48H [facility] Last Infusion: 12/06/19 18:59 Dose: Infused Losartan Potassium (Cozaar) 100 mg PO BID [facility] Last Admin: 12/07/19 08:58 Dose: 100 mg Methylprednisolone Sodium Succinate (Solu-Medrol) 40 mg IVPUSH Q8H [facility] Last Admin: 12/07/19 05:32 Dose: 40 mg Ondansetron HCl (Zofran Odt) 4 mg PO Q6H PRN PRN Reason: nausea, able to take PO Senna/Docusate Sodium (Senna Plus) 1 tab PO BEDTIME PRN PRN Reason: Constipation Sodium Chloride (Saline Flush) 10 ml FLUSH ASDIRECTED PRN PRN Reason: Keep Vein Open Last Admin: 12/07/19 08:59 Dose: 10 ml Verapamil HCl ([place] Sr) 180 mg PO DAILY [facility] Last Admin: 12/07/19 08:59 Dose: 180 mg Zolpidem Tartrate (Ambien) 5 mg PO BEDTIME PRN PRN Reason: Sleep Last Admin: 12/06/19 21:43 Dose: 5 mg Discontinued Medications Albuterol/Ipratropium (Duoneb 3.0-0.5 Mg/3 Ml) 3 ml NEB ONETIME ONE Stop: 12/06/19 13:48 Last Admin: 12/06/19 14:07 Dose: 3 ml Furosemide (Lasix) 40 mg IVPUSH NOW ONE Stop: 12/06/19 13:48 Last Admin: 12/06/19 14:32 Dose: 40 mg Levofloxacin/Dextrose 750 mg/ (Premix) 150 mls @ 100 mls/hr IV Q24H [facility] Last Admin: 12/06/19 17:48 Dose: Not Given Methylprednisolone Sodium Succinate (Solu-Medrol) 125 mg IVPUSH ONETIME ONE Stop: 12/06/19 13:48 Last Admin: 12/06/19 14:32 Dose: 125 mg - Exam Quality Assessment: DVT Prophylaxis. No: Supplemental Oxygen, Urine Catheter General: Alert, Oriented, Cooperative, No Acute Distress HEENT: Pupils Equal, EOMI, Mucous Membr. Moist/[place] Neck: No JVD, No Thyromegaly. No: Lymphadenopathy Lungs: Clear to Auscultation, Normal Respiratory Effort. No: Crackles, Wheezing Cardiovascular: Regular Rate, Regular Rhythm, Murmurs GI/Abdominal Exam: Normal Bowel Sounds, No Organomegaly, No Distention, No Abnormal Bruit, No Mass (Female) Exam: Deferred Back Exam: Normal Inspection, Full Range of Motion Extremities: Normal Inspection, No Pedal Edema Skin: Warm, Dry, Intact Neurological: No New Focal Deficit Psy/Mental Status: Alert, Normal Affect, Normal Mood Sepsis Event Note - Evaluation Sepsis Screening Result: No Definite Risk - Focused Exam Vital Signs: Vital Signs Temp Pulse Resp BP BP BP Pulse Ox 12/07/19 08:58 123/71 12/07/19 08:00 36.4 C 103 H 22 H 123/71 92 L 12/07/19 07:45 95 12/07/19 03:50 36.6 C 103 H 24 H 128/77 93 L 12/07/19 00:04 92 12/07/19 00:00 36.1 C 92 25 H 114/75 91 L Pulse Ox 12/07/19 08:58 12/07/19 08:00 12/07/19 07:45 90 L 12/07/19 03:50 12/07/19 00:04 91 L 12/07/19 00:00 Date Exam was Performed: 12/07/19 Time Exam was Performed: 11:01 - Problem List Review Problem List Initiated/Reviewed/Updated: Yes - My Orders Last 24 Hours: My Active Orders 12/07/19 10:12 Benzocaine/Cetylpyrd/Menthol [Cepacol Sore Throat] 1 lozenge MUCMEM Q6H PRN - Plan Plan:: 69-year-old lady with a history of hypertension, dyslipidemia, COPD. The patient is still smoking. The patient was recently hospitalized and treated for COPD. She was discharged recently and she says she was not taking antibiotics at home. She has no recent travel, sick contact. She lives with son who is healthy. She presented to the emergency room with shortness of breath, cough, small amount of bloody sputum. She denies fever. No chest pain. No leg swelling. Impression and Plan: 1. Shortness of breath: Likely secondary to acute COPD exacerbation Treat with Pulmicort, DuoNeb scheduled and as needed -Will continue Solu-Medrol IV -Influenza A and B negative No apparent pneumonia on chest x-ray Low risk for COVID-19 Obtain sputum culture Will continue levofloxacin 2. Hypertension Treat with Norvasc, losartan, hydrochlorothiazide, verapamil 3. Dyslipidemia Continue Lipitor 4. Edema of Extremities: No significant leg edema on examination - Continue diuretics 5. Hypokalemia: This is secondary to diuresis and will give potassium chloride 40 meq X 1 dose now DVT prophylaxis with subcutaneous heparin
[2019-12-07] MEDS ORDERED: Potassium Chloride 10 MEQ Tab.ER PO ONE (11:17)
[2019-12-07] MEDS: amLODIPine 5 MG Tab PO SCH (20:38)
[2019-12-07] MEDS ORDERED: Hydrochlorothiazide 25 MG Tab PO SCH ×2 (21:00)
[2019-12-07] MEDS: Hydrochlorothiazide 25 MG Tab PO SCH (21:38)
[2019-12-07] MEDS: Zolpidem 5 MG Tab PO PRN (21:38)
[2019-12-08] MEDS: Albuterol/Ipratropium 3.0-0.5 MG/3 ML Neb Soln NEB SCH ×3 (01:14→13:27)
[2019-12-08] MEDS: methylPREDNISolone Sodium Succinate 40 MG/1 ML SDV IVPUSH SCH ×2 (06:11→13:27)
[2019-12-08] MEDS: Heparin Sodium 5,000 Units/ML Vial SUBCUT SCH ×2 (06:11→13:27)
[2019-12-08] MEDS: Budesonide 0.5 MG/2 ML Neb Susp NEB SCH (07:37)
[2019-12-08 07:56] LABS: ANION GAP 14.7 mEq/L (7-13)
[2019-12-08] MEDS: Allopurinol 300 MG Tab PO SCH (09:13)
[2019-12-08] MEDS: Citalopram 20 MG Tab PO SCH (09:13)
[2019-12-08] MEDS: Furosemide 20 MG Tab PO SCH (09:14)
[2019-12-08] MEDS: Famotidine 20 MG Tab PO SCH (09:15)
[2019-12-08] MEDS: Verapamil 180 MG Tab.ER PO SCH (09:15)
[2019-12-08] MEDS: atorvaSTATin 20 MG Tab PO SCH (09:15)
[2019-12-08] MEDS: Losartan 50 MG Tab PO SCH (09:16)
[2019-12-08] MEDS: Hydrochlorothiazide 25 MG Tab PO SCH (09:21)
--- NOTE | 2019-12-08 12:07 | PCM.DCSUM1 ---
Discharge Summary - Hospital Course Free Text/Narrative:: 69-year-old lady with a history of hypertension, dyslipidemia, COPD. The patient is still smoking. The patient was recently hospitalized and treated for COPD. She was discharged recently and she says she was not taking antibiotics at home. She has no recent travel, sick contact. She lives with son who is healthy. She presented to the emergency room with shortness of breath, cough, small amount of bloody sputum. She denies fever. No chest pain. No leg swelling. After admission she was started on Levofloxacin and duo-nebs and she is doing well and will be going home on oral Levofloxacin, she will follow with PMD in this week with labs ( BMP and CBC) - Discharge Data Discharge Date: 12/08/19 Discharge Disposition: Home, Self-Care 01 Condition: Good - Referral to Home Health Primary Care Physician: PCP Unobtainable - Patient Instructions Diet: Usual Diet as Tolerated Activity: As Tolerated Driving: Do Not Drive (toady) Showering/Bathing: January Shower Notify Provider of: Fever, Nausea and/or Vomiting Other/Special Instructions: 69-year-old lady with a history of hypertension, dyslipidemia, COPD. The patient is still smoking. The patient was recently hospitalized and treated for COPD. She was discharged recently and she says she was not taking antibiotics at home. She has no recent travel, sick contact. She lives with son who is healthy. She presented to the emergency room with shortness of breath, cough, small amount of bloody sputum. She denies fever. No chest pain. No leg swelling. After admission she was started on Levofloxacin and duo-nebs and she is doing well and will be going home on oral Levofloxacin, she will follow with PMD in this week with labs ( BMP and CBC ) - Discharge Plan Prescriptions/Med Rec: levoFLOXacin [Levaquin] 750 mg PO DAILY@1400 #5 tablet predniSONE [Prednisone] 10 mg PO DAILY #30 tablet Home Medications: Home Meds Albuterol [Ventolin HFA] 1 - 2 puff INH Q8HR PRN 07/25/18 [History] Citalopram [Citalopram HBr] 20 mg PO DAILY 07/25/18 [History] Famotidine [Pepcid] 40 mg PO BID 07/25/18 [History] Losartan/Hydrochlorothiazide [Losartan-HCTZ 100-12.5 MG] 1 tab PO BID 07/25/18 [ History] Tiotropium [Spiriva HandiHaler] 18 mcg INH DAILY 07/25/18 [History] Verapamil HCl [Verapamil ER] 180 mg PO DAILY 07/25/18 [History] allopurinoL [Zyloprim] 300 mg PO DAILY 07/25/18 [History] amLODIPine Besylate [Amlodipine Besylate] 10 mg PO BEDTIME 07/25/18 [History] atorvaSTATin [Lipitor] 20 mg PO DAILY 07/25/18 [History] Fluticasone/Salmeterol [Advair 250-50] 2 puff INH BID #1 diskus 07/28/18 [Rx] Docusate Sodium/Sennosides [Senna Plus] 1 tab PO BEDTIME PRN tablet 11/29/19 [ Rx] Furosemide [Lasix] 20 mg PO DAILY 30 Days tablet 11/29/19 [Rx] levoFLOXacin [Levaquin] 750 mg PO DAILY@1400 #5 tablet 12/08/19 [Rx] predniSONE [Prednisone] 10 mg PO DAILY #30 tablet 12/08/19 [Rx] Oxygen Therapy Mode: Room Air Patient Handouts: Diverticulitis, [id number] Forms: ED Department Discharge Referrals: PCP,Unobtain [Primary Care Provider] - - Discharge Summary/Plan Comment DC Time >30 min.: Yes Discharge Summary/Plan Comment: 69-year-old lady with a history of hypertension, dyslipidemia, COPD. The patient is still smoking. The patient was recently hospitalized and treated for COPD. She was discharged recently and she says she was not taking antibiotics at home. She has no recent travel, sick contact. She lives with son who is healthy. She presented to the emergency room with shortness of breath, cough, small amount of bloody sputum. She denies fever. No chest pain. No leg swelling. Impression and Plan: 1. Shortness of breath: Likely secondary to acute COPD exacerbation Treat with Mague Platt scheduled and as needed -Influenza A and B negative No apparent pneumonia on chest x-ray Low risk for COVID-19 Will continue levofloxacin orally 2. Hypertension Treat with Norvasc, losartan, hydrochlorothiazide, verapamil 3. Dyslipidemia Continue Lipitor 4. Edema of Extremities: No significant leg edema on examination - Continue diuretics 5. Hypokalemia: This is secondary to diuresis and has received potassium chloride 40 meq X 1 dose and potassium is acceptable Disposition: she is doing well, will go home today and follow with PMD in this week ( week of 12/09/19) with labs CBC and BMP - General Info Date of Service: 12/08/19 Admission Dx/Problem (Free Text: Admission Diagnosis/Problem Admission Diagnosis/Problem Exacerbation of chronic obstructive pulmonary disease Subjective Update: Today she was seen in room, doing much better, shortness of breath has improved , No fever of chill, appetite is good, slept well last night and have regular BM and will go home today Functional Status: Reports: Pain Controlled, Tolerating Diet, Ambulating, Urinating - Review of Systems General: Reports: Weakness, Appetite (good). Denies: Fever, Chills HEENT: Denies: Headaches, Sinus Congestion, Sore Throat, Visual Changes Pulmonary: Reports: Cough, Wheezing. Denies: Shortness of Breath, Sputum Cardiovascular: Denies: Chest Pain, Dyspnea on Exertion, Lightheadedness Gastrointestinal: Denies: Abdominal Pain, Difficulty Swallowing, Nausea, Vomiting Genitourinary: Denies: Dysuria, Burning, Urgency, Flank Pain Musculoskeletal: Denies: Neck Pain, Leg Pain, Foot Pain Skin: Denies: Cyanosis, Jaundice, Bruising, Pruritis, Rash Neurological: Denies: Confusion, Numbness, Tremors Psychiatric: Reports: No Symptoms - Patient Data Vitals - Most Recent: Last Vital Signs Temp 36.3 C 12/08/19 08:00 Pulse 85 12/08/19 08:00 Resp 18 12/08/19 08:00 BP 128/84 12/08/19 09:16 Pulse Ox 91 L 12/08/19 08:00 Weight - Most Recent: 108.545 kg I&O - Last 24 hours: Intake & Output 12/07/19 12/08/19 12/08/19 22:59 06:59 14:59 Intake Total 200 400 300 Output Total 1000 Balance 200 -600 300 Lab Results - Last 24 hrs: Laboratory Results - last 24 hr 12/08/19 12/08/19 Range/Units 07:35 07:35 Sodium 139 (136-145) mmol/L Potassium 3.7 (3.5-5.1) mmol/L Chloride 101 (98-107) mmol/L Carbon Dioxide 27 (21-32) mmol/L Anion Gap 14.7 H (7-13) mEq/L BUN 27 H (7-18) mg/dL Creatinine 1.29 H (0.55-1.02) mg/dL Est Cr Clr Drug Dosing 32.09 mL/min Estimated GFR (MDRD) 50 Glucose 201 H (74-99) mg/dL Calcium 8.1 L (8.5-10.1) mg/dL B-Natriuretic Peptide 90 (0-100) pg/ml RUTHIE Results - Last 24 hrs: Microbiology 12/06/19 18:22 Gram Stain - Final Sputum - Expectorated Sputum Culture - Preliminary Normal [place] Med Orders - Current: Current Medications Acetaminophen (Tylenol) 650 mg PO Q4H PRN PRN Reason: Pain (Mild 1-3)/fever Last Admin: 12/07/19 16:08 Dose: 650 mg Albuterol/Ipratropium (Duoneb 3.0-0.5 Mg/3 Ml) 3 ml NEB Q6HRRT COUNT INCLUDES THE [facility] Last Admin: 12/08/19 07:37 Dose: 3 ml Albuterol/Ipratropium (Duoneb 3.0-0.5 Mg/3 Ml) 3 ml NEB Q2H PRN PRN Reason: sob Allopurinol (Zyloprim) 300 mg PO DAILY COUNT INCLUDES THE [facility] Last Admin: 12/08/19 09:13 Dose: 300 mg Amlodipine Besylate (Norvasc) 10 mg PO BEDTIME COUNT INCLUDES THE [facility] Last Admin: 12/07/19 20:38 Dose: 10 mg Atorvastatin Calcium (Lipitor) 20 mg PO DAILY COUNT INCLUDES THE [facility] Last Admin: 12/08/19 09:15 Dose: 20 mg Benzocaine/Menthol (Cepacol Sore Throat) 1 lozenge MUCMEM Q6H PRN PRN Reason: Cough Last Admin: 12/07/19 20:12 Dose: 1 lozenge Budesonide (Pulmicort) 0.5 mg NEB BIDRT COUNT INCLUDES THE [facility] Last Admin: 12/08/19 07:37 Dose: 0.5 mg Citalopram Hydrobromide (Celexa) 20 mg PO DAILY COUNT INCLUDES THE [facility] Last Admin: 12/08/19 09:13 Dose: 20 mg Famotidine (Pepcid) 40 mg PO BID COUNT INCLUDES THE [facility] Last Admin: 12/08/19 09:15 Dose: 40 mg Furosemide (Lasix) 20 mg PO DAILY COUNT INCLUDES THE [facility] Last Admin: 12/08/19 09:14 Dose: 20 mg Heparin Sodium (Porcine) (Heparin Sodium) 5,000 units SUBCUT Q8HR COUNT INCLUDES THE [facility] Last Admin: 12/08/19 06:11 Dose: 5,000 units Hydrochlorothiazide (Hydrochlorothiazide) 12.5 mg PO BID COUNT INCLUDES THE [facility] Last Admin: 12/08/19 09:21 Dose: 12.5 mg Levofloxacin/Dextrose 750 mg/ (Premix) 150 mls @ 100 mls/hr IV Q48H COUNT INCLUDES THE [facility] Last Infusion: 12/06/19 18:59 Dose: Infused Losartan Potassium (Cozaar) 100 mg PO BID COUNT INCLUDES THE [facility] Last Admin: 12/08/19 09:16 Dose: 100 mg Methylprednisolone Sodium Succinate (Solu-Medrol) 40 mg IVPUSH Q8H COUNT INCLUDES THE [facility] Last Admin: 12/08/19 06:11 Dose: 40 mg Ondansetron HCl (Zofran Odt) 4 mg PO Q6H PRN PRN Reason: nausea, able to take PO Senna/Docusate Sodium (Senna Plus) 1 tab PO BEDTIME PRN PRN Reason: Constipation Sodium Chloride (Saline Flush) 10 ml FLUSH ASDIRECTED PRN PRN Reason: Keep Vein Open Last Admin: 12/07/19 08:59 Dose: 10 ml Verapamil HCl (Calan Sr) 180 mg PO DAILY COUNT INCLUDES THE [facility] Last Admin: 12/08/19 09:15 Dose: 180 mg Zolpidem Tartrate (Ambien) 5 mg PO BEDTIME PRN PRN Reason: Sleep Last Admin: 12/07/19 21:38 Dose: 5 mg Discontinued Medications Albuterol/Ipratropium (Duoneb 3.0-0.5 Mg/3 Ml) 3 ml NEB ONETIME ONE Stop: 12/06/19 13:48 Last Admin: 12/06/19 14:07 Dose: 3 ml Furosemide (Lasix) 40 mg IVPUSH NOW ONE Stop: 12/06/19 13:48 Last Admin: 12/06/19 14:32 Dose: 40 mg Hydrochlorothiazide (Hydrochlorothiazide) 25 mg PO BID COUNT INCLUDES THE [facility] Hydrochlorothiazide (Hydrochlorothiazide) 0.5 mg PO BID COUNT INCLUDES THE [facility] Levofloxacin/Dextrose 750 mg/ (Premix) 150 mls @ 100 mls/hr IV Q24H COUNT INCLUDES THE [facility] Last Admin: 12/06/19 17:48 Dose: Not Given Methylprednisolone Sodium Succinate (Solu-Medrol) 125 mg IVPUSH ONETIME ONE Stop: 12/06/19 13:48 Last Admin: 12/06/19 14:32 Dose: 125 mg Potassium Chloride (Klor-Con 10) 40 meq PO ONETIME ONE Stop: 12/07/19 11:18 Last Admin: 12/07/19 12:22 Dose: 40 meq - Exam Quality Assessment: Reports: DVT Prophylaxis. Denies: Supplemental Oxygen, Urine Catheter General: Reports: Alert, Oriented, Cooperative, No Acute Distress HEENT: Reports: Pupils Equal, Pupils Reactive, EOMI, Mucous Membr. Moist/[place] Neck: Reports: Supple, No Thyromegaly Lungs: Reports: Clear to Auscultation, Normal Respiratory Effort, Wheezing ( minimal). Denies: Crackles Cardiovascular: Reports: Regular Rate, Regular Rhythm, Murmurs GI/Abdominal Exam: Normal Bowel Sounds, Non-Tender. No: Guarding, Rigid, Rebound (Female) Exam: Deferred Rectal (Female) Exam: Deferred Back Exam: Reports: Normal Inspection Extremities: Normal Inspection, No Pedal Edema Skin: Reports: Warm, Dry, Intact Neurological: Reports: No New Focal Deficit Psy/Mental Status: Reports: Alert, Normal Affect, Normal Mood
== END 2019-12-08 14:20 | disposition home or self-care (01) | DRG 191 ==
LOC: DL.ED 13:31 → DL.MS 15:31
PROVIDERS: ADMIT Internal Medicine; ATTEND Internal Medicine
DX: J44.1 Chronic obstructive pulmonary disease with (acute) exacerbation (principal); Z68.42 Body mass index [BMI] 45.0-49.9, adult; H54.7 Unspecified visual loss; E78.5 Hyperlipidemia, unspecified; F17.210 Nicotine dependence, cigarettes, uncomplicated; E78.00 Pure hypercholesterolemia, unspecified; Z79.52 Long term (current) use of systemic steroids; E87.6 Hypokalemia; R60.0 Localized edema; I25.2 Old myocardial infarction; Z88.8 Allergy status to other drugs, medicaments and biological substances; I10 Essential (primary) hypertension; K21.9 Gastro-esophageal reflux disease without esophagitis; R32 Unspecified urinary incontinence; M19.90 Unspecified osteoarthritis, unspecified site; E66.9 Obesity, unspecified; Z85.820 Personal history of malignant melanoma of skin; Z90.710 Acquired absence of both cervix and uterus; Z96.619 Presence of unspecified artificial shoulder joint; Z88.1 Allergy status to other antibiotic agents; Z88.5 Allergy status to narcotic agent; Z88.0 Allergy status to penicillin; Z88.2 Allergy status to sulfonamides; Z91.048 Other nonmedicinal substance allergy status; Z79.899 Other long term (current) drug therapy
CPT/HCPCS: 36415; 71045; 80048; 80053; 83880; 84484; 85025; 87070; 87205; 87804; 93005; 94640; 96374; 96375; 99284; 99285-25; A9270-GY; J1644; J1940; J1956; J2920; J2930; J7620-GY

== ENCOUNTER 2020-01-28 07:59 | Emergency (ER) | payer MEDICARE, MEDICAID ==
--- NOTE | 2020-01-28 08:20 | EDM.PDOC ---
ED HPI GENERAL MEDICAL PROBLEM - General Chief Complaint: Gastrointestinal Problem Stated Complaint: RECTAL BLEEDING Time Seen by Provider: 01/28/20 08:16 Source of Information: Reports: Patient, Old Records, RN, RN Notes Reviewed History Limitations: Reports: No Limitations - History of Present Illness INITIAL COMMENTS - FREE TEXT/NARRATIVE: Pt presents to ER with c/o bright red blood in toilet this morning after having a BM. Pt states that when she wiped there was both bright blood and tiny clots on the toilet tissue. Pt admits to mild LLQ abdominal "discomfort" that she first noticed this morning. She denies rectal pain, black stool, melena, N/V, diarrhea, constipation, fever, or chills. Denies urinary symptoms. Pt states that when she woke and felt the urge to have a BM she began leaking some blood in her under shorts, then had a BM and saw a lot of blood in the toilet water, so she came immediately to the ER. Denies chest pain, shortness of breath, lightheadedness, or any previous rectal bleeding. Denies Hx of anal fissures or hemorrhoids. Denies Hx history of rectal or GI bleeding. She says she last had a colonoscopy over five years ago, and she believes it was normal. 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 INSPECTOR: Reports: Breathing Treatments - Related Data Allergies Allergy/AdvReac Type Severity Reaction Status Date / Time codeine Allergy Stomach Verified 01/28/20 08:10 Upset Penicillins Allergy Rash Verified 01/28/20 08:10 povidone-iodine Allergy Rash Verified 01/28/20 08:10 [From Betadine] soap [From Betadine] Allergy Rash Verified 01/28/20 08:10 Sulfa (Sulfonamide Allergy Hives Verified 01/28/20 08:10 Antibiotics) tetracycline Allergy Cannot Verified 01/28/20 08:10 Remember Home Meds: Home Meds Albuterol [Ventolin HFA] 1 - 2 puff INH Q8HR PRN 07/25/18 [History] Citalopram [Citalopram HBr] 20 mg PO DAILY 07/25/18 [History] Famotidine [Pepcid] 40 mg PO BID 07/25/18 [History] Losartan/Hydrochlorothiazide [Losartan-HCTZ 100-12.5 MG] 1 tab PO BID 07/25/18 [ History] Tiotropium [Spiriva HandiHaler] 18 mcg INH DAILY 07/25/18 [History] Verapamil HCl [Verapamil ER] 180 mg PO DAILY 07/25/18 [History] allopurinoL [Zyloprim] 300 mg PO DAILY 07/25/18 [History] amLODIPine Besylate [Amlodipine Besylate] 10 mg PO BEDTIME 07/25/18 [History] atorvaSTATin [Lipitor] 20 mg PO DAILY 07/25/18 [History] Fluticasone/Salmeterol [Advair 250-50] 2 puff INH BID #1 diskus 07/28/18 [Rx] Docusate Sodium/Sennosides [Senna Plus] 1 tab PO BEDTIME PRN tablet 11/29/19 [ Rx] Furosemide [Lasix] 20 mg PO DAILY 30 Days tablet 11/29/19 [Rx] levoFLOXacin [Levaquin] 750 mg PO DAILY@1400 #5 tablet 12/08/19 [Rx] predniSONE [Prednisone] 10 mg PO DAILY #30 tablet 12/08/19 [Rx] Past Medical History HEENT History: Reports: Impaired Vision Cardiovascular History: Reports: High Cholesterol, Hypertension, DE, SOB on Exertion Respiratory History: Reports: Asthma, COPD, SOB, Other (See Below) (Tobacco/ cigarette dependence) Gastrointestinal History: Reports: GERD Genitourinary History: Reports: Urinary Incontinence CLINICAL SPECIALIST History: Reports: Musculoskeletal History: Reports: Arthritis Neurological History: Reports: None Psychiatric History: Reports: None Endocrine/Metabolic History: Reports: Obesity/BMI 30+ Hematologic History: Reports: None Immunologic History: Reports: None Oncologic (Cancer) History: Reports: Malignant Melanoma Dermatologic History: Reports: None - Infectious Disease History Infectious Disease History: Reports: Chicken Pox, Measles, Mumps - Past Surgical History Head Surgeries/Procedures: Reports: None HEENT Surgical History: Reports: None Other HEENT Surgeries/Procedures: glasses Cardiovascular Surgical History: Reports: None Respiratory Surgical History: Reports: None GI Surgical History: Reports: Appendectomy, Colonoscopy Female Surgical History: Reports: Hysterectomy, Tubal Ligation, Other (See Below) Other Female Surgeries/Procedures: bladder repair Endocrine Surgical History: Reports: None Neurological Surgical History: Reports: None Musculoskeletal Surgical History: Reports: Shoulder Replacement Social & Family History - Family History Family Medical History: Noncontributory - Tobacco Use Smoking Status *Q: Current Every Day Smoker Tobacco Use Within Last Twelve Months: Cigarettes Years of Tobacco use: 52 Packs/Tins Daily: 0.5 Smoking Cessation Information Provided To Patient: Patient Refused - Caffeine Use Caffeine Use: Reports: Coffee, Soda - Living Situation & Occupation Occupation: Retired ED ROS GENERAL - Review of Systems Review Of Systems: Comprehensive ROS is negative, except as noted in HPI. ED EXAM, GI/ABD - Physical Exam Exam: See Below Exam Limited By: No Limitations General Appearance: Alert, No Apparent Distress, Obese Eyes: Bilateral: Normal Appearance (No scleral icterus) Nose: Normal Inspection, No Blood Throat/Mouth: Normal Voice, No Airway Compromise Head: Atraumatic, Normocephalic Neck: Normal Inspection, Non-Tender, Full Range of Motion. No: Lymphadenopathy (L), Lymphadenopathy (R) Respiratory/Chest: No Respiratory Distress, No Accessory Muscle Use, Decreased Breath Sounds, Crackles (Coarse breath sounds). No: Rales, Rhonchi, Wheezing Cardiovascular: Regular Rate, Rhythm, No Edema, Tachycardia GI/Abdominal Exam: Normal Bowel Sounds, Soft, No Distention, No Abnormal Bruit, No Mass, Tender (LLQ). No: Guarding, Rigid, Rebound (Female) Exam: Deferred Rectal (Female) Exam: Normal Rectal Tone, Bloody Stool. No: Tenderness Back Exam: Normal Inspection Extremities: Normal Inspection Neurological: Alert, Oriented, CN II-XII Intact, Normal Cognition, Normal Gait, No Motor/Sensory Deficits Psychiatric: Normal Affect, Normal Mood Skin Exam: Warm, Dry, Intact, Normal Color, No Rash. No: Cyanosis, Ecchymosis, Jaundice, Pallor, Petechiae Course - Vital Signs Last Recorded V/S: Last Vital Signs Temp 98.1 F 01/28/20 08:10 Pulse 108 H 01/28/20 08:10 Resp 20 01/28/20 08:10 BP 139/87 01/28/20 08:10 Pulse Ox 97 01/28/20 08:10 - Orders/Labs/Meds Orders: Active Orders 24 hr Category Date Time Status Peripheral IV Care [RC] . DIRECTED Care 01/28/20 08:28 Active Abdomen Pelvis wo Cont [CT] Stat Exams 01/28/20 09:04 Taken UA RFX RUTHIE AND CULT IF INDIC [URIN] Stat Lab 01/28/20 08:21 Ordered Sodium Chloride 0.9% [Saline Flush] Med 01/28/20 08:28 Active 10 ml FLUSH ASDIRECTED PRN Peripheral IV Insertion Adult [OM.PC] Stat Oth 01/28/20 08:28 Ordered Medication Orders Sodium Chloride (Saline Flush) 10 ml FLUSH ASDIRECTED PRN PRN Reason: Keep Vein Open Last Admin: 01/28/20 08:38 Dose: 10 ml Labs: Laboratory Tests 01/28/20 01/28/20 01/28/20 Range/Units 08:35 08:35 08:35 WBC 11.2 H (5.0-10.0) 10^3/uL RBC 5.55 H (4.2-5.4) 10^6/uL Hgb 13.5 (12.0-16.0) g/dL Hct 43.6 (37.0-47.0) % MCV 78.6 L (80-100) fL MCH 24.3 L (27.0-34.0) pg MCHC 31.0 L (33.0-35.0) g/dL Plt Count 253 (150-450) 10^3/uL Neut % (Auto) 66.0 (42.2-75.2) % Lymph % (Auto) 24.3 (20.5-50.1) % [place] % (Auto) 8.2 H (2-8) % Eos % (Auto) 1.2 (1.0-3.0) % Baso % (Auto) 0.3 (0.0-1.0) % PT 10.4 (9.0-12.0) SEC INR 1.1 (0.9-1.2) APTT 25.3 (22.0-34.0) SEC Sodium 142 (136-145) mmol/L Potassium 3.9 (3.5-5.1) mmol/L Chloride 103 (98-107) mmol/L Carbon Dioxide 31 (21-32) mmol/L Anion Gap 11.9 (7-13) mEq/L BUN 15 (7-18) mg/dL Creatinine 1.17 H (0.55-1.02) mg/dL Est Cr Clr Drug Dosing 35.39 mL/min Estimated GFR (MDRD) 55 BUN/Creatinine Ratio 12.8 (No establ ref range) Glucose 116 H (74-99) mg/dL Calcium 8.6 (8.5-10.1) mg/dL Total Bilirubin 0.4 (0.2-1.0) mg/dL AST 16 (15-37) U/L ALT 17 (14-59) U/L Alkaline Phosphatase 117 H (46-116) U/L Lactate Dehydrogenase 169 (81-234) U/L Total Protein 7.0 (6.4-8.2) g/dL Albumin 2.8 L (3.4-5.0) g/dL Globulin 4.2 Albumin/Globulin Ratio 0.67 Amylase 42 (25-115) U/L Lipase 80 (73-393) U/L Hemoccult Stool: POSITIVE Meds: Medications Generic Name Dose Route Start Last Admin Trade Name Freq PRN Reason Stop Dose Admin Sodium Chloride 10 ml 01/28/20 08:28 01/28/20 08:38 Saline Flush FLUSH 10 ml ASDIRECTED PRN Administration Keep Vein Open - Radiology Interpretation Free Text/Narrative:: [facility] Final Radiology Report Call: [phone] assistance Online chat: [email or web address] Name: SANCHEZ MORELOS Age: 69Years F Date: 01/28/2020 SSN: -- : [id number] Study: CT ABDOMEN/PELVIS WO Requesting Physician: JACKY ELLINGTON Images: [id number] Addl Studies: Provided Clinical History: Contrast: Without Contrast Medium: Contrast Amount: Contrast Method: Page 1 of 2 PROCEDURE INFORMATION: Exam: CT Abdomen And Pelvis Without Contrast Exam date and time: 01/28/2020 9:14 AM Age: 69 years old Clinical indication: Other: Llq abdominal pain, rectal bleeding TECHNIQUE: Imaging protocol: Computed tomography of the abdomen and pelvis without contrast. Radiation optimization: All CT scans at this facility use at least one of these dose optimization techniques: automated exposure control; mA and/or kV adjustment per patient size (includes targeted exams where dose is matched to clinical indication); or iterative reconstruction. COMPARISON: No relevant prior exams. FINDINGS: Mediastinum: There is a small hiatal hernia. Liver: There is mild diffuse fatty infiltration of the liver. No focal lesions within the liver. Gallbladder and bile ducts: Normal. No calcified stones. No ductal dilation. Pancreas: Normal. No ductal dilation. Spleen: Normal. No splenomegaly. Adrenals: Normal. No mass. Kidneys and ureters: There are multiple cortical densities in both kidneys. Densities measure up to 2.7 cm. There are difficult to characterize fully without intravenous contrast. No stones or hydronephrosis. Stomach and bowel: There are diverticula of the sigmoid colon. No associated inflammatory changes. The remaining intestine is unremarkable. No other inflammatory change. No obstruction. Appendix: No evidence of appendicitis. Intraperitoneal space: Unremarkable. No free air. No significant fluid collection. SANCHEZ MORELOS | Final Radiology Report CONFIDENTIALITY STATEMENT This report is intended only for use by the referring physician, and only in accordance with law. If you received this in error, call [phone]. Page 2 of 2 Vasculature: Unremarkable. No abdominal aortic aneurysm. Lymph nodes: Unremarkable. No enlarged lymph nodes. Bladder: Unremarkable as visualized. Reproductive: Unremarkable as visualized. Bones/joints: There is a posterior spinal fusion. There are moderate spondylitic changes in the spine. There is an old superior endplate fracture L2. No acute fractures. Soft tissues: Unremarkable. IMPRESSION: 1. Sigmoid diverticula without diverticulitis. 2. Renal cortical densities difficult to characterize fully. A repeat study with contrast or MRI would be helpful to characterize fully. 3. No other acute changes in the abdomen or pelvis. Thank you for allowing us to participate in the care of your patient. Dictated and Authenticated by: David Genao MD 01/28/2020 9:39 AM Central Time ([place] & [place]) - Re-Assessments/Exams Free Text/Narrative Re-Assessment/Exam: 01/28/20 10:10 Left lower lung has a density not seen on CT from November 2019. Departure - Departure Time of Disposition: 09:53 Disposition: DC/Tfer to Acute Hospital 02 Condition: Fair, Undetermined Clinical Impression: Acute lower gastrointestinal hemorrhage, History of COPD, Tobacco dependence due to cigarettes - Discharge Information *PRESCRIPTION DRUG MONITORING PROGRAM REVIEWED*: Not Applicable *COPY OF PRESCRIPTION DRUG MONITORING REPORT IN PATIENT SONJA: Not Applicable Forms: ED Department Discharge, Interfacility Transfer EMTALA Sepsis Event Note - Evaluation Sepsis Screening Result: No Definite Risk - Focused Exam Vital Signs: Vital Signs Temp Pulse Resp BP Pulse Ox 01/28/20 08:10 98.1 F 108 H 20 139/87 97 Date Exam was Performed: 01/28/20 Time Exam was Performed: 10:10 - My Orders Last 24 Hours: My Active Orders 01/28/20 08:21 UA RFX RUTHIE AND CULT IF INDIC [URIN] Stat 01/28/20 08:28 Peripheral IV Care [RC] . DIRECTED Sodium Chloride 0.9% [Saline Flush] 10 ml FLUSH ASDIRECTED PRN Peripheral IV Insertion Adult [OM.PC] Stat 01/28/20 09:04 Abdomen Pelvis wo Cont [CT] Stat - Assessment/Plan Last 24 Hours: My Active Orders 01/28/20 08:21 UA RFX RUTHIE AND CULT IF INDIC [URIN] Stat 01/28/20 08:28 Peripheral IV Care [RC] . DIRECTED Sodium Chloride 0.9% [Saline Flush] 10 ml FLUSH ASDIRECTED PRN Peripheral IV Insertion Adult [OM.PC] Stat 01/28/20 09:04 Abdomen Pelvis wo Cont [CT] Stat
[2020-01-28] MEDS ORDERED: Sodium Chloride 0.9% 10 ML Syringe FLUSH PRN (08:28)
[2020-01-28 09:00] LABS: PTT,PARTIAL THROMBOPLSTIN TIME 25.3 SEC (22.0-34.0)
[2020-01-28 09:01] LABS: ANION GAP 11.9 mEq/L (7-13)
== END 2020-01-28 10:21 ==
LOC: DL.ED 07:59
DX: K92.2 Gastrointestinal hemorrhage, unspecified (principal); F17.210 Nicotine dependence, cigarettes, uncomplicated; J44.9 Chronic obstructive pulmonary disease, unspecified; I10 Essential (primary) hypertension; E78.00 Pure hypercholesterolemia, unspecified; I25.2 Old myocardial infarction; K21.9 Gastro-esophageal reflux disease without esophagitis; M19.90 Unspecified osteoarthritis, unspecified site; E66.9 Obesity, unspecified; Z68.42 Body mass index [BMI] 45.0-49.9, adult; Z88.5 Allergy status to narcotic agent; Z88.2 Allergy status to sulfonamides; Z88.1 Allergy status to other antibiotic agents; Z88.0 Allergy status to penicillin; Z88.8 Allergy status to other drugs, medicaments and biological substances; Z79.899 Other long term (current) drug therapy
CPT/HCPCS: 36415; 74176; 80053; 82150; 82272; 83615; 83690; 85025; 85610; 85730; 99285-25

== ENCOUNTER 2020-04-08 23:26 | Observation (INO) | payer MEDICARE, MEDICAID ==
[2020-04-08] MEDS ORDERED: methylPREDNISolone Sodium Succinate 125 MG/2 ML SDV IM ONE (23:32)
--- NOTE | 2020-04-08 23:53 | CR ---
PROCEDURE INFORMATION: Exam: XR Chest, 1 View Exam date and time: 04/08/2020 11:39 PM Age: 69 years old Clinical indication: Shortness of breath; Additional info: SOB TECHNIQUE: Imaging protocol: XR of the chest Views: 1 view. COMPARISON: CR Chest 1V Frontal 12/06/2019 2:18 PM FINDINGS: Limitations: Patient body habitus. Lungs: Again seen are hazy opacities overlying both lower lungs, most likely secondary to overlying chest wall soft tissues. No new focal airspace opacities. Pleural space: Unremarkable. No pleural effusion. No pneumothorax. Heart/Mediastinum: The cardiac silhouette is mildly prominent but is accentuated by portable AP technique, unchanged. Vasculature: Calcified atherosclerosis of the thoracic aorta. Bones/joints: Status post right shoulder arthroplasty. Chronic degenerative changes of the left shoulder. IMPRESSION: 1. No acute findings. 2. Non-acute findings are described above.
[2020-04-09] MEDS ORDERED: methylPREDNISolone Sodium Succinate 125 MG/2 ML SDV IVPUSH ONE (00:21)
[2020-04-09 01:12] LABS: ANION GAP 8.9 mEq/L (7-13); CHLORIDE,CL 104 mmol/L (98-107); SODIUM,NA 142 mmol/L (136-145)
[2020-04-09] MEDS ORDERED: Verapamil 5 MG/2 ML SDV IVPUSH ONE (01:59)
[2020-04-09] MEDS ORDERED: hydrALAZINE 20 MG/ML SDV IVPUSH ONE (02:07)
[2020-04-09] MEDS ORDERED: Albuterol/Ipratropium 3.0-0.5 MG/3 ML Neb Soln NEB ONE (02:18)
[2020-04-09] MEDS ORDERED: Furosemide 40 MG/4 ML VIAL IVPUSH ONE (02:49)
[2020-04-09] MEDS ORDERED: Levofloxacin/Dextrose 5%-Water 750 MG in Premix Bag 1 BAG IV ONE (02:56)
--- NOTE | 2020-04-09 03:33 | EDM.PDOC ---
ED HPI GENERAL MEDICAL PROBLEM - General Chief Complaint: Respiratory Problem Stated Complaint: AMBULANCE Time Seen by Provider: 04/08/20 23:35 Source of Information: Reports: Patient, EMS, RN History Limitations: Reports: No Limitations - History of Present Illness INITIAL COMMENTS - FREE TEXT/NARRATIVE: ED with c/o SOB, onset tonight while at grandchildren"s home. Hx COPD. Has had cough for few weeks, productive, yellow green at times. Does not use oxygen at home. EMS noted lowest sat 83 % with tx to cot. Rapid increase to upper 90's on 2 L. No fever chills. Denied any possible exposure to COVID. No chest pain. no nausea. - Related Data Allergies Allergy/AdvReac Type Severity Reaction Status Date / Time codeine Allergy Stomach Verified 04/09/20 03:34 Upset Penicillins Allergy Rash Verified 04/09/20 03:34 povidone-iodine Allergy Rash Verified 04/09/20 03:34 [From Betadine] soap [From Betadine] Allergy Rash Verified 04/09/20 03:34 Sulfa (Sulfonamide Allergy Hives Verified 04/09/20 03:34 Antibiotics) tetracycline Allergy Cannot Verified 04/09/20 03:34 Remember Home Meds: Home Meds Albuterol [Ventolin HFA] 1 - 2 puff INH Q8HR PRN 07/25/18 [History] Citalopram [Citalopram HBr] 20 mg PO DAILY 07/25/18 [History] Famotidine [Pepcid] 40 mg PO BID 07/25/18 [History] Losartan/Hydrochlorothiazide [Losartan-HCTZ 100-12.5 MG] 1 tab PO BID 07/25/18 [History] Tiotropium [Spiriva HandiHaler] 18 mcg INH DAILY 07/25/18 [History] Verapamil HCl [Verapamil ER] 180 mg PO DAILY 07/25/18 [History] allopurinoL [Zyloprim] 300 mg PO DAILY 07/25/18 [History] amLODIPine Besylate [Amlodipine Besylate] 10 mg PO BEDTIME 07/25/18 [History] atorvaSTATin [Lipitor] 20 mg PO DAILY 07/25/18 [History] Fluticasone/Salmeterol [Advair 250-50] 2 puff INH BID #1 diskus 07/28/18 [Rx] Docusate Sodium/Sennosides [Senna Plus] 1 tab PO BEDTIME PRN tablet 11/29/19 [Rx] Furosemide [Lasix] 20 mg PO DAILY 30 Days tablet 11/29/19 [Rx] Past Medical History HEENT History: Reports: Impaired Vision Cardiovascular History: Reports: High Cholesterol, Hypertension, [place], SOB on Exertion Respiratory History: Reports: Asthma, COPD, SOB, Other (See Below) Gastrointestinal History: Reports: GERD Genitourinary History: Reports: Urinary Incontinence 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: Musculoskeletal History: Reports: Arthritis Neurological History: Reports: None Psychiatric History: Reports: None Endocrine/Metabolic History: Reports: Obesity/BMI 30+ Hematologic History: Reports: None Immunologic History: Reports: None Oncologic (Cancer) History: Reports: Malignant Melanoma Dermatologic History: Reports: None - Infectious Disease History Infectious Disease History: Reports: Chicken Pox, Measles, Mumps - Past Surgical History Head Surgeries/Procedures: Reports: None HEENT Surgical History: Reports: None Other HEENT Surgeries/Procedures: glasses Cardiovascular Surgical History: Reports: None Respiratory Surgical History: Reports: None GI Surgical History: Reports: Appendectomy, Colonoscopy Female Surgical History: Reports: Hysterectomy, Tubal Ligation, Other (See Below) Other Female Surgeries/Procedures: bladder repair Endocrine Surgical History: Reports: None Neurological Surgical History: Reports: None Musculoskeletal Surgical History: Reports: Shoulder Replacement Social & Family History - Family History Family Medical History: Noncontributory - Tobacco Use Smoking Status *Q: Current Some Day Smoker Years of Tobacco use: 50 Packs/Tins Daily: 0.5 Used Tobacco, but Quit: No - Caffeine Use Caffeine Use: Reports: None - Recreational Drug Use Recreational Drug Use: No - Living Situation & Occupation Occupation: Retired ED ROS GENERAL - Review of Systems Review Of Systems: Comprehensive ROS is negative, except as noted in HPI. ED EXAM, GENERAL - Physical Exam Exam: See Below Exam Limited By: No Limitations General Appearance: Alert, Anxious, Mild Distress, Obese Eye Exam: Bilateral Eye: PERRL Ears: Normal External Exam, Hearing Grossly Normal Nose: Normal Inspection Throat/Mouth: Normal Inspection, Normal Oropharynx, Normal Voice ( 2-3 word sentences) Head: Atraumatic, Normocephalic Neck: Normal Inspection Respiratory/Chest: Decreased Breath Sounds, Crackles, Wheezing Cardiovascular: Normal Peripheral Pulses, Regular Rate, Rhythm GI/Abdominal: Normal Bowel Sounds Extremities: Pedal Edema (1-2+) Neurological: Alert, Oriented, Normal Cognition Psychiatric: Anxious Skin Exam: Warm, Dry, Intact, Normal Color Course - Vital Signs Last Recorded V/S: Last Vital Signs Temp 98.6 F 04/09/20 04:31 Pulse 99 04/09/20 04:31 Resp 19 04/09/20 04:31 BP 141/88 H 04/09/20 04:31 Pulse Ox 96 04/09/20 04:31 - Orders/Labs/Meds Orders: Active Orders 24 hr Category Date Time Status RT Aerosol Therapy [RC] ASDIRECTED Care 04/09/20 02:19 Active Labs: Laboratory Tests 04/09/20 04/09/20 04/09/20 Range/Units 00:35 00:35 01:19 WBC 10.8 H (5.0-10.0) 10^3/uL RBC 7.56 H (4.2-5.4) 10^6/uL Hgb 17.2 H D (12.0-16.0) g/dL Hct 58.0 H (37.0-47.0) % MCV 76.7 L (80-100) fL MCH 22.8 L (27.0-34.0) pg MCHC 29.7 L (33.0-35.0) g/dL Plt Count 153 D (150-450) 10^3/uL Neut % (Auto) 71.4 (42.2-75.2) % Lymph % (Auto) 17.9 L (20.5-50.1) % [place] % (Auto) 6.9 (2-8) % Eos % (Auto) 3.6 H (1.0-3.0) % Baso % (Auto) 0.2 (0.0-1.0) % Add Manual Diff Yes Neutrophils % (Manual) 71 (42-75) % Lymphocytes % (Manual) 18 L (20-50) % Monocytes % (Manual) 7 (2-8) % Eosinophils % (Manual) 4 H (1-3) % Platelet Estimate Adequate Sodium 142 (136-145) mmol/L Potassium 3.9 (3.5-5.1) mmol/L Chloride 104 (98-107) mmol/L Carbon Dioxide 33 H (21-32) mmol/L Anion Gap 8.9 (7-13) mEq/L BUN 12 (7-18) mg/dL Creatinine 1.08 H (0.55-1.02) mg/dL Est Cr Clr Drug Dosing 41.85 mL/min Estimated GFR (MDRD) > 60 BUN/Creatinine Ratio 11.1 (No establ ref range) Glucose 124 H (74-99) mg/dL Calcium 8.2 L (8.5-10.1) mg/dL Total Bilirubin 0.2 (0.2-1.0) mg/dL AST 18 (15-37) U/L ALT 13 L (14-59) U/L Alkaline Phosphatase 109 (46-116) U/L Troponin I < 0.017 (0.000-0.056) ng/mL B-Natriuretic Peptide 56 (0-100) pg/ml Total Protein 7.2 (6.4-8.2) g/dL Albumin 2.5 L (3.4-5.0) g/dL Globulin 4.7 Albumin/Globulin Ratio 0.53 COVID-19 ([facility]) Negative (NEGATIVE) Meds: Medications Discontinued Medications Generic Name Dose Route Start Last Admin Trade Name Freq PRN Reason Stop Dose Admin Albuterol/Ipratropium 3 ml 04/09/20 02:18 04/09/20 02:37 Duoneb 3.0-0.5 Mg/3 Ml NEB 04/09/20 02:19 3 ml ONETIME ONE Administration Furosemide 40 mg 04/09/20 02:49 04/09/20 02:59 Lasix IVPUSH 04/09/20 02:50 40 mg NOW ONE Administration Hydralazine HCl 10 mg 04/09/20 02:07 04/09/20 02:14 Apresoline IVPUSH 04/09/20 02:08 10 mg ONETIME ONE Administration Levofloxacin/Dextrose 750 mg/ 150 mls @ 100 mls/hr 04/09/20 02:56 04/09/20 03:10 Premix IV 04/09/20 04:25 100 mls/hr ONETIME ONE Administration Methylprednisolone Sodium Succinate 125 mg 04/08/20 23:32 04/09/20 00:23 Solu-Medrol IM 04/08/20 23:33 Not Given ONETIME ONE Methylprednisolone Sodium Succinate 125 mg 04/09/20 00:21 04/09/20 00:23 Solu-Medrol IVPUSH 04/09/20 00:22 125 mg ONETIME ONE Administration Verapamil HCl 5 mg 04/09/20 01:59 04/09/20 02:13 Calan IVPUSH 04/09/20 02:00 Not Given ONETIME ONE - Re-Assessments/Exams Free Text/Narrative Re-Assessment/Exam: Up to BSC poor tolerance to activity. Sats to lower 90. Increased respiratory effort. Wheezing improved with neb. , remain mid to base. Intermittent loose bronchial cough. Dr Kaur accepting patient for observation admission Departure - Departure Time of Disposition: 04:40 Disposition: Refer to Observation Condition: Fair Clinical Impression: Hypoxemia, COPD exacerbation, Tobacco dependence due to cigarettes Congestive heart failure Qualifiers: Heart failure type: unspecified Heart failure chronicity: unspecified Qualified Code(s): I50.9 - Heart failure, unspecified Hypertension Qualifiers: Hypertension type: essential hypertension Qualified Code(s): I10 - Essential (primary) hypertension - Discharge Information Sepsis Event Note (ED) - Evaluation Sepsis Screening Result: No Definite Risk - Focused Exam Vital Signs: Vital Signs Temp Pulse Resp BP Pulse Ox 04/09/20 02:12 89 19 185/117 H 94 L 04/09/20 00:09 96.5 F L 85 21 H 155/88 H 100 04/08/20 23:30 97.8 F 70 18 145/94 H 100 - My Orders Last 24 Hours: My Active Orders 04/09/20 02:19 RT Aerosol Therapy [RC] ASDIRECTED - Assessment/Plan Last 24 Hours: My Active Orders 04/09/20 02:19 RT Aerosol Therapy [RC] ASDIRECTED
[2020-04-09] MEDS ORDERED: Ondansetron 4 MG/2 ML SDV IVPUSH PRN (04:35)
[2020-04-09] MEDS ORDERED: Acetaminophen 325 MG Tab PO PRN (04:35)
[2020-04-09] MEDS ORDERED: Albuterol 0.083% 2.5 MG/3 ML Neb Soln NEB PRN (04:35)
[2020-04-09] MEDS ORDERED: Ondansetron 4 MG Tab.DIS PO PRN (04:35)
[2020-04-09] MEDS ORDERED: Albuterol 6.7 GM Inhaler INH PRN (04:41)
[2020-04-09] MEDS ORDERED: Azithromycin 250 MG Tab PO SCH (04:45)
--- NOTE | 2020-04-09 05:01 | PCM.HP ---
H&P History of Present Illness - General Date of Service: 04/09/20 Admit Problem/Dx: Admission Diagnosis/Problem Admission Diagnosis/Problem Acute respiratory failure with hypoxia Source of Information: Patient, Old Records, Provider History Limitations: Reports: No Limitations - History of Present Illness Initial Comments - Free Text/Narative: Ms. Lamar a 69-year-old female with medical history significant for COPD, uppercase disorder, essential hypertension, hyperlipidemia, history of CHF, coronary artery disease and [place], and morbid obesity who presented to the ED with complaints of progressively worsening shortness of breath. Patient reports that she has been having progressively worsening shortness of breath for the past 2 days. She states that on the night, she went to lay down and had significant shortness of breath so she had recommended sleeping the recliner. Reports that last night around about 5 PM, she had significant difficulty going to the bathroom due to shortness of breath. States that when she returned from the bathroom to her recliner, she was completely winded and could barely talk. Decided to wait till her son came home to watch the kids before coming to the hospital. She denies fevers, chills, chest pains, neck pain, jaw pain, arm pain, shoulder pain, diaphoresis, headache, neck pain, nausea, vomiting, diarrhea, constipation, dysuria, hematuria, edema, or any new symptoms. Reports that she continues to smoke about half pack of cigarettes daily. Also smokes marijuana. Denies any recent travel or exposure to patient with COVID-19. Denies alcohol or other illicit drug use. Paramedics report that patient's O2 saturation was 83% on room air at the time of the arrival. O2 improved to the 90s with 2 L of oxygen. - Related Data Allergies/Adverse Reactions: Allergies Allergy/AdvReac Type Severity Reaction Status Date / Time codeine Allergy Stomach Verified 04/09/20 03:34 Upset Penicillins Allergy Rash Verified 04/09/20 03:34 povidone-iodine Allergy Rash Verified 04/09/20 03:34 [From Betadine] soap [From Betadine] Allergy Rash Verified 04/09/20 03:34 Sulfa (Sulfonamide Allergy Hives Verified 04/09/20 03:34 Antibiotics) tetracycline Allergy Cannot Verified 04/09/20 03:34 Remember Home Medications: Home Meds Albuterol [Ventolin HFA] 1 - 2 puff INH Q8HR PRN 07/25/18 [History] Citalopram [Citalopram HBr] 20 mg PO DAILY 07/25/18 [History] Famotidine [Pepcid] 40 mg PO BID 07/25/18 [History] Losartan/Hydrochlorothiazide [Losartan-HCTZ 100-12.5 MG] 1 tab PO BID 07/25/18 [History] Tiotropium [Spiriva HandiHaler] 18 mcg INH DAILY 07/25/18 [History] Verapamil HCl [Verapamil ER] 180 mg PO DAILY 07/25/18 [History] allopurinoL [Zyloprim] 300 mg PO DAILY 07/25/18 [History] amLODIPine Besylate [Amlodipine Besylate] 10 mg PO BEDTIME 07/25/18 [History] atorvaSTATin [Lipitor] 20 mg PO DAILY 07/25/18 [History] Fluticasone/Salmeterol [Advair 250-50] 2 puff INH BID #1 diskus 07/28/18 [Rx] Docusate Sodium/Sennosides [Senna Plus] 1 tab PO BEDTIME PRN tablet 11/29/19 [Rx] Furosemide [Lasix] 20 mg PO DAILY 30 Days tablet 11/29/19 [Rx] Past Medical History HEENT History: Reports: Impaired Vision Cardiovascular History: Reports: High Cholesterol, Hypertension, [place], SOB on Exertion Respiratory History: Reports: Asthma, COPD, SOB, Other (See Below) Gastrointestinal History: Reports: GERD Genitourinary History: Reports: Urinary Incontinence 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: Musculoskeletal History: Reports: Arthritis Neurological History: Reports: None Psychiatric History: Reports: None Endocrine/Metabolic History: Reports: Obesity/BMI 30+ Hematologic History: Reports: None Immunologic History: Reports: None Oncologic (Cancer) History: Reports: Malignant Melanoma Dermatologic History: Reports: None - Infectious Disease History Infectious Disease History: Reports: Chicken Pox, Measles, Mumps - Past Surgical History Head Surgeries/Procedures: Reports: None HEENT Surgical History: Reports: None Other HEENT Surgeries/Procedures: glasses Cardiovascular Surgical History: Reports: None Respiratory Surgical History: Reports: None GI Surgical History: Reports: Appendectomy, Colonoscopy Female Surgical History: Reports: Hysterectomy, Tubal Ligation, Other (See Below) Other Female Surgeries/Procedures: bladder repair Endocrine Surgical History: Reports: None Neurological Surgical History: Reports: None Musculoskeletal Surgical History: Reports: Shoulder Replacement Social & Family History - Family History Family Medical History: Noncontributory - Tobacco Use Smoking Status *Q: Current Some Day Smoker Years of Tobacco use: 50 Packs/Tins Daily: 0.5 Used Tobacco, but Quit: No - Caffeine Use Caffeine Use: Reports: None - Recreational Drug Use Recreational Drug Use: No - Living Situation & Occupation Occupation: Retired H&P Review of Systems - Review of Systems: Review Of Systems: Comprehensive ROS is negative, except as noted in HPI. Exam - Exam Exam: See Below - Vital Signs Vital Signs: Last Vital Signs Temp 98.6 F 04/09/20 04:31 Pulse 99 04/09/20 04:31 Resp 19 04/09/20 04:31 BP 141/88 H 04/09/20 04:31 Pulse Ox 96 04/09/20 04:31 Weight: 252 lb 3.2 oz - Exam Quality Assessment: Supplemental Oxygen (2 liters via nasal cannula.) General: Alert, Oriented, Cooperative, Mild Distress HEENT: Conjunctiva Clear, EACs Clear, EOMI, Hearing Intact Neck: Supple, Trachea Midline Lungs: Decreased Breath Sounds, Rhonchi, Wheezing Cardiovascular: Regular Rate, Regular Rhythm GI/Abdominal Exam: Normal Bowel Sounds, Soft, Non-Tender, No Organomegaly, No Distention, Other (Abdominal adiposity. ) Extremities: Non-Tender, No Pedal Edema Peripheral Pulses: 2+: Radial (L), Radial (R), Dorsalis Pedis (L), Dorsalis Pedis (R) Skin: Warm, Dry, Intact Neuro Extensive - Mental Status: Alert, Oriented x3, Normal Mood/Affect Psychiatric: Alert, Normal Affect, Normal Mood - Patient Data Lab Results Last 24 hrs: Laboratory Results - last 24 hr 04/09/20 04/09/20 04/09/20 Range/Units 00:35 00:35 01:19 WBC 10.8 H (5.0-10.0) 10^3/uL RBC 7.56 H (4.2-5.4) 10^6/uL Hgb 17.2 H D (12.0-16.0) g/dL Hct 58.0 H (37.0-47.0) % MCV 76.7 L (80-100) fL MCH 22.8 L (27.0-34.0) pg MCHC 29.7 L (33.0-35.0) g/dL Plt Count 153 D (150-450) 10^3/uL Neut % (Auto) 71.4 (42.2-75.2) % Lymph % (Auto) 17.9 L (20.5-50.1) % [place] % (Auto) 6.9 (2-8) % Eos % (Auto) 3.6 H (1.0-3.0) % Baso % (Auto) 0.2 (0.0-1.0) % Add Manual Diff Yes Neutrophils % (Manual) 71 (42-75) % Lymphocytes % (Manual) 18 L (20-50) % Monocytes % (Manual) 7 (2-8) % Eosinophils % (Manual) 4 H (1-3) % Platelet Estimate Adequate D-Dimer, Quantitative (0-400) ng/mL Sodium 142 (136-145) mmol/L Potassium 3.9 (3.5-5.1) mmol/L Chloride 104 (98-107) mmol/L Carbon Dioxide 33 H (21-32) mmol/L Anion Gap 8.9 (7-13) mEq/L BUN 12 (7-18) mg/dL Creatinine 1.08 H (0.55-1.02) mg/dL Est Cr Clr Drug Dosing 41.85 mL/min Estimated GFR (MDRD) > 60 BUN/Creatinine Ratio 11.1 (No establ ref range) Glucose 124 H (74-99) mg/dL Calcium 8.2 L (8.5-10.1) mg/dL Total Bilirubin 0.2 (0.2-1.0) mg/dL AST 18 (15-37) U/L ALT 13 L (14-59) U/L Alkaline Phosphatase 109 (46-116) U/L Troponin I < 0.017 (0.000-0.056) ng/mL B-Natriuretic Peptide 56 (0-100) pg/ml Total Protein 7.2 (6.4-8.2) g/dL Albumin 2.5 L (3.4-5.0) g/dL Globulin 4.7 Albumin/Globulin Ratio 0.53 COVID-19 ([facility]) Negative (NEGATIVE) 07/23/20 Range/Units 04:00 WBC (5.0-10.0) 10^3/uL RBC (4.2-5.4) 10^6/uL Hgb (12.0-16.0) g/dL Hct (37.0-47.0) % MCV (80-100) fL MCH (27.0-34.0) pg MCHC (33.0-35.0) g/dL Plt Count (150-450) 10^3/uL Neut % (Auto) (42.2-75.2) % Lymph % (Auto) (20.5-50.1) % [place] % (Auto) (2-8) % Eos % (Auto) (1.0-3.0) % Baso % (Auto) (0.0-1.0) % Add Manual Diff Neutrophils % (Manual) (42-75) % Lymphocytes % (Manual) (20-50) % Monocytes % (Manual) (2-8) % Eosinophils % (Manual) (1-3) % Platelet Estimate D-Dimer, Quantitative 603 H (0-400) ng/mL Sodium (136-145) mmol/L Potassium (3.5-5.1) mmol/L Chloride (98-107) mmol/L Carbon Dioxide (21-32) mmol/L Anion Gap (7-13) mEq/L BUN (7-18) mg/dL Creatinine (0.55-1.02) mg/dL Est Cr Clr Drug Dosing mL/min Estimated GFR (MDRD) BUN/Creatinine Ratio (No establ ref range) Glucose (74-99) mg/dL Calcium (8.5-10.1) mg/dL Total Bilirubin (0.2-1.0) mg/dL AST (15-37) U/L ALT (14-59) U/L Alkaline Phosphatase (46-116) U/L Troponin I (0.000-0.056) ng/mL B-Natriuretic Peptide (0-100) pg/ml Total Protein (6.4-8.2) g/dL Albumin (3.4-5.0) g/dL Globulin Albumin/Globulin Ratio COVID-19 ([facility]) (NEGATIVE) Result Diagrams: 04/09/20 06:20 04/09/20 06:20 - Problem List (1) Acute respiratory failure with hypoxia SNOMED Code(s): 09448764, 149188025 ICD Code: J96.01 - ACUTE RESPIRATORY FAILURE WITH HYPOXIA Status: Acute Current Visit: Yes (2) COPD exacerbation SNOMED Code(s): 447694884 ICD Code: J44.1 - CHRONIC OBSTRUCTIVE PULMONARY DISEASE W (ACUTE) EXACERBATION Status: Acute Current Visit: Yes (3) HTN (hypertension) SNOMED Code(s): 68892821 ICD Code: I10 - ESSENTIAL (PRIMARY) HYPERTENSION Status: Acute Current Visit: Yes Qualifiers: Hypertension type: essential hypertension Qualified Code(s): I10 - Essential (primary) hypertension (4) Tobacco dependence due to cigarettes SNOMED Code(s): 94452449521633072 ICD Code: F17.210 - NICOTINE DEPENDENCE, CIGARETTES, UNCOMPLICATED Status: Acute Current Visit: Yes (5) Morbid obesity SNOMED Code(s): 444022826 ICD Code: E66.01 - MORBID (SEVERE) OBESITY DUE TO EXCESS CALORIES Status: Acute Current Visit: Yes Problem List Initiated/Reviewed/Updated: Yes Orders Last 24hrs: Active Orders 24 hr Category Date Time Status Admission Diagnosis [ADT] Stat ADT 04/09/20 03:20 Ordered Admission Status [Patient Status] [ADT] Routine ADT 04/09/20 03:20 Active Oxygen Therapy [RC] PRN Care 04/09/20 04:35 Ordered RT Aerosol Therapy [RC] ASDIRECTED Care 04/09/20 02:19 Active RT Aerosol Therapy [RC] ASDIRECTED Care 04/09/20 04:40 Ordered RT Post Treatment Assessment [RC] Click to Edit Care 04/09/20 04:43 Ordered RT Pre-Treatment Assessment [RC] Click to Edit Care 04/09/20 04:43 Ordered Up With Assistance [RC] ASDIRECTED Care 04/09/20 04:35 Ordered VTE/DVT Education [RC] PER UNIT ROUTINE Care 04/09/20 04:35 Ordered Vital Signs [RC] Q4H Care 04/09/20 04:35 Ordered Regular Diet [DIET] Diet 04/09/20 Breakfast Ordered BASIC METABOLIC PANEL,BMP [CHEM] AM Lab 04/09/20 05:11 Ordered CBC W/O DIFF,HEMOGRAM [HEME] AM Lab 04/09/20 05:11 Ordered Acetaminophen [Tylenol] Med 04/09/20 04:35 Ordered 650 mg PO Q6H PRN Albuterol [Proventil HFA] Med 04/09/20 04:41 Ordered 1 puff INH Q8HR PRN Albuterol [Proventil Neb Soln] Med 04/09/20 04:35 Ordered 2.5 mg NEB Q2H PRN Albuterol/Ipratropium [DuoNeb 3.0-0.5 MG/3 ML] Med 04/09/20 07:00 Ordered 3 ml NEB Q4HRRT Azithromycin [Zithromax] Med 04/09/20 04:45 Ordered 250 mg PO DAILY Citalopram [Celexa] Med 04/09/20 09:00 Ordered 20 mg PO DAILY Docusate Sodium/Sennosides [Senna Plus] Med 04/09/20 04:35 Ordered 1 tab PO BEDTIME PRN Docusate Sodium/Sennosides [Senna Plus] Med 04/09/20 04:41 Ordered 1 tab PO BEDTIME PRN Enoxaparin [Lovenox] Med 04/09/20 09:00 Ordered 40 mg SUBCUT DAILY Famotidine [Pepcid] Med 04/09/20 09:00 Ordered 40 mg PO BID Fluticasone/Salmeterol Med 04/09/20 09:00 Ordered 2 puff INH BID Furosemide [Lasix] Med 04/09/20 09:00 Ordered 20 mg PO DAILY Losartan/Hydrochlorothiazide [Losartan-HCTZ 100-12.5 MG Med 04/09/20 09:00 Ordered ] 1 tab PO BID Ondansetron [Zofran ODT] Med 04/09/20 04:35 Ordered 4 mg PO Q6H PRN Ondansetron [Zofran] Med 04/09/20 04:35 Ordered 4 mg IVPUSH Q6H PRN Tiotropium [Spiriva HandiHaler] Med 04/09/20 09:00 Ordered 18 mcg INH DAILY Verapamil Med 04/09/20 09:00 Ordered 180 mg PO DAILY allopurinoL [Zyloprim] Med 04/09/20 09:00 Ordered 300 mg PO DAILY amLODIPine Besylate [Amlodipine Besylate] Med 04/09/20 21:00 Ordered 10 mg PO BEDTIME predniSONE Med 04/09/20 04:45 Ordered 40 mg PO DAILY Resuscitation Status Routine Resus Stat 04/09/20 04:35 Ordered Medication Orders Acetaminophen (Tylenol) 650 mg PO Q6H PRN PRN Reason: Pain (mild 1-3) Albuterol (Proventil Neb Soln) 2.5 mg NEB Q2H PRN PRN Reason: shortness of breath/wheezing Albuterol (Proventil Hfa) gm INH Q8HR PRN PRN Reason: Wheezing Albuterol/Ipratropium (Duoneb 3.0-0.5 Mg/3 Ml) 3 ml NEB Q4HRRT [facility] Allopurinol (Zyloprim) 300 mg PO DAILY [facility] Azithromycin (Zithromax) 250 mg PO DAILY [facility] Citalopram Hydrobromide (Celexa) 20 mg PO DAILY [facility] Enoxaparin Sodium (Lovenox) 40 mg SUBCUT DAILY [facility] Furosemide (Lasix) 20 mg PO DAILY [facility] Non-Formulary Medication (Amlodipine Besylate [Amlodipine Besylate]) 10 mg PO BEDTIME [facility] Non-Formulary Medication (Famotidine [Pepcid]) 40 mg PO BID [facility] Non-Formulary Medication (Fluticasone/Salmeterol) 2 puff INH BID [facility] Non-Formulary Medication (Losartan/Hydrochlorothiazide [Losartan-Hctz 100-12.5 Mg]) 1 tab PO BID [facility] Non-Formulary Medication (Verapamil) 180 mg PO DAILY [facility] Ondansetron HCl (Zofran Odt) 4 mg PO Q6H PRN PRN Reason: nausea, able to take PO Ondansetron HCl (Zofran) 4 mg IVPUSH Q6H PRN PRN Reason: Nausea/Vomiting Prednisone (Prednisone) 40 mg PO DAILY [facility] Stop: 04/14/20 04:46 Senna/Docusate Sodium (Senna Plus) 1 tab PO BEDTIME PRN PRN Reason: Constipation Senna/Docusate Sodium (Senna Plus) 1 tab PO BEDTIME PRN PRN Reason: Constipation Tiotropium Joseph (Spiriva Handihaler) 18 mcg INH DAILY [facility] Assessment/Plan Comment:: #Acute respiratory failure with hypoxia #Acute COPD exacerbation patient with O2 saturation of 83% on room air at the time of EMS arrival at home. Patient is not on oxygen at baseline. Reports progressively worsening shortness of breath with cough and intermittent yellowish-green sputum production. COVID-19 screen negative Nebulized and inhaled treatments Azithromycin Prednisone Incentive spirometer #Hypertension: Blood pressures at goal Continue home medications #Chronic systolic: Patient reports that she is still smoking about half pack of cigarettes daily. #Marijuana abuse Patient reports that she smokes marijuana daily Smoking cessation counseling provided #Obesity: BMI of 46.1 Weight loss counseling #CHF: Not in acute exacerbation Continue home CHF medications. DVT PPx: Heparin GI PPx: Cardiac diet CODE STATUS: DNR/DNI per patient preference.
[2020-04-09] MEDS: predniSONE 20 MG Tab PO SCH ×2 (05:13→09:01)
[2020-04-09 06:45] LABS: ANION GAP 11.7 mEq/L (7-13); CHLORIDE,CL 101 mmol/L (98-107); SODIUM,NA 140 mmol/L (136-145)
[2020-04-09] MEDS: Albuterol/Ipratropium 3.0-0.5 MG/3 ML Neb Soln NEB SCH ×5 (07:33→22:49)
[2020-04-09] MEDS: Tiotropium Inhaler 18 MCG Inhalation Powder Cap Kit of 5 INH SCH (08:59)
[2020-04-09] MEDS: Verapamil 180 MG Tab.ER PO SCH (09:01)
[2020-04-09] MEDS: Enoxaparin 40 MG/0.4 ML Syringe SUBCUT SCH (09:01)
[2020-04-09] MEDS: Losartan 50 MG Tab PO SCH ×2 (09:02→21:02)
[2020-04-09] MEDS: Citalopram 20 MG Tab PO SCH (09:02)
[2020-04-09] MEDS: Hydrochlorothiazide 25 MG Tab PO SCH ×2 (09:03→21:01)
[2020-04-09] MEDS: Furosemide 20 MG Tab PO SCH (09:03)
[2020-04-09] MEDS: Allopurinol 300 MG Tab PO SCH (09:04)
[2020-04-09] MEDS: Formoterol/Mometasone 200-5 MCG 8.8 GM Inhaler IH SCH ×2 (09:05→21:01)
[2020-04-09] MEDS: amLODIPine 5 MG Tab PO SCH (21:03)
[2020-04-09] MEDS: Famotidine 20 MG Tab PO SCH (21:04)
[2020-04-10] MEDS: Albuterol/Ipratropium 3.0-0.5 MG/3 ML Neb Soln NEB SCH ×6 (03:14→23:16)
[2020-04-10] MEDS: Formoterol/Mometasone 200-5 MCG 8.8 GM Inhaler IH SCH ×2 (09:11→21:34)
[2020-04-10] MEDS: Tiotropium Inhaler 18 MCG Inhalation Powder Cap Kit of 5 INH SCH (09:11)
[2020-04-10] MEDS: Furosemide 20 MG Tab PO SCH (09:12)
[2020-04-10] MEDS: Hydrochlorothiazide 25 MG Tab PO SCH ×2 (09:12→21:29)
[2020-04-10] MEDS: Azithromycin 250 MG Tab PO SCH (09:13)
[2020-04-10] MEDS: Verapamil 180 MG Tab.ER PO SCH (09:13)
[2020-04-10] MEDS: Citalopram 20 MG Tab PO SCH (09:13)
[2020-04-10] MEDS: predniSONE 20 MG Tab PO SCH (09:21)
[2020-04-10] MEDS: Enoxaparin 40 MG/0.4 ML Syringe SUBCUT SCH (09:22)
[2020-04-10] MEDS: Allopurinol 300 MG Tab PO SCH (09:22)
[2020-04-10] MEDS: Losartan 50 MG Tab PO SCH ×2 (09:24→21:27)
--- NOTE | 2020-04-10 10:09 | PCM.PN ---
- General Info Date of Service: 04/10/20 Subjective Update: She is a 69-year-old female with medical history of COPD, hypertension, congestive heart failure, coronary artery disease status post previous myocardial infarction. The patient was admitted with acute exacerbation of COPD Today, Patient still has shortness of breath Intensity is moderate It is worse with activity and better with rest Associated wheezing No fever and no chills - Review of Systems General: Reports: Weakness, Fatigue Pulmonary: Reports: Shortness of Breath, Wheezing Cardiovascular: Reports: No Symptoms Gastrointestinal: Reports: No Symptoms Musculoskeletal: Reports: No Symptoms - Patient Data Vitals - Most Recent: Last Vital Signs Temp 36.6 C 04/10/20 00:00 Pulse 94 04/10/20 07:37 Resp 24 H 04/10/20 00:00 BP 127/67 04/10/20 09:24 Pulse Ox 90 L 04/10/20 07:37 Weight - Most Recent: 114.487 kg I&O - Last 24 Hours: Intake & Output 04/09/20 04/10/20 04/10/20 22:59 06:59 14:59 Intake Total 660 900 Output Total 800 1000 Balance -140 -100 Lab Results Last 24 Hours: Laboratory Results - last 24 hr 04/09/20 Range/Units 10:18 Urine Color Yellow (YELLOW) Urine Appearance Slightly cloudy (CLEAR) Urine pH 5.0 (5.0-9.0) Ur Specific [place] 1.020 (1.005-1.030) Urine Protein Negative (NEGATIVE) Urine Glucose (UA) Negative (NEGATIVE) Urine Ketones Negative (NEGATIVE) Urine Occult Blood Small H (NEGATIVE) Urine Nitrite Negative (NEGATIVE) Urine Bilirubin Negative (NEGATIVE) Urine Urobilinogen 0.2 (0.2-1.0) mg/dL Ur Leukocyte Esterase Trace H (NEGATIVE) Urine RBC 10-20 H /HPF Urine WBC 5-10 H (0-5/HPF) /HPF Ur Epithelial Cells Few (NOT SEEN) /HPF Urine Bacteria Few (0-FEW/HPF) /HPF Urine Mucus Few H (NOT SEEN) /LPF Oz Results Last 24 Hours: Microbiology 04/09/20 10:18 Urine Culture - Preliminary Urine, Awad Cath (Indwelling) Med Orders - Current: Current Medications Acetaminophen (Tylenol) 650 mg PO Q6H PRN PRN Reason: Pain (mild 1-3) Last Admin: 04/09/20 08:08 Dose: 650 mg Documented by: Albuterol (Proventil Neb Soln) 2.5 mg NEB Q2H PRN PRN Reason: shortness of breath/wheezing Albuterol (Proventil Hfa) 0 gm INH Q8HR PRN PRN Reason: Wheezing Albuterol/Ipratropium (Duoneb 3.0-0.5 Mg/3 Ml) 3 ml NEB Q4HRRT [facility] Last Admin: 04/10/20 07:37 Dose: 3 ml Documented by: Allopurinol (Zyloprim) 300 mg PO DAILY [facility] Last Admin: 04/10/20 09:22 Dose: 300 mg Documented by: Amlodipine Besylate (Norvasc) 10 mg PO BEDTIME [facility] Last Admin: 04/09/20 21:03 Dose: 10 mg Documented by: Azithromycin (Zithromax) 250 mg PO DAILY@0900 [facility] Last Admin: 04/10/20 09:13 Dose: 250 mg Documented by: Citalopram Hydrobromide (Celexa) 20 mg PO DAILY [facility] Last Admin: 04/10/20 09:13 Dose: 20 mg Documented by: Enoxaparin Sodium (Lovenox) 40 mg SUBCUT DAILY [facility] Last Admin: 04/10/20 09:22 Dose: 40 mg Documented by: Famotidine (Pepcid) 40 mg PO BEDTIME [facility] Last Admin: 04/09/20 21:04 Dose: 40 mg Documented by: Furosemide (Lasix) 20 mg PO DAILY [facility] Last Admin: 04/10/20 09:12 Dose: 20 mg Documented by: Hydrochlorothiazide (Hydrochlorothiazide) 12.5 mg PO BID [facility] Last Admin: 04/10/20 09:12 Dose: 12.5 mg Documented by: Losartan Potassium (Cozaar) 100 mg PO BID [facility] Last Admin: 04/10/20 09:24 Dose: 100 mg Documented by: Mometasone Furoate/Formoterol Fumar (Dulera 200-5 Mcg) 2 puff IH BID [facility] Last Admin: 04/10/20 09:11 Dose: 2 puff Documented by: Ondansetron HCl (Zofran Odt) 4 mg PO Q6H PRN PRN Reason: nausea, able to take PO Ondansetron HCl (Zofran) 4 mg IVPUSH Q6H PRN PRN Reason: Nausea/Vomiting Prednisone (Prednisone) 40 mg PO DAILY [facility] Stop: 04/14/20 04:46 Last Admin: 04/10/20 09:21 Dose: 40 mg Documented by: Senna/Docusate Sodium (Senna Plus) 1 tab PO BEDTIME PRN PRN Reason: Constipation Tiotropium [place] (Spiriva Handihaler) 18 mcg INH DAILY [facility] Last Admin: 04/10/20 09:11 Dose: 18 mcg Documented by: Verapamil HCl (Calan Sr) 180 mg PO DAILY [facility] Last Admin: 04/10/20 09:13 Dose: 180 mg Documented by: Discontinued Medications Albuterol/Ipratropium (Duoneb 3.0-0.5 Mg/3 Ml) 3 ml NEB ONETIME ONE Stop: 04/09/20 02:19 Last Admin: 04/09/20 02:37 Dose: 3 ml Documented by: Azithromycin (Zithromax) 250 mg PO DAILY [facility] Last Admin: 04/09/20 05:13 Dose: 250 mg Documented by: Furosemide (Lasix) 40 mg IVPUSH NOW ONE Stop: 04/09/20 02:50 Last Admin: 04/09/20 02:59 Dose: 40 mg Documented by: Hydralazine HCl (Apresoline) 10 mg IVPUSH ONETIME ONE Stop: 04/09/20 02:08 Last Admin: 04/09/20 02:14 Dose: 10 mg Documented by: Levofloxacin/Dextrose 750 mg/ (Premix) 150 mls @ 100 mls/hr IV ONETIME ONE Stop: 04/09/20 04:25 Last Admin: 04/09/20 03:10 Dose: 100 mls/hr Documented by: Methylprednisolone Sodium Succinate (Solu-Medrol) 125 mg IM ONETIME ONE Stop: 04/08/20 23:33 Last Admin: 04/09/20 00:23 Dose: Not Given Documented by: Methylprednisolone Sodium Succinate (Solu-Medrol) 125 mg IVPUSH ONETIME ONE Stop: 04/09/20 00:22 Last Admin: 04/09/20 00:23 Dose: 125 mg Documented by: Verapamil HCl (Calan) 5 mg IVPUSH ONETIME ONE Stop: 04/09/20 02:00 Last Admin: 04/09/20 02:13 Dose: Not Given Documented by: - Exam Quality Assessment: Supplemental Oxygen General: Alert, Oriented, Cooperative Neck: Supple Lungs: Decreased Breath Sounds, Rhonchi Cardiovascular: Regular Rate, Regular Rhythm GI/Abdominal Exam: Normal Bowel Sounds, Soft, Non-Tender, No Organomegaly, No Distention, No Abnormal Bruit, No Mass, Pelvis Stable Sepsis Event Note - Evaluation Sepsis Screening Result: No Definite Risk - Focused Exam Vital Signs: Vital Signs Temp Pulse Resp BP BP Pulse Ox Pulse Ox 04/10/20 09:24 127/67 04/10/20 07:37 94 04/10/20 04:35 93 L 04/10/20 00:00 36.6 C 117 H 24 H 147/98 H 99 Pulse Ox 04/10/20 09:24 04/10/20 07:37 90 L 04/10/20 04:35 04/10/20 00:00 Date Exam was Performed: 04/10/20 Time Exam was Performed: 10:05 - Problem List Review Problem List Initiated/Reviewed/Updated: Yes - Plan Plan:: #Acute respiratory failure with hypoxia #Acute COPD exacerbation patient with O2 saturation of 83% on room air at the time of EMS arrival at home. Patient is not on oxygen at baseline. Reports progressively worsening shortness of breath with cough and intermittent yellowish-green sputum production. COVID-19 screen negative #Hypertension: Continue home medications #Chronic tobacco use disorder : Patient reports that she is still smoking about half pack of cigarettes daily. #. Chronic systolic congestive heart failure She is not fluid overloaded at this point #Marijuana abuse Patient reports that she smokes marijuana daily Smoking cessation counseling provided #Obesity: BMI of 46.1 Weight loss counseling #CHF: Not in acute exacerbation Continue home CHF medications. DVT PPx: Heparin GI PPx: Cardiac diet CODE STATUS: DNR/DNI per patient preference.
[2020-04-10] MEDS: Famotidine 20 MG Tab PO SCH (21:28)
[2020-04-10] MEDS: amLODIPine 5 MG Tab PO SCH (21:31)
[2020-04-11] MEDS: Albuterol/Ipratropium 3.0-0.5 MG/3 ML Neb Soln NEB SCH ×6 (03:02→23:12)
[2020-04-11] MEDS: Allopurinol 300 MG Tab PO SCH (08:49)
[2020-04-11] MEDS: Hydrochlorothiazide 25 MG Tab PO SCH ×2 (08:50→21:33)
[2020-04-11] MEDS: Citalopram 20 MG Tab PO SCH (08:51)
[2020-04-11] MEDS: Losartan 50 MG Tab PO SCH ×2 (08:52→21:32)
[2020-04-11] MEDS: Furosemide 20 MG Tab PO SCH (08:52)
[2020-04-11] MEDS: Azithromycin 250 MG Tab PO SCH (08:52)
[2020-04-11] MEDS: Verapamil 180 MG Tab.ER PO SCH (08:52)
[2020-04-11] MEDS: Enoxaparin 40 MG/0.4 ML Syringe SUBCUT SCH (08:52)
[2020-04-11] MEDS: predniSONE 20 MG Tab PO SCH (08:52)
[2020-04-11] MEDS: Formoterol/Mometasone 200-5 MCG 8.8 GM Inhaler IH SCH ×2 (09:13→21:35)
[2020-04-11] MEDS: Tiotropium Inhaler 18 MCG Inhalation Powder Cap Kit of 5 INH SCH (09:14)
--- NOTE | 2020-04-11 10:44 | PCM.PN ---
- General Info Date of Service: 04/11/20 Subjective Update: Today patient continues to have some shortness of breath It is improved compared to yesterday Worse with activity and better with rest and Associated generalized body malaise - Review of Systems General: Reports: Weakness, Malaise Pulmonary: Reports: Shortness of Breath, Wheezing Cardiovascular: Reports: No Symptoms Gastrointestinal: Reports: No Symptoms Musculoskeletal: Reports: No Symptoms - Patient Data Vitals - Most Recent: Last Vital Signs Temp 36.6 C 04/11/20 07:00 Pulse 85 04/11/20 07:43 Resp 22 H 04/11/20 07:00 BP 134/68 04/11/20 08:52 Pulse Ox 92 L 04/11/20 07:43 Weight - Most Recent: 114.487 kg I&O - Last 24 Hours: Intake & Output 04/10/20 04/11/20 04/11/20 22:59 06:59 14:59 Intake Total 858 1000 Output Total 800 600 Balance 58 400 Oz Results Last 24 Hours: Microbiology 04/09/20 10:18 Urine Culture - Final Urine, Awad Cath (Indwelling) Escherichia Coli 04/10/20 10:10 Gram Stain - Final Sputum - Expectorated Med Orders - Current: Current Medications Acetaminophen (Tylenol) 650 mg PO Q6H PRN PRN Reason: Pain (mild 1-3) Last Admin: 04/09/20 08:08 Dose: 650 mg Documented by: Albuterol (Proventil Neb Soln) 2.5 mg NEB Q2H PRN PRN Reason: shortness of breath/wheezing Albuterol (Proventil Hfa) 0 gm INH Q8HR PRN PRN Reason: Wheezing Albuterol/Ipratropium (Duoneb 3.0-0.5 Mg/3 Ml) 3 ml NEB Q4HRRT [facility] Last Admin: 04/11/20 07:43 Dose: 3 ml Documented by: Allopurinol (Zyloprim) 300 mg PO DAILY [facility] Last Admin: 04/11/20 08:49 Dose: 300 mg Documented by: Amlodipine Besylate (Norvasc) 10 mg PO BEDTIME [facility] Last Admin: 04/10/20 21:31 Dose: 10 mg Documented by: Azithromycin (Zithromax) 250 mg PO DAILY@0900 [facility] Last Admin: 04/11/20 08:52 Dose: 250 mg Documented by: Citalopram Hydrobromide (Celexa) 20 mg PO DAILY [facility] Last Admin: 04/11/20 08:51 Dose: 20 mg Documented by: Enoxaparin Sodium (Lovenox) 40 mg SUBCUT DAILY [facility] Last Admin: 04/11/20 08:52 Dose: 40 mg Documented by: Famotidine (Pepcid) 40 mg PO BEDTIME [facility] Last Admin: 04/10/20 21:28 Dose: 40 mg Documented by: Furosemide (Lasix) 20 mg PO DAILY [facility] Last Admin: 04/11/20 08:52 Dose: 20 mg Documented by: Hydrochlorothiazide (Hydrochlorothiazide) 12.5 mg PO BID [facility] Last Admin: 04/11/20 08:50 Dose: 12.5 mg Documented by: Losartan Potassium (Cozaar) 100 mg PO BID [facility] Last Admin: 04/11/20 08:52 Dose: 100 mg Documented by: Mometasone Furoate/Formoterol Fumar (Dulera 200-5 Mcg) 2 puff IH BID [facility] Last Admin: 04/11/20 09:13 Dose: 2 puff Documented by: Ondansetron HCl (Zofran Odt) 4 mg PO Q6H PRN PRN Reason: nausea, able to take PO Ondansetron HCl (Zofran) 4 mg IVPUSH Q6H PRN PRN Reason: Nausea/Vomiting Prednisone (Prednisone) 40 mg PO DAILY [facility] Stop: 04/14/20 04:46 Last Admin: 04/11/20 08:52 Dose: 40 mg Documented by: Senna/Docusate Sodium (Senna Plus) 1 tab PO BEDTIME PRN PRN Reason: Constipation Tiotropium [place] (Spiriva Handihaler) 18 mcg INH DAILY [facility] Last Admin: 04/11/20 09:14 Dose: 18 mcg Documented by: Verapamil HCl (Calan Sr) 180 mg PO DAILY [facility] Last Admin: 04/11/20 08:52 Dose: 180 mg Documented by: Discontinued Medications Albuterol/Ipratropium (Duoneb 3.0-0.5 Mg/3 Ml) 3 ml NEB ONETIME ONE Stop: 04/09/20 02:19 Last Admin: 04/09/20 02:37 Dose: 3 ml Documented by: Azithromycin (Zithromax) 250 mg PO DAILY [facility] Last Admin: 04/09/20 05:13 Dose: 250 mg Documented by: Furosemide (Lasix) 40 mg IVPUSH NOW ONE Stop: 04/09/20 02:50 Last Admin: 04/09/20 02:59 Dose: 40 mg Documented by: Hydralazine HCl (Apresoline) 10 mg IVPUSH ONETIME ONE Stop: 04/09/20 02:08 Last Admin: 04/09/20 02:14 Dose: 10 mg Documented by: Levofloxacin/Dextrose 750 mg/ (Premix) 150 mls @ 100 mls/hr IV ONETIME ONE Stop: 04/09/20 04:25 Last Admin: 04/09/20 03:10 Dose: 100 mls/hr Documented by: Methylprednisolone Sodium Succinate (Solu-Medrol) 125 mg IM ONETIME ONE Stop: 04/08/20 23:33 Last Admin: 04/09/20 00:23 Dose: Not Given Documented by: Methylprednisolone Sodium Succinate (Solu-Medrol) 125 mg IVPUSH ONETIME ONE Stop: 04/09/20 00:22 Last Admin: 04/09/20 00:23 Dose: 125 mg Documented by: Verapamil HCl (Calan) 5 mg IVPUSH ONETIME ONE Stop: 04/09/20 02:00 Last Admin: 04/09/20 02:13 Dose: Not Given Documented by: - Exam General: Alert, Oriented Lungs: Decreased Breath Sounds, Rhonchi, Wheezing Cardiovascular: Regular Rate, Regular Rhythm GI/Abdominal Exam: Normal Bowel Sounds, Soft, Non-Tender, No Organomegaly, No Distention, No Abnormal Bruit, No Mass, Pelvis Stable Extremities: Normal Inspection, Normal Range of Motion, Non-Tender, No Pedal Edema, Normal Capillary Refill Sepsis Event Note - Evaluation Sepsis Screening Result: Sepsis Risk - Focused Exam Vital Signs: Vital Signs Temp Pulse Resp BP BP BP Pulse Ox 04/11/20 08:52 134/68 04/11/20 07:43 85 04/11/20 07:00 36.6 C 91 22 H 134/68 93 L 04/11/20 04:19 04/11/20 04:00 04/11/20 03:02 83 04/11/20 03:00 36.8 C 93 20 144/94 H 04/10/20 23:16 86 04/10/20 23:10 37.2 C 90 20 118/69 Pulse Ox Pulse Ox 04/11/20 08:52 04/11/20 07:43 92 L 04/11/20 07:00 04/11/20 04:19 94 L 04/11/20 04:00 87 L 04/11/20 03:02 93 L 04/11/20 03:00 04/10/20 23:16 90 L 04/10/20 23:10 Date Exam was Performed: 04/11/20 Time Exam was Performed: 10:44 - Problem List Review Problem List Initiated/Reviewed/Updated: Yes - My Orders Last 24 Hours: My Active Orders 04/10/20 10:10 CULTURE SPUTUM + SMEAR [RM] Routine 04/12/20 05:11 BASIC METABOLIC PANEL,BMP [CHEM] AM CBC W/O DIFF,HEMOGRAM [HEME] AM - Plan Plan:: #Acute respiratory failure with hypoxia #Acute COPD exacerbation patient with O2 saturation of 83% on room air at the time of EMS arrival at home. Patient is not on oxygen at baseline. Reports progressively worsening shortness of breath with cough and intermittent yellowish-green sputum production. COVID-19 screen negative #Hypertension: Reasonable control #Chronic tobacco use disorder Active smoker #. Chronic systolic congestive heart failure She is not fluid overloaded at this point #Marijuana abuse Patient reports that she smokes marijuana daily Smoking cessation counseling provided #Obesity: BMI of 46.1 Weight loss counseling #CHF: Not in acute exacerbation Continue home CHF medications. Plan: Continue nebulization with DuoNeb every 4 hours Albuterol every 2 hours Obtain repeat complete blood count Obtain repeat basic metabolic panel Continue steroids CODE STATUS: DNR/DNI per patient preference.
[2020-04-11] MEDS: amLODIPine 5 MG Tab PO SCH (21:31)
[2020-04-11] MEDS: Famotidine 20 MG Tab PO SCH (21:33)
[2020-04-12] MEDS: Albuterol/Ipratropium 3.0-0.5 MG/3 ML Neb Soln NEB SCH ×6 (03:19→23:42)
[2020-04-12] MEDS: Losartan 50 MG Tab PO SCH ×2 (08:35→22:36)
[2020-04-12] MEDS: predniSONE 20 MG Tab PO SCH (08:36)
[2020-04-12] MEDS: Hydrochlorothiazide 25 MG Tab PO SCH (08:36)
[2020-04-12] MEDS: Azithromycin 250 MG Tab PO SCH (08:36)
[2020-04-12] MEDS: Allopurinol 300 MG Tab PO SCH (08:36)
[2020-04-12] MEDS: Furosemide 20 MG Tab PO SCH (08:36)
[2020-04-12] MEDS: Tiotropium Inhaler 18 MCG Inhalation Powder Cap Kit of 5 INH SCH (08:37)
[2020-04-12] MEDS: Enoxaparin 40 MG/0.4 ML Syringe SUBCUT SCH (08:37)
[2020-04-12] MEDS: Verapamil 180 MG Tab.ER PO SCH (08:37)
[2020-04-12] MEDS: Citalopram 20 MG Tab PO SCH (08:37)
[2020-04-12] MEDS: Formoterol/Mometasone 200-5 MCG 8.8 GM Inhaler IH SCH ×2 (08:37→22:40)
[2020-04-12] MEDS ORDERED: Potassium Chloride 10 MEQ Tab.ER PO ONE (09:37)
--- NOTE | 2020-04-12 10:30 | PCM.PN ---
- General Info Date of Service: 04/12/20 Subjective Update: Patient appears more short of breath today compared to yesterday She is wheezing more Denies having chest pain. Denies significant cough. No fever documented. - Review of Systems General: Reports: Malaise Pulmonary: Reports: Shortness of Breath, Wheezing Cardiovascular: Reports: No Symptoms Gastrointestinal: Reports: No Symptoms Musculoskeletal: Reports: No Symptoms Skin: Reports: No Symptoms - Patient Data Vitals - Most Recent: Last Vital Signs Temp 37.1 C 04/12/20 07:00 Pulse 86 04/12/20 09:08 Resp 20 04/12/20 07:00 BP 135/70 04/12/20 08:35 Pulse Ox 89 L 04/12/20 09:08 Weight - Most Recent: 114.487 kg Lab Results Last 24 Hours: Laboratory Results - last 24 hr 04/12/20 04/12/20 Range/Units 05:30 05:30 WBC 14.1 H (5.0-10.0) 10^3/uL RBC 5.41 H (4.2-5.4) 10^6/uL Hgb 12.2 D (12.0-16.0) g/dL Hct 40.4 (37.0-47.0) % MCV 74.7 L (80-100) fL MCH 22.6 L (27.0-34.0) pg MCHC 30.2 L (33.0-35.0) g/dL Plt Count 292 (150-450) 10^3/uL Sodium 137 (136-145) mmol/L Potassium 3.0 L (3.5-5.1) mmol/L Chloride 98 (98-107) mmol/L Carbon Dioxide 34 H (21-32) mmol/L Anion Gap 8.0 (7-13) mEq/L BUN 31 H (7-18) mg/dL Creatinine 1.47 H (0.55-1.02) mg/dL Est Cr Clr Drug Dosing 28.16 mL/min Estimated GFR (MDRD) 43 Glucose 167 H (74-99) mg/dL Calcium 8.8 (8.5-10.1) mg/dL Oz Results Last 24 Hours: Microbiology 04/10/20 10:10 Gram Stain - Final Sputum - Expectorated Sputum Culture - Preliminary Normal [place] 04/09/20 10:18 Urine Culture - Final Urine, Awad Cath (Indwelling) Escherichia Coli Med Orders - Current: Current Medications Acetaminophen (Tylenol) 650 mg PO Q6H PRN PRN Reason: Pain (mild 1-3) Last Admin: 04/09/20 08:08 Dose: 650 mg Documented by: Albuterol (Proventil Neb Soln) 2.5 mg NEB Q2H PRN PRN Reason: shortness of breath/wheezing Albuterol (Proventil Hfa) 0 gm INH Q8HR PRN PRN Reason: Wheezing Albuterol/Ipratropium (Duoneb 3.0-0.5 Mg/3 Ml) 3 ml NEB Q4HRRT [facility] Last Admin: 04/12/20 09:07 Dose: 3 ml Documented by: Allopurinol (Zyloprim) 300 mg PO DAILY [facility] Last Admin: 04/12/20 08:36 Dose: 300 mg Documented by: Amlodipine Besylate (Norvasc) 10 mg PO BEDTIME [facility] Last Admin: 04/11/20 21:31 Dose: Not Given Documented by: Cephalexin (Keflex) 500 mg PO Q6HR [facility] Citalopram Hydrobromide (Celexa) 20 mg PO DAILY [facility] Last Admin: 04/12/20 08:37 Dose: 20 mg Documented by: Enoxaparin Sodium (Lovenox) 40 mg SUBCUT DAILY [facility] Last Admin: 04/12/20 08:37 Dose: 40 mg Documented by: Famotidine (Pepcid) 40 mg PO BEDTIME [facility] Last Admin: 04/11/20 21:33 Dose: 40 mg Documented by: Furosemide (Lasix) 20 mg PO DAILY [facility] Last Admin: 04/12/20 08:36 Dose: 20 mg Documented by: Hydrochlorothiazide (Hydrochlorothiazide) 12.5 mg PO BID [facility] Last Admin: 04/12/20 08:36 Dose: 12.5 mg Documented by: Losartan Potassium (Cozaar) 100 mg PO BID [facility] Last Admin: 04/12/20 08:35 Dose: 100 mg Documented by: Mometasone Furoate/Formoterol Fumar (Dulera 200-5 Mcg) 2 puff IH BID [facility] Last Admin: 04/12/20 08:37 Dose: 2 puff Documented by: Ondansetron HCl (Zofran Odt) 4 mg PO Q6H PRN PRN Reason: nausea, able to take PO Ondansetron HCl (Zofran) 4 mg IVPUSH Q6H PRN PRN Reason: Nausea/Vomiting Potassium Chloride (Klor-Con 10) 20 meq PO BIDMEALS [facility] Prednisone (Prednisone) 40 mg PO DAILY [facility] Stop: 04/14/20 04:46 Last Admin: 04/12/20 08:36 Dose: 40 mg Documented by: Senna/Docusate Sodium (Senna Plus) 1 tab PO BEDTIME PRN PRN Reason: Constipation Tiotropium [place] (Spiriva Handihaler) 18 mcg INH DAILY [facility] Last Admin: 04/12/20 08:37 Dose: 18 mcg Documented by: Verapamil HCl (Calan Sr) 180 mg PO DAILY [facility] Last Admin: 04/12/20 08:37 Dose: 180 mg Documented by: Discontinued Medications Albuterol/Ipratropium (Duoneb 3.0-0.5 Mg/3 Ml) 3 ml NEB ONETIME ONE Stop: 04/09/20 02:19 Last Admin: 04/09/20 02:37 Dose: 3 ml Documented by: Azithromycin (Zithromax) 250 mg PO DAILY [facility] Last Admin: 04/09/20 05:13 Dose: 250 mg Documented by: Azithromycin (Zithromax) 250 mg PO DAILY@0900 [facility] Last Admin: 04/12/20 08:36 Dose: 250 mg Documented by: Furosemide (Lasix) 40 mg IVPUSH NOW ONE Stop: 04/09/20 02:50 Last Admin: 04/09/20 02:59 Dose: 40 mg Documented by: Hydralazine HCl (Apresoline) 10 mg IVPUSH ONETIME ONE Stop: 04/09/20 02:08 Last Admin: 04/09/20 02:14 Dose: 10 mg Documented by: Levofloxacin/Dextrose 750 mg/ (Premix) 150 mls @ 100 mls/hr IV ONETIME ONE Stop: 04/09/20 04:25 Last Admin: 04/09/20 03:10 Dose: 100 mls/hr Documented by: Methylprednisolone Sodium Succinate (Solu-Medrol) 125 mg IM ONETIME ONE Stop: 04/08/20 23:33 Last Admin: 04/09/20 00:23 Dose: Not Given Documented by: Methylprednisolone Sodium Succinate (Solu-Medrol) 125 mg IVPUSH ONETIME ONE Stop: 04/09/20 00:22 Last Admin: 04/09/20 00:23 Dose: 125 mg Documented by: Potassium Chloride (Klor-Con 10) 40 meq PO ONETIME ONE Stop: 04/12/20 09:38 Last Admin: 04/12/20 10:25 Dose: 40 meq Documented by: Verapamil HCl (Calan) 5 mg IVPUSH ONETIME ONE Stop: 04/09/20 02:00 Last Admin: 04/09/20 02:13 Dose: Not Given Documented by: - Exam General: Alert, Oriented, Cooperative HEENT: Pupils Equal, Pupils Reactive, EOMI, Mucous Membr. Moist/[place] Lungs: Decreased Breath Sounds, Rales, Rhonchi, Wheezing Cardiovascular: Regular Rate, Regular Rhythm GI/Abdominal Exam: Normal Bowel Sounds, Soft, Non-Tender, No Organomegaly, No Distention, No Abnormal Bruit, No Mass, Pelvis Stable Back Exam: Normal Inspection, Full Range of Motion Sepsis Event Note - Evaluation Sepsis Screening Result: No Definite Risk - Focused Exam Vital Signs: Vital Signs Temp Pulse Resp BP BP BP Pulse Ox 04/12/20 09:08 86 04/12/20 08:35 135/70 04/12/20 07:00 37.1 C 88 20 135/70 95 04/12/20 04:00 04/12/20 03:19 85 04/12/20 03:17 37.1 C 84 20 148/82 H 94 L 04/11/20 23:12 80 04/11/20 23:06 37.0 C 89 20 129/63 94 L Pulse Ox 04/12/20 09:08 89 L 04/12/20 08:35 04/12/20 07:00 04/12/20 04:00 94 L 04/12/20 03:19 94 L 04/12/20 03:17 04/11/20 23:12 94 L 04/11/20 23:06 Date Exam was Performed: 04/12/20 Time Exam was Performed: 10:27 - Problem List Review Problem List Initiated/Reviewed/Updated: Yes - My Orders Last 24 Hours: My Active Orders 04/12/20 12:00 cephALEXin [Keflex] 500 mg PO Q6HR 04/12/20 18:00 Potassium Chloride [Klor-Con 10] 20 meq PO BIDMEALS 04/13/20 05:11 BASIC METABOLIC PANEL,BMP [CHEM] AM - Plan Plan:: #Acute respiratory failure with hypoxia #Acute COPD exacerbation COVID-19 screen negative Continues to have significant wheezing #Hypertension: Reasonable control #Chronic tobacco use disorder Active smoker #. Chronic systolic congestive heart failure She is not fluid overloaded at this point #Marijuana abuse Patient reports that she smokes marijuana daily Smoking cessation counseling provided #Obesity: BMI of 46.1 Weight loss counseling #. Acute renal failure Serum creatinine has gone up to 1.47 #. Hypokalemia Likely due to diuretics, hydrochlorothiazide and Lasix Plan Hold Lasix for now Hold hydrochlorothiazide for now Luis A potassium chloride 40 mg now Obtain repeat basic metabolic panel Continue aggressive nebulization
[2020-04-12] MEDS: Cephalexin 250 MG Cap PO SCH ×2 (11:25→22:38)
[2020-04-12] MEDS ORDERED: Cephalexin 500 MG Cap PO SCH (12:00)
[2020-04-12] MEDS: Potassium Chloride 10 MEQ Tab.ER PO SCH (17:37)
[2020-04-12] MEDS: amLODIPine 5 MG Tab PO SCH (22:38)
[2020-04-12] MEDS: Famotidine 20 MG Tab PO SCH (22:38)
[2020-04-13] MEDS: Albuterol/Ipratropium 3.0-0.5 MG/3 ML Neb Soln NEB SCH ×3 (03:29→11:16)
[2020-04-13 06:31] LABS: ANION GAP 9.6 mEq/L (7-13)
[2020-04-13] MEDS: Verapamil 180 MG Tab.ER PO SCH (08:25)
[2020-04-13] MEDS: Potassium Chloride 10 MEQ Tab.ER PO SCH (08:25)
[2020-04-13] MEDS: Allopurinol 300 MG Tab PO SCH (08:25)
[2020-04-13] MEDS: Cephalexin 250 MG Cap PO SCH (08:25)
[2020-04-13] MEDS: predniSONE 20 MG Tab PO SCH (08:25)
[2020-04-13] MEDS: Losartan 50 MG Tab PO SCH (08:25)
[2020-04-13] MEDS: Tiotropium Inhaler 18 MCG Inhalation Powder Cap Kit of 5 INH SCH (08:26)
[2020-04-13] MEDS: Citalopram 20 MG Tab PO SCH (08:26)
[2020-04-13] MEDS: Formoterol/Mometasone 200-5 MCG 8.8 GM Inhaler IH SCH (08:26)
[2020-04-13] MEDS: Enoxaparin 40 MG/0.4 ML Syringe SUBCUT SCH (08:26)
--- NOTE | 2020-04-13 10:18 | PCM.DCSUM1 ---
Discharge Summary - Hospital Course Free Text/Narrative:: She is a 69-year-old female with medical history of COPD, hypertension, congestive heart failure, coronary artery disease status post previous myocardial infarction. The patient was admitted with acute exacerbation of COPD. patient was started on aggressive nebulization with DuoNeb and albuterol. Patient's clinical condition has improved some. Her be discharged home to follow up with primary care provider in one week #Acute respiratory failure with hypoxia #Acute COPD exacerbation COVID-19 screen negative Continues to have significant wheezing #Hypertension: Reasonable control #Chronic tobacco use disorder Active smoker #. Chronic systolic congestive heart failure She is not fluid overloaded at this point #Marijuana abuse Patient reports that she smokes marijuana daily Smoking cessation counseling provided #Obesity: BMI of 46.1 Weight loss counseling #. Acute renal failure Serum creatinine went up to 1.47 #. Hypokalemia Likely due to diuretics, hydrochlorothiazide and Lasix The patient had a walking desaturation study and it showed the following: Resting room air saturation: 90% Lowest saturation while walkin% Recovery saturation: 91% Patient required 2 L/m per nasal cannula with activity - Discharge Data Discharge Date: 04/13/20 Discharge Disposition: Home, Self-Care 01 Condition: Fair - Referral to Home Health Primary Care Physician: Jona Dahl, [employer] - Patient Instructions Diet: Usual Diet as Tolerated Activity: As Tolerated Showering/Bathing: May Shower Notify Provider of: Fever, Nausea and/or Vomiting Other/Special Instructions: F/up with PMD in one week - Discharge Plan Prescriptions/Med Rec: Albuterol/Ipratropium [DuoNeb 3.0-0.5 MG/3 ML] 3 ml NEB Q4HRRT #30 each cephALEXin [Keflex] 250 mg PO BID 7 Days #14 cap predniSONE 10 mg PO DAILY #18 tablet Albuterol [Proventil Neb Soln] 2.5 mg NEB Q2H PRN #40 each PRN Reason: shortness of breath/wheezing Home Medications: Home Meds Albuterol [Ventolin HFA] 1 - 2 puff INH Q8HR PRN 07/25/18 [History] Citalopram [Citalopram HBr] 20 mg PO DAILY 07/25/18 [History] Famotidine [Pepcid] 40 mg PO BID 07/25/18 [History] Losartan/Hydrochlorothiazide [Losartan-HCTZ 100-12.5 MG] 1 tab PO BID 07/25/18 [History] Tiotropium [Spiriva HandiHaler] 18 mcg INH DAILY 07/25/18 [History] allopurinoL [Zyloprim] 300 mg PO DAILY 07/25/18 [History] amLODIPine Besylate [Amlodipine Besylate] 10 mg PO BEDTIME 07/25/18 [History] atorvaSTATin [Lipitor] 20 mg PO DAILY 07/25/18 [History] Fluticasone/Salmeterol [Advair 250-50] 2 puff INH BID #1 diskus 07/28/18 [Rx] Docusate Sodium/Sennosides [Senna Plus] 1 tab PO BEDTIME PRN tablet 11/29/19 [Rx] Furosemide [Lasix] 20 mg PO DAILY 30 Days tablet 11/29/19 [Rx] Albuterol [Proventil Neb Soln] 2.5 mg NEB Q2H PRN #40 each 04/13/20 [Rx] Albuterol/Ipratropium [DuoNeb 3.0-0.5 MG/3 ML] 3 ml NEB Q4HRRT #30 each 04/13/20 [Rx] cephALEXin [Keflex] 250 mg PO BID 7 Days #14 cap 04/13/20 [Rx] predniSONE 10 mg PO DAILY #18 tablet 04/13/20 [Rx] Patient Handouts: Chronic Obstructive Pulmonary Disease Exacerbation, [id number], Home Oxygen Use, Adult, Cephalexin tablets or capsules, Albuterol; Ipratropium solution for inhalation, Prednisone tablets, Albuterol inhalation solution Referrals: Jona Dahl NP [Primary Care Provider] - - Discharge Summary/Plan Comment DC Time >30 min.: No - General Info Date of Service: 04/13/20 - Review of Systems General: Reports: Fatigue Pulmonary: Reports: Shortness of Breath, Wheezing Cardiovascular: Reports: No Symptoms Gastrointestinal: Reports: No Symptoms Musculoskeletal: Reports: No Symptoms - Patient Data Vitals - Most Recent: Last Vital Signs Temp 36.3 C 04/13/20 08:15 Pulse 79 04/13/20 08:15 Resp 20 04/13/20 08:15 BP 129/75 04/13/20 08:25 Pulse Ox 90 L 04/13/20 08:15 Weight - Most Recent: 114.487 kg I&O - Last 24 hours: Intake & Output 04/12/20 04/13/20 04/13/20 22:59 06:59 14:59 Intake Total 450 250 Output Total 691 740 2931 Balance -150 -400 -1000 Lab Results - Last 24 hrs: Laboratory Results - last 24 hr 04/13/20 Range/Units 05:35 Sodium 136 (136-145) mmol/L Potassium 3.6 (3.5-5.1) mmol/L Chloride 97 L (98-107) mmol/L Carbon Dioxide 33 H (21-32) mmol/L Anion Gap 9.6 (7-13) mEq/L BUN 26 H (7-18) mg/dL Creatinine 1.33 H (0.55-1.02) mg/dL Est Cr Clr Drug Dosing 31.13 mL/min Estimated GFR (MDRD) 48 Glucose 126 H (74-99) mg/dL Calcium 8.8 (8.5-10.1) mg/dL RUTHIE Results - Last 24 hrs: Microbiology 04/10/20 10:10 Gram Stain - Final Sputum - Expectorated Sputum Culture - Final YEAST Med Orders - Current: Current Medications Acetaminophen (Tylenol) 650 mg PO Q6H PRN PRN Reason: Pain (mild 1-3) Last Admin: 04/09/20 08:08 Dose: 650 mg Documented by: Albuterol (Proventil Neb Soln) 2.5 mg NEB Q2H PRN PRN Reason: shortness of breath/wheezing Albuterol (Proventil Hfa) 0 gm INH Q8HR PRN PRN Reason: Wheezing Albuterol/Ipratropium (Duoneb 3.0-0.5 Mg/3 Ml) 3 ml NEB Q4HRRT [facility] Last Admin: 04/13/20 07:29 Dose: 3 ml Documented by: Allopurinol (Zyloprim) 300 mg PO DAILY [facility] Last Admin: 04/13/20 08:25 Dose: 300 mg Documented by: Amlodipine Besylate (Norvasc) 10 mg PO BEDTIME [facility] Last Admin: 04/12/20 22:38 Dose: 10 mg Documented by: Cephalexin (Keflex) 250 mg PO BID [facility] Last Admin: 04/13/20 08:25 Dose: 250 mg Documented by: Citalopram Hydrobromide (Celexa) 20 mg PO DAILY [facility] Last Admin: 04/13/20 08:26 Dose: 20 mg Documented by: Enoxaparin Sodium (Lovenox) 40 mg SUBCUT DAILY [facility] Last Admin: 04/13/20 08:26 Dose: 40 mg Documented by: Famotidine (Pepcid) 40 mg PO BEDTIME [facility] Last Admin: 04/12/20 22:38 Dose: 40 mg Documented by: Furosemide (Lasix) 20 mg PO DAILY [facility] Last Admin: 04/12/20 08:36 Dose: 20 mg Documented by: Hydrochlorothiazide (Hydrochlorothiazide) 12.5 mg PO BID [facility] Last Admin: 04/12/20 08:36 Dose: 12.5 mg Documented by: Losartan Potassium (Cozaar) 100 mg PO BID [facility] Last Admin: 04/13/20 08:25 Dose: 100 mg Documented by: Mometasone Furoate/Formoterol Fumar (Dulera 200-5 Mcg) 2 puff IH BID [facility] Last Admin: 04/13/20 08:26 Dose: 2 puff Documented by: Ondansetron HCl (Zofran Odt) 4 mg PO Q6H PRN PRN Reason: nausea, able to take PO Ondansetron HCl (Zofran) 4 mg IVPUSH Q6H PRN PRN Reason: Nausea/Vomiting Potassium Chloride (Klor-Con 10) 20 meq PO BIDMEALS [facility] Last Admin: 04/13/20 08:25 Dose: 20 meq Documented by: Prednisone (Prednisone) 40 mg PO DAILY [facility] Stop: 04/14/20 04:46 Last Admin: 04/13/20 08:25 Dose: 40 mg Documented by: Senna/Docusate Sodium (Senna Plus) 1 tab PO BEDTIME PRN PRN Reason: Constipation Tiotropium [place] (Spiriva Handihaler) 18 mcg INH DAILY [facility] Last Admin: 04/13/20 08:26 Dose: 18 mcg Documented by: Verapamil HCl (Calan Sr) 180 mg PO DAILY [facility] Last Admin: 04/13/20 08:25 Dose: 180 mg Documented by: Discontinued Medications Albuterol/Ipratropium (Duoneb 3.0-0.5 Mg/3 Ml) 3 ml NEB ONETIME ONE Stop: 04/09/20 02:19 Last Admin: 04/09/20 02:37 Dose: 3 ml Documented by: Azithromycin (Zithromax) 250 mg PO DAILY [facility] Last Admin: 04/09/20 05:13 Dose: 250 mg Documented by: Azithromycin (Zithromax) 250 mg PO DAILY@0900 [facility] Last Admin: 04/12/20 08:36 Dose: 250 mg Documented by: Cephalexin (Keflex) 500 mg PO Q6HR [facility] Furosemide (Lasix) 40 mg IVPUSH NOW ONE Stop: 04/09/20 02:50 Last Admin: 04/09/20 02:59 Dose: 40 mg Documented by: Hydralazine HCl (Apresoline) 10 mg IVPUSH ONETIME ONE Stop: 04/09/20 02:08 Last Admin: 04/09/20 02:14 Dose: 10 mg Documented by: Levofloxacin/Dextrose 750 mg/ (Premix) 150 mls @ 100 mls/hr IV ONETIME ONE Stop: 04/09/20 04:25 Last Admin: 04/09/20 03:10 Dose: 100 mls/hr Documented by: Methylprednisolone Sodium Succinate (Solu-Medrol) 125 mg IM ONETIME ONE Stop: 04/08/20 23:33 Last Admin: 04/09/20 00:23 Dose: Not Given Documented by: Methylprednisolone Sodium Succinate (Solu-Medrol) 125 mg IVPUSH ONETIME ONE Stop: 04/09/20 00:22 Last Admin: 04/09/20 00:23 Dose: 125 mg Documented by: Potassium Chloride (Klor-Con 10) 40 meq PO ONETIME ONE Stop: 04/12/20 09:38 Last Admin: 04/12/20 10:25 Dose: 40 meq Documented by: Verapamil HCl (Calan) 5 mg IVPUSH ONETIME ONE Stop: 04/09/20 02:00 Last Admin: 04/09/20 02:13 Dose: Not Given Documented by: - Exam General: Reports: Alert, Oriented, Cooperative HEENT: Reports: Pupils Equal, Pupils Reactive, EOMI, Mucous Membr. Moist/[place] Lungs: Reports: Decreased Breath Sounds, Wheezing Extremities: Normal Inspection, Normal Range of Motion, Non-Tender, No Pedal Edema, Normal Capillary Refill Skin: Reports: Warm, Dry, Intact
== END 2020-04-13 14:59 | disposition home or self-care (01) ==
LOC: DL.ED 23:26 → DL.MS 04-09 03:20
PROVIDERS: ADMIT Internal Medicine; ATTEND Hospitalist
DX: J96.01 Acute respiratory failure with hypoxia (principal); J44.1 Chronic obstructive pulmonary disease with (acute) exacerbation; I11.0 Hypertensive heart disease with heart failure; I50.22 Chronic systolic (congestive) heart failure; K21.9 Gastro-esophageal reflux disease without esophagitis; F17.210 Nicotine dependence, cigarettes, uncomplicated; E66.01 Morbid (severe) obesity due to excess calories; E78.00 Pure hypercholesterolemia, unspecified; F12.10 Cannabis abuse, uncomplicated; N17.9 Acute kidney failure, unspecified; E87.6 Hypokalemia; I25.10 Atherosclerotic heart disease of native coronary artery without angina pectoris; I25.2 Old myocardial infarction; Z20.828 Contact with and (suspected) exposure to other viral communicable diseases; Z68.42 Body mass index [BMI] 45.0-49.9, adult; Z71.6 Tobacco abuse counseling; Z71.3 Dietary counseling and surveillance; Z66 Do not resuscitate; Z88.0 Allergy status to penicillin; Z88.5 Allergy status to narcotic agent; Z88.2 Allergy status to sulfonamides; Z88.1 Allergy status to other antibiotic agents; Z79.899 Other long term (current) drug therapy; Z88.8 Allergy status to other drugs, medicaments and biological substances
CPT/HCPCS: 36415; 51702; 71045; 80048; 80053; 81001; 83880; 84484; 85025; 85027; 85379; 87070; 87086; 87088; 87186; 87205; 93005; 94640; 96372; 96374; 96375; 99284; 99285; A9270; G0378; J0360; J1650; J1940; J1956; J2930; J7512; U0002; J7620-GY

== ENCOUNTER 2020-05-03 16:44 | Emergency (ER) | payer MEDICARE, MEDICAID ==
--- NOTE | 2020-05-03 17:04 | EDM.PDOC ---
<Shadia Singletary - Last Filed: 05/03/20 19:14> ED HPI GENERAL MEDICAL PROBLEM - General Chief Complaint: Respiratory Problem Stated Complaint: AMBULANCE Time Seen by Provider: 05/03/20 17:00 - History of Present Illness INITIAL COMMENTS - FREE TEXT/NARRATIVE: 70 year old female who present to the ER by ambulance for SOB/cough about 10 hours ago. Patient has a history of COPD-oxygen dependent and CHF Patient reports SOB began when she woke and she did not take any of her inhalers or medications. She states she wanted to do her Duoneb in the evening. She is smoking half/pack/day for the past twenty years. She is on two liters of oxygen which she reports her oxygen tank is not working. She denies any exposure to anyone sick. She denies any chest pain, palpitation, fever/chills oe edema. She reports a cough with clear phlegm. She states her SOB exacerbated because her son had an altercation with his girlfriend. The girlfriend left her son for another man and this made her really upset. Mid-Sternal Chest Pain Score (Numeric/FACES): 4 - Related Data Allergies Allergy/AdvReac Type Severity Reaction Status Date / Time codeine Allergy Stomach Verified 05/03/20 16:49 Upset Penicillins Allergy Rash Verified 05/03/20 16:49 povidone-iodine Allergy Rash Verified 05/03/20 16:49 [From Betadine] soap [From Betadine] Allergy Rash Verified 05/03/20 16:49 Sulfa (Sulfonamide Allergy Hives Verified 05/03/20 16:49 Antibiotics) tetracycline Allergy Cannot Verified 05/03/20 16:49 Remember Home Meds: Home Meds Albuterol [Ventolin HFA] 1 - 2 puff INH Q8HR PRN 07/25/18 [History] Citalopram [Citalopram HBr] 20 mg PO DAILY 07/25/18 [History] Famotidine [Pepcid] 40 mg PO BID 07/25/18 [History] Losartan/Hydrochlorothiazide [Losartan-HCTZ 100-12.5 MG] 1 tab PO BID 07/25/18 [History] Tiotropium [Spiriva HandiHaler] 18 mcg INH DAILY 07/25/18 [History] allopurinoL [Zyloprim] 300 mg PO DAILY 07/25/18 [History] amLODIPine Besylate [Amlodipine Besylate] 10 mg PO BEDTIME 07/25/18 [History] atorvaSTATin [Lipitor] 20 mg PO DAILY 07/25/18 [History] Fluticasone/Salmeterol [Advair 250-50] 2 puff INH BID #1 diskus 07/28/18 [Rx] Docusate Sodium/Sennosides [Senna Plus] 1 tab PO BEDTIME PRN tablet 11/29/19 [Rx] Furosemide [Lasix] 20 mg PO DAILY 30 Days tablet 11/29/19 [Rx] Albuterol [Proventil Neb Soln] 2.5 mg NEB Q2H PRN #40 each 04/13/20 [Rx] Albuterol/Ipratropium [DuoNeb 3.0-0.5 MG/3 ML] 3 ml NEB Q4HRRT #30 each 04/13/20 [Rx] cephALEXin [Keflex] 250 mg PO BID 7 Days #14 cap 04/13/20 [Rx] predniSONE 10 mg PO DAILY #18 tablet 04/13/20 [Rx] Past Medical History HEENT History: Reports: Impaired Vision Cardiovascular History: Reports: High Cholesterol, Hypertension, [place], SOB on Exertion Respiratory History: Reports: Asthma, COPD, SOB, Other (See Below) Gastrointestinal History: Reports: GERD Genitourinary History: Reports: Urinary Incontinence [employer]LE[employer] SYSTEM[employer] 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: Musculoskeletal History: Reports: Arthritis Neurological History: Reports: None Psychiatric History: Reports: None Endocrine/Metabolic History: Reports: Obesity/BMI 30+ Hematologic History: Reports: None Immunologic History: Reports: None Oncologic (Cancer) History: Reports: Malignant Melanoma Dermatologic History: Reports: None - Infectious Disease History Infectious Disease History: Reports: Chicken Pox, Measles, Mumps - Past Surgical History Head Surgeries/Procedures: Reports: None HEENT Surgical History: Reports: None Other HEENT Surgeries/Procedures: glasses Cardiovascular Surgical History: Reports: None Respiratory Surgical History: Reports: None GI Surgical History: Reports: Appendectomy, Colonoscopy Female Surgical History: Reports: Hysterectomy, Tubal Ligation, Other (See Below) Other Female Surgeries/Procedures: bladder repair Endocrine Surgical History: Reports: None Neurological Surgical History: Reports: None Musculoskeletal Surgical History: Reports: Shoulder Replacement Social & Family History - Family History Family Medical History: Noncontributory - Caffeine Use Caffeine Use: Reports: Coffee, Soda - Living Situation & Occupation Occupation: Retired ED ROS GENERAL - Review of Systems Review Of Systems: See Below Constitutional: Reports: Weakness, Fatigue. Denies: Fever, Chills, Night Sweats, Diaphoresis HEENT: Reports: No Symptoms Respiratory: Reports: Shortness of Breath, Cough Cardiovascular: Reports: Chest Pain Endocrine: Reports: No Symptoms GI/Abdominal: Reports: No Symptoms : Reports: No Symptoms Musculoskeletal: Reports: No Symptoms Skin: Reports: No Symptoms Neurological: Reports: No Symptoms Psychiatric: Reports: No Symptoms Hematologic/Lymphatic: Reports: No Symptoms ED EXAM, GENERAL - Physical Exam Exam: See Below Exam Limited By: No Limitations General Appearance: Alert, Anxious, Other (unkempt) Ears: Normal External Exam, Normal Canal, Hearing Grossly Normal, Normal TMs Nose: Normal Inspection, Normal Mucosa, No Blood Throat/Mouth: Normal Inspection, Normal Lips, Normal Oropharynx, Normal Voice, No Airway Compromise Head: Atraumatic, Normocephalic Neck: Normal Inspection, Supple, Full Range of Motion Respiratory/Chest: Chest Non-Tender, Decreased Breath Sounds, Rhonchi (difused). No: Crackles, Wheezing, Accessory Muscle Use, Retractions Cardiovascular: Normal Peripheral Pulses, Regular Rate, Rhythm, No JVD, No Murmur GI/Abdominal: Normal Bowel Sounds, Soft, Non-Tender (Female) Exam: Normal External Exam, Normal Speculum Exam, Normal Bimanual Exam Rectal (Female) Exam: Deferred Back Exam: Normal Inspection Extremities: Normal Inspection, Normal Range of Motion, Non-Tender, No Pedal Edema, Normal Capillary Refill Neurological: Alert, Oriented Psychiatric: Anxious Skin Exam: Warm Lymphatic: No Adenopathy Departure - Departure Disposition: Home, Self-Care 01 Clinical Impression: COPD exacerbation, Anxiety, Chest pain, atypical - Discharge Information Forms: ED Department Discharge Additional Instructions: 1) rest and avoid upsetting situation 2) recheck if there is any change or concern Sepsis Event Note (ED) - Evaluation Sepsis Screening Result: No Definite Risk <Nitish Campos - Last Filed: 05/03/20 19:18> Course - Vital Signs Last Recorded V/S: Last Vital Signs Temp 36.4 C 05/03/20 16:49 Pulse 97 05/03/20 16:49 Resp 17 08/16/20 16:49 BP 151/121 H 05/03/20 16:49 Pulse Ox 98 05/03/20 16:49 - Orders/Labs/Meds Orders: Active Orders 24 hr Category Date Time Status EKG 12 Lead [EKG Documentation Completion] [RC] URGENT Care 05/03/20 17:05 Active RT Aerosol Therapy [RC] ASDIRECTED Care 05/03/20 17:07 Active URINALYSIS W/MICROSCOPIC [UA W/MICROSCOPIC] [URIN] Stat Lab 05/03/20 17:04 Ordered Labs: Laboratory Tests 05/03/20 05/03/20 05/03/20 Range/Units 16:57 16:57 16:57 WBC 13.4 H (5.0-10.0) 10^3/uL RBC 5.83 H (4.2-5.4) 10^6/uL Hgb 13.1 (12.0-16.0) g/dL Hct 43.6 (37.0-47.0) % MCV 74.8 L (80-100) fL MCH 22.5 L (27.0-34.0) pg MCHC 30.0 L (33.0-35.0) g/dL Plt Count 267 (150-450) 10^3/uL Neut % (Auto) 66.2 (42.2-75.2) % Lymph % (Auto) 21.5 (20.5-50.1) % [place] % (Auto) 8.3 H (2-8) % Eos % (Auto) 3.9 H (1.0-3.0) % Baso % (Auto) 0.1 (0.0-1.0) % Sodium 141 (136-145) mmol/L Potassium 3.8 (3.5-5.1) mmol/L Chloride 100 (98-107) mmol/L Carbon Dioxide 35 H (21-32) mmol/L Anion Gap 9.8 (7-13) mEq/L BUN 12 (7-18) mg/dL Creatinine 1.26 H (0.55-1.02) mg/dL Est Cr Clr Drug Dosing 32.39 mL/min Estimated GFR (MDRD) 51 BUN/Creatinine Ratio 9.5 (No establ ref range) Glucose 150 H (74-99) mg/dL Calcium 8.4 L (8.5-10.1) mg/dL Total Bilirubin 0.4 (0.2-1.0) mg/dL AST 23 (15-37) U/L ALT 13 L (14-59) U/L Alkaline Phosphatase 113 (46-116) U/L Troponin I < 0.017 (0.000-0.056) ng/mL B-Natriuretic Peptide (0-100) pg/ml Total Protein 7.6 (6.4-8.2) g/dL Albumin 2.5 L (3.4-5.0) g/dL Globulin 5.1 Albumin/Globulin Ratio 0.49 COVID-19 ([facility]) (NEGATIVE) 05/03/20 05/03/20 Range/Units 16:57 17:00 WBC (5.0-10.0) 10^3/uL RBC (4.2-5.4) 10^6/uL Hgb (12.0-16.0) g/dL Hct (37.0-47.0) % MCV (80-100) fL MCH (27.0-34.0) pg MCHC (33.0-35.0) g/dL Plt Count (150-450) 10^3/uL Neut % (Auto) (42.2-75.2) % Lymph % (Auto) (20.5-50.1) % [place] % (Auto) (2-8) % Eos % (Auto) (1.0-3.0) % Baso % (Auto) (0.0-1.0) % Sodium (136-145) mmol/L Potassium (3.5-5.1) mmol/L Chloride (98-107) mmol/L Carbon Dioxide (21-32) mmol/L Anion Gap (7-13) mEq/L BUN (7-18) mg/dL Creatinine (0.55-1.02) mg/dL Est Cr Clr Drug Dosing mL/min Estimated GFR (MDRD) BUN/Creatinine Ratio (No establ ref range) Glucose (74-99) mg/dL Calcium (8.5-10.1) mg/dL Total Bilirubin (0.2-1.0) mg/dL AST (15-37) U/L ALT (14-59) U/L Alkaline Phosphatase (46-116) U/L Troponin I (0.000-0.056) ng/mL B-Natriuretic Peptide 62 (0-100) pg/ml Total Protein (6.4-8.2) g/dL Albumin (3.4-5.0) g/dL Globulin Albumin/Globulin Ratio COVID-19 ([facility]) Negative (NEGATIVE) Meds: Medications Discontinued Medications Generic Name Dose Route Start Last Admin Trade Name Freq PRN Reason Stop Dose Admin Albuterol/Ipratropium 3 ml 05/03/20 17:07 05/03/20 17:57 Duoneb 3.0-0.5 Mg/3 Ml NEB 05/03/20 17:08 3 ml ONETIME ONE Administration - Re-Assessments/Exams Free Text/Narrative Re-Assessment/Exam: 05/03/20 19:15 re-exam; pt feels much betternow, states been upset over her son and girlfriend fighting. states waiting to move out. Departure - Departure Time of Disposition: 19:16 Condition: Good Sepsis Event Note (ED) - Focused Exam Vital Signs: Vital Signs Temp Pulse Resp BP Pulse Ox 05/03/20 16:49 36.4 C 97 17 151/121 H 98
[2020-05-03] MEDS ORDERED: Albuterol/Ipratropium 3.0-0.5 MG/3 ML Neb Soln NEB ONE (17:07)
[2020-05-03 17:29] LABS: ANION GAP 9.8 mEq/L (7-13)
--- NOTE | 2020-05-03 18:23 | CR ---
PROCEDURE INFORMATION: Exam: XR Chest, 2 Views Exam date and time: 05/03/2020 6:04 PM Age: 70 years old Clinical indication: Shortness of breath; Additional info: Chest pain TECHNIQUE: Imaging protocol: XR of the chest Views: 2 views. COMPARISON: CR Chest 1V Frontal 04/08/2020 11:39 PM FINDINGS: Lungs: Unremarkable. No consolidation. Pleural space: Unremarkable. No pleural effusion. No pneumothorax. Heart/Mediastinum: Unremarkable. No cardiomegaly. Bones/joints: Right shoulder replacement. There is probably chronic full-thickness rotator cuff tear of the left shoulder. Age-appropriate spondylosis. No compression fracture. IMPRESSION: 1. No active disease of the chest. 2. No significant interval change when compared to the CR Chest 1V Frontal 04/08/2020 11:39 PM.
== END 2020-05-03 19:33 | disposition home or self-care (01) ==
LOC: DL.ED 16:44
DX: J44.1 Chronic obstructive pulmonary disease with (acute) exacerbation (principal); F41.9 Anxiety disorder, unspecified; I10 Essential (primary) hypertension; E78.00 Pure hypercholesterolemia, unspecified; I25.2 Old myocardial infarction; K21.9 Gastro-esophageal reflux disease without esophagitis; M19.90 Unspecified osteoarthritis, unspecified site; E66.9 Obesity, unspecified; Z88.2 Allergy status to sulfonamides; Z88.1 Allergy status to other antibiotic agents; Z88.5 Allergy status to narcotic agent; Z88.0 Allergy status to penicillin; Z88.8 Allergy status to other drugs, medicaments and biological substances; Z20.828 Contact with and (suspected) exposure to other viral communicable diseases; Z91.09 Other allergy status, other than to drugs and biological substances; Z68.42 Body mass index [BMI] 45.0-49.9, adult
CPT/HCPCS: 36415; 71046; 80053; 83880; 84484; 85025; 93005; 99283; 99285; U0002; J7620-GY

== ENCOUNTER 2020-10-21 08:58 | Emergency (ER) | payer MEDICARE, MEDICAID ==
--- NOTE | 2020-10-21 09:11 | EDM.PDOC ---
"ED HPI GENERAL MEDICAL PROBLEM - General Chief Complaint: Respiratory Problem Stated Complaint: CLINIC Time Seen by Provider: 10/21/20 09:06 Source of Information: Reports: Patient, Old Records, Provider (Verito NAVARRO) from [facility]), RN, RN Notes Reviewed History Limitations: Reports: No Limitations - History of Present Illness INITIAL COMMENTS - FREE TEXT/NARRATIVE: Pt sent from [facility] by wheelchair by Verito (KRISTIN) with report that pt presented to clinic with c/o shortness of breath and was found to have oxygen saturation of 82% on room air. Pt has Hx of COPD and continues to smoke cigarettes. Denies fever, chills, body aches, or chest pain. Pt states she uses her nebulizer about one a day, and only uses her home oxygen when she feels she needs it. Onset: Gradual Duration: Constant, Getting Worse Location: Reports: Chest Quality: Reports: Other (Denies pain) Severity: Severe Improves with: Reports: None Worsens with: Reports: Other (Activity/exertion) Associated Symptoms: Reports: No Other Symptoms Treatments RETAIL MANAGER: Reports: Breathing Treatments, Oxygen - Related Data Allergies Allergy/AdvReac Type Severity Reaction Status Date / Time codeine Allergy Stomach Verified 05/03/20 16:49 Upset Penicillins Allergy Rash Verified 05/03/20 16:49 povidone-iodine Allergy Rash Verified 05/03/20 16:49 [From Betadine] soap [From Betadine] Allergy Rash Verified 05/03/20 16:49 Sulfa (Sulfonamide Allergy Hives Verified 05/03/20 16:49 Antibiotics) tetracycline Allergy Cannot Verified 05/03/20 16:49 Remember Home Meds: Home Meds Albuterol [Ventolin HFA] 1 - 2 puff INH Q8HR PRN 07/25/18 [History] Citalopram [Citalopram HBr] 20 mg PO DAILY 07/25/18 [History] Famotidine [Pepcid] 40 mg PO BID 07/25/18 [History] Losartan/Hydrochlorothiazide [Losartan-HCTZ 100-12.5 MG] 1 tab PO BID 07/25/18 [History] Tiotropium [Spiriva HandiHaler] 18 mcg INH DAILY 07/25/18 [History] allopurinoL [Zyloprim] 300 mg PO DAILY 07/25/18 [History] atorvaSTATin [Lipitor] 20 mg PO DAILY 07/25/18 [History] Fluticasone/Salmeterol [Advair 250-50] 2 puff INH BID #1 diskus 07/28/18 [Rx] Docusate Sodium/Sennosides [Senna Plus] 1 tab PO BEDTIME PRN tablet 11/29/19 [Rx] Furosemide [Lasix] 20 mg PO DAILY 30 Days tablet 11/29/19 [Rx] Albuterol [Proventil Neb Soln] 2.5 mg NEB Q2H PRN #40 each 04/13/20 [Rx] Albuterol/Ipratropium [DuoNeb 3.0-0.5 MG/3 ML] 3 ml NEB Q4HRRT #30 each 04/13/20 [Rx] Allopurinol [Zyloprim] 100 mg PO DAILY 10/21/20 [History] Celecoxib 100 mg PO DAILY 10/21/20 [History] Colchicine 0.6 mg PO DAILY 10/21/20 [History] Verapamil HCl [Verapamil Sr] 180 mg PO DAILY 10/21/20 [History] methylPREDNISolone [Medrol Dose Pack] 4 mg PO ASDIRECTED 10/21/20 [History] Past Medical History HEENT History: Reports: Impaired Vision Cardiovascular History: Reports: High Cholesterol, Hypertension, IA, SOB on Exertion Respiratory History: Reports: Asthma, COPD, SOB, Other (See Below) Gastrointestinal History: Reports: GERD Genitourinary History: Reports: Urinary Incontinence 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 MANAGER History: Reports: Musculoskeletal History: Reports: Arthritis Neurological History: Reports: None Psychiatric History: Reports: None Endocrine/Metabolic History: Reports: Obesity/BMI 30+ Hematologic History: Reports: None Immunologic History: Reports: None Oncologic (Cancer) History: Reports: Malignant Melanoma Dermatologic History: Reports: None - Infectious Disease History Infectious Disease History: Reports: Chicken Pox, Measles, Mumps - Past Surgical History Head Surgeries/Procedures: Reports: None HEENT Surgical History: Reports: None Other HEENT Surgeries/Procedures: glasses Cardiovascular Surgical History: Reports: None Respiratory Surgical History: Reports: None GI Surgical History: Reports: Appendectomy, Colonoscopy Female Surgical History: Reports: Hysterectomy, Tubal Ligation, Other (See Below) Other Female Surgeries/Procedures: bladder repair Endocrine Surgical History: Reports: None Neurological Surgical History: Reports: None Musculoskeletal Surgical History: Reports: Shoulder Replacement Social & Family History - Family History Family Medical History: No Pertinent Family History - Tobacco Use Tobacco Use Status *Q: Current Every Day Tobacco User Tobacco Use Within Last Twelve Months: Cigarettes Years of Tobacco use: 50 Packs/Tins Daily: 1.5 - Caffeine Use Caffeine Use: Reports: None - Living Situation & Occupation Occupation: Retired ED ROS GENERAL - Review of Systems Review Of Systems: Comprehensive ROS is negative, except as noted in HPI. ED EXAM, GENERAL - Physical Exam Exam: See Below Exam Limited By: No Limitations General Appearance: Alert, No Apparent Distress, Obese Nose: Normal Inspection, Normal Mucosa, No Blood Throat/Mouth: Normal Lips, Normal Voice, No Airway Compromise Head: Atraumatic, Normocephalic Neck: Normal Inspection, Supple, Non-Tender, Full Range of Motion Respiratory/Chest: No Respiratory Distress, No Accessory Muscle Use, Decreased Breath Sounds, Crackles, Wheezing. No: Rales, Rhonchi, Stridor Cardiovascular: Regular Rate, Rhythm, No Edema, Tachycardia GI/Abdominal: Normal Bowel Sounds, Soft, Non-Tender Back Exam: Normal Inspection Extremities: Normal Inspection, No Pedal Edema Neurological: Alert, Oriented, No Motor/Sensory Deficits Psychiatric: Normal Affect, Normal Mood Skin Exam: Warm, Dry, Intact, Normal Color, No Rash #1 Interpretation EKG Date: 10/21/20 Time: 09:53 Rhythm: Other (SR) Rate (Beats/Min): 94 Hagan: Normal P-Wave: Present QRS: Other (poor R wave progression in anterior leads) ST-T: Normal QT: Normal Comparison: No Change Course - Vital Signs Last Recorded V/S: Last Vital Signs Temp 97.3 F 10/21/20 09:07 Pulse 93 10/21/20 09:34 Resp 32 H 10/21/20 09:07 BP 146/83 H 10/21/20 09:07 Pulse Ox 97 10/21/20 09:34 - Orders/Labs/Meds Orders: Active Orders 24 hr Category Date Time Status EKG 12 Lead [EKG Documentation Completion] [RC] STAT Care 10/21/20 09:33 Active Peripheral IV Care [RC] . DIRECTED Care 10/21/20 09:34 Active RT Aerosol Therapy [RC] ASDIRECTED Care 10/21/20 09:34 Active CULTURE BLOOD [BC] Stat Lab 10/21/20 09:47 Received CULTURE BLOOD [] Stat Lab 10/21/20 10:02 Results Sodium Chloride 0.9% [Saline Flush] Med 10/21/20 09:33 Active 10 ml FLUSH ASDIRECTED PRN Blood Culture x2 Reflex Set [OM.PC] Stat Oth 10/21/20 09:33 Ordered Peripheral IV Insertion Adult [OM.PC] Stat Ot 10/21/20 09:33 Ordered Medication Orders Sodium Chloride (Saline Flush) 10 ml FLUSH ASDIRECTED PRN PRN Reason: Keep Vein Open Last Admin: 10/21/20 10:06 Dose: 10 ml Documented by: LISA Labs: Laboratory Tests 10/21/20 10/21/20 Range/Units 09:47 09:47 WBC 14.0 H (5.0-10.0) 10^3/uL RBC 6.27 H (4.2-5.4) 10^6/uL Hgb 14.4 (12.0-16.0) g/dL Hct 48.5 H (37.0-47.0) % MCV 77.4 L (80-100) fL MCH 23.0 L (27.0-34.0) pg MCHC 29.7 L (33.0-35.0) g/dL Plt Count 205 (150-450) 10^3/uL Neut % (Auto) 83.6 H (42.2-75.2) % Lymph % (Auto) 9.7 L (20.5-50.1) % Wharton % (Auto) 5.4 (2-8) % Eos % (Auto) 1.1 (1.0-3.0) % Baso % (Auto) 0.2 (0.0-1.0) % Sodium 142 (136-145) mmol/L Potassium 3.8 (3.5-5.1) mmol/L Chloride 101 (98-107) mmol/L Carbon Dioxide 36 H (21-32) mmol/L Anion Gap 8.8 (7-13) mEq/L BUN 13 (7-18) mg/dL Creatinine 0.91 (0.55-1.02) mg/dL Est Cr Clr Drug Dosing 46.91 mL/min Estimated GFR (MDRD) > 60 BUN/Creatinine Ratio 14.3 (No establ ref range) Glucose 111 H (74-99) mg/dL Calcium 8.9 (8.5-10.1) mg/dL Total Bilirubin 0.5 (0.2-1.0) mg/dL AST 24 (15-37) U/L ALT 17 (14-59) U/L Alkaline Phosphatase 139 H (46-116) U/L Troponin I < 0.017 (0.000-0.056) ng/mL B-Natriuretic Peptide 97 (0-100) pg/ml Total Protein 8.1 (6.4-8.2) g/dL Albumin 2.6 L (3.4-5.0) g/dL Globulin 5.5 Albumin/Globulin Ratio 0.47 Meds: Medications Generic Name Dose Route Start Last Admin Trade Name Freq PRN Reason Stop Dose Admin Sodium Chloride 10 ml 10/21/20 09:33 10/21/20 10:06 Saline Flush FLUSH 10 ml ASDIRECTED PRN Administration Keep Vein Open Discontinued Medications Generic Name Dose Route Start Last Admin Trade Name Freq PRN Reason Stop Dose Admin Albuterol/Ipratropium 3 ml 10/21/20 09:33 10/21/20 09:41 Duoneb 3.0-0.5 Mg/3 Ml NEB 10/21/20 09:34 3 ml ONETIME ONE Administration Methylprednisolone Sodium Succinate 125 mg 10/21/20 09:33 10/21/20 10:06 Solu-Medrol IVPUSH 10/21/20 09:34 125 mg ONETIME ONE Administration - Radiology Interpretation Free Text/Narrative:: [facility] Final Radiology Report Call: [phone] assistance Online chat: [email or web address] Name: SANCHEZ MORELOS Age: 70Years F Date: 10/21/2020 SSN: -- : 1950 Study: CR CHEST 2V Requesting Physician: JACKY ELLINGTON Images: 2 Addl Studies: Provided Clinical History: Short of breath, COPD, hypoxia Contrast: Contrast Medium: Contrast Amount: Contrast Method: Page 1 of 2 PROCEDURE INFORMATION: Exam: XR Chest, 2 Views Exam date and time: 10/21/2020 10:00 AM Age: 70 years old Clinical indication: Shortness of breath and other: Copd, hypoxia; Additional info: Short of breath, copd, hypoxia TECHNIQUE: Imaging protocol: XR of the chest Views: 2 views. COMPARISON: CR Chest 2V 05/03/2020 6:04 PM FINDINGS: Lungs: Unremarkable. No consolidation. Pleural spaces: Unremarkable. No pleural effusion. No pneumothorax. Heart/Mediastinum: Unremarkable. No cardiomegaly. Vasculature: Aortic calcifications. Bones/joints: Right reverse shoulder arthroplasty and distal right clavicle resection. 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 Postoperative changes in the visualized lumbar spine. Other findings: No appreciable change from 05/03/2020. IMPRESSION: 1. No acute findings and no appreciable change from 05/03/2020. Thank you for allowing us to participate in the care of your patient. SANCHEZ MORELOS | Final Radiology Report CONFIDENTIALITY STATEMENT This report is intended only for use by the referring physician, and only in accordance with law. If you received this in error, call [phone]. Page 2 of 2 Dictated and Authenticated by: Candelaria Torres MD 10/21/2020 10:34 AM Central Time ([place] & [place]) Departure - Departure Time of Disposition: 10:46 Disposition: Home, Self-Care 01 Condition: Good Clinical Impression: Acute exacerbation of chronic obstructive pulmonary disease (COPD) - Discharge Information *PRESCRIPTION DRUG MONITORING PROGRAM REVIEWED*: Not Applicable *COPY OF PRESCRIPTION DRUG MONITORING REPORT IN PATIENT SONJA: Not Applicable Instructions: Chronic Obstructive Pulmonary Disease Exacerbation, [id number] Forms: ED Department Discharge Additional Instructions: Rx: Levaquin 500mg Rx: Prednisone 20mg Use your nebulizer for breathing treatments four time a day for the next five days, then as needed. Use your oxygen at night, and any time you feel short of breath during the day. Follow up in clinic in 1 week for recheck. Return to ER if worse at any time. Sepsis Event Note (ED) - Focused Exam Vital Signs: Vital Signs Temp Pulse Resp BP Pulse Ox 10/21/20 09:34 93 97 10/21/20 09:07 97.3 F 98 32 H 146/83 H - My Orders Last 24 Hours: My Active Orders 10/21/20 09:33 EKG 12 Lead [EKG Documentation Completion] [RC] STAT Sodium Chloride 0.9% [Saline Flush] 10 ml FLUSH ASDIRECTED PRN Blood Culture x2 Reflex Set [OM.PC] Stat Peripheral IV Insertion Adult [OM.PC] Stat 10/21/20 09:34 Peripheral IV Care [RC] . DIRECTED RT Aerosol Therapy [RC] ASDIRECTED 10/21/20 09:47 CULTURE BLOOD [BC] Stat 10/21/20 10:02 CULTURE BLOOD [BC] Stat - Assessment/Plan Last 24 Hours: My Active Orders 10/21/20 09:33 EKG 12 Lead [EKG Documentation Completion] [RC] STAT Sodium Chloride 0.9% [Saline Flush] 10 ml FLUSH ASDIRECTED PRN Blood Culture x2 Reflex Set [OM.PC] Stat Peripheral IV Insertion Adult [OM.PC] Stat 10/21/20 09:34 Peripheral IV Care [RC] . DIRECTED RT Aerosol Therapy [RC] ASDIRECTED 10/21/20 09:47 CULTURE BLOOD [BC] Stat 10/21/20 10:02 CULTURE BLOOD [BC] Stat"
[2020-10-21] MEDS ORDERED: Sodium Chloride 0.9% 10 ML Syringe FLUSH PRN (09:33)
[2020-10-21] MEDS ORDERED: methylPREDNISolone Sodium Succinate 125 MG/2 ML SDV IVPUSH ONE (09:33)
[2020-10-21] MEDS ORDERED: Albuterol/Ipratropium 3.0-0.5 MG/3 ML Neb Soln NEB ONE (09:33)
[2020-10-21 10:30] LABS: ANION GAP 8.8 mEq/L (7-13); CHLORIDE,CL 101 mmol/L (98-107); SODIUM,NA 142 mmol/L (136-145)
--- NOTE | 2020-10-21 10:34 | CR ---
PROCEDURE INFORMATION: Exam: XR Chest, 2 Views Exam date and time: 10/21/2020 10:00 AM Age: 70 years old Clinical indication: Shortness of breath and other: Copd, hypoxia; Additional info: Short of breath, copd, hypoxia TECHNIQUE: Imaging protocol: XR of the chest Views: 2 views. COMPARISON: CR Chest 2V 05/03/2020 6:04 PM FINDINGS: Lungs: Unremarkable. No consolidation. Pleural spaces: Unremarkable. No pleural effusion. No pneumothorax. Heart/Mediastinum: Unremarkable. No cardiomegaly. Vasculature: Aortic calcifications. Bones/joints: Right reverse shoulder arthroplasty and distal right clavicle resection. 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 Postoperative changes in the visualized lumbar spine. Other findings: No appreciable change from 05/03/2020. IMPRESSION: 1. No acute findings and no appreciable change from 05/03/2020.
== END 2020-10-21 10:57 | disposition home or self-care (01) ==
LOC: DL.ED 08:58
DX: J44.1 Chronic obstructive pulmonary disease with (acute) exacerbation (principal); E78.00 Pure hypercholesterolemia, unspecified; I10 Essential (primary) hypertension; I25.2 Old myocardial infarction; K21.9 Gastro-esophageal reflux disease without esophagitis; E66.9 Obesity, unspecified; Z68.42 Body mass index [BMI] 45.0-49.9, adult; Z72.0 Tobacco use; Z88.5 Allergy status to narcotic agent; Z88.0 Allergy status to penicillin; Z88.8 Allergy status to other drugs, medicaments and biological substances; Z88.2 Allergy status to sulfonamides; Z88.1 Allergy status to other antibiotic agents; Z79.899 Other long term (current) drug therapy
CPT/HCPCS: 36415; 71046; 80053; 83880; 84484; 85025; 87040; 93005; 94640; 96374; 99285; J2930; 99283; J7620-GY

== ENCOUNTER 2021-01-31 17:09 | Emergency (ER) | payer MEDICARE, MEDICAID ==
--- NOTE | 2021-01-31 16:17 | EDM.PDOC ---
ED HPI GENERAL MEDICAL PROBLEM - General Chief Complaint: Respiratory Problem Stated Complaint: AMBULANCE Time Seen by Provider: 01/31/21 16:12 Source of Information: Reports: Patient, Old Records, RN, RN Notes Reviewed History Limitations: Reports: No Limitations - History of Present Illness INITIAL COMMENTS - FREE TEXT/NARRATIVE: Miriam is a 70 y/o female with history of HTN, COPD on 2L of O2 via NC at baseline, and current cigarette smoker who presents to the ED via [facility] for complaints of shortness of breath. The patient reports she has been increasingly short of breath "..for some time" but noticed significant worsening this morning upon awakening. She states she has taken her Spiriva and Advair as prescribed, but has not used any rescue medications for her symptoms. She denies recent illness, fever, shaking chills, chest pain, palpitations, epigastric pain, nausea, or abdominal pain. She does attest to productive cough and transient diarrhea. The patient reports she has hired individuals who come help her with cleaning, cooking, and mediations; she performs her own bathing and toileting. She denies history of a COVID infection and has not received a COVID vaccine. - Related Data Allergies Allergy/AdvReac Type Severity Reaction Status Date / Time codeine Allergy Stomach Verified 02/09/21 12:43 Upset Penicillins Allergy Rash Verified 02/09/21 12:43 povidone-iodine Allergy Rash Verified 02/09/21 12:43 [From Betadine] soap [From Betadine] Allergy Rash Verified 02/09/21 12:43 Sulfa (Sulfonamide Allergy Hives Verified 02/09/21 12:43 Antibiotics) tetracycline Allergy Cannot Verified 02/09/21 12:43 Remember Home Meds: Home Meds Albuterol [Ventolin HFA] 2 puff INH Q8HR PRN 07/25/18 [History] Famotidine [Pepcid] 40 mg PO BIDMEALS 07/25/18 [History] Tiotropium [Spiriva HandiHaler] 18 mcg INH DAILY 07/25/18 [History] allopurinoL [Zyloprim] 300 mg PO DAILY 07/25/18 [History] atorvaSTATin [Lipitor] 20 mg PO BEDTIME 07/25/18 [History] Celecoxib 100 mg PO DAILY 10/21/20 [History] Verapamil HCl [Verapamil Sr] 180 mg PO BEDTIME 10/21/20 [History] allopurinoL [Zyloprim] 100 mg PO DAILY 10/21/20 [History] Albuterol/Ipratropium [DuoNeb 3.0-0.5 MG/3 ML] 3 ml NEB Q4HRRT PRN 02/09/21 [History] Fluticasone/Vilanterol [Breo Ellipta 100-25 MCG Inhalation Kit] 1 puff INH DAILY 02/09/21 [History] Losartan [Cozaar] 100 mg PO DAILY 02/09/21 [History] Multivitamin 1 tab PO DAILY 02/09/21 [History] Nicotine [Nicotine Patch] 7 mg TD DAILY 02/09/21 [History] hydrOXYzine HCL [hydrOXYzine] 25 mg PO TID PRN 02/09/21 [History] Ascorbic Acid [Vitamin C] 500 mg PO DAILY 30 Days #30 tablet 02/17/21 [Rx] Ferrous Sulfate 325 mg PO BIDMEALS 30 Days #60 tablet 02/17/21 [Rx] Past Medical History HEENT History: Reports: Impaired Vision Other HEENT History: wears glasses Cardiovascular History: Reports: High Cholesterol, Hypertension, VA, SOB on Exertion Respiratory History: Reports: Asthma, COPD, SOB, Other (See Below) Gastrointestinal History: Reports: GERD Genitourinary History: Reports: Urinary Incontinence [employer] History: Reports: Musculoskeletal History: Reports: Arthritis Neurological History: Reports: None Psychiatric History: Reports: None Endocrine/Metabolic History: Reports: Obesity/BMI 30+ Hematologic History: Reports: None Immunologic History: Reports: None Oncologic (Cancer) History: Reports: Malignant Melanoma Dermatologic History: Reports: None - Infectious Disease History Infectious Disease History: Reports: Chicken Pox, Measles, Mumps - Past Surgical History Head Surgeries/Procedures: Reports: None HEENT Surgical History: Reports: None Other HEENT Surgeries/Procedures: glasses Cardiovascular Surgical History: Reports: None Respiratory Surgical History: Reports: None GI Surgical History: Reports: Appendectomy, Colonoscopy Female Surgical History: Reports: Hysterectomy, Tubal Ligation, Other (See Below) Other Female Surgeries/Procedures: bladder repair Endocrine Surgical History: Reports: None Neurological Surgical History: Reports: None Musculoskeletal Surgical History: Reports: Shoulder Replacement Social & Family History - Family History Family Medical History: No Pertinent Family History - Tobacco Use Tobacco Use Status *Q: Current Every Day Tobacco User Years of Tobacco use: 50 Packs/Tins Daily: 0.5 - Caffeine Use Caffeine Use: Reports: Coffee, Soda - Recreational Drug Use Recreational Drug Use: No - Living Situation & Occupation Occupation: Retired ED ROS GENERAL - Review of Systems Review Of Systems: Comprehensive ROS is negative, except as noted in HPI. ED EXAM, GENERAL - Physical Exam Exam: See Below Exam Limited By: Respiratory Distress General Appearance: Alert, Moderate Distress (Increased work of breathing), Obese, Other (Ill-kept) Eye Exam: Bilateral Eye: EOMI, Normal Inspection, PERRL (3mm) Ears: Normal External Exam, Normal Canal, Hearing Grossly Normal, Normal TMs Ear Exam: Bilateral Ear: Auricle Normal, Canal Normal, TM normal Nose: Normal Inspection, Normal Mucosa, No Blood Throat/Mouth: Normal Voice, No Airway Compromise. No: Normal Lips (Dry, cracked), Normal Oropharynx (Dry mucous membranes) Head: Atraumatic, Normocephalic Neck: Normal Inspection, Supple, Non-Tender, Full Range of Motion. No: Lymphadenopathy (L), Lymphadenopathy (R) Respiratory/Chest: Respiratory Distress, Decreased Breath Sounds, Rhonchi, Wheezing (Inspiratory/expiratory throughout), Accessory Muscle Use. No: Chest Non-Tender, Crackles, Rales, Stridor, Pleural Rub, Retractions, Splinting Cardiovascular: Normal Peripheral Pulses, Regular Rate, Rhythm, No Gallop, No JVD, No Murmur, No Rub, Tachycardia. No: No Edema Peripheral Pulses: 2+: Radial (L), Radial (R) GI/Abdominal: Normal Bowel Sounds, Soft, Non-Tender, No Distention, No Mass, Pelvis Stable (Female) Exam: Deferred Rectal (Female) Exam: Deferred Back Exam: Normal Inspection, Decreased Range of Motion Extremities: Normal Range of Motion, Non-Tender, Normal Capillary Refill, Pedal Edema (+3 pitting, bilaterally lower extremities; +2 pitting, right upper extremity) Neurological: Alert, Oriented, CN II-XII Intact, Normal Cognition, No Motor/Sensory Deficits Psychiatric: Normal Affect, Normal Mood Skin Exam: Rash (Wet, red odorous rash under bilateral breasts) #1 Interpretation EKG Date: 01/31/21 Time: 15:56 Rhythm: Other (Sinus Tachycardia) Rate (Beats/Min): 101 [place]: Normal P-Wave: Present QRS: Wide (1.2) ST-T: Normal QT: Normal MT/PQ Interval: 0.172 Comparison: No Change EKG Interpretation Comments: ST; No evidence of acute myocardial ischemia Course - Vital Signs Last Recorded V/S: Last Vital Signs Temp 97.7 F 01/31/21 15:48 Pulse 104 H 01/31/21 16:33 Resp 34 H 01/31/21 15:48 BP 153/73 H 01/31/21 15:48 Pulse Ox 98 01/31/21 16:33 - Orders/Labs/Meds Labs: Laboratory Tests 01/31/21 01/31/21 01/31/21 Range/Units 16:13 16:13 16:13 WBC 13.4 H (5.0-10.0) 10^3/uL RBC 4.54 (4.2-5.4) 10^6/uL Hgb 9.5 L D (12.0-16.0) g/dL Hct 35.3 L (37.0-47.0) % MCV 77.8 L (80-100) fL MCH 20.9 L (27.0-34.0) pg MCHC 26.9 L (33.0-35.0) g/dL Plt Count 274 (150-450) 10^3/uL Neut % (Auto) 75.4 H (42.2-75.2) % Lymph % (Auto) 13.7 L (20.5-50.1) % [place] % (Auto) 8.6 H (2-8) % Eos % (Auto) 2.1 (1.0-3.0) % Baso % (Auto) 0.2 (0.0-1.0) % D-Dimer, Quantitative (0-400) ng/mL Sodium 147 H (136-145) mmol/L Potassium 3.6 (3.5-5.1) mmol/L Chloride 105 (98-107) mmol/L Carbon Dioxide 37 H (21-32) mmol/L Anion Gap 8.6 (7-13) mEq/L BUN 13 (7-18) mg/dL Creatinine 1.18 H (0.55-1.02) mg/dL Est Cr Clr Drug Dosing 34.58 mL/min Estimated GFR (MDRD) 55 BUN/Creatinine Ratio 11.0 (No establ ref range) Glucose 119 H (70-99) mg/dL Lactic Acid 1.0 (0.4-2.0) mmol/L Calcium 8.3 L (8.5-10.1) mg/dL Total Bilirubin 0.5 (0.2-1.0) mg/dL AST 15 (15-37) U/L ALT 19 (14-59) U/L Alkaline Phosphatase 82 (46-116) U/L Creatine Kinase 37 (16-191) U/L Troponin I 0.033 (0.000-0.056) ng/mL C-Reactive Protein 6.2 H (0.0-0.9) mg/dL B-Natriuretic Peptide 601 H (0-100) pg/ml Total Protein 6.9 (6.4-8.2) g/dL Albumin 2.5 L (3.4-5.0) g/dL Globulin 4.4 Albumin/Globulin Ratio 0.57 Urine Color (YELLOW) Urine Appearance (CLEAR) Urine pH (5.0-9.0) Ur Specific [place] (1.005-1.030) Urine Protein (NEGATIVE) Urine Glucose (UA) (NEGATIVE) Urine Ketones (NEGATIVE) Urine Occult Blood (NEGATIVE) Urine Nitrite (NEGATIVE) Urine Bilirubin (NEGATIVE) Urine Urobilinogen (0.2-1.0) mg/dL Ur Leukocyte Esterase (NEGATIVE) Urine RBC /HPF Urine WBC (0-5/HPF) /HPF Ur Epithelial Cells (NOT SEEN) /HPF Urine Bacteria (0-FEW/HPF) /HPF Urine Mucus (NOT SEEN) /LPF Urine Opiates Screen (NEGATIVE) Ur Oxycodone Screen (NEGATIVE) Urine Methadone Screen (NEGATIVE) Ur Barbiturates Screen (NEGATIVE) U Tricyclic Antidepress (NEGATIVE) Ur Phencyclidine Scrn (NEGATIVE) Ur Amphetamine Screen (NEGATIVE) U Methamphetamines Scrn (NEGATIVE) Urine MDMA Screen (NEGATIVE) U Benzodiazepines Scrn (NEGATIVE) Urine Cocaine Screen (NEGATIVE) U Marijuana (THC) Screen (NEGATIVE) Influenza Type A RNA (NEGATIVE) Influenza Type B RNA (NEGATIVE) SARS-CoV-2 RNA (SARMAD) (NEGATIVE) 01/31/21 01/31/21 01/31/21 Range/Units 16:13 16:46 18:30 WBC (5.0-10.0) 10^3/uL RBC (4.2-5.4) 10^6/uL Hgb (12.0-16.0) g/dL Hct (37.0-47.0) % MCV (80-100) fL MCH (27.0-34.0) pg MCHC (33.0-35.0) g/dL Plt Count (150-450) 10^3/uL Neut % (Auto) (42.2-75.2) % Lymph % (Auto) (20.5-50.1) % [place] % (Auto) (2-8) % Eos % (Auto) (1.0-3.0) % Baso % (Auto) (0.0-1.0) % D-Dimer, Quantitative 1300 H (0-400) ng/mL Sodium (136-145) mmol/L Potassium (3.5-5.1) mmol/L Chloride (98-107) mmol/L Carbon Dioxide (21-32) mmol/L Anion Gap (7-13) mEq/L BUN (7-18) mg/dL Creatinine (0.55-1.02) mg/dL Est Cr Clr Drug Dosing mL/min Estimated GFR (MDRD) BUN/Creatinine Ratio (No establ ref range) Glucose (70-99) mg/dL Lactic Acid (0.4-2.0) mmol/L Calcium (8.5-10.1) mg/dL Total Bilirubin (0.2-1.0) mg/dL AST (15-37) U/L ALT (14-59) U/L Alkaline Phosphatase (46-116) U/L Creatine Kinase (16-191) U/L Troponin I (0.000-0.056) ng/mL C-Reactive Protein (0.0-0.9) mg/dL B-Natriuretic Peptide (0-100) pg/ml Total Protein (6.4-8.2) g/dL Albumin (3.4-5.0) g/dL Globulin Albumin/Globulin Ratio Urine Color (YELLOW) Urine Appearance (CLEAR) Urine pH (5.0-9.0) Ur Specific [place] (1.005-1.030) Urine Protein (NEGATIVE) Urine Glucose (UA) (NEGATIVE) Urine Ketones (NEGATIVE) Urine Occult Blood (NEGATIVE) Urine Nitrite (NEGATIVE) Urine Bilirubin (NEGATIVE) Urine Urobilinogen (0.2-1.0) mg/dL Ur Leukocyte Esterase (NEGATIVE) Urine RBC /HPF Urine WBC (0-5/HPF) /HPF Ur Epithelial Cells (NOT SEEN) /HPF Urine Bacteria (0-FEW/HPF) /HPF Urine Mucus (NOT SEEN) /LPF Urine Opiates Screen Negative (NEGATIVE) Ur Oxycodone Screen Negative (NEGATIVE) Urine Methadone Screen Negative (NEGATIVE) Ur Barbiturates Screen Negative (NEGATIVE) U Tricyclic Antidepress Negative (NEGATIVE) Ur Phencyclidine Scrn Negative (NEGATIVE) Ur Amphetamine Screen Negative (NEGATIVE) U Methamphetamines Scrn Negative (NEGATIVE) Urine MDMA Screen Negative (NEGATIVE) U Benzodiazepines Scrn Negative (NEGATIVE) Urine Cocaine Screen Negative (NEGATIVE) U Marijuana (THC) Screen Negative (NEGATIVE) Influenza Type A RNA Negative (NEGATIVE) Influenza Type B RNA Negative (NEGATIVE) SARS-CoV-2 RNA (SARMAD) Negative (NEGATIVE) 01/31/21 Range/Units 18:30 WBC (5.0-10.0) 10^3/uL RBC (4.2-5.4) 10^6/uL Hgb (12.0-16.0) g/dL Hct (37.0-47.0) % MCV (80-100) fL MCH (27.0-34.0) pg MCHC (33.0-35.0) g/dL Plt Count (150-450) 10^3/uL Neut % (Auto) (42.2-75.2) % Lymph % (Auto) (20.5-50.1) % [place] % (Auto) (2-8) % Eos % (Auto) (1.0-3.0) % Baso % (Auto) (0.0-1.0) % D-Dimer, Quantitative (0-400) ng/mL Sodium (136-145) mmol/L Potassium (3.5-5.1) mmol/L Chloride (98-107) mmol/L Carbon Dioxide (21-32) mmol/L Anion Gap (7-13) mEq/L BUN (7-18) mg/dL Creatinine (0.55-1.02) mg/dL Est Cr Clr Drug Dosing mL/min Estimated GFR (MDRD) BUN/Creatinine Ratio (No establ ref range) Glucose (70-99) mg/dL Lactic Acid (0.4-2.0) mmol/L Calcium (8.5-10.1) mg/dL Total Bilirubin (0.2-1.0) mg/dL AST (15-37) U/L ALT (14-59) U/L Alkaline Phosphatase (46-116) U/L Creatine Kinase (16-191) U/L Troponin I (0.000-0.056) ng/mL C-Reactive Protein (0.0-0.9) mg/dL B-Natriuretic Peptide (0-100) pg/ml Total Protein (6.4-8.2) g/dL Albumin (3.4-5.0) g/dL Globulin Albumin/Globulin Ratio Urine Color Yellow (YELLOW) Urine Appearance Slightly cloudy (CLEAR) Urine pH 7.0 (5.0-9.0) Ur Specific [place] 1.025 (1.005-1.030) Urine Protein 30 H (NEGATIVE) Urine Glucose (UA) Negative (NEGATIVE) Urine Ketones 15 H (NEGATIVE) Urine Occult Blood Trace-intact H (NEGATIVE) Urine Nitrite Negative (NEGATIVE) Urine Bilirubin Small H (NEGATIVE) Urine Urobilinogen 1.0 (0.2-1.0) mg/dL Ur Leukocyte Esterase Negative (NEGATIVE) Urine RBC 0-5 /HPF Urine WBC 0-5 (0-5/HPF) /HPF Ur Epithelial Cells Many H (NOT SEEN) /HPF Urine Bacteria Many H (0-FEW/HPF) /HPF Urine Mucus Moderate H (NOT SEEN) /LPF Urine Opiates Screen (NEGATIVE) Ur Oxycodone Screen (NEGATIVE) Urine Methadone Screen (NEGATIVE) Ur Barbiturates Screen (NEGATIVE) U Tricyclic Antidepress (NEGATIVE) Ur Phencyclidine Scrn (NEGATIVE) Ur Amphetamine Screen (NEGATIVE) U Methamphetamines Scrn (NEGATIVE) Urine MDMA Screen (NEGATIVE) U Benzodiazepines Scrn (NEGATIVE) Urine Cocaine Screen (NEGATIVE) U Marijuana (THC) Screen (NEGATIVE) Influenza Type A RNA (NEGATIVE) Influenza Type B RNA (NEGATIVE) SARS-CoV-2 RNA (SARMAD) (NEGATIVE) Meds: Medications Discontinued Medications Generic Name Dose Route Start Last Admin Trade Name Freq PRN Reason Stop Dose Admin Albuterol/Ipratropium 3 ml 01/31/21 16:33 01/31/21 16:44 Albuterol/Ipratropium 3.0-0.5 Mg/3 Ml Neb Soln NEB 01/31/21 16:34 3 ml ONETIME ONE Administration Methylprednisolone Sodium Succinate 125 mg 01/31/21 16:33 01/31/21 16:47 Methylprednisolone Sodium Succinate 125 Mg/2 Ml Sdv IVPUSH 01/31/21 16:34 125 mg ONETIME ONE Administration - Radiology Interpretation Free Text/Narrative:: [facility] Final Radiology Report Call: [phone] assistance Online chat: [email or web address] Name: MIRIAM MORELOS Age: 70Years F Date: 01/31/2021 SSN: -- : [id number] Study: CR CHEST 2V Requesting Physician: Juanis Gill Images: 1 Addl Studies: Provided Clinical History: Wheezing throughout; Hx of COPD; Increasing SOB Contrast: Contrast Medium: Contrast Amount: Contrast Method: Page 1 of 2 PROCEDURE INFORMATION: Exam: XR Chest Exam date and time: 01/31/2021 5:24 PM Age: 70 years old Clinical indication: Shortness of breath; Additional info: Wheezing throughout; HX of copd; Increasing SOB TECHNIQUE: Imaging protocol: XR of the chest. Views: 2 views. COMPARISON: CR Chest 2V 10/21/2020 10:00 AM FINDINGS: Lungs: No focal consolidation identified. Stable prominence of right hilum could be due to prominent vascularity or adenopathy. Pleural spaces: Unremarkable. No pleural effusion. No pneumothorax. Heart/Mediastinum: Unremarkable. No cardiomegaly. Bones/joints: Right shoulder arthroplasty. Rotator cuff arthropathy left shoulder. Soft tissues: Exam is technically limited by the patient's large body habitus. IMPRESSION: 1. No acute findings and no appreciable change from 10/21/2020 2. Prominence of the right hilum could be due to the prominent vascularity or adenopathy. 3. Exam technically limited by patient's large body habitus. Thank you for allowing us to participate in the care of your patient. Dictated and Authenticated by: Candelaria Torres MD 01/31/2021 5:47 PM Central Time ([place] & [place]) - Re-Assessments/Exams Free Text/Narrative Re-Assessment/Exam: 01/31/21 Solu-Medrol IVP and DuoNeb administered. WBC elevated at 13.4 with left shift present. Microcytic hypochromic anemia appreciated with Hgb 9.5; patient denies coffee ground emesis or melena. Troponin WNL, but elevated about baseline at 0.033 BNP 601 D-Dimer [address] with no evidence of myocardial ischemia. Findings of examination, lab work, and imaging reviewed with patient. Case discussed with Dr. Hernández, ED physician at [facility] in [place], who kindly agreed to accept patient for transfer for further evaluation as venous US not available for RUE. Departure - Departure Time of Disposition: 19:00 Disposition: DC/Tfer to Acute Hospital 02 Condition: Fair Clinical Impression: COPD exacerbation, D-dimer, elevated, Bilateral lower extremity edema, Edema of right upper extremity, Morbid obesity - Discharge Information Forms: ED Department Discharge, Interfacility Transfer [facility] Sepsis Event Note (ED) - Evaluation Sepsis Screening Result: No Definite Risk
[2021-01-31 16:58] LABS: ANION GAP 8.6 mEq/L (7-13)
[~2021-01-31 17:09] MED LIST: Albuterol/Ipratropium 3.0-0.5 MG/3 ML Neb Soln NEB ONE; methylPREDNISolone Sodium Succinate 125 MG/2 ML SDV IVPUSH ONE
--- NOTE | 2021-01-31 17:47 | CR ---
PROCEDURE INFORMATION: Exam: XR Chest Exam date and time: 01/31/2021 5:24 PM Age: 70 years old Clinical indication: Shortness of breath; Additional info: Wheezing throughout; HX of copd; Increasing SOB TECHNIQUE: Imaging protocol: XR of the chest. Views: 2 views. COMPARISON: CR Chest 2V 10/21/2020 10:00 AM FINDINGS: Lungs: No focal consolidation identified. Stable prominence of right hilum could be due to prominent vascularity or adenopathy. Pleural spaces: Unremarkable. No pleural effusion. No pneumothorax. Heart/Mediastinum: Unremarkable. No cardiomegaly. Bones/joints: Right shoulder arthroplasty. Rotator cuff arthropathy left shoulder. Soft tissues: Exam is technically limited by the patient's large body habitus. IMPRESSION: 1. No acute findings and no appreciable change from 10/21/2020 2. Prominence of the right hilum could be due to the prominent vascularity or adenopathy. 3. Exam technically limited by patient's large body habitus.
[2021-01-31 17:53] LABS: CORONAVIRUS COVID-19 NAA NEGATIVE (NEGATIVE)
== END 2021-01-31 19:20 ==
LOC: DL.ED 17:09
DX: J44.1 Chronic obstructive pulmonary disease with (acute) exacerbation (principal); R60.0 Localized edema; E66.01 Morbid (severe) obesity due to excess calories; R79.89 Other specified abnormal findings of blood chemistry; I10 Essential (primary) hypertension; Z20.822 Contact with and (suspected) exposure to COVID-19; Z88.0 Allergy status to penicillin; I25.2 Old myocardial infarction; Z88.5 Allergy status to narcotic agent; Z91.048 Other nonmedicinal substance allergy status; Z88.2 Allergy status to sulfonamides; Z88.1 Allergy status to other antibiotic agents; Z68.43 Body mass index [BMI] 50.0-59.9, adult
CPT/HCPCS: 0240U; 36415; 71045; 80053; 80305; 81001; 82550; 83605; 83880; 84484; 85025; 85379; 86140; 93005; 94640; 96374; 99285; J2930; 71046; 93010; 99284; J7620-GY

== ENCOUNTER 2021-02-09 11:03 | Inpatient (IN) | payer MEDICARE, MEDICAID ==
[2021-02-09] MEDS: Furosemide 20 MG Tab PO SCH (17:16)
[2021-02-09] MEDS: Famotidine 20 MG Tab PO SCH (17:52)
--- NOTE | 2021-02-09 19:32 | PCM.HP ---
H&P History of Present Illness - General Date of Service: 02/09/21 Admit Problem/Dx: Admission Diagnosis/Problem Admission Diagnosis/Problem Respiratory failure with hypoxia and hypercapnia - History of Present Illness Initial Comments - Free Text/Narative: 70F w/ pmh chronic hypoxic respiratory failure on home o2 2-3L, COPD, diastolic CHF, HT, DM2, morbid obesity, GERD, s/p admission to [facility] 01/31-02/09 for acute on chronic hypoxic and hypercapnic respiratory failure due to diastolic CHF and COPD exacerbations now transferred to for Swing Bed. Pt states prior to admit she was independent in ADLs, lived alone, managed to walk short distances and used a scooter for some activities like shopping at a supermarket. She has a hard time estimating how far off her baseline she is but is able to walk 10-20 feet w/ PT at [facility]. She is limited by dyspnea. Denies any other complaints. - Related Data Allergies/Adverse Reactions: Allergies Allergy/AdvReac Type Severity Reaction Status Date / Time codeine Allergy Stomach Verified 02/09/21 12:43 Upset Penicillins Allergy Rash Verified 02/09/21 12:43 povidone-iodine Allergy Rash Verified 02/09/21 12:43 [From Betadine] soap [From Betadine] Allergy Rash Verified 02/09/21 12:43 Sulfa (Sulfonamide Allergy Hives Verified 02/09/21 12:43 Antibiotics) tetracycline Allergy Cannot Verified 02/09/21 12:43 Remember Home Medications: Home Meds Albuterol [Ventolin HFA] 2 puff INH Q8HR PRN 07/25/18 [History] Famotidine [Pepcid] 40 mg PO BIDMEALS 07/25/18 [History] Tiotropium [Spiriva HandiHaler] 18 mcg INH DAILY 07/25/18 [History] allopurinoL [Zyloprim] 300 mg PO DAILY 07/25/18 [History] atorvaSTATin [Lipitor] 20 mg PO BEDTIME 07/25/18 [History] Celecoxib 100 mg PO DAILY 10/21/20 [History] Verapamil HCl [Verapamil Sr] 180 mg PO BEDTIME 10/21/20 [History] allopurinoL [Zyloprim] 100 mg PO DAILY 10/21/20 [History] Albuterol [Proventil Neb Soln] 2.5 mg NEB Q4H PRN 02/09/21 [History] Albuterol/Ipratropium [DuoNeb 3.0-0.5 MG/3 ML] 3 ml NEB Q4HRRT PRN 02/09/21 [History] Fluticasone/Vilanterol [Breo Ellipta 100-25 MCG Inhalation Kit] 1 puff INH DAILY 02/09/21 [History] Furosemide [Lasix] 40 mg PO BID 02/09/21 [History] Losartan [Cozaar] 100 mg PO DAILY 02/09/21 [History] Multivitamin 1 tab PO DAILY 02/09/21 [History] Nicotine [Nicotine Patch] 7 mg TD DAILY 02/09/21 [History] hydrOXYzine HCL [hydrOXYzine] 25 mg PO TID PRN 02/09/21 [History] Past Medical History HEENT History: Reports: Impaired Vision Other HEENT History: wears glasses Cardiovascular History: Reports: Heart Failure, High Cholesterol, Hypertension, DE, SOB on Exertion Respiratory History: Reports: Asthma, COPD, SOB, Other (See Below) Gastrointestinal History: Reports: GERD Genitourinary History: Reports: Urinary Incontinence [employer] History: Reports: Musculoskeletal History: Reports: Arthritis Neurological History: Reports: None Psychiatric History: Reports: None Endocrine/Metabolic History: Reports: Obesity/BMI 30+ Hematologic History: Reports: None Immunologic History: Reports: None Oncologic (Cancer) History: Reports: Malignant Melanoma Dermatologic History: Reports: None - Infectious Disease History Infectious Disease History: Reports: Chicken Pox, Measles, Mumps - Past Surgical History Head Surgeries/Procedures: Reports: None HEENT Surgical History: Reports: None Other HEENT Surgeries/Procedures: glasses Cardiovascular Surgical History: Reports: None Respiratory Surgical History: Reports: None GI Surgical History: Reports: Appendectomy, Colonoscopy Female Surgical History: Reports: Hysterectomy, Tubal Ligation, Other (See Below) Other Female Surgeries/Procedures: bladder repair Endocrine Surgical History: Reports: None Neurological Surgical History: Reports: None Musculoskeletal Surgical History: Reports: Shoulder Replacement Social & Family History - Family History Family Medical History: No Pertinent Family History - Tobacco Use Tobacco Use Status *Q: Current Every Day Tobacco User Years of Tobacco use: 45 Packs/Tins Daily: 0.5 Month/Year Tobacco Last Used: January 2021 Second Hand Smoke Exposure: No - Caffeine Use Caffeine Use: Reports: Coffee, Soda - Recreational Drug Use Recreational Drug Use: No - Living Situation & Occupation Occupation: Retired H&P Review of Systems - Review of Systems: Review Of Systems: See Below General: Reports: Weakness. Denies: No Symptoms, Fever HEENT: Denies: Headaches Pulmonary: Reports: Shortness of Breath, Wheezing, Sputum Cardiovascular: Reports: Edema. Denies: Chest Pain Gastrointestinal: Denies: Abdominal Pain, Diarrhea, Nausea, Vomiting Genitourinary: Denies: Dysuria Musculoskeletal: Denies: Neck Pain Skin: Denies: Jaundice Psychiatric: Denies: Confusion Neurological: Denies: Dizziness Hematologic/Lymphatic: Denies: Easy Bleeding Exam - Exam Exam: See Below - Vital Signs Vital Signs: Last Vital Signs Temp 97.8 F 02/09/21 14:27 Pulse 95 02/09/21 14:27 Resp 22 H 02/09/21 14:27 BP 109/58 L 02/09/21 14:27 Pulse Ox 98 02/09/21 14:27 Weight: 260 lb 3.2 oz - Exam Quality Assessment: Supplemental Oxygen General: Alert, Oriented HEENT: Conjunctiva Clear Neck: Supple Lungs: Other (expiratory rhonchi b/l) Cardiovascular: Regular Rate, Regular Rhythm GI/Abdominal Exam: Normal Bowel Sounds, Soft, Non-Tender, No Distention, Other (morbidly obese) Back Exam: Normal Inspection Extremities: Other (trace LLE pitting, 1+ RLE pitting - non tender) Skin: Warm, Dry, Intact Neurological: Cranial Nerves Intact Neuro Extensive - Mental Status: Alert, Oriented x3 Neuro Extensive - Motor, Sensory, Reflexes: No: Tremor Psychiatric: Alert, Normal Affect, Normal Mood Problem List Initiated/Reviewed/Updated: Yes Orders Last 24hrs: Active Orders 24 hr Category Date Time Status Patient Status [ADT] Routine ADT 02/09/21 15:18 Active Communication Order [RC] DAILY Care 02/09/21 15:18 Active Oxygen Therapy [RC] PRN Care 02/09/21 15:18 Active RT Aerosol Therapy [RC] ASDIRECTED Care 02/09/21 15:26 Active RT Post Treatment Assessment [RC] Click to Edit Care 02/09/21 15:26 Active RT Pre-Treatment Assessment [RC] Click to Edit Care 02/09/21 15:26 Active Up With Assistance [RC] ASDIRECTED Care 02/09/21 15:18 Active VTE/DVT Education [RC] Care 02/09/21 15:18 Active Vital Signs [RC] Care 02/09/21 15:18 Active OT Evaluation and Treatment [CONS] Routine Cons 02/09/21 15:18 Active PT Evaluation and Treatment [CONS] Routine Cons 02/09/21 15:18 Active Respiratory Care Assess and Treatment [CONS] Routine Cons 02/09/21 15:18 Active Fluid Restriction [DIET] Diet 02/09/21 Dinner Active Heart Healthy Diet [DIET] Diet 02/09/21 Dinner Active Acetaminophen [TylenoL] Med 02/09/21 15:18 Active 650 mg PO Q4H PRN Albuterol/Ipratropium [DuoNeb 3.0-0.5 MG/3 ML] Med 02/09/21 15:24 Active 3 ml NEB Q4HRRT PRN Celecoxib [CeleBREX] Med 02/10/21 09:00 Active 100 mg PO DAILY Enoxaparin [Lovenox] Med 02/10/21 09:00 Active 40 mg SUBCUT DAILY Famotidine [Pepcid] Med 02/09/21 18:00 Active 40 mg PO BIDMEALS Fluticasone/Vilanterol Med 02/10/21 09:00 Pending 1 puff INH DAILY Furosemide [Lasix] Med 02/09/21 16:00 Active 40 mg PO BIDDIURETIC Losartan [Cozaar] Med 02/10/21 09:00 Active 100 mg PO DAILY Multivitamins,Therapeutic [Thera] Med 02/10/21 09:00 Active 1 each PO DAILY Nicotine [Habitrol] Med 02/10/21 09:00 Active 7 mg TRDERM DAILY Remove Patch Med 02/10/21 09:00 Active 1 ea TRDERM DAILY Tiotropium [Spiriva HandiHaler] Med 02/10/21 09:00 Active 18 mcg INH DAILY Verapamil [Calan SR] Med 02/09/21 21:00 Active 180 mg PO BEDTIME allopurinoL [Zyloprim] Med 02/10/21 09:00 Active 100 mg PO DAILY allopurinoL [Zyloprim] Med 02/10/21 09:00 Active 300 mg PO DAILY atorvaSTATin [Lipitor] Med 02/09/21 21:00 Active 20 mg PO BEDTIME hydrOXYzine HCL [Atarax] Med 02/09/21 15:24 Active 25 mg PO TID PRN Resuscitation Status Routine Resus Stat 02/09/21 15:18 Ordered Medication Orders Acetaminophen (Acetaminophen 325 Mg Tab) 650 mg PO Q4H PRN PRN Reason: Pain (Mild 1-3)/fever Albuterol/Ipratropium (Albuterol/Ipratropium 3.0-0.5 Mg/3 Ml Neb Soln) 3 ml NEB Q4HRRT PRN PRN Reason: Wheezing Allopurinol (Allopurinol 100 Mg Tab) 100 mg PO DAILY TONNY Allopurinol (Allopurinol 300 Mg Tab) 300 mg PO DAILY OTNNY Atorvastatin Calcium (Atorvastatin 20 Mg Tab) 20 mg PO BEDTIME TONNY Celecoxib (Celecoxib 100 Mg Cap) 100 mg PO DAILY [facility] Enoxaparin Sodium (Enoxaparin 40 Mg/0.4 Ml Syringe) 40 mg SUBCUT DAILY [facility] Famotidine (Famotidine 20 Mg Tab) 40 mg PO BIDMEALS [facility] Last Admin: 02/09/21 17:52 Dose: 40 mg Documented by: AL Furosemide (Furosemide 20 Mg Tab) 40 mg PO BIDDIURETIC [facility] Last Admin: 02/09/21 17:16 Dose: Not Given Documented by: AL Hydroxyzine HCl (Hydroxyzine Hcl 25 Mg Tab) 25 mg PO TID PRN PRN Reason: Anxiety Losartan Potassium (Losartan 50 Mg Tab) 100 mg PO DAILY [facility] Miscellaneous Information (Remove Patch) 1 ea TRDERM DAILY [facility] Multivitamins (Multivitamins,Therapeutic Tab) 1 each PO DAILY [facility] Nicotine (Nicotine 7 Mg/24 Hr Patch) 7 mg TRDERM DAILY [facility] Non-Formulary Medication (Fluticasone/Vilanterol) 1 puff INH DAILY [facility] Tiotropium Marvin (Tiotropium Inhaler 18 Mcg Inhalation Powder Cap Kit Of 5) 18 mcg INH DAILY [facility] Verapamil HCl (Verapamil 180 Mg Tab.Er) 180 mg PO BEDTIME [facility] Assessment/Plan Comment:: #chronic hypoxic respiratory failure 2/2 COPD and chronic diastolic CHF - she has reportedly been liberated from BIPAP at [facility] and no longer requires nocturna NPPV - nursing instructions placed to keep sats <92% - c/w inhalers and diuretics as prescribed on d/c #HT / GERD / DM - c/w home meds PPX - LMWH
[2021-02-09] MEDS: Verapamil 180 MG Tab.ER PO SCH (20:26)
[2021-02-09] MEDS: atorvaSTATin 20 MG Tab PO SCH (20:27)
[2021-02-09] MEDS: Albuterol/Ipratropium 3.0-0.5 MG/3 ML Neb Soln NEB PRN (21:30)
[2021-02-09] MEDS: hydrOXYzine HCl 25 MG Tab PO PRN (21:45)
[2021-02-10] MEDS: Furosemide 20 MG Tab PO SCH ×2 (08:49→13:19)
[2021-02-10] MEDS: Losartan 50 MG Tab PO SCH (08:50)
[2021-02-10] MEDS: Famotidine 20 MG Tab PO SCH ×2 (08:50→17:31)
[2021-02-10] MEDS: Celecoxib 100 MG Cap PO SCH (08:51)
[2021-02-10] MEDS: Allopurinol 300 MG Tab PO SCH (08:51)
[2021-02-10] MEDS: Nicotine 7 MG/24 Hr Patch TRDERM SCH (08:52)
[2021-02-10] MEDS: Allopurinol 100 MG Tab PO SCH (08:52)
[2021-02-10] MEDS: Multivitamins,Therapeutic Tab PO SCH (08:52)
[2021-02-10] MEDS: Enoxaparin 40 MG/0.4 ML Syringe SUBCUT SCH (08:54)
[2021-02-10] MEDS: Tiotropium Inhaler 18 MCG Inhalation Powder Cap Kit of 5 INH SCH (08:59)
[2021-02-10] MEDS: hydrOXYzine HCl 25 MG Tab PO PRN (20:33)
[2021-02-10] MEDS: atorvaSTATin 20 MG Tab PO SCH (20:33)
[2021-02-10] MEDS: Verapamil 180 MG Tab.ER PO SCH (20:34)
[2021-02-10] MEDS: Formoterol/Mometasone 100-5 MCG 8.8 GM Inhaler IH SCH (22:00)
[2021-02-11] MEDS: Acetaminophen 325 MG Tab PO PRN (02:30)
[2021-02-11] MEDS: Famotidine 20 MG Tab PO SCH ×2 (09:44→17:14)
[2021-02-11] MEDS: Furosemide 20 MG Tab PO SCH ×2 (09:45→14:29)
[2021-02-11] MEDS: Allopurinol 300 MG Tab PO SCH (09:45)
[2021-02-11] MEDS: Allopurinol 100 MG Tab PO SCH (09:46)
[2021-02-11] MEDS: Celecoxib 100 MG Cap PO SCH (09:47)
[2021-02-11] MEDS: Multivitamins,Therapeutic Tab PO SCH (09:47)
[2021-02-11] MEDS: Losartan 50 MG Tab PO SCH (09:48)
[2021-02-11] MEDS: Formoterol/Mometasone 100-5 MCG 8.8 GM Inhaler IH SCH ×2 (09:50→20:57)
[2021-02-11] MEDS: Tiotropium Inhaler 18 MCG Inhalation Powder Cap Kit of 5 INH SCH (09:50)
[2021-02-11] MEDS: Nicotine 7 MG/24 Hr Patch TRDERM SCH (09:52)
[2021-02-11] MEDS: Enoxaparin 40 MG/0.4 ML Syringe SUBCUT SCH (09:53)
[2021-02-11] MEDS: Albuterol/Ipratropium 3.0-0.5 MG/3 ML Neb Soln NEB PRN (20:26)
[2021-02-11] MEDS: atorvaSTATin 20 MG Tab PO SCH (20:26)
[2021-02-11] MEDS: Verapamil 180 MG Tab.ER PO SCH (20:26)
[2021-02-11] MEDS: hydrOXYzine HCl 25 MG Tab PO PRN (20:58)
[2021-02-11] MEDS: Sodium Chloride 0.9% 10 ML Syringe FLUSH PRN (21:12)
[2021-02-12] MEDS: Allopurinol 300 MG Tab PO SCH (09:20)
[2021-02-12] MEDS: Furosemide 20 MG Tab PO SCH ×2 (09:20→15:16)
[2021-02-12] MEDS: Celecoxib 100 MG Cap PO SCH (09:21)
[2021-02-12] MEDS: Famotidine 20 MG Tab PO SCH ×2 (09:21→17:20)
[2021-02-12] MEDS: Multivitamins,Therapeutic Tab PO SCH (09:21)
[2021-02-12] MEDS: Allopurinol 100 MG Tab PO SCH (09:21)
[2021-02-12] MEDS: Losartan 50 MG Tab PO SCH (09:22)
[2021-02-12] MEDS: Enoxaparin 40 MG/0.4 ML Syringe SUBCUT SCH (09:23)
[2021-02-12] MEDS: Formoterol/Mometasone 100-5 MCG 8.8 GM Inhaler IH SCH ×2 (09:24→20:55)
[2021-02-12] MEDS: Tiotropium Inhaler 18 MCG Inhalation Powder Cap Kit of 5 INH SCH (09:24)
[2021-02-12] MEDS: Nicotine 7 MG/24 Hr Patch TRDERM SCH (09:28)
[2021-02-12] MEDS: atorvaSTATin 20 MG Tab PO SCH (20:54)
[2021-02-12] MEDS: Verapamil 180 MG Tab.ER PO SCH (20:54)
[2021-02-13] MEDS: Enoxaparin 40 MG/0.4 ML Syringe SUBCUT SCH (09:30)
[2021-02-13] MEDS: Nicotine 7 MG/24 Hr Patch TRDERM SCH (09:30)
[2021-02-13] MEDS: Furosemide 20 MG Tab PO SCH ×2 (09:31→13:06)
[2021-02-13] MEDS: Celecoxib 100 MG Cap PO SCH (09:31)
[2021-02-13] MEDS: Famotidine 20 MG Tab PO SCH ×2 (09:31→17:07)
[2021-02-13] MEDS: Losartan 50 MG Tab PO SCH (09:35)
[2021-02-13] MEDS: Allopurinol 100 MG Tab PO SCH (09:36)
[2021-02-13] MEDS: Multivitamins,Therapeutic Tab PO SCH (09:36)
[2021-02-13] MEDS: Allopurinol 300 MG Tab PO SCH (09:36)
[2021-02-13] MEDS: Formoterol/Mometasone 100-5 MCG 8.8 GM Inhaler IH SCH ×2 (09:41→20:46)
[2021-02-13] MEDS: Tiotropium Inhaler 18 MCG Inhalation Powder Cap Kit of 5 INH SCH (09:41)
[2021-02-13] MEDS: Albuterol/Ipratropium 3.0-0.5 MG/3 ML Neb Soln NEB PRN (13:15)
[2021-02-13] MEDS: Verapamil 180 MG Tab.ER PO SCH (20:45)
[2021-02-13] MEDS: atorvaSTATin 20 MG Tab PO SCH (20:45)
[2021-02-13] MEDS: hydrOXYzine HCl 25 MG Tab PO PRN (23:09)
[2021-02-14] MEDS: Albuterol/Ipratropium 3.0-0.5 MG/3 ML Neb Soln NEB PRN ×2 (01:17→18:03)
[2021-02-14] MEDS ORDERED: Glucagon,Human Recombinant 1 MG Vial IM PRN (10:03)
[2021-02-14] MEDS ORDERED: 50% Dextrose in Water 50 ML Syringe IV PRN (10:03)
[2021-02-14] MEDS: Nicotine 7 MG/24 Hr Patch TRDERM SCH (10:10)
[2021-02-14] MEDS: Celecoxib 100 MG Cap PO SCH (10:11)
[2021-02-14] MEDS: Allopurinol 100 MG Tab PO SCH (10:11)
[2021-02-14] MEDS: Furosemide 20 MG Tab PO SCH (10:11)
[2021-02-14] MEDS: Famotidine 20 MG Tab PO SCH ×2 (10:11→18:03)
[2021-02-14] MEDS: Allopurinol 300 MG Tab PO SCH (10:12)
[2021-02-14] MEDS: Losartan 50 MG Tab PO SCH (10:12)
[2021-02-14] MEDS: Multivitamins,Therapeutic Tab PO SCH (10:13)
[2021-02-14] MEDS: Enoxaparin 40 MG/0.4 ML Syringe SUBCUT SCH (10:13)
[2021-02-14] MEDS: Tiotropium Inhaler 18 MCG Inhalation Powder Cap Kit of 5 INH SCH (10:14)
[2021-02-14] MEDS: Formoterol/Mometasone 100-5 MCG 8.8 GM Inhaler IH SCH ×2 (10:14→22:30)
[2021-02-14] MEDS ORDERED: Sodium Chloride 0.9% 1,000 ML IV SCH (12:15)
[2021-02-14] MEDS: Insulin Lispro 100 Units/ML 3 ML Vial SUBCUT SCH ×3 (12:37→22:28)
[2021-02-14] MEDS: Ascorbic Acid 500 MG Tab PO SCH (12:38)
[2021-02-14] MEDS: Ferrous Sulfate 325 MG Tab PO SCH (18:03)
[2021-02-14] MEDS: hydrOXYzine HCl 25 MG Tab PO PRN (22:21)
[2021-02-14] MEDS: Verapamil 180 MG Tab.ER PO SCH (22:21)
[2021-02-14] MEDS: Zolpidem 5 MG Tab PO PRN (22:21)
[2021-02-14] MEDS: atorvaSTATin 20 MG Tab PO SCH (22:21)
[2021-02-14] MEDS: Sodium Chloride 0.9% 10 ML Syringe FLUSH PRN (23:36)
[2021-02-15] MEDS: Albuterol/Ipratropium 3.0-0.5 MG/3 ML Neb Soln NEB PRN ×3 (01:02→20:46)
[2021-02-15] MEDS: Formoterol/Mometasone 100-5 MCG 8.8 GM Inhaler IH SCH ×2 (09:13→20:30)
[2021-02-15] MEDS: Tiotropium Inhaler 18 MCG Inhalation Powder Cap Kit of 5 INH SCH (09:13)
[2021-02-15] MEDS: Insulin Lispro 100 Units/ML 3 ML Vial SUBCUT SCH ×4 (09:13→22:29)
[2021-02-15] MEDS: Enoxaparin 40 MG/0.4 ML Syringe SUBCUT SCH (09:14)
[2021-02-15] MEDS: Famotidine 20 MG Tab PO SCH ×2 (09:18→17:32)
[2021-02-15] MEDS: Nicotine 7 MG/24 Hr Patch TRDERM SCH (09:18)
[2021-02-15] MEDS: Ferrous Sulfate 325 MG Tab PO SCH ×2 (09:19→17:32)
[2021-02-15] MEDS: Allopurinol 300 MG Tab PO SCH (09:19)
[2021-02-15] MEDS: Multivitamins,Therapeutic Tab PO SCH (09:19)
[2021-02-15] MEDS: Allopurinol 100 MG Tab PO SCH (09:20)
[2021-02-15] MEDS: Ascorbic Acid 500 MG Tab PO SCH (09:20)
[2021-02-15] MEDS: Celecoxib 100 MG Cap PO SCH (09:20)
[2021-02-15] MEDS: Losartan 50 MG Tab PO SCH (09:20)
[2021-02-15] MEDS: Verapamil 180 MG Tab.ER PO SCH (20:29)
[2021-02-15] MEDS: Zolpidem 5 MG Tab PO PRN (20:46)
[2021-02-15] MEDS: atorvaSTATin 20 MG Tab PO SCH (20:46)
[2021-02-15] MEDS: hydrOXYzine HCl 25 MG Tab PO PRN (20:46)
[2021-02-15] MEDS: Sodium Chloride 0.9% 10 ML Syringe FLUSH PRN ×2 (22:31→22:32)
[2021-02-16] MEDS: Acetaminophen 325 MG Tab PO PRN ×2 (01:21→21:55)
[2021-02-16 07:24] LABS: ANION GAP 13.4 mEq/L (7-13)
--- NOTE | 2021-02-16 08:08 | PCM.SN.2 ---
- Free Text/Narrative Note: START OF DOCTOR PADMINI PROGRESS NOTE Subjective: The patient endorses no complaints at this time. She denies fever, rigors, nausea, vomiting, cough, wheeze, abdominal pain, chest pain, dyspnea, or any other constitutional complaints. Upon further questioning she currently rates her respiratory status is an 8 out of 10 of 10 is her baseline. She indicates that she has been working with physical therapy/Occupational Therapy. She declared that she has had a good appetite and that she has been having normal bowel movements. I explained to the patient her current medical condition and plan of care I have answered all of her questions Objective: General: -Alert -No acute distress -No dyspnea -No tachypnea -Obese Heart: -Regular rate -Regular rhythm -No murmurs -No gallops -No rubs Lungs: -No wheeze -No rhonchi -No rales -Distant breath sounds bilaterally Abdomen: -Normal bowel sounds in all four quadrants -No rebound -No guarding -No tenderness Extremities: -2/4 pulse in all four extremities -No clubbing -No cyanosis -Trace bipedal edema Additional Details / Additional Findings / Exceptions / Miscellaneous: Pertinent Laboratory Results / Pertinent Radiology Results / Pertinent Diagnostic Results / Pertinent Vital Signs: Patient satting 97% on 1 L, respirations documented as 32 although she is not tachypneic on physical exam, creatinine 1.23 Assessment / Plan: Swing bed status for deconditioning. Continue physical therapy/Occupational Therapy. Leukocytosis, chronic. Outpatient follow-up with hematology/oncology upon discharge Iron deficiency anemia. Will monitor hemoglobin level intermittently. Ferrous sulfate 3 and 25 mg p.o. twice daily plus vitamin C 5 mg p.o. daily Obesity. Patient will be counseled regarding lifestyle modification COPD, O2 dependent at 2 to 3 L/min. Dulera: 2 puffs twice daily plus Spiriva 18 mcg nail daily Grade 1 diastolic dysfunction. Cozaar 100 mg p.o. daily Hypertension. Cozaar 1 mg p.o. daily plus verapamil 180 mg p.o. nightly Diabetes. Will check fasting glucose before every meal and at bedtime and provide sulci scale GERD. Pepcid 40 mg p.o. twice daily Gout. Allopurinol 100 mg p.o. daily Hyperlipidemia Osteoarthritis. Celebrex 100 mg p.o. daily Coronary artery disease, status post [place] Depression Degenerative's disease Smoker. Patient be counseled regarding smoking cessation. Nicotine patch 7 mg daily Diverticulosis History of renal densities per CT scan on December 2019. Patient will require bilateral renal MRI on an outpatient basis DJD Chronic kidney disease, baseline creatinine approximately 1.2. Will monitor creatinine level intermittently DVT prophylaxis. Lovenox 40 mg subcutaneously daily Disposition: Patient appears medically stable for discharge. I will discuss the patient's case with case management/social work in conjunction with physical therapy/Occupational Therapy END OF DOCTOR EMAMIS PROGRESS NOTE
[2021-02-16] MEDS: Insulin Lispro 100 Units/ML 3 ML Vial SUBCUT SCH ×4 (08:41→20:58)
[2021-02-16] MEDS: Ferrous Sulfate 325 MG Tab PO SCH ×2 (08:44→17:26)
[2021-02-16] MEDS: Famotidine 20 MG Tab PO SCH ×2 (08:45→17:26)
[2021-02-16] MEDS: Allopurinol 300 MG Tab PO SCH (08:45)
[2021-02-16] MEDS: Ascorbic Acid 500 MG Tab PO SCH (08:45)
[2021-02-16] MEDS: Allopurinol 100 MG Tab PO SCH (08:46)
[2021-02-16] MEDS: Celecoxib 100 MG Cap PO SCH (08:46)
[2021-02-16] MEDS: Losartan 50 MG Tab PO SCH (08:46)
[2021-02-16] MEDS: Multivitamins,Therapeutic Tab PO SCH (08:46)
[2021-02-16] MEDS: Formoterol/Mometasone 100-5 MCG 8.8 GM Inhaler IH SCH ×2 (08:47→20:58)
[2021-02-16] MEDS: Enoxaparin 40 MG/0.4 ML Syringe SUBCUT SCH (08:47)
[2021-02-16] MEDS: Nicotine 7 MG/24 Hr Patch TRDERM SCH (08:48)
[2021-02-16] MEDS: Tiotropium Inhaler 18 MCG Inhalation Powder Cap Kit of 5 INH SCH (08:51)
[2021-02-16] MEDS: Verapamil 180 MG Tab.ER PO SCH (20:59)
[2021-02-16] MEDS: Zolpidem 5 MG Tab PO PRN (20:59)
[2021-02-16] MEDS: atorvaSTATin 20 MG Tab PO SCH (20:59)
[2021-02-17] MEDS: hydrOXYzine HCl 25 MG Tab PO PRN (00:44)
[2021-02-17] MEDS: Albuterol/Ipratropium 3.0-0.5 MG/3 ML Neb Soln NEB PRN (01:03)
[2021-02-17] MEDS: Insulin Lispro 100 Units/ML 3 ML Vial SUBCUT SCH ×4 (08:41→21:36)
[2021-02-17] MEDS: Ferrous Sulfate 325 MG Tab PO SCH ×2 (08:41→17:32)
[2021-02-17] MEDS: Famotidine 20 MG Tab PO SCH ×2 (08:42→17:32)
[2021-02-17] MEDS: Losartan 50 MG Tab PO SCH (08:42)
[2021-02-17] MEDS: Ascorbic Acid 500 MG Tab PO SCH (08:42)
[2021-02-17] MEDS: Nicotine 7 MG/24 Hr Patch TRDERM SCH (08:42)
[2021-02-17] MEDS: Celecoxib 100 MG Cap PO SCH (08:43)
[2021-02-17] MEDS: Allopurinol 300 MG Tab PO SCH (08:43)
[2021-02-17] MEDS: Multivitamins,Therapeutic Tab PO SCH (08:43)
[2021-02-17] MEDS: Allopurinol 100 MG Tab PO SCH (08:43)
[2021-02-17] MEDS: Enoxaparin 40 MG/0.4 ML Syringe SUBCUT SCH (08:45)
[2021-02-17] MEDS: Tiotropium Inhaler 18 MCG Inhalation Powder Cap Kit of 5 INH SCH (08:50)
[2021-02-17] MEDS: Formoterol/Mometasone 100-5 MCG 8.8 GM Inhaler IH SCH ×2 (08:50→21:36)
--- NOTE | 2021-02-17 09:26 | PCM.SN.2 ---
- Free Text/Narrative Note: START OF DOCTOR EMAMIS DISCHARGE SUMMARY Date of Admission: February 09, 2021 Date of Discharge: 9:23 AM on February 17, 2021 Primary Diagnosis: Status post swing bed status for deconditioning Secondary Diagnosis: Leukocytosis, chronic Iron deficiency anemia Obesity COPD, O2 dependent at 2 to 3 L/min Grade 1 diastolic dysfunction Hypertension Diabetes GERD Gout Hyperlipidemia Osteoarthritis Coronary artery disease, status post [place] Depression Degenerative disc disease Smoker Diverticulosis History of renal densities per CT scan on December, Degenerative joint disease Chronic kidney disease, baseline creatinine approximately 1.2 Consultations: None Condition on Discharge: Stable Disposition: The patient will be advised to follow-up with hematology/oncology 2 to 4 weeks post discharge for further evaluation of her chronic leukocytosis Patient will be advised to follow-up with her primary care physician or provider 7 to 10 days post discharge for posthospitalization evaluation. The patient will need to schedule bilateral renal MRI for her history of renal densities from her CT scan on December 2019 Discharge Medications: Verapamil 180 mg p.o. nightly Spiriva 18 mcg inhaled daily 16 patch 7 mg daily Multivitamin 1 tab p.o. daily Cozaar 100 mg p.o. daily Hydroxyzine 25 mg p.o. 3 times daily as needed unspecified reason Brio Ellipta: 100/25 m inhalation daily Ferrous sulfate 3.5 mg p.o. twice daily Pepcid 40 mg p.o. twice daily Celebrex 100 mg p.o. daily Lipitor 20 mg p.o. nightly Vitamin C 500 mg p.o. daily DuoNeb every 4 hours as needed shortness of breath or wheeze Allopurinol 400 mg p.o. daily Proventil HFA: 90 mg/spray: 2 puffs every 8 hours as needed shortness breath or wheeze END OF DOCTOR EMAMIS DISCHARGE SUMMARY
[2021-02-17] MEDS: Verapamil 180 MG Tab.ER PO SCH (21:30)
[2021-02-17] MEDS: Zolpidem 5 MG Tab PO PRN (21:30)
[2021-02-17] MEDS: atorvaSTATin 20 MG Tab PO SCH (21:30)
[2021-02-18] MEDS: Albuterol/Ipratropium 3.0-0.5 MG/3 ML Neb Soln NEB PRN ×2 (02:07→23:29)
[2021-02-18] MEDS: hydrOXYzine HCl 25 MG Tab PO PRN ×2 (02:09→23:41)
[2021-02-18] MEDS: Acetaminophen 325 MG Tab PO PRN (03:21)
[2021-02-18] MEDS: Insulin Lispro 100 Units/ML 3 ML Vial SUBCUT SCH ×4 (08:53→21:01)
[2021-02-18] MEDS: Allopurinol 100 MG Tab PO SCH (08:54)
[2021-02-18] MEDS: Celecoxib 100 MG Cap PO SCH (08:54)
[2021-02-18] MEDS: Allopurinol 300 MG Tab PO SCH (08:54)
[2021-02-18] MEDS: Ferrous Sulfate 325 MG Tab PO SCH ×2 (08:54→18:15)
[2021-02-18] MEDS: Ascorbic Acid 500 MG Tab PO SCH (08:54)
[2021-02-18] MEDS: Enoxaparin 40 MG/0.4 ML Syringe SUBCUT SCH (08:54)
[2021-02-18] MEDS: Losartan 50 MG Tab PO SCH (08:55)
[2021-02-18] MEDS: Multivitamins,Therapeutic Tab PO SCH (08:55)
[2021-02-18] MEDS: Nicotine 7 MG/24 Hr Patch TRDERM SCH (08:56)
[2021-02-18] MEDS: Tiotropium Inhaler 18 MCG Inhalation Powder Cap Kit of 5 INH SCH (09:01)
[2021-02-18] MEDS: Formoterol/Mometasone 100-5 MCG 8.8 GM Inhaler IH SCH ×2 (09:01→20:40)
[2021-02-18] MEDS: Famotidine 20 MG Tab PO SCH ×2 (11:20→18:15)
[2021-02-18] MEDS ORDERED: Al and Mag Hydroxide/Diphenhydramine/Lidocaine/Simethicone 237 ML Bottle PO PRN (18:09)
[2021-02-18] MEDS: Verapamil 180 MG Tab.ER PO SCH (20:40)
[2021-02-18] MEDS: atorvaSTATin 20 MG Tab PO SCH (20:40)
[2021-02-18] MEDS: Zolpidem 5 MG Tab PO PRN (22:19)
[2021-02-19] MEDS: Acetaminophen 325 MG Tab PO PRN (04:23)
[2021-02-19] MEDS: Insulin Lispro 100 Units/ML 3 ML Vial SUBCUT SCH (09:17)
[2021-02-19] MEDS: Formoterol/Mometasone 100-5 MCG 8.8 GM Inhaler IH SCH (09:17)
[2021-02-19] MEDS: Tiotropium Inhaler 18 MCG Inhalation Powder Cap Kit of 5 INH SCH (09:17)
[2021-02-19] MEDS: Enoxaparin 40 MG/0.4 ML Syringe SUBCUT SCH (09:18)
[2021-02-19] MEDS: Nicotine 7 MG/24 Hr Patch TRDERM SCH (09:19)
[2021-02-19] MEDS: Ascorbic Acid 500 MG Tab PO SCH (09:19)
[2021-02-19] MEDS: Ferrous Sulfate 325 MG Tab PO SCH (09:19)
[2021-02-19] MEDS: Multivitamins,Therapeutic Tab PO SCH (09:20)
[2021-02-19] MEDS: Allopurinol 300 MG Tab PO SCH (09:20)
[2021-02-19] MEDS: Allopurinol 100 MG Tab PO SCH (09:20)
[2021-02-19] MEDS: Celecoxib 100 MG Cap PO SCH (09:21)
[2021-02-19] MEDS: Losartan 50 MG Tab PO SCH (09:21)
[2021-02-19] MEDS: Famotidine 20 MG Tab PO SCH (09:21)
--- NOTE | 2021-02-19 10:46 | PCM.SN.2 ---
- Free Text/Narrative Note: START OF DOCTOR EMAMIS DISCHARGE SUMMARY Date of Admission: February 09, 2021 Date of Discharge: 10:46 AM on February 19, 2021 Primary Diagnosis: Status post swing bed status for deconditioning Secondary Diagnosis: Leukocytosis, chronic Iron deficiency anemia Obesity COPD, O2 dependent at 2 to 3 L/min Grade 1 diastolic dysfunction Hypertension Diabetes GERD Gout Hyperlipidemia Osteoarthritis Coronary artery disease, status post [place] Depression Degenerative disc disease Smoker Diverticulosis History of renal densities per CT scan on December, Degenerative joint disease Chronic kidney disease, baseline creatinine approximately 1.2 Consultations: None Condition on Discharge: Stable Disposition: The patient will be advised to follow-up with hematology/oncology 2 to 4 weeks post discharge for further evaluation of her chronic leukocytosis Patient will be advised to follow-up with her primary care physician or provider 7 to 10 days post discharge for posthospitalization evaluation. The patient will need to schedule bilateral renal MRI for her history of renal densities from her CT scan on December 2019 Discharge Medications: Verapamil 180 mg p.o. nightly Spiriva 18 mcg inhaled daily 16 patch 7 mg daily Multivitamin 1 tab p.o. daily Cozaar 100 mg p.o. daily Hydroxyzine 25 mg p.o. 3 times daily as needed unspecified reason Brio Ellipta: 100/25 m inhalation daily Ferrous sulfate 3.5 mg p.o. twice daily Pepcid 40 mg p.o. twice daily Celebrex 100 mg p.o. daily Lipitor 20 mg p.o. nightly Vitamin C 500 mg p.o. daily DuoNeb every 4 hours as needed shortness of breath or wheeze Allopurinol 400 mg p.o. daily Proventil HFA: 90 mg/spray: 2 puffs every 8 hours as needed shortness breath or wheeze END OF DOCTOR EMAMIS DISCHARGE SUMMARY
== END 2021-02-19 11:35 | DRG 948 ==
LOC: DL.MS 13:48
PROVIDERS: ADMIT Internal Medicine; ATTEND Internal Medicine
DX: R53.81 Other malaise (principal); I50.32 Chronic diastolic (congestive) heart failure; I13.0 Hypertensive heart and chronic kidney disease with heart failure and stage 1 through stage 4 chronic kidney disease, or unspecified chronic kidney disease; J96.11 Chronic respiratory failure with hypoxia; D50.9 Iron deficiency anemia, unspecified; D72.829 Elevated white blood cell count, unspecified; E66.9 Obesity, unspecified; J44.9 Chronic obstructive pulmonary disease, unspecified; K21.9 Gastro-esophageal reflux disease without esophagitis; M10.9 Gout, unspecified; M19.90 Unspecified osteoarthritis, unspecified site; I25.10 Atherosclerotic heart disease of native coronary artery without angina pectoris; F32.9 Major depressive disorder, single episode, unspecified; F17.200 Nicotine dependence, unspecified, uncomplicated; N18.9 Chronic kidney disease, unspecified; E11.22 Type 2 diabetes mellitus with diabetic chronic kidney disease; H54.7 Unspecified visual loss; E78.00 Pure hypercholesterolemia, unspecified; Z96.619 Presence of unspecified artificial shoulder joint; Z99.81 Dependence on supplemental oxygen; I25.2 Old myocardial infarction; Z88.5 Allergy status to narcotic agent; Z88.0 Allergy status to penicillin; Z91.048 Other nonmedicinal substance allergy status; Z91.09 Other allergy status, other than to drugs and biological substances; Z88.2 Allergy status to sulfonamides; Z88.1 Allergy status to other antibiotic agents; Z79.899 Other long term (current) drug therapy; Z90.710 Acquired absence of both cervix and uterus
CPT/HCPCS: 36415; 80048; 80053; 82272; 82728; 82947; 83540; 83550; 85025; 94640; 97110-GP; 97161-GP; 97166-GO; 97530-GO; A9270-GY; J1650; J1815-GY; J7030; J7620-GY

== ENCOUNTER 2021-05-05 11:43 | Emergency (ER) | payer MEDICARE, MEDICAID ==
--- NOTE | 2021-05-05 11:49 | EDM.PDOC ---
ED HPI GENERAL MEDICAL PROBLEM - General Chief Complaint: Gastrointestinal Problem Time Seen by Provider: 05/05/21 11:40 Source of Information: Reports: Patient, Residential Records History Limitations: Reports: No Limitations - History of Present Illness INITIAL COMMENTS - FREE TEXT/NARRATIVE: This 71 yo female patient was brought to the ED by the [facility] due to bloody stools for the past 2 days. The patient reports she has been noticing blood, but has no pain at this time. The patient reports she has had a previous similar episode, but the bleeding stopped on it's own. The patient reports she did have a colonoscopy about 6 years ago and had several benign polyps removed. The patient reports intermittent increased shortness of breath which does not seem to be worse over the past 2 days. Onset Date: 05/04/21 Duration: Constant Location: Reports: Other Quality: Reports: Other Severity: Moderate Improves with: Reports: None Worsens with: Reports: None Context: Reports: Other Associated Symptoms: Reports: No Other Symptoms - Related Data Allergies Allergy/AdvReac Type Severity Reaction Status Date / Time codeine Allergy Stomach Verified 05/05/21 11:31 Upset Penicillins Allergy Rash Verified 05/05/21 11:31 povidone-iodine Allergy Rash Verified 05/05/21 11:31 [From Betadine] soap [From Betadine] Allergy Rash Verified 05/05/21 11:31 Sulfa (Sulfonamide Allergy Hives Verified 05/05/21 11:31 Antibiotics) tetracycline Allergy Cannot Verified 05/05/21 11:31 Remember Home Meds: Home Meds Albuterol [Ventolin HFA] 2 puff INH Q8HR PRN 07/25/18 [History] Famotidine [Pepcid] 40 mg PO BIDMEALS 07/25/18 [History] Tiotropium [Spiriva HandiHaler] 18 mcg INH DAILY 07/25/18 [History] allopurinoL [Zyloprim] 300 mg PO DAILY 07/25/18 [History] atorvaSTATin [Lipitor] 20 mg PO BEDTIME 07/25/18 [History] Celecoxib 100 mg PO DAILY 10/21/20 [History] Verapamil HCl [Verapamil Sr] 180 mg PO BEDTIME 10/21/20 [History] allopurinoL [Zyloprim] 100 mg PO DAILY 10/21/20 [History] Albuterol/Ipratropium [DuoNeb 3.0-0.5 MG/3 ML] 3 ml NEB Q4HRRT PRN 02/09/21 [History] Fluticasone/Vilanterol [Breo Ellipta 100-25 MCG Inhalation Kit] 1 puff INH DAILY 02/09/21 [History] Losartan [Cozaar] 100 mg PO DAILY 02/09/21 [History] Multivitamin 1 tab PO DAILY 02/09/21 [History] Nicotine [Nicotine Patch] 7 mg TD DAILY 02/09/21 [History] hydrOXYzine HCL [hydrOXYzine] 25 mg PO TID PRN 02/09/21 [History] Ascorbic Acid [Vitamin C] 500 mg PO DAILY 30 Days #30 tablet 02/17/21 [Rx] Ferrous Sulfate 325 mg PO BIDMEALS 30 Days #60 tablet 02/17/21 [Rx] Past Medical History HEENT History: Reports: Impaired Vision Other HEENT History: wears glasses Cardiovascular History: Reports: Heart Failure, High Cholesterol, Hypertension, IN, SOB on Exertion Respiratory History: Reports: Asthma, COPD, SOB, Other (See Below) Gastrointestinal History: Reports: GERD Genitourinary History: Reports: Urinary Incontinence 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: Musculoskeletal History: Reports: Arthritis Neurological History: Reports: None Psychiatric History: Reports: None Endocrine/Metabolic History: Reports: Obesity/BMI 30+ Hematologic History: Reports: None Immunologic History: Reports: None Oncologic (Cancer) History: Reports: Malignant Melanoma Dermatologic History: Reports: None - Infectious Disease History Infectious Disease History: Reports: Chicken Pox, Measles, Mumps - Past Surgical History Head Surgeries/Procedures: Reports: None HEENT Surgical History: Reports: None Other HEENT Surgeries/Procedures: glasses Cardiovascular Surgical History: Reports: None Respiratory Surgical History: Reports: None GI Surgical History: Reports: Appendectomy, Colonoscopy Female Surgical History: Reports: Hysterectomy, Tubal Ligation, Other (See Below) Other Female Surgeries/Procedures: bladder repair Endocrine Surgical History: Reports: None Neurological Surgical History: Reports: None Musculoskeletal Surgical History: Reports: Shoulder Replacement Social & Family History - Family History Family Medical History: No Pertinent Family History - Caffeine Use Caffeine Use: Reports: Coffee, Soda - Living Situation & Occupation Occupation: Retired ED ROS GENERAL - Review of Systems Review Of Systems: Comprehensive ROS is negative, except as noted in HPI. ED EXAM, GI/ABD - Physical Exam Exam: See Below Exam Limited By: No Limitations General Appearance: Alert, WD/WN, Mild Distress, Obese Eyes: Bilateral: Normal Appearance, EOMI Ears: Normal External Exam, Normal Canal, Hearing Grossly Normal, Normal TMs Nose: Normal Inspection, Normal Mucosa, No Blood Throat/Mouth: Normal Inspection, Normal Lips, Normal Teeth, Normal Gums, Normal Oropharynx, Normal Voice, No Airway Compromise Head: Atraumatic, Normocephalic Neck: Normal Inspection, Supple, Non-Tender, Full Range of Motion Respiratory/Chest: No Respiratory Distress, Lungs Clear, Normal Breath Sounds, No Accessory Muscle Use, Chest Non-Tender Cardiovascular: Normal Peripheral Pulses, Regular Rate, Rhythm, No Edema, No Gallop, No JVD, No Murmur, No Rub GI/Abdominal Exam: Normal Bowel Sounds, Soft, Non-Tender, No Organomegaly, No Distention, No Abnormal Bruit, No Mass, Pelvis Stable (Female) Exam: Deferred Rectal (Female) Exam: Normal Rectal Tone, Heme + Stool Back Exam: Normal Inspection, Full Range of Motion, NT Extremities: Normal Inspection, Normal Range of Motion, Non-Tender, Normal Capillary Refill, No Pedal Edema Neurological: Alert, Oriented, CN II-XII Intact, Normal Cognition, Normal Gait, Normal Reflexes, No Motor/Sensory Deficits Psychiatric: Normal Affect, Normal Mood Skin Exam: Warm, Dry, Intact, Normal Color, No Rash Lymphatic: No Adenopathy Course - Vital Signs Last Recorded V/S: Last Vital Signs Temp 97.5 F 05/05/21 11:27 Pulse 109 H 05/05/21 11:27 Resp 20 05/05/21 11:27 BP 92/52 L 05/05/21 11:27 Pulse Ox 95 05/05/21 11:27 - Orders/Labs/Meds Labs: Laboratory Tests 05/05/21 05/05/21 05/05/21 Range/Units 13:13 13:13 13:13 WBC 15.3 H (5.0-10.0) 10^3/uL RBC 3.04 L (4.2-5.4) 10^6/uL Hgb 7.1 L D (12.0-16.0) g/dL Hct 24.3 L (37.0-47.0) % MCV 79.9 L D (80-100) fL MCH 23.4 L (27.0-34.0) pg MCHC 29.2 L (33.0-35.0) g/dL Plt Count 257 D (150-450) 10^3/uL Neut % (Auto) 69.7 (42.2-75.2) % Lymph % (Auto) 21.3 (20.5-50.1) % [place] % (Auto) 7.0 (2-8) % Eos % (Auto) 1.8 (1.0-3.0) % Baso % (Auto) 0.2 (0.0-1.0) % Add Manual Diff Yes Neutrophils % (Manual) 79 H (42-75) % Lymphocytes % (Manual) 15 L (20-50) % Monocytes % (Manual) 4 (2-8) % Eosinophils % (Manual) 2 (1-3) % Nucleated RBCs 4 /100WBC Hypochromasia 2+ moderate Anisocytosis 1+ slight Microcytosis 1+ slight PT 10.4 (9.0-12.0) SEC INR 1.0 (0.9-1.2) Sodium 143 (136-145) mmol/L Potassium 3.7 (3.5-5.1) mmol/L Chloride 106 (98-107) mmol/L Carbon Dioxide 29 (21-32) mmol/L Anion Gap 11.7 (7-13) mEq/L BUN 34 H (7-18) mg/dL Creatinine 1.11 H (0.55-1.02) mg/dL Est Cr Clr Drug Dosing 36.23 mL/min Estimated GFR (MDRD) 59 BUN/Creatinine Ratio 30.6 (No establ ref range) Glucose 114 H (70-99) mg/dL Calcium 8.3 L (8.5-10.1) mg/dL Total Bilirubin 0.3 (0.2-1.0) mg/dL AST 16 (15-37) U/L ALT 17 (14-59) U/L Alkaline Phosphatase 91 (46-116) U/L Total Protein 6.6 (6.4-8.2) g/dL Albumin 2.6 L (3.4-5.0) g/dL Globulin 4.0 Albumin/Globulin Ratio 0.65 Departure - Departure Time of Disposition: 14:12 Disposition: Home, Self-Care 01 Condition: Fair Clinical Impression: Acute GI bleeding - Discharge Information *PRESCRIPTION DRUG MONITORING PROGRAM REVIEWED*: Not Applicable *COPY OF PRESCRIPTION DRUG MONITORING REPORT IN PATIENT SONJA: Not Applicable Forms: Interfacility Transfer EMTALA Care Plan Goals: Discussed the patient's history, examination and lab results with Dr. Mac ([facility]). Dr. Mac accepted the patient for continued evaluation and management as an inpatient at [facility]. The patient will be transported by [facility]. Sepsis Event Note (ED) - Evaluation Sepsis Screening Result: No Definite Risk - Focused Exam Vital Signs: Vital Signs Temp Pulse Resp BP Pulse Ox 05/05/21 11:27 97.5 F 109 H 20 92/52 L 95
[2021-05-05 13:38] LABS: ANION GAP 11.7 mEq/L (7-13)
== END 2021-05-05 14:55 ==
LOC: DL.ED 11:43
DX: K92.2 Gastrointestinal hemorrhage, unspecified (principal); I11.0 Hypertensive heart disease with heart failure; I50.9 Heart failure, unspecified; I25.2 Old myocardial infarction; J44.9 Chronic obstructive pulmonary disease, unspecified; K21.9 Gastro-esophageal reflux disease without esophagitis; E66.9 Obesity, unspecified; Z68.30 Body mass index [BMI] 30.0-30.9, adult; Z88.0 Allergy status to penicillin; Z88.1 Allergy status to other antibiotic agents; Z88.2 Allergy status to sulfonamides; Z88.5 Allergy status to narcotic agent; Z79.899 Other long term (current) drug therapy
CPT/HCPCS: 36415; 80053; 82272; 85025; 85610; 99284; 99285

== ENCOUNTER 2021-05-23 10:54 | Emergency (ER) | payer MEDICARE, MEDICAID ==
--- NOTE | 2021-05-23 09:08 | PCM.SN.2 ---
- Free Text/Narrative Note: 71 y/o female, resident at [facility]. Nsg staff notes second episode of dark stools with blood. Resident was admitted 05/05-05/19/[address] [facility] for a lower GI bleed, thought to be diverticular. Was transfused at that time. Nursing staff unable to draw blood for labs. Plan: Will send to ED for evaluation of Hgb/Hct and potential need for re- hospitalization/transfer due to recurrent GI bleed.
[2021-05-23] MEDS ORDERED: Sodium Chloride 0.9% 10 ML Syringe FLUSH PRN (11:40)
[2021-05-23 12:41] LABS: ANION GAP 14.5 mEq/L (7-13); CHLORIDE,CL 105 mmol/L (98-107); SODIUM,NA 144 mmol/L (136-145)
--- NOTE | 2021-05-23 13:34 | CT ---
PROCEDURE INFORMATION: Exam: CT Abdomen And Pelvis Without Contrast Exam date and time: 05/23/2021 12:55 PM Age: 71 years old Clinical indication: Abdominal pain; Localized; Lower; Patient HX: History of gi bleed, contrast allergy; Additional info: Low abdominal pain, bloody stool, wbc 22,600 TECHNIQUE: Imaging protocol: Computed tomography of the abdomen and pelvis without contrast. Radiation optimization: All CT scans at this facility use at least one of these dose optimization techniques: automated exposure control; mA and/or kV adjustment per patient size (includes targeted exams where dose is matched to clinical indication); or iterative reconstruction. COMPARISON: No relevant prior studies available. FINDINGS: Lungs: There is patchy density within the lower lobes most likely atelectasis. Pneumonia and aspiration also possible but less likely. Liver: Normal. No mass. Gallbladder and bile ducts: Normal. No calcified stones. No ductal dilation. Pancreas: Normal. No ductal dilation. Spleen: Normal. No splenomegaly. Adrenal glands: Normal. No mass. Kidneys and ureters: Possible solid lesion arising from the upper pole of the right kidney. This measures approximately 2.1 x 2.0 cm in size. Second lesion with similar appearance is present in the midportion of left kidney measuring up to 1.7 cm in size. Third lesion that is not purely cystic is identified within the lower pole right kidney measuring up to 2.3 cm in size. Fourth lesion which is also not purely cystic isthmus measuring approximately 1.9 cm in size in the lower pole right kidney. These could represent mildly complex renal cysts with milk of calcium or hemorrhage identified, however, solid neoplasm is difficult to exclude. Correlation with ultrasound, contrast enhanced CT scan or contrast-enhanced MRI may be useful for more definitive characterization. Previous study performed on January 28, 2020 is being recalled for comparison purposes. If this becomes available, an addendum to this report will be performed. Stomach and bowel: The stomach and small bowel are decompressed. No bowel obstruction identified. Numerous colonic diverticula are present without active diverticulitis currently identified. Appendix: No evidence of appendicitis. Intraperitoneal space: Unremarkable. No free air. No significant fluid collection. Vasculature: Moderate grade coronary atherosclerosis is noted. Lymph nodes: Unremarkable. No enlarged lymph nodes. Urinary bladder: Unremarkable as visualized. Reproductive: Unremarkable as visualized. Bones/joints: Postsurgical changes are noted within the lower lumbar spine compatible with multilevel fusion and posterior decompression. A mild compression deformity is present involving the L2 vertebral body. This is age indeterminate. Soft tissues: Small anterior abdominal wall/periumbilical hernia is identified. No bowel in the hernia sac. IMPRESSION: 1. Diverticulosis without evidence for active diverticulitis. 2. Multiple indeterminate renal lesions. These do not appear to represent simple cysts on noncontrast CT imaging. Correlation with prior imaging studies suggested. Prior study from January 28, 2020 is being requested from archive. If this becomes available, an addendum to this report will be performed. 3. Age indeterminate L2 compression fracture with postoperative change within the lower lumbar spine. COMMENTS: Consistent with the [employer]'s Incidental Findings Committee white paper (J Am Brandon Radiol 2018): Any incidental renal lesion less than 1 cm or classified as too small to characterize, or any incidental cystic renal lesion characterized as simple-appearing, is likely benign. No follow-up imaging is recommended for these lesions per consensus recommendations based on imaging criteria.
[2021-05-23] MEDS ORDERED: Levofloxacin 500 MG Tab PO ONE (13:49)
--- NOTE | 2021-05-23 13:54 | EDM.PDOC ---
"Scribed by Gloria Huynh 05/23/21 [id number] for Jacky Ann MD ED HPI GENERAL MEDICAL PROBLEM - General Chief Complaint: Gastrointestinal Problem Time Seen by Provider: 05/23/21 11:43 Source of Information: Reports: Patient, EMS, EMS Notes Reviewed, Provider (Dr. Dawson), RN, RN Notes Reviewed History Limitations: Reports: No Limitations - History of Present Illness INITIAL COMMENTS - FREE TEXT/NARRATIVE: Patient arrives to ED by retirement staff with c/o that pt had red blood in stool yesterday. Recent discharge for GI bleed from [facility] on 05/17/21. Patient denies bloody stool today. Admits to suprapubic abdominal discomfort. No fever or chills. Denies lightheadedness, dizziness, chest pain or shortness of breath. Onset Date: 05/22/21 Duration: Getting Worse Location: Reports: Abdomen Quality: Reports: Ache Severity: Moderate Improves with: Reports: None Worsens with: Reports: None Associated Symptoms: Reports: No Other Symptoms Abdomen Pain Score (Numeric/FACES): 0 - Related Data Allergies Allergy/AdvReac Type Severity Reaction Status Date / Time codeine Allergy Stomach Verified 05/05/21 11:31 Upset Penicillins Allergy Rash Verified 05/05/21 11:31 povidone-iodine Allergy Rash Verified 05/05/21 11:31 [From Betadine] soap [From Betadine] Allergy Rash Verified 05/05/21 11:31 Sulfa (Sulfonamide Allergy Hives Verified 05/05/21 11:31 Antibiotics) tetracycline Allergy Cannot Verified 05/05/21 11:31 Remember Home Meds: Home Meds Albuterol [Ventolin HFA] 2 puff INH Q8HR PRN 07/25/18 [History] Famotidine [Pepcid] 40 mg PO BIDMEALS 07/25/18 [History] Tiotropium [Spiriva HandiHaler] 18 mcg INH DAILY 07/25/18 [History] allopurinoL [Zyloprim] 300 mg PO DAILY 07/25/18 [History] atorvaSTATin [Lipitor] 20 mg PO BEDTIME 07/25/18 [History] Celecoxib 100 mg PO DAILY 10/21/20 [History] Verapamil HCl [Verapamil Sr] 180 mg PO BEDTIME 10/21/20 [History] allopurinoL [Zyloprim] 100 mg PO DAILY 10/21/20 [History] Albuterol/Ipratropium [DuoNeb 3.0-0.5 MG/3 ML] 3 ml NEB Q4HRRT PRN 02/09/21 [History] Fluticasone/Vilanterol [Breo Ellipta 100-25 MCG Inhalation Kit] 1 puff INH DAILY 02/09/21 [History] Losartan [Cozaar] 100 mg PO DAILY 02/09/21 [History] Multivitamin 1 tab PO DAILY 02/09/21 [History] Nicotine [Nicotine Patch] 7 mg TD DAILY 02/09/21 [History] hydrOXYzine HCL [hydrOXYzine] 25 mg PO TID PRN 02/09/21 [History] Ascorbic Acid [Vitamin C] 500 mg PO DAILY 30 Days #30 tablet 02/17/21 [Rx] Ferrous Sulfate 325 mg PO BIDMEALS 30 Days #60 tablet 02/17/21 [Rx] Past Medical History HEENT History: Reports: Impaired Vision Other HEENT History: wears glasses Cardiovascular History: Reports: Heart Failure, High Cholesterol, Hypertension, [place], SOB on Exertion Respiratory History: Reports: Asthma, COPD, SOB, Other (See Below) Gastrointestinal History: Reports: GERD Genitourinary History: Reports: Urinary Incontinence 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: Musculoskeletal History: Reports: Arthritis Neurological History: Reports: None Psychiatric History: Reports: None Endocrine/Metabolic History: Reports: Obesity/BMI 30+ Hematologic History: Reports: None Immunologic History: Reports: None Oncologic (Cancer) History: Reports: Malignant Melanoma Dermatologic History: Reports: None - Infectious Disease History Infectious Disease History: Reports: Chicken Pox, Measles, Mumps - Past Surgical History Head Surgeries/Procedures: Reports: None HEENT Surgical History: Reports: None Other HEENT Surgeries/Procedures: glasses Cardiovascular Surgical History: Reports: None Respiratory Surgical History: Reports: None GI Surgical History: Reports: Appendectomy, Colonoscopy Female Surgical History: Reports: Hysterectomy, Tubal Ligation, Other (See Below) Other Female Surgeries/Procedures: bladder repair Endocrine Surgical History: Reports: None Neurological Surgical History: Reports: None Musculoskeletal Surgical History: Reports: Shoulder Replacement Social & Family History - Family History Family Medical History: No Pertinent Family History - Caffeine Use Caffeine Use: Reports: Coffee - Living Situation & Occupation Occupation: Retired ED ROS GENERAL - Review of Systems Review Of Systems: Comprehensive ROS is negative, except as noted in HPI. ED EXAM, GI/ABD - Physical Exam Exam: See Below Exam Limited By: No Limitations General Appearance: Alert, No Apparent Distress, Obese Eyes: Bilateral: Normal Appearance Ears: Normal External Exam Nose: Normal Inspection, No Blood Throat/Mouth: Normal Inspection, Normal Lips, Normal Voice, No Airway Compromise Head: Atraumatic, Normocephalic Neck: Normal Inspection, Full Range of Motion Respiratory/Chest: No Respiratory Distress, No Accessory Muscle Use, Decreased Breath Sounds, Other (Coarse breath sounds throughout B/L) Cardiovascular: Normal Peripheral Pulses, Regular Rate, Rhythm, No Edema GI/Abdominal Exam: Normal Bowel Sounds, Soft, Tender (Mild suprapubic tenderness). No: Guarding, Rigid, Rebound (Female) Exam: Deferred Rectal (Female) Exam: Deferred Extremities: Normal Inspection, Normal Range of Motion, Non-Tender, Normal Capillary Refill Neurological: Alert, Oriented, CN II-XII Intact, Normal Cognition, No Motor/Sensory Deficits Psychiatric: Anxious, Depressed Mood, Tearful Skin Exam: Warm, Dry, Intact, Normal Color, No Rash Course - Vital Signs Last Recorded V/S: Last Vital Signs Temp 97 F 05/23/21 12:40 Pulse 84 05/23/21 12:40 Resp 20 05/23/21 12:40 BP 103/92 H 05/23/21 12:40 Pulse Ox 96 05/23/21 12:40 - Orders/Labs/Meds Orders: Active Orders 24 hr Category Date Time Status Peripheral IV Care [RC] . DIRECTED Care 05/23/21 11:40 Active CULTURE URINE [RM] Stat Lab 05/23/21 12:39 Received Peripheral IV Insertion Adult [OM.PC] Stat Oth 05/23/21 11:40 Ordered Labs: Laboratory Tests 05/23/21 05/23/21 05/23/21 Range/Units 12:00 12:00 12:15 WBC 22.6 H (5.0-10.0) 10^3/uL RBC 4.83 (4.2-5.4) 10^6/uL Hgb 12.2 D (12.0-16.0) g/dL Hct 39.5 (37.0-47.0) % MCV 81.8 (80-100) fL MCH 25.3 L (27.0-34.0) pg MCHC 30.9 L (33.0-35.0) g/dL Plt Count 345 D (150-450) 10^3/uL Neut % (Auto) 75.3 H (42.2-75.2) % Lymph % (Auto) 15.7 L (20.5-50.1) % [place] % (Auto) 7.7 (2-8) % Eos % (Auto) 1.2 (1.0-3.0) % Baso % (Auto) 0.1 (0.0-1.0) % PT 10.0 (9.0-12.0) SEC INR 1.0 (0.9-1.2) APTT 20.0 L (22.0-34.0) SEC Sodium 144 (136-145) mmol/L Potassium 4.5 (3.5-5.1) mmol/L Chloride 105 (98-107) mmol/L Carbon Dioxide 29 (21-32) mmol/L Anion Gap 14.5 H (7-13) mEq/L BUN 34 H (7-18) mg/dL Creatinine 1.39 H (0.55-1.02) mg/dL Est Cr Clr Drug Dosing TNP Estimated GFR (MDRD) 45 BUN/Creatinine Ratio 24.5 (No establ ref range) Glucose 123 H (70-99) mg/dL Calcium 8.4 L (8.5-10.1) mg/dL Total Bilirubin 0.4 (0.2-1.0) mg/dL AST 18 (15-37) U/L ALT 23 (14-59) U/L Alkaline Phosphatase 115 (46-116) U/L Total Protein 6.9 (6.4-8.2) g/dL Albumin 2.9 L (3.4-5.0) g/dL Globulin 4.0 Albumin/Globulin Ratio 0.73 Urine Color (YELLOW) Urine Appearance (CLEAR) Urine pH (5.0-9.0) Ur Specific [place] (1.005-1.030) Urine Protein (NEGATIVE) Urine Glucose (UA) (NEGATIVE) Urine Ketones (NEGATIVE) Urine Occult Blood (NEGATIVE) Urine Nitrite (NEGATIVE) Urine Bilirubin (NEGATIVE) Urine Urobilinogen (0.2-1.0) mg/dL Ur Leukocyte Esterase (NEGATIVE) Urine RBC (0-5) /HPF Urine WBC (0-5/HPF) /HPF Ur Epithelial Cells (NOT SEEN) /HPF Urine Bacteria (0-FEW/HPF) /HPF 05/23/21 Range/Units 12:39 WBC (5.0-10.0) 10^3/uL RBC (4.2-5.4) 10^6/uL Hgb (12.0-16.0) g/dL Hct (37.0-47.0) % MCV (80-100) fL MCH (27.0-34.0) pg MCHC (33.0-35.0) g/dL Plt Count (150-450) 10^3/uL Neut % (Auto) (42.2-75.2) % Lymph % (Auto) (20.5-50.1) % [place] % (Auto) (2-8) % Eos % (Auto) (1.0-3.0) % Baso % (Auto) (0.0-1.0) % PT (9.0-12.0) SEC INR (0.9-1.2) APTT (22.0-34.0) SEC Sodium (136-145) mmol/L Potassium (3.5-5.1) mmol/L Chloride (98-107) mmol/L Carbon Dioxide (21-32) mmol/L Anion Gap (7-13) mEq/L BUN (7-18) mg/dL Creatinine (0.55-1.02) mg/dL Est Cr Clr Drug Dosing Estimated GFR (MDRD) BUN/Creatinine Ratio (No establ ref range) Glucose (70-99) mg/dL Calcium (8.5-10.1) mg/dL Total Bilirubin (0.2-1.0) mg/dL AST (15-37) U/L ALT (14-59) U/L Alkaline Phosphatase (46-116) U/L Total Protein (6.4-8.2) g/dL Albumin (3.4-5.0) g/dL Globulin Albumin/Globulin Ratio Urine Color Yellow (YELLOW) Urine Appearance Clear (CLEAR) Urine pH 6.5 (5.0-9.0) Ur Specific [place] 1.015 (1.005-1.030) Urine Protein Negative (NEGATIVE) Urine Glucose (UA) Negative (NEGATIVE) Urine Ketones Negative (NEGATIVE) Urine Occult Blood Trace-intact H (NEGATIVE) Urine Nitrite Negative (NEGATIVE) Urine Bilirubin Negative (NEGATIVE) Urine Urobilinogen 0.2 (0.2-1.0) mg/dL Ur Leukocyte Esterase Moderate H (NEGATIVE) Urine RBC 0-5 (0-5) /HPF Urine WBC 30-40 H (0-5/HPF) /HPF Ur Epithelial Cells Few (NOT SEEN) /HPF Urine Bacteria Many H (0-FEW/HPF) /HPF Meds: Medications Discontinued Medications Generic Name Dose Route Start Last Admin Trade Name Freq PRN Reason Stop Dose Admin Levofloxacin 750 mg 05/23/21 13:49 Levofloxacin 500 Mg Tab PO 05/23/21 13:50 ONETIME ONE Sodium Chloride 10 ml 05/23/21 11:40 Sodium Chloride 0.9% 10 Ml Syringe FLUSH ASDIRECTED PRN Keep Vein Open - Radiology Interpretation Free Text/Narrative:: [facility] Final Radiology Report Call: [phone] assistance Online chat: [email or web address] Name: SANCHEZ MORELOS Age: 71Years F Date: 05/23/2021 SSN: -- : [id number] Study: CT ABDOMEN PELVIS WO CONT Requesting Physician: JACKY ANN Images: [phone] Addl Studies: Provided Clinical History: Low abdominal pain, bloody stool, WBC 22,600 Contrast: Without Contrast Medium: Contrast Amount: Contrast Method: Page 1 of 2 PROCEDURE INFORMATION: Exam: CT Abdomen And Pelvis Without Contrast Exam date and time: 05/23/2021 12:55 PM Age: 71 years old Clinical indication: Abdominal pain; Localized; Lower; Patient HX: History of gi bleed, contrast allergy; Additional info: Low abdominal pain, bloody stool, wbc 22,600 TECHNIQUE: Imaging protocol: Computed tomography of the abdomen and pelvis without contrast. Radiation optimization: All CT scans at this facility use at least one of these dose optimization techniques: automated exposure control; mA and/or kV adjustment per patient size (includes targeted exams where dose is matched to clinical indication); or iterative reconstruction. COMPARISON: No relevant prior studies available. FINDINGS: Lungs: There is patchy density within the lower lobes most likely atelectasis. Pneumonia and aspiration also possible but less likely. Liver: Normal. No mass. Gallbladder and bile ducts: Normal. No calcified stones. No ductal dilation. Pancreas: Normal. No ductal dilation. Spleen: Normal. No splenomegaly. Adrenal glands: Normal. No mass. Kidneys and ureters: Possible solid lesion arising from the upper pole of the right kidney. This measures approximately 2.1 x 2.0 cm in size. Second lesion with similar appearance is present in the midportion of left kidney measuring up to 1.7 cm in size. Third lesion that is not purely cystic is identified within the lower pole right kidney measuring up to 2.3 cm in size. Fourth lesion which is also not purely cystic isthmus measuring approximately 1.9 cm in size in the lower pole right kidney. These could represent mildly complex renal cysts with milk of calcium or hemorrhage identified, SANCHEZ MORELOS | Final Radiology Report CONFIDENTIALITY STATEMENT This report is intended only for use by the referring physician, and only in accordance with law. If you received this in error, call [phone]. Page 2 of 2 however, solid neoplasm is difficult to exclude. Correlation with ultrasound, contrast enhanced CT scan or contrast-enhanced MRI may be useful for more definitive characterization. Previous study performed on January 28, 2020 is being recalled for comparison purposes. If this becomes available, an addendum to this report will be performed. Stomach and bowel: The stomach and small bowel are decompressed. No bowel obstruction identified. Numerous colonic diverticula are present without active diverticulitis currently identified. Appendix: No evidence of appendicitis. Intraperitoneal space: Unremarkable. No free air. No significant fluid collection. Vasculature: Moderate grade coronary atherosclerosis is noted. Lymph nodes: Unremarkable. No enlarged lymph nodes. Urinary bladder: Unremarkable as visualized. Reproductive: Unremarkable as visualized. Bones/joints: Postsurgical changes are noted within the lower lumbar spine compatible with multilevel fusion and posterior decompression. A mild compression deformity is present involving the L2 vertebral body. This is age indeterminate. Soft tissues: Small anterior abdominal wall/periumbilical hernia is identified. No bowel in the hernia sac. IMPRESSION: 1. Diverticulosis without evidence for active diverticulitis. 2. Multiple indeterminate renal lesions. These do not appear to represent simple cysts on noncontrast CT imaging. Correlation with prior imaging studies suggested. Prior study from January 28, 2020 is being requested from archive. If this becomes available, an addendum to this report will be performed. 3. Age indeterminate L2 compression fracture with postoperative change within the lower lumbar spine. COMMENTS: Consistent with the [employer]'s Incidental Findings Committee white paper (J Am Brandon Radiol 2018): Any incidental renal lesion less than 1 cm or classified as too small to characterize, or any incidental cystic renal lesion characterized as simple- appearing, is likely benign. No follow-up imaging is recommended for these lesions per consensus recommendations based on imaging criteria. Thank you for allowing us to participate in the care of your patient. Dictated and Authenticated by: Lucius Disla MD 05/23/2021 1:33 PM Central Time ([place] & [place]) Departure - Departure Time of Disposition: 13:51 (discharge bach to retirement with Dr. Dawson to provide addt'l orders.) Disposition: Home, Self-Care 01 Condition: Fair Clinical Impression: Chronic lower gastrointestinal bleeding, Bilateral kidney masses, Atelectasis of both lungs Urinary tract infection Qualifiers: Urinary tract infection type: site unspecified Hematuria presence: with hematuria Qualified Code(s): N39.0 - Urinary tract infection, site not specified; R31.9 - Hematuria, unspecified - Discharge Information *PRESCRIPTION DRUG MONITORING PROGRAM REVIEWED*: Not Applicable *COPY OF PRESCRIPTION DRUG MONITORING REPORT IN PATIENT SONJA: Not Applicable Instructions: Urinary Tract Infection, Adult, Cise-rs-Hyij, Gastrointestinal Bleeding, Renal Mass Referrals: Claudine Dawson MD [Primary Care Provider] - Forms: ED Department Discharge Additional Instructions: Follow up with Dr. Dawson for antibiotic treatment, and further evaluation of chronic rectal bleeding, and bilateral kidney masses. Sepsis Event Note (ED) - Focused Exam Vital Signs: Vital Signs Temp Pulse Resp BP Pulse Ox 05/23/21 12:40 97 F 84 20 103/92 H 96 - My Orders Last 24 Hours: My Active Orders 05/23/21 11:40 Peripheral IV Care [RC] . DIRECTED Peripheral IV Insertion Adult [OM.PC] Stat 05/23/21 12:39 CULTURE URINE [RM] Stat - Assessment/Plan Last 24 Hours: My Active Orders 05/23/21 11:40 Peripheral IV Care [RC] . DIRECTED Peripheral IV Insertion Adult [OM.PC] Stat 05/23/21 12:39 CULTURE URINE [RM] Stat I have read and agree with the documentation that has been completed regarding this visit. By signing this record, I attest that the documentation was c ompleted in my physical presence and is an accurate record of the encounter."
== END 2021-05-23 14:24 | disposition home or self-care (01) ==
LOC: DL.ED 10:54
DX: K92.2 Gastrointestinal hemorrhage, unspecified (principal); J98.11 Atelectasis; N39.0 Urinary tract infection, site not specified; R31.9 Hematuria, unspecified; I13.0 Hypertensive heart and chronic kidney disease with heart failure and stage 1 through stage 4 chronic kidney disease, or unspecified chronic kidney disease; N18.9 Chronic kidney disease, unspecified; I50.9 Heart failure, unspecified; D63.1 Anemia in chronic kidney disease; E78.00 Pure hypercholesterolemia, unspecified; N28.89 Other specified disorders of kidney and ureter; I25.2 Old myocardial infarction; E66.9 Obesity, unspecified; J44.9 Chronic obstructive pulmonary disease, unspecified; Z68.30 Body mass index [BMI] 30.0-30.9, adult; Z88.0 Allergy status to penicillin; Z88.5 Allergy status to narcotic agent; Z88.1 Allergy status to other antibiotic agents; Z91.048 Other nonmedicinal substance allergy status; Z88.2 Allergy status to sulfonamides
CPT/HCPCS: 36415; 74176; 80053; 81001; 82272; 85025; 85610; 85730; 87086; 87088; 87186; 99285; A9270

== ENCOUNTER 2021-06-01 16:30 | Emergency (ER) | payer MEDICARE, MEDICAID ==
--- NOTE | 2021-06-01 15:18 | EDM.PDOC ---
ED HPI GENERAL MEDICAL PROBLEM - General Chief Complaint: Respiratory Problem Stated Complaint: AMBU Time Seen by Provider: 06/01/21 15:20 Source of Information: Reports: Patient History Limitations: Reports: No Limitations - History of Present Illness INITIAL COMMENTS - FREE TEXT/NARRATIVE: This 71 yo female patient was brought to the ED by [facility] due to increased shortness of breath and decreased oxygen levels. While at the [place] [facility], the patient's oxygen level was 82% while on 2 lpm via [place]. The patient is normally on oxygen with her oxygen level in the low 90's. Onset: Today Duration: Constant Location: Reports: Chest Quality: Reports: Other Severity: Moderate Improves with: Reports: None Worsens with: Reports: None Context: Reports: Other Associated Symptoms: Reports: Shortness of Breath Back Pain Score (Numeric/FACES): 10 - Related Data Allergies Allergy/AdvReac Type Severity Reaction Status Date / Time codeine Allergy Stomach Verified 06/01/21 15:25 Upset Penicillins Allergy Rash Verified 06/01/21 15:25 povidone-iodine Allergy Rash Verified 06/01/21 15:25 [From Betadine] soap [From Betadine] Allergy Rash Verified 06/01/21 15:25 Sulfa (Sulfonamide Allergy Hives Verified 06/01/21 15:25 Antibiotics) tetracycline Allergy Cannot Verified 06/01/21 15:25 Remember Home Meds: Home Meds Albuterol [Ventolin HFA] 2 puff INH Q8HR PRN 07/25/18 [History] Verapamil HCl [Verapamil Sr] 180 mg PO BEDTIME 10/21/20 [History] Albuterol/Ipratropium [DuoNeb 3.0-0.5 MG/3 ML] 3 ml NEB Q4HRRT PRN 02/09/21 [History] Fluticasone/Vilanterol [Breo Ellipta 100-25 MCG Inhalation Kit] 1 puff INH DAILY 02/09/21 [History] Ferrous Sulfate 325 mg PO BIDMEALS 30 Days #60 tablet 02/17/21 [Rx] Budesonide [Pulmicort] 0.5 mg IH ASDIRECTED 06/01/21 [History] Furosemide [Lasix] 40 mg PO BID 06/01/21 [History] Insulin Isophane NPH, Human [NovoLIN N] 5 unit SQ BID 06/01/21 [History] Omeprazole 20 mg PO BID 06/01/21 [History] Umeclidinium Brm/Vilanterol Tr [Anoro Ellipta 62.5-25 MCG] 1 puff IH DAILY 06/01/21 [History] predniSONE [Prednisone] 40 mg PO DAILY 06/01/21 [History] sitaGLIPtin Phosphate [Januvia] 50 mg PO DAILY 06/01/21 [History] Past Medical History HEENT History: Reports: Impaired Vision Other HEENT History: wears glasses Cardiovascular History: Reports: Heart Failure, High Cholesterol, Hypertension, [place], SOB on Exertion Respiratory History: Reports: Asthma, COPD, SOB, Other (See Below) Gastrointestinal History: Reports: Diverticulosis, GERD Genitourinary History: Reports: Urinary Incontinence [employer] History: Reports: Musculoskeletal History: Reports: Arthritis Neurological History: Reports: None Psychiatric History: Reports: None Endocrine/Metabolic History: Reports: Obesity/BMI 30+ Hematologic History: Reports: None Immunologic History: Reports: None Oncologic (Cancer) History: Reports: Malignant Melanoma Dermatologic History: Reports: None - Infectious Disease History Infectious Disease History: Reports: Chicken Pox, Measles, Mumps - Past Surgical History Head Surgeries/Procedures: Reports: None HEENT Surgical History: Reports: None Other HEENT Surgeries/Procedures: glasses Cardiovascular Surgical History: Reports: None Respiratory Surgical History: Reports: None GI Surgical History: Reports: Appendectomy, Colonoscopy Female Surgical History: Reports: Hysterectomy, Tubal Ligation, Other (See Below) Other Female Surgeries/Procedures: bladder repair Endocrine Surgical History: Reports: None Neurological Surgical History: Reports: None Musculoskeletal Surgical History: Reports: Shoulder Replacement Social & Family History - Family History Family Medical History: No Pertinent Family History - Caffeine Use Caffeine Use: Reports: Coffee - Living Situation & Occupation Occupation: Retired ED ROS GENERAL - Review of Systems Review Of Systems: Comprehensive ROS is negative, except as noted in HPI. ED EXAM, GENERAL - Physical Exam Exam: See Below Exam Limited By: No Limitations General Appearance: Alert, WD/WN, Moderate Distress Eye Exam: Bilateral Eye: EOMI, Normal Inspection, PERRL Ears: Normal External Exam, Normal Canal, Hearing Grossly Normal, Normal TMs Nose: Normal Inspection, Normal Mucosa, No Blood Throat/Mouth: Normal Inspection, Normal Lips, Normal Teeth, Normal Gums, Normal Oropharynx, Normal Voice, No Airway Compromise Head: Atraumatic, Normocephalic Neck: Normal Inspection, Supple, Non-Tender, Full Range of Motion Respiratory/Chest: Decreased Breath Sounds Cardiovascular: Normal Peripheral Pulses, Regular Rate, Rhythm, No Edema, No Gallop, No JVD, No Murmur, No Rub GI/Abdominal: Normal Bowel Sounds, Soft, Non-Tender, No Organomegaly, No Distention, No Abnormal Bruit, No Mass (Female) Exam: Deferred Rectal (Female) Exam: Deferred Back Exam: Normal Inspection, Full Range of Motion, NT Extremities: Normal Inspection, Normal Range of Motion, Non-Tender, Normal Capillary Refill, No Pedal Edema Neurological: Alert, Oriented, CN II-XII Intact, Normal Cognition, Normal Gait, Normal Reflexes, No Motor/Sensory Deficits Psychiatric: Normal Affect, Normal Mood Skin Exam: Warm, Dry, Intact, Normal Color, No Rash Lymphatic: No Adenopathy #1 Interpretation EKG Date: 06/01/21 Time: 15:02 Rhythm: Other (Sinus Tach) Rate (Beats/Min): 107 [place]: Normal P-Wave: Present QRS: Normal ST-T: Normal QT: Normal Comparison: No Change Course - Vital Signs Last Recorded V/S: Last Vital Signs Temp 97.7 F 06/01/21 15:20 Pulse 109 H 06/01/21 14:58 Resp 18 06/01/21 14:58 BP 108/71 06/01/21 14:58 Pulse Ox 95 06/01/21 14:58 - Orders/Labs/Meds Orders: Active Orders 24 hr Category Date Time Status RT Aerosol Therapy [RC] ASDIRECTED Care 06/01/21 14:49 Active B-TYPE NATRIURETIC PEPTIDE,BNP [CHEM] Stat Lab 06/01/21 15:59 Received COMPREHENSIVE METABOLIC PN,CMP [CHEM] Stat Lab 06/01/21 15:59 Received CULTURE BLOOD [BC] Stat Lab 06/01/21 14:41 Ordered LACTATE SEPSIS W/ REFLEX [CHEM] Stat Lab 06/01/21 15:59 Received UA RFX RUTHIE AND CULT IF INDIC [URIN] Urgent Lab 06/01/21 14:41 Ordered Labs: Laboratory Tests 06/01/21 06/01/21 Range/Units 15:04 15:59 WBC 16.9 H (5.0-10.0) 10^3/uL RBC 4.07 L (4.2-5.4) 10^6/uL Hgb 9.8 L D (12.0-16.0) g/dL Hct 32.8 L (37.0-47.0) % MCV 80.6 (80-100) fL MCH 24.1 L (27.0-34.0) pg MCHC 29.9 L (33.0-35.0) g/dL Plt Count 266 D (150-450) 10^3/uL Neut % (Auto) 70.3 (42.2-75.2) % Lymph % (Auto) 16.7 L (20.5-50.1) % [place] % (Auto) 8.8 H (2-8) % Eos % (Auto) 4.0 H (1.0-3.0) % Baso % (Auto) 0.2 (0.0-1.0) % SARS-CoV-2 RNA (SARMAD) Negative (NEGATIVE) Meds: Medications Discontinued Medications Generic Name Dose Route Start Last Admin Trade Name [place] PRN Reason Stop Dose Admin Albuterol/Ipratropium 3 ml 06/01/21 14:49 06/01/21 15:11 Albuterol/Ipratropium 3.0-0.5 Mg/3 Ml Neb Soln NEB 06/01/21 14:50 3 ml ONETIME ONE Administration Ceftriaxone Sodium 1 gm/ 0 gm 06/01/21 16:24 Lidocaine HCl 2.1 ml IM 06/01/21 16:25 ONETIME ONE Departure - Departure Time of Disposition: 16:32 Disposition: DC/Tfer to [facility] Condition: Fair Clinical Impression: COPD exacerbation - Discharge Information *PRESCRIPTION DRUG MONITORING PROGRAM REVIEWED*: Not Applicable *COPY OF PRESCRIPTION DRUG MONITORING REPORT IN PATIENT SONJA: Not Applicable Instructions: Chronic Obstructive Pulmonary Disease, [id number] Forms: ED Department Discharge Care Plan Goals: The patient was advised of the examination, lab, EKG and x-ray results during the visit. The patient was given a Duneb treatment and in injection of Rocephin while in the ED. The patient was discharged with a script for Azithromycin (250 mg) #6 to be given 2 by mouth on day 1 (06/02/21) and 1 by mouth daily for days 2-5. If the patient has any additional symptoms or concerns, the patient should either return to the emergency department or visit her primary care facility. Sepsis Event Note (ED) - Focused Exam Vital Signs: Vital Signs Temp Pulse Resp BP Pulse Ox 06/01/21 15:20 97.7 F 06/01/21 14:58 97.7 F 109 H 18 108/71 95 - My Orders Last 24 Hours: My Active Orders 06/01/21 14:41 CULTURE BLOOD [BC] Stat UA RFX RUTHIE AND CULT IF INDIC [URIN] Urgent 06/01/21 14:49 RT Aerosol Therapy [RC] ASDIRECTED 06/01/21 15:59 B-TYPE NATRIURETIC PEPTIDE,BNP [CHEM] Stat COMPREHENSIVE METABOLIC PN,CMP [CHEM] Stat LACTATE SEPSIS W/ REFLEX [CHEM] Stat - Assessment/Plan Last 24 Hours: My Active Orders 06/01/21 14:41 CULTURE BLOOD [BC] Stat UA RFX RUTHIE AND CULT IF INDIC [URIN] Urgent 06/01/21 14:49 RT Aerosol Therapy [RC] ASDIRECTED 06/01/21 15:59 B-TYPE NATRIURETIC PEPTIDE,BNP [CHEM] Stat COMPREHENSIVE METABOLIC PN,CMP [CHEM] Stat LACTATE SEPSIS W/ REFLEX [CHEM] Stat
--- NOTE | 2021-06-01 15:47 | CR ---
EXAMINATION: Chest 1V Frontal SEX: Female AGE: 71 years CLINICAL HISTORY: 71-year-old obese female experiencing shortness of breath (SOB). Comparison 31 Jan 2021. Interpretation: 1. Asymmetric masslike fullness of the right hilum may reflect pulmonary artery prominence however cannot exclude underlying mass or lymphadenopathy. Significant to note that this is unchanged since 21 October 2020 exam. 2. No suspicious new parenchymal lung nodule or mass lesion. 3. Normal cardiac silhouette (size and configuration). 4. No pulmonary vascular congestion, cephalization of flow, alveolar edema or dependent new pleural fluid accumulation. 5. Total orthopedic replacement (prosthesis) right shoulder. External rn cardiac cath leads. 6. No new alveolar infiltrate, air bronchograms or peripheral "groundglass" interstitial lung densities. 7. Normal midline tracheal bronchial airway. No pneumothorax or pneumomediastinum. CONCLUSION: No acute new cardiopulmonary abnormality since 21 October 2020 exam. Hilar prominence (see above).
[~2021-06-01 16:30] MED LIST changes: +cefTRIAXone 1 GM, Lidocaine 1% 2.1 ML IM ONE; -methylPREDNISolone Sodium Succinate 125 MG/2 ML SDV IVPUSH ONE
== END 2021-06-01 17:08 ==
LOC: DL.ED 16:30
DX: J44.1 Chronic obstructive pulmonary disease with (acute) exacerbation (principal); I11.0 Hypertensive heart disease with heart failure; I50.9 Heart failure, unspecified; I25.2 Old myocardial infarction; E66.9 Obesity, unspecified; Z68.30 Body mass index [BMI] 30.0-30.9, adult; Z88.0 Allergy status to penicillin; Z88.5 Allergy status to narcotic agent; Z20.822 Contact with and (suspected) exposure to COVID-19
CPT/HCPCS: 36415; 71045; 80053; 83605; 83880; 85025; 93005; 94640; 96372; 99285; J0696; U0002; J7620-GY

== ENCOUNTER 2021-09-08 09:31 | Inpatient (IN) | payer MEDICARE, MEDICAID ==
--- NOTE | 2021-09-08 09:57 | EDM.PDOC ---
ED HPI GENERAL MEDICAL PROBLEM - General Stated Complaint: COPD /TROUBLE BREATHING Time Seen by Provider: 09/08/21 09:45 Source of Information: Reports: Patient History Limitations: Reports: No Limitations - History of Present Illness INITIAL COMMENTS - FREE TEXT/NARRATIVE: This 71 yo female patient was sent to the ED from [facility] due to shortness of breath. The patient reports she has been experiencing these symptoms over the past week. The nursing staff has been giving her nebulizer treatments with some relief. The patient reports her shortness of breath has been getting worse throughout the week. The patient also reports she has had a cough. The patient reports she has not been seen by her primary care facility since her symptoms started. 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: Reports: Breathing Treatments - Related Data Allergies Allergy/AdvReac Type Severity Reaction Status Date / Time codeine Allergy Stomach Verified 09/08/21 10:31 Upset Penicillins Allergy Rash Verified 09/08/21 10:31 povidone-iodine Allergy Rash Verified 09/08/21 10:31 [From Betadine] soap [From Betadine] Allergy Rash Verified 09/08/21 10:31 Sulfa (Sulfonamide Allergy Hives Verified 09/08/21 10:31 Antibiotics) tetracycline Allergy Cannot Verified 09/08/21 10:31 Remember Home Meds: Home Meds Albuterol [Ventolin HFA] 2 puff INH Q8HR PRN 07/25/18 [History] Verapamil HCl [Verapamil Sr] 180 mg PO BEDTIME 10/21/20 [History] Albuterol/Ipratropium [DuoNeb 3.0-0.5 MG/3 ML] 3 ml NEB QID 02/09/21 [History] Fluticasone/Vilanterol [Breo Ellipta 100-25 MCG Inhalation Kit] 1 puff INH DAILY 02/09/21 [History] Ferrous Sulfate 325 mg PO BIDMEALS 30 Days #60 tablet 02/17/21 [Rx] Budesonide [Pulmicort] 0.5 mg IH ASDIRECTED 06/01/21 [History] Furosemide [Lasix] 40 mg PO BID 06/01/21 [History] Insulin Isophane NPH, Human [NovoLIN N] 5 unit SQ BID 06/01/21 [History] Omeprazole 40 mg PO DAILY 06/01/21 [History] Umeclidinium Brm/Vilanterol Tr [Anoro Ellipta 62.5-25 MCG] 1 puff IH DAILY 06/01/21 [History] predniSONE [Prednisone] 5 mg PO DAILY 06/01/21 [History] sitaGLIPtin Phosphate [Januvia] 50 mg PO DAILY 06/01/21 [History] Past Medical History HEENT History: Reports: Impaired Vision Other HEENT History: wears glasses Cardiovascular History: Reports: Heart Failure, High Cholesterol, Hypertension, [place], SOB on Exertion Respiratory History: Reports: Asthma, COPD, SOB, Other (See Below) Gastrointestinal History: Reports: Diverticulosis, GERD Genitourinary History: Reports: Urinary Incontinence 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: Musculoskeletal History: Reports: Arthritis Neurological History: Reports: None Psychiatric History: Reports: None Endocrine/Metabolic History: Reports: Obesity/BMI 30+ Hematologic History: Reports: None Immunologic History: Reports: None Oncologic (Cancer) History: Reports: Malignant Melanoma Dermatologic History: Reports: None - Infectious Disease History Infectious Disease History: Reports: Chicken Pox, Measles, Mumps - Past Surgical History Head Surgeries/Procedures: Reports: None HEENT Surgical History: Reports: None Other HEENT Surgeries/Procedures: glasses Cardiovascular Surgical History: Reports: None Respiratory Surgical History: Reports: None GI Surgical History: Reports: Appendectomy, Colonoscopy Female Surgical History: Reports: Hysterectomy, Tubal Ligation, Other (See Below) Other Female Surgeries/Procedures: bladder repair Endocrine Surgical History: Reports: None Neurological Surgical History: Reports: None Musculoskeletal Surgical History: Reports: Shoulder Replacement Social & Family History - Family History Family Medical History: No Pertinent Family History - Caffeine Use Caffeine Use: Reports: Coffee - Living Situation & Occupation Occupation: Retired ED ROS GENERAL - Review of Systems Review Of Systems: Comprehensive ROS is negative, except as noted in HPI. ED EXAM, GENERAL - Physical Exam Exam: See Below Exam Limited By: No Limitations General Appearance: Alert, WD/WN, Moderate Distress, Obese Eye Exam: Bilateral Eye: EOMI, Normal Inspection, PERRL Ears: Normal External Exam, Normal Canal, Hearing Grossly Normal, Normal TMs Nose: Normal Inspection, Normal Mucosa, No Blood Throat/Mouth: Normal Inspection, Normal Lips, Normal Teeth, Normal Gums, Normal Oropharynx, Normal Voice, No Airway Compromise Head: Atraumatic, Normocephalic Neck: Normal Inspection, Supple, Non-Tender, Full Range of Motion Respiratory/Chest: Decreased Breath Sounds, Rhonchi Cardiovascular: Normal Peripheral Pulses, Regular Rate, Rhythm, No Gallop, No JVD, No Murmur, No Rub GI/Abdominal: Normal Bowel Sounds, Soft, Non-Tender, No Organomegaly, No Distention, No Abnormal Bruit, No Mass (Female) Exam: Deferred Rectal (Female) Exam: Deferred Back Exam: Normal Inspection, Full Range of Motion, NT Extremities: Pedal Edema Neurological: Alert, Oriented, CN II-XII Intact, Normal Cognition, Normal Gait, Normal Reflexes, No Motor/Sensory Deficits Psychiatric: Normal Affect, Normal Mood Skin Exam: Warm, Dry, Intact, Normal Color, No Rash Lymphatic: No Adenopathy #1 Interpretation EKG Date: 09/08/21 Time: 10:43 Rhythm: NSR Rate (Beats/Min): 95 [place]: Normal P-Wave: Present QRS: Normal ST-T: Normal QT: Normal Comparison: NA - No Prior EKG Course - Vital Signs Last Recorded V/S: Last Vital Signs Temp 98.1 F 09/08/21 10:20 Pulse 101 H 09/08/21 11:00 Resp 22 H 09/08/21 10:20 BP 135/78 09/08/21 10:20 Pulse Ox 91 L 09/08/21 10:20 - Orders/Labs/Meds Orders: Active Orders 24 hr Category Date Time Status Admission Diagnosis [ADT] Urgent ADT 09/08/21 11:31 Ordered Admission Status [Patient Status] [ADT] Routine ADT 09/08/21 11:31 Ordered RT Aerosol Therapy [RC] ASDIRECTED Care 09/08/21 10:51 Ordered UA RFX RUTHIE AND CULT IF INDIC [URIN] Urgent Lab 09/08/21 09:44 Ordered cefTRIAXone [Rocephin] 1 gm Med 09/08/21 11:20 Ordered Sodium Chloride 0.9% [Normal Saline AdvBag] 50 ml IV ONETIME metroNIDAZOLE/Normal Saline [Flagyl in NS 500 MG/100 ML Med 09/08/21 11:30 Ordered ] 500 mg Premix Bag 100 bag IV ONETIME Medication Orders Ceftriaxone Sodium 1 gm/ (Sodium Chloride) 50 mls @ 100 mls/hr IV ONETIME ONE Stop: 09/08/21 11:49 Metronidazole 500 mg/ Premix 100 mls @ 100 mls/hr IV ONETIME ONE Stop: 09/08/21 12:29 Labs: Laboratory Tests 09/08/21 09/08/21 09/08/21 Range/Units 09:50 10:14 10:14 WBC 15.9 H (5.0-10.0) 10^3/uL RBC 5.27 (4.2-5.4) 10^6/uL Hgb 11.3 L D (12.0-16.0) g/dL Hct 42.5 (37.0-47.0) % MCV 80.6 (80-100) fL MCH 21.4 L (27.0-34.0) pg MCHC 26.6 L (33.0-35.0) g/dL Plt Count 266 (150-450) 10^3/uL Neut % (Auto) 83.8 H (42.2-75.2) % Lymph % (Auto) 9.1 L (20.5-50.1) % Roosevelt % (Auto) 5.8 (2-8) % Eos % (Auto) 1.1 (1.0-3.0) % Baso % (Auto) 0.2 (0.0-1.0) % Sodium 141 (136-145) mmol/L Potassium 4.4 (3.5-5.1) mmol/L Chloride 99 (98-107) mmol/L Carbon Dioxide 38 H (21-32) mmol/L Anion Gap 8.4 (7-13) mEq/L BUN 11 (7-18) mg/dL Creatinine 0.96 (0.55-1.02) mg/dL Est Cr Clr Drug Dosing TNP Estimated GFR (MDRD) > 60 BUN/Creatinine Ratio 11.5 (No establ ref range) Glucose 144 H (70-99) mg/dL Lactic Acid (0.4-2.0) mmol/L Calcium 8.9 (8.5-10.1) mg/dL Total Bilirubin 0.4 (0.2-1.0) mg/dL AST 12 L (15-37) U/L ALT 10 L (14-59) U/L Alkaline Phosphatase 114 (46-116) U/L Troponin I High Sens 16 (<=51) pg/mL B-Natriuretic Peptide 302 H (0-100) pg/ml Total Protein 8.3 H (6.4-8.2) g/dL Albumin 2.6 L (3.4-5.0) g/dL Globulin 5.7 Albumin/Globulin Ratio 0.46 Influenza Type A RNA Negative (NEGATIVE) Influenza Type B RNA Negative (NEGATIVE) SARS-CoV-2 RNA (SARMAD) Negative (NEGATIVE) 09/08/21 Range/Units 10:14 WBC (5.0-10.0) 10^3/uL RBC (4.2-5.4) 10^6/uL Hgb (12.0-16.0) g/dL Hct (37.0-47.0) % MCV (80-100) fL MCH (27.0-34.0) pg MCHC (33.0-35.0) g/dL Plt Count (150-450) 10^3/uL Neut % (Auto) (42.2-75.2) % Lymph % (Auto) (20.5-50.1) % Roosevelt % (Auto) (2-8) % Eos % (Auto) (1.0-3.0) % Baso % (Auto) (0.0-1.0) % Sodium (136-145) mmol/L Potassium (3.5-5.1) mmol/L Chloride (98-107) mmol/L Carbon Dioxide (21-32) mmol/L Anion Gap (7-13) mEq/L BUN (7-18) mg/dL Creatinine (0.55-1.02) mg/dL Est Cr Clr Drug Dosing Estimated GFR (MDRD) BUN/Creatinine Ratio (No establ ref range) Glucose (70-99) mg/dL Lactic Acid 1.3 (0.4-2.0) mmol/L Calcium (8.5-10.1) mg/dL Total Bilirubin (0.2-1.0) mg/dL AST (15-37) U/L ALT (14-59) U/L Alkaline Phosphatase (46-116) U/L Troponin I High Sens (<=51) pg/mL B-Natriuretic Peptide (0-100) pg/ml Total Protein (6.4-8.2) g/dL Albumin (3.4-5.0) g/dL Globulin Albumin/Globulin Ratio Influenza Type A RNA (NEGATIVE) Influenza Type B RNA (NEGATIVE) SARS-CoV-2 RNA (SARMAD) (NEGATIVE) Meds: Medications Generic Name Dose Route Start Last Admin Trade Name Freq PRN Reason Stop Dose Admin Ceftriaxone Sodium 1 gm/ 50 mls @ 100 mls/hr 09/08/21 11:20 Sodium Chloride IV 09/08/21 11:49 ONETIME ONE Metronidazole 500 mg/ Premix 100 mls @ 100 mls/hr 09/08/21 11:30 IV 09/08/21 12:29 ONETIME ONE Discontinued Medications Generic Name Dose Route Start Last Admin Trade Name Freq PRN Reason Stop Dose Admin Albuterol/Ipratropium 3 ml 09/08/21 10:50 09/08/21 11:00 Albuterol/Ipratropium 3.0-0.5 Mg/3 Ml Neb Soln NEB 09/08/21 10:51 3 ml ONETIME ONE Administration Methylprednisolone Sodium Succinate 125 mg 09/08/21 11:21 Methylprednisolone Sodium Succinate 125 Mg/2 Ml Sdv IVPUSH 09/08/21 11:22 ONETIME ONE Departure - Departure Time of Disposition: 11:33 Disposition: Admitted As Inpatient 65 Condition: Fair Clinical Impression: COPD exacerbation Pneumonia Qualifiers: Pneumonia type: due to unspecified organism Laterality: right Lung location: lower lobe of lung Qualified Code(s): J18.9 - Pneumonia, unspecified organism - Discharge Information *PRESCRIPTION DRUG MONITORING PROGRAM REVIEWED*: Not Applicable *COPY OF PRESCRIPTION DRUG MONITORING REPORT IN PATIENT SONJA: Not Applicable Care Plan Goals: Discussed the patient's history, examination, lab and x-ray results with Dr. Ford. Dr. Ford accepted the patient for continued evaluation and management as an inpatient at [facility]. Sepsis Event Note (ED) - Focused Exam Vital Signs: Vital Signs Temp Pulse Resp BP Pulse Ox 09/08/21 11:00 101 H 09/08/21 10:20 98.1 F 96 22 H 135/78 91 L - My Orders Last 24 Hours: My Active Orders 09/08/21 09:44 UA RFX RUTHIE AND CULT IF INDIC [URIN] Urgent 09/08/21 10:51 RT Aerosol Therapy [RC] ASDIRECTED 09/08/21 11:20 cefTRIAXone [Rocephin] 1 gm Sodium Chloride 0.9% [Normal Saline AdvBag] 50 ml IV ONETIME 09/08/21 11:30 metroNIDAZOLE/Normal Saline [Flagyl in NS 500 MG/100 ML] 500 mg Premix Bag 100 bag IV ONETIME 09/08/21 11:31 Admission Diagnosis [ADT] Urgent Admission Status [Patient Status] [ADT] Routine - Assessment/Plan Last 24 Hours: My Active Orders 09/08/21 09:44 UA RFX RUTHIE AND CULT IF INDIC [URIN] Urgent 09/08/21 10:51 RT Aerosol Therapy [RC] ASDIRECTED 09/08/21 11:20 cefTRIAXone [Rocephin] 1 gm Sodium Chloride 0.9% [Normal Saline AdvBag] 50 ml IV ONETIME 09/08/21 11:30 metroNIDAZOLE/Normal Saline [Flagyl in NS 500 MG/100 ML] 500 mg Premix Bag 100 bag IV ONETIME 09/08/21 11:31 Admission Diagnosis [ADT] Urgent Admission Status [Patient Status] [ADT] Routine
--- NOTE | 2021-09-08 10:40 | CR ---
EXAMINATION: Chest 1V Frontal SEX: Female AGE: 71 years CLINICAL HISTORY: 71-year-old morbidly obese female experiencing shortness of breath. (SOB) comparison CXRs 01 June and January,. Interpretation: 1. Relative increase in cardiac size, generalized venous congestion, and apparent dependent new subpulmonic pleural fluid accumulation blunting both costophrenic sulci since 31 January and 01 June films. 2. Underlying atelectasis, infiltrate or even infarct RLL a differential consideration. 3. No new lung mass lesion or lymphadenopathy (chronic asymmetric prominence of proximal pulmonary artery segment on the right). No alveolar edema. 4. Total right shoulder replacement. 5. No pneumothorax or pneumomediastinum. No free subdiaphragmatic air. CONCLUSION: Suspicion cardiovascular decompensation particularly since comparable CXR 01 June 2021. Close clinical correlation please (BNP? Weight gain?). EKG?
[2021-09-08 10:42] LABS: ANION GAP 8.4 mEq/L (7-13); CHLORIDE,CL 99 mmol/L (98-107); SODIUM,NA 141 mmol/L (136-145)
[2021-09-08 10:49] LABS: CORONAVIRUS COVID-19 NAA NEGATIVE (NEGATIVE)
[2021-09-08] MEDS ORDERED: Albuterol/Ipratropium 3.0-0.5 MG/3 ML Neb Soln NEB ONE (10:50)
[2021-09-08] MEDS ORDERED: cefTRIAXone 1 GM in Sodium Chloride 0.9% 50 ML IV ONE (11:20)
[2021-09-08] MEDS ORDERED: methylPREDNISolone Sodium Succinate 125 MG/2 ML SDV IVPUSH ONE (11:21)
[2021-09-08] MEDS ORDERED: metroNIDAZOLE/Normal Saline 500 MG in Premix Bag 100 BAG IV ONE (11:30)
[2021-09-08] MEDS ORDERED: Polyethylene Glycol 3350 Powder 17 GM Packet PO PRN (12:58)
[2021-09-08] MEDS ORDERED: Budesonide 0.5 MG/2 ML Neb Susp INH SCH (13:15)
[2021-09-08] MEDS ORDERED: 50% Dextrose in Water 50 ML Syringe IVPUSH PRN (13:33)
[2021-09-08] MEDS ORDERED: Glucagon,Human Recombinant 1 MG Vial IM PRN (13:33)
[2021-09-08] MEDS ORDERED: metroNIDAZOLE/Normal Saline 500 MG in Premix Bag 100 BAG IV SCH ×2 (14:45→20:00)
[2021-09-08] MEDS ORDERED: Albuterol/Ipratropium 3.0-0.5 MG/3 ML Neb Soln NEB SCH (17:00)
[2021-09-08] MEDS: methylPREDNISolone Sodium Succinate 40 MG/1 ML SDV IVPUSH SCH ×2 (17:30→22:13)
[2021-09-08] MEDS: Insulin Lispro 100 Units/ML 3 ML Vial SUBCUT SCH ×2 (17:30→20:47)
[2021-09-08] MEDS: Furosemide 40 MG/4 ML VIAL IVPUSH SCH (17:37)
[2021-09-08] MEDS ORDERED: Levofloxacin/Dextrose 5%-Water 750 MG in Premix Bag 1 BAG IV ONE (17:56)
[2021-09-08] MEDS ORDERED: Piperacillin/Tazobactam 4.5 GM in Sodium Chloride 0.9% 100 ML IV SCH (18:00)
[2021-09-08] MEDS ORDERED: Albuterol/Ipratropium 3.0-0.5 MG/3 ML Neb Soln INH PRN (18:01)
[2021-09-08] MEDS: Albuterol/Ipratropium 3.0-0.5 MG/3 ML Neb Soln NEB PRN (18:39)
[2021-09-08] MEDS: Acetaminophen 325 MG Tab PO PRN (20:49)
[2021-09-08] MEDS: Insulin Isophane NPH, Human 100 Units/ML 3 ML Vial SQ SCH (20:52)
[2021-09-08] MEDS: Verapamil 180 MG Tab.ER PO SCH (20:52)
[2021-09-08] MEDS ORDERED: Acetaminophen 325 MG Tab PO SCH (21:00)
[2021-09-08] MEDS: Ferrous Sulfate 325 MG Tab PO SCH (21:22)
[2021-09-08] MEDS: Sodium Chloride 0.9% 10 ML Syringe FLUSH SCH (21:23)
[2021-09-08] MEDS: metroNIDAZOLE 250 MG Tab PO SCH (22:12)
--- NOTE | 2021-09-09 00:03 | HP ---
HISTORY OF PRESENT ILLNESS: The patient is 71 years old female who was [facility] due to shortness of breath that started in the morning and did not improve with the nebulizer treatment. The patient says that she had shortness of breath intermittently for the past 2 to 3 months. Denies chills. No fever. She slept last night all right. She needs 2 pillows to sleep on. Her last echo in the chart as per review of my chart that was done on 12/05 showed an ejection fraction of 81%. The patient says that she was admitted in the [facility] temporarily due to trauma and fall. She says she is coughing off white and she is wheezing. PAST MEDICAL HISTORY: She has history of tobacco abuse. She smoked half pack per day for past 21 years. She has COPD; diabetes, was diagnosed 1 month ago. ALLERGIES: She has allergy to codeine, penicillin. Penicillin, she gets rash. To povidone-iodine, soap. The patient is allergic to Betadine. She gets rash to sulfa antibiotics, she gets hives. Tetracycline, she cannot remember the allergy. PAST SURGICAL HISTORY: She had hysterectomy, back surgery, rotator cuff surgery. SOCIAL HISTORY: She does not drink alcohol. 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 She smoked for the past 21 years half pack of cigarettes a day. The patient has 2 children; one lives in [place] and the older son lives here. She plans to move with her son. FAMILY HISTORY: Noncontributory. PHYSICAL EXAMINATION: Vital Signs: At admission, her temperature 98 Fahrenheit, pulse 80, blood pressure 118/64, respiratory rate 21, oxygen saturation 95% on 8 L nasal cannula. HEENT: The patient's head is atraumatic, normocephalic. Pupils equally reactive to light. Neck: Supple. There is JVD. Heart: S1, S2, S3. Regular rhythm and rate. No significant murmur. Lungs: Bilateral wheezing. Bilateral crackles. Abdomen: Obese, positive bowel sounds. No tenderness. Extremities: 2+ edema bilaterally. Neurologic : The patient is alert and oriented x3. There are no gross focal neurological deficits. LABORATORY DATA: At admission; WBC 15.9, hemoglobin 11.3, hematocrit 42.5, platelets 266, neutrophils 82.8. Sodium 141, potassium 4.4, chloride 99, CO2 of 38, anion gap 8.4, BUN 11, creatinine 0.96, and GFR more than 60. Glucose 144, lactic acid 1.3, calcium 8.9, total bilirubin 0.4, AST 12, ALT 10, alkaline phosphatase 114 and troponin 16. BNP 302, total protein 8.3, albumin 2.6, globulin 5.7. Chest x-ray showing relative increase in cardiac size. Generalized venous congestion and apparent dependent new subpulmonic pleural fluid accumulation, blunting of both costophrenic sulci since 01/31 and 06/01 findings. Underlying atelectasis, infiltrate or even infarct right lower lobe are differential considerations. No new lung mass, lesion or lymphadenopathy. Total right shoulder replacement. No pneumothorax or pneumomediastinum. No free subdiaphragmatic air. Conclusion: Suspicious cardiovascular decompensation, particularly seems comparable with chest x-ray on 06/01/2021. Close clinical correlation please; BNP, weight gain, EKG. Abdomen and pelvis CT done on 07/12/2021 shows abnormalities but need to confirm but with imaging limitation discussed above suggest retroperitoneal renal sonogram especially mid pole left and lower pole right kidney may prove helpful. Possible cyst, but no sign of nephrolithiasis or obstructive uropathy. No . Symmetrically distended unenhanced urinary bladder, unremarkable gallbladder, unenhanced liver, stomach, spleen, pancreas, and adrenal glands are unremarkable. Morbid obesity. No abdominal or pelvic consolidation, mesenteric or retroperitoneal lymphadenopathy, signs of mechanical obstruction, ascites. Extensive orthopedic surgeries and fusion L3 through S1 or compression fracture L2. Conclusion: Abnormal kidney. Ultrasound or MR suggested sigmoid diverticulosis. No sign of intraperitoneal malignancy, acute peritonitis, or obstruction. ASSESSMENT: Acute respiratory failure due to congestive heart failure exacerbation, pneumonia and chronic obstructive pulmonary disease exacerbation. PLAN: We will start the patient on Solu-Medrol 40 mg IV q.6 hours nebulizer treatment with budesonide 0.5 mg inhalatory b.i.d., levofloxacin 750 mg IV q. 24 hours. For possible aspiration pneumonia, we will cover the patient with metronidazole 50 mg p.o. q.8 hours. Also for COPD exacerbation, the patient will be given her home medication umeclidinium bromide/vilanterol trifenatate 1 puff inhalatory daily. Also for COPD exacerbation, patient will receive DuoNeb 2 puffs inhalatory q.4 hours p.r.n. for shortness of breath. For pneumonia, blood culture was done in ER. We will do sputum cultures and sputum Gram stain and we will give the patient Levaquin 750 mg q. 24 hours and metronidazole 500 mg p.o. q.8 hours. Followup blood cultures, sputum culture and sputum Gram stain. For CHF exacerbation, patient will be given Lasix mg IV daily. We will follow up I and O. We will put the patient on Awad catheter. We will monitor patient's chest x-ray clinically. We will supplement electrolytes. For insomnia, the patient will be given Restoril 15 mg p.o. at bedtime as needed. For constipation, polyethylene glycol 17 g p.o. daily p.r.n. For DVT prophylaxis, enoxaparin, Lovenox 40 mg subcutaneous daily. The patient has CO2 retention on comprehensive metabolic panel with a bicarb of 38. Attempted ABG failed as patient's artery could not be found and she refused to have ABG further attempts. We will put patient on BiPAP 08/22 with goal to maintain oxygen saturation in the low 90s as patient seems to be a CO2 retainer. Tobacco abuse, patient was counseled to stop smoking for more than 5 minutes. For diabetes, the patient will be given insulin Humalog sliding scale with meals and at bedtime medium sliding scale. We will continue patient on insulin isophane 5 mg subcutaneous b.i.d. and insulin sliding scale. For GI prophylaxis, omeprazole 40 mg p.o. daily. Also for diabetes, patient will be continued with sitagliptin phosphate 50 mg p.o. daily. [facility] /[id number]
[2021-09-09] MEDS: methylPREDNISolone Sodium Succinate 40 MG/1 ML SDV IVPUSH SCH ×4 (05:50→23:26)
[2021-09-09] MEDS: metroNIDAZOLE 250 MG Tab PO SCH ×3 (05:52→21:05)
[2021-09-09] MEDS ORDERED: Omeprazole 20 MG Cap.CR PO SCH (06:00)
[2021-09-09 06:08] LABS: ANION GAP 7.6 mEq/L (7-13); CHLORIDE,CL 100 mmol/L (98-107); SODIUM,NA 140 mmol/L (136-145)
[2021-09-09] MEDS: Ferrous Sulfate 325 MG Tab PO SCH ×2 (08:39→17:37)
[2021-09-09] MEDS: Furosemide 40 MG/4 ML VIAL IVPUSH SCH ×2 (08:40→14:48)
[2021-09-09] MEDS: Enoxaparin 40 MG/0.4 ML Syringe SUBCUT SCH (08:44)
[2021-09-09] MEDS: Insulin Lispro 100 Units/ML 3 ML Vial SUBCUT SCH ×4 (08:51→21:07)
[2021-09-09] MEDS: Insulin Isophane NPH, Human 100 Units/ML 3 ML Vial SQ SCH ×2 (08:52→23:20)
[2021-09-09] MEDS: Sodium Chloride 0.9% 10 ML Syringe FLUSH SCH ×2 (08:52→23:26)
[2021-09-09] MEDS ORDERED: Non-Formulary Medication 1 Each (Fluticasone/Vilanterol 1 EACH Each) INH SCH (09:00)
[2021-09-09] MEDS ORDERED: Non-Formulary Medication 1 Each (Sitagliptin Phosphate [Januvia] 25 MG Tablet) PO SCH (09:00)
[2021-09-09] MEDS ORDERED: cefTRIAXone 1 GM in Sodium Chloride 0.9% 50 ML IV SCH (12:00)
[2021-09-09] MEDS: Pantoprazole 40 MG Vial IVPUSH SCH (18:31)
--- NOTE | 2021-09-09 19:31 | PN ---
DATE: 09/09/2021 SUBJECTIVE: The patient was seen today in the morning. She was saturating 96% with 6 L nasal cannula. As soon as the patient moved in the bed, her oxygen saturation dropped to 78. The patient also reported abdominal tenderness in the epigastrium. She did not have BiPAP during the night or yesterday. Her blood work shows a bicarb of 37, down from 38 yesterday. Regarding her I's and O's, the patient had an output from the Awad of 1150 mL, and she had a balance of - 340 mL. VITAL SIGNS: Today, her temperature 96.6, blood pressure 146/91, respiratory rate 23, and oxygen saturation was 100% on 8 L. This was at time 1557. The patient also on BiPAP of 40%, saturating 96% during the day. LABORATORY DATA: Today, WBC 10.2, hemoglobin 10.4, hematocrit 39.2, and platelet count is 268. Sodium 140, potassium 4.6, chloride 100, carbon dioxide 37, anion gap 7.6, BUN 15, and creatinine 0.94. Estimated creatinine clearance for drugs 44.75. GFR more than 60. Blood sugar today were 167 and 189. Calcium 8.9. The patient also had a urinary tract infection yesterday. Her urine showed color yellow, urine occult blood trace intact, urine nitrites positive, leukocyte esterase small, wbc's 10 to 20, and many bacteria. Microbiology: Sputum stain; 10 to 25 wbc's, less than 25 epithelial cells per LPF, gram-positive cocci in pairs, adequate quantity for culture. Urine cultures show more than 100,000 colony of gram-negative rods. PHYSICAL EXAMINATION: HEENT: Head is atraumatic and normocephalic. Pupils are reactive to light. Neck: JVD. Lungs: Bilateral wheezing. Decreased air entry. Bilateral crackles. Heart: S1 and S2. S3. Regular rhythm and rate. No significant murmur. Abdomen: Mild tenderness to palpation in the epigastrium; otherwise, abdomen is soft. Positive bowel sounds. No rebound. No guarding. Extremities: There is trace edema. ASSESSMENT: 1. Congestive heart failure exacerbation, diastolic. 2. Chronic obstructive pulmonary disease exacerbation and pneumonia. We will continue patient with IV antibiotics, levofloxacin 750 mg IV q.24 hours, metronidazole 500 mg p.o. t.i.d., albuterol/ipratropium nebulizer treatment q.4 hours p.r.n. for shortness of breath and wheezing, and methylprednisolone 40 mg IV push q.6 hours for CHF exacerbation. We will also do I and O, daily weight, and we will add metolazone to current diuretic regimen. We will order water restriction to 1000 mL. For COPD exacerbation, the patient will be substituted from her home medication, which is umeclidinium bromide, vilanterol. Her home medication will be substituted to budesonide nebulizer treatment 0.5 nebulizer every 12 hours for epigastric pain. Protonix p.o. was discontinued, and she was started on Protonix 40 mg IV q.12 hours. For diabetes mellitus, which is controlled, the patient will be continued with insulin NPH 5 mg cutaneous b.i.d. and insulin lispro sliding scale, medium sliding scale. For DVT prophylaxis, the patient will be given enoxaparin 40 mg subcu daily. For hypertension, she will be treated with verapamil 100 mg p.o. at bedtime. Follow up blood pressure. For constipation, she will be given MiraLAX 15 g p.o. daily p.r.n. For insomnia, she will be given temazepam 50 mg p.o. at bedtime p.r.n. for sleep. [facility] /[id number]
[2021-09-09] MEDS: Verapamil 180 MG Tab.ER PO SCH (21:05)
[2021-09-10] MEDS: Insulin Isophane NPH, Human 100 Units/ML 3 ML Vial SQ SCH ×3 (03:28→21:03)
[2021-09-10] MEDS: Albuterol/Ipratropium 3.0-0.5 MG/3 ML Neb Soln NEB PRN ×3 (04:08→18:26)
[2021-09-10] MEDS: metroNIDAZOLE 250 MG Tab PO SCH ×3 (05:13→21:03)
[2021-09-10] MEDS: methylPREDNISolone Sodium Succinate 40 MG/1 ML SDV IVPUSH SCH ×3 (05:13→18:05)
[2021-09-10] MEDS: Pantoprazole 40 MG Vial IVPUSH SCH ×2 (05:19→18:18)
[2021-09-10] MEDS: Budesonide 0.5 MG/2 ML Neb Susp NEB SCH ×2 (07:14→18:26)
[2021-09-10 07:25] LABS: ANION GAP 4.3 mEq/L (7-13); CHLORIDE,CL 101 mmol/L (98-107); SODIUM,NA 143 mmol/L (136-145)
[2021-09-10] MEDS ORDERED: Insulin Isophane NPH, Human 100 Units/ML 3 ML Vial SQ SCH (08:00)
[2021-09-10 08:15] LABS: BASE EXCESS ARTERIAL 15 mmol/L ((-2)-(+3)); BICARBONATE,ARTERIAL 42.1 mmol/L (22-26); O2 DELIVERY DEVICE NASAL CANNULA; O2 SATURATION ARTERIAL 89 % (95-100); PO2 ARTERIAL 61 mmHg (70-100)
[2021-09-10 08:18] LABS: ALLEN TEST done; O2 FLOW RATE 0; PCO2 ARTERIAL 67 mmHg (35-45)
[2021-09-10] MEDS: Ferrous Sulfate 325 MG Tab PO SCH ×2 (08:25→17:55)
[2021-09-10] MEDS: Furosemide 40 MG/4 ML VIAL IVPUSH SCH (08:26)
[2021-09-10] MEDS: Enoxaparin 40 MG/0.4 ML Syringe SUBCUT SCH (08:27)
[2021-09-10] MEDS: Sodium Chloride 0.9% 10 ML Syringe FLUSH SCH ×2 (08:28→21:53)
[2021-09-10] MEDS ORDERED: Metolazone 2.5 MG Tab PO SCH (09:00)
[2021-09-10] MEDS: Insulin Lispro 100 Units/ML 3 ML Vial SUBCUT SCH ×4 (09:07→21:03)
--- NOTE | 2021-09-10 09:42 | CR ---
PROCEDURE INFORMATION: Exam: XR Chest Exam date and time: 09/10/2021 8:59 AM Age: 71 years old Clinical indication: Other: Chf TECHNIQUE: Imaging protocol: XR of the chest. Views: 1 view. COMPARISON: CR Chest 1V Frontal 09/08/2021 10:23 AM FINDINGS: Limitations: Body habitus degrades image quality and signal to noise ratio compromising the study. Lungs: There is mild perihilar interstitial prominence consistent with volume overload or early congestive heart failure. Mild ground-glass airspace disease at the lower lung montoya bilaterally. Pleural spaces: Unremarkable. No pleural effusion. No pneumothorax. Heart/Mediastinum: The heart is enlarged. Bones/joints: Status post right shoulder arthroplasty. IMPRESSION: 1. There is mild perihilar interstitial prominence consistent with volume overload or early congestive heart failure. 2. Mild ground-glass airspace disease at the lower lung montoya bilaterally.
[2021-09-10] MEDS: Furosemide 20 MG/2 ML VIAL IVPUSH SCH ×2 (10:08→17:21)
[2021-09-10] MEDS: Verapamil 180 MG Tab.ER PO SCH (21:03)
[2021-09-10] MEDS: Temazepam 15 MG Cap PO PRN (21:50)
[2021-09-10] MEDS: Acetaminophen 325 MG Tab PO PRN (21:51)
[2021-09-10] MEDS: Isopropyl Myristate/Mineral Oil/Water Lotion 240 ML Bottle TOP SCH (21:55)
[2021-09-11] MEDS: Furosemide 20 MG/2 ML VIAL IVPUSH SCH ×3 (00:48→17:44)
[2021-09-11] MEDS: metroNIDAZOLE 250 MG Tab PO SCH ×2 (05:51→14:08)
[2021-09-11] MEDS: Pantoprazole 40 MG Vial IVPUSH SCH ×2 (05:54→17:44)
[2021-09-11] MEDS ORDERED: methylPREDNISolone Sodium Succinate 40 MG/1 ML SDV IVPUSH SCH (06:00)
[2021-09-11 06:41] LABS: ANION GAP 8.5 mEq/L (7-13); CHLORIDE,CL 101 mmol/L (98-107); SODIUM,NA 146 mmol/L (136-145)
[2021-09-11] MEDS: Albuterol/Ipratropium 3.0-0.5 MG/3 ML Neb Soln NEB PRN ×2 (06:59→18:18)
[2021-09-11] MEDS: Budesonide 0.5 MG/2 ML Neb Susp NEB SCH ×2 (06:59→18:18)
[2021-09-11] MEDS ORDERED: Cholecalciferol (Vitamin D3) 25 MCG Tab PO ONE (07:54)
[2021-09-11] MEDS ORDERED: Dextrose 5% in Water 250 ML IV SCH (08:00)
--- NOTE | 2021-09-11 08:46 | PN ---
DATE: 09/10/2021 SUBJECTIVE: The patient was seen today. Her oxygen saturation goes from 95% with 5 L nasal cannula to 77% she eats or with minimal movement. The patient was on BiPAP during the night, and she had increase in bicarbonate in the morning to 42 and her blood gas today shows a pH of 7.41 with pCO2 of 67; pO2 of 61; oxygen saturation 89, low; and base excess of 15. During the night, she had an I and O of minus 790, and today, she had an I and O of minus 1100. Due to metabolic alkalosis, the patient's Lasix was decreased, she was given only 40 mg in the morning, and we will re-evaluate the patient tomorrow. LABORATORY DATA: Today, WBC 11.5, hemoglobin 9.8, hematocrit 36.9, and platelet count is 251. ABGs show a pH of 7.41, pCO2 of 67, pO2 of 61, bicarbonate was 42.1. ABG base excess 15. ABG oxygen saturation 89. Chemistry shows sodium of 143, potassium 4.2, chloride 101, carbon dioxide 42, anion gap , BUN 29, creatinine 1.03. Estimated creatinine clearance, drug dosing, 40.84. Estimated GFR more than 60. Glucose 186 and calcium 8.4. POC glucose 277, 242. SARS-COVID negative, repeat. Chest x-ray was repeated today and showed there is mild perihilar interstitial prominence consistent with volume overload or early congestive heart failure. Mild ground-glass airspace disease in the lower lung montoya bilaterally. PHYSICAL EXAMINATION: Vital Signs: Today were temperature 98.6, pulse rate 72, blood pressure 141/61, respiratory rate 28, oxygen saturation 92 on 5 L. HEENT: Show head atraumatic, normocephalic. Pupils reactive to light. Neck: Supple. No thyromegaly. No lymphadenopathy. JVD present. Heart: S1, S2. S3. Regular rhythm and rate. Positive diastolic murmur. Lungs: Bilateral wheezing, mild crackles. Abdomen: Globulus, obese. Positive bowel sounds. Tenderness in the epigastrium, improved since yesterday. Extremities: 1+ pitting edema. Dry skin on bilateral feet. ASSESSMENT AND PLAN: Acute on chronic respiratory failure, hypoxic, due to congestive heart failure and chronic obstructive pulmonary disease exacerbation. We will continue the patient with levofloxacin 750 mg IV q.24 hours and metronidazole 500 mg p.o. t.i.d. for a total of 5 days. We will continue with albuterol-ipratropium nebulizer treatments q.6 hours p.r.n. for shortness of breath and wheezing, and we will decrease methylprednisolone to 40 mg IV push p.o. q.12 hours. For congestive heart failure exacerbation, we will monitor I and O, daily weight, and metolazone was not added today due to metabolic alkalosis. Lasix was decreased to 40 mg IV 1 dose. The patient will increase to 1200 mL. For chronic obstructive pulmonary disease exacerbation, the patient also will be continued with budesonide 0.5 mg inhaler q.12 hours, DuoNeb nebulizer treatment q.6 hours, Solu-Medrol 40 mg IV q.12 hours, levofloxacin 750 mg IV q.24 hours. For epigastric pain, the patient will continue with Protonix IV q.12 hours. For diabetes mellitus, which is uncontrolled, the patient will be continued with NPH 4 units subcutaneous b.i.d., and we will decrease her Solu-Medrol to 40 mg IV push q.12 hours, and she is also receiving insulin lispro sliding scale, medium sliding scale. For deep venous thrombosis prophylaxis, the patient is given enoxaparin 40 mg subcutaneous daily. For hypertension, she will be continued with verapamil 180 mg p.o. q.h.s. Her blood pressure is controlled. For anemia, the patient is being treated with iron sulfate 325 mg p.o. b.i.d. with meals. For dry skin, the patient will receive emollient ointment, Hydrocerin lotion apply b.i.d. on her feet. Also for chronic obstructive pulmonary disease with hypercarbia, the patient is placed intercurrently on BiPAP 08/22, titrate FiO2 to maintain oxygen saturation between 88 and 91. [facility] /[id number]
[2021-09-11] MEDS: Insulin Lispro 100 Units/ML 3 ML Vial SUBCUT SCH ×4 (08:57→20:47)
[2021-09-11] MEDS: Ferrous Sulfate 325 MG Tab PO SCH ×2 (08:57→17:43)
[2021-09-11] MEDS: Enoxaparin 40 MG/0.4 ML Syringe SUBCUT SCH (08:59)
[2021-09-11] MEDS: Sodium Chloride 0.9% 10 ML Syringe FLUSH SCH (08:59)
[2021-09-11] MEDS ORDERED: Ergocalciferol (Vitamin D2) 1.25 MG Cap PO SCH (09:00)
[2021-09-11] MEDS: Isopropyl Myristate/Mineral Oil/Water Lotion 240 ML Bottle TOP SCH ×2 (09:00→20:35)
[2021-09-11] MEDS ORDERED: Ergocalciferol (Vitamin D2) 1.25 MG Cap PO ONE (09:00)
[2021-09-11] MEDS: Insulin Isophane NPH, Human 100 Units/ML 3 ML Vial SQ SCH ×2 (09:06→20:49)
[2021-09-11] MEDS ORDERED: metFORMIN 500 MG Tab PO ONE (13:59)
[2021-09-11] MEDS: Lisinopril 5 MG Tab PO SCH (17:43)
[2021-09-11] MEDS ORDERED: Insulin Glarg,Human.Rec.Analog 100 Unit/ML SUBCUT ONE (17:45)
[2021-09-11] MEDS ORDERED: 50% Dextrose in Water 50 ML Syringe IVPUSH PRN (17:45)
[2021-09-11] MEDS ORDERED: Glucagon,Human Recombinant 1 MG Vial IM PRN (17:45)
[2021-09-11] MEDS: cefTRIAXone 1 GM in Sodium Chloride 0.9% 50 ML IV SCH (18:06)
--- NOTE | 2021-09-11 19:31 | PN ---
DATE: 09/11/2021 The patient was seen today. She was out of bed to chair. The patient has a very high BMI of 50.7. She is 286 pounds and today she was able to saturate 95 on 1.5 L nasal cannula. Vital signs in the morning at 7:36 a.m. were temperature 98.1, pulse rate 58, blood pressure 149/87, respiratory rate 20, oxygen saturation was 100% on BiPAP, and FiO2 30. Later on during the day, the patient was saturating 12 noon at 95% on 1.5 L nasal cannula. The patient desaturates with movement. Her oxygen drops to 79 on 1.5 L nasal cannula. Urine culture grew E coli that it is resistant to levothyroxine and is resistant to ciprofloxacin and the patient is sensitive to ceftriaxone. LABORATORY DATA: Today WBC 11.1, hemoglobin 10.3, hematocrit 38.8, MCV 79.7 low, and platelet count 275. Sodium 146, potassium 4.5, chloride 101, CO2 of 41, anion gap 8.5, BUN 36, and creatinine 1.06. Estimated creatinine clearance of 39.68, glucose 172, and calcium 8.7. Blood sugar today, they were 148 in the morning and then . PHYSICAL EXAMINATION: Show head atraumatic and normocephalic. Pupils reactive to light. Neck: Supple. No thyromegaly. No lymphadenopathy. JVD present. HEART: S1 and S2. S3. Regular rhythm and rate. Diastolic murmur noted. LUNGS: Mild crackles bilateral. ABDOMEN: Globulus, obese. Positive bowel sounds. Mild tenderness in the epigastrium. EXTREMITIES: Trace edema. ASSESSMENT AND PLAN: [id number] respiratory failure, hypoxic due to congestive heart failure and chronic obstructive pulmonary disease exacerbation. We will discontinue levofloxacin 750 mg q.24 hours as the patient also has urinary tract infection and she is resistant to levofloxacin and she has bacteremia with E coli and we will start the patient on ceftriaxone 1 g IV q.24 hours. We will also discontinue metronidazole 500 mg p.o. t.i.d. We continue the patient for chronic obstructive pulmonary disease with albuterol/ipratropium nebulizer treatment q.6 hours for shortness of breath and wheezing. We will discontinue methylprednisolone as her blood sugars are elevated and she is almost back to her baseline for congestive heart failure. The patient is still on fluid restriction 1200 mL in 24 hours and we will continue with Lasix 20 mg IV q.8 hours. We will monitor I and O. for epigastric pain, the patient will be continued with Protonix IV 40 mg q.12 hours. For diabetes mellitus uncontrolled, the patient will be continued with NPH 5 units subcutaneous b.i.d. and we will discontinue Solu-Medrol and we will give patient 1 dose of Lantus 10 units subcutaneous 1 time and we will follow the patient with insulin coverage on a medium sliding scale a.c. and h.s. The patient also was given 1 tablet of metformin. She would benefit to be started home metformin considering her weight gain. For severe obesity, the patient was started on Effexor 75 mg extended release to control with weight loss. For hypertension, she will be continued on verapamil 100 mg p.o. at bedtime and we will add lisinopril 5 mg p.o. daily as her hypertension is not controlled. For anemia, the patient is being treated with 325 mg p.o. b.i.d. with meals. Followup hemoglobin. For dry skin, the patient will receive emollient ointment. Also for chronic obstructive pulmonary disease, the patient will be intermittent on BiPAP 12.5, titrate oxygen FiO2 to maintain oxygen between 88 and 91. For bowel regimen, the patient was given Colace 1 capsule p.o. b.i.d. [facility] /[id number]
[2021-09-11] MEDS: Verapamil 180 MG Tab.ER PO SCH (20:18)
[2021-09-11] MEDS: Temazepam 15 MG Cap PO PRN (21:54)
[2021-09-12] MEDS: Acetaminophen 325 MG Tab PO PRN (00:30)
[2021-09-12] MEDS: Sodium Chloride 0.9% 10 ML Syringe FLUSH SCH ×2 (00:33→08:18)
[2021-09-12] MEDS: Furosemide 20 MG/2 ML VIAL IVPUSH SCH ×4 (00:34→17:35)
[2021-09-12] MEDS: Pantoprazole 40 MG Vial IVPUSH SCH ×2 (05:24→17:35)
[2021-09-12 06:34] LABS: ANION GAP 8.9 mEq/L (7-13); CHLORIDE,CL 100 mmol/L (98-107); SODIUM,NA 145 mmol/L (136-145)
[2021-09-12] MEDS: Enoxaparin 40 MG/0.4 ML Syringe SUBCUT SCH (08:16)
[2021-09-12] MEDS: Lisinopril 5 MG Tab PO SCH (08:17)
[2021-09-12] MEDS: Ferrous Sulfate 325 MG Tab PO SCH ×2 (08:17→17:36)
[2021-09-12] MEDS: Venlafaxine 37.5 MG Cap.ER PO SCH (08:17)
[2021-09-12] MEDS: Isopropyl Myristate/Mineral Oil/Water Lotion 240 ML Bottle TOP SCH ×2 (08:18→20:39)
[2021-09-12] MEDS: Insulin Lispro 100 Units/ML 3 ML Vial SUBCUT SCH ×4 (08:38→21:02)
[2021-09-12] MEDS: Insulin Isophane NPH, Human 100 Units/ML 3 ML Vial SQ SCH ×2 (08:38→21:02)
[2021-09-12] MEDS ORDERED: methylPREDNISolone Sodium Succinate 40 MG/1 ML SDV IVPUSH SCH (09:00)
--- NOTE | 2021-09-12 09:31 | CR ---
PROCEDURE INFORMATION: Exam: XR Chest Exam date and time: 09/12/2021 9:18 AM Age: 71 years old Clinical indication: Other: Chf TECHNIQUE: Imaging protocol: XR of the chest. Views: 1 view. COMPARISON: CR Chest 1V Frontal 09/10/2021 8:59 AM FINDINGS: Lungs: Interstitial prominence in the bilateral mid and lower lungs appears similar to 09/10/2021 Pleural spaces: Fluid or thickened pleura in the costophrenic angles. Heart/Mediastinum: Unremarkable. No cardiomegaly. Vasculature: Aortic calcifications. 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 IMPRESSION: 1. No appreciable change from 09/10/2021 2. Interstitial prominence in the bilateral mid and lower lungs with fluid or thickened pleura in the costophrenic angles
[2021-09-12] MEDS: methylPREDNISolone Sodium Succinate 40 MG/1 ML SDV IVPUSH SCH (09:51)
[2021-09-12] MEDS ORDERED: Budesonide 0.5 MG/2 ML Neb Susp ONE (10:01)
[2021-09-12] MEDS: Albuterol/Ipratropium 3.0-0.5 MG/3 ML Neb Soln NEB PRN (10:24)
[2021-09-12] MEDS: Budesonide 0.5 MG/2 ML Neb Susp NEB SCH ×2 (12:06→18:24)
[2021-09-12] MEDS: cefTRIAXone 1 GM in Sodium Chloride 0.9% 50 ML IV SCH (17:36)
--- NOTE | 2021-09-12 20:12 | PN ---
DATE: 09/12/2021 The patient was seen today. She was on 1.5 L in the morning, saturating 98%. Blood pressure today around 143/77, temperature 96.9 with a pulse of 84. She desaturated down to 82 today; usually, when she goes to bathroom or she moves in the bed or if the oxygen falls from her face. I and O for the past 24 hours, the patient had a negative I and O of 2527; and for the past 12 hours she had a negative I and O of 710. IMAGING: Chest x-ray repeated today showed no appreciated change from 09/10. Interstitial prominence in bilateral mid and lower lungs with fluid or thickened pleura and costophrenic angles. Lungs, interstitial prominence in bilateral mid and lower lungs appear similar to 09/10/2021. Pleural spaces, fluid or thickened pleura in the costophrenic angle. Heart, mediastinum are unremarkable. No cardiomegaly. Vasculature, aortic calcification. Bone and joints, degenerative arthritis of left shoulder and right shoulder arthroplasty. LABORATORY DATA: Today, WBC 14.2, hemoglobin 11.2, hematocrit 41.9, MCV 79.7, and platelet count 245. Sodium 145, potassium 2.9, chloride 100, CO2 of 40, anion gap 8.9, BUN 33, creatinine 1.06. Glucose in the morning was 90, calcium 8.5. Blood sugars today, 90, 136, 221. PHYSICAL EXAMINATION: HEENT: Head atraumatic, normocephalic. Pupils reactive to light. Neck: Supple. No thyromegaly. No lymphadenopathy. Heart: S1, S2. Regular rhythm and rate. Diastolic murmur noted. Lungs: Mild crackles, bilateral. Abdomen: Globulus. Obese. Positive bowel sounds. Mild tenderness in the epigastrium, improved. Extremities: Trace edema. ASSESSMENT AND PLAN: Acute on chronic respiratory failure, hypoxic, due to congestive heart failure, chronic obstructive pulmonary disease, and probably some pulmonary fibrosis. We will continue the patient with ceftriaxone 1 g q.24 hours for bacteremia with E coli. The patient has creatinine clearance for medication of 39.68 and she was started on ceftriaxone only yesterday. She is resistant to Levaquin. For chronic obstructive pulmonary disease, we will continue the patient with albuterol and ipratropium nebulizer treatment q.6 hours for shortness of breath and wheezing and we will continue methylprednisolone 40 mg IV daily for another 2 days for a total of 5 days. For congestive heart failure exacerbation, we will continue fluid restriction of 1200 mL in 24 hours and we will give the patient Lasix IV q.8 hours. We will monitor I and O. For epigastric pain, we will continue Protonix IV 20 mg q.12 hours. For diabetes mellitus, we will continue NPH 5 units subcutaneous b.i.d. and insulin on sliding scale medium coverage and we will consider increasing the metformin to 500 mg twice a day. The patient would benefit from being started on metformin due to her weight. For severe obesity, she was started on Effexor extended release to control her appetite and to help with weight loss. For hypertension, the patient is on verapamil 180 mg p.o. at bedtime and on lisinopril 5 mg p.o. daily. Her hypertension is not controlled. We will consider increasing verapamil to 320 mg p.o. daily. For anemia, the patient is getting ferrous sulfate 325 mg p.o. b.i.d. with meals. Follow up hemoglobin. For dry skin, she was given emollient cream. Regarding chronic obstructive pulmonary disease, we will discontinue BiPAP and we will have the patient, for hypoxia, on oxygen and we will titrate oxygen to maintain oxygen saturation between 88 and 91 as the patient is a CO2 retainer. For bowel regimen, the patient is on Colace 1 capsule b.i.d. and we will also add for the patient MiraLAX 17 g p.o. daily p.r.n. for constipation. [facility] /[id number]
[2021-09-12] MEDS: Verapamil 180 MG Tab.ER PO SCH (20:39)
[2021-09-12] MEDS: metFORMIN 500 MG Tab PO SCH (20:58)
[2021-09-12] MEDS: Temazepam 15 MG Cap PO PRN (22:50)
[2021-09-13] MEDS: Sodium Chloride 0.9% 10 ML Syringe FLUSH SCH ×3 (01:45→21:45)
[2021-09-13] MEDS: Furosemide 20 MG/2 ML VIAL IVPUSH SCH ×3 (01:46→17:54)
[2021-09-13] MEDS: Pantoprazole 40 MG Vial IVPUSH SCH ×2 (05:34→17:56)
[2021-09-13 07:17] LABS: CHLORIDE,CL 101 mmol/L (98-107); SODIUM,NA 148 mmol/L (136-145)
[2021-09-13] MEDS ORDERED: Dextrose 5% in Water 1,000 ML IV SCH (09:15)
[2021-09-13] MEDS: Ferrous Sulfate 325 MG Tab PO SCH ×2 (09:33→17:59)
[2021-09-13] MEDS: Venlafaxine 37.5 MG Cap.ER PO SCH (09:33)
[2021-09-13] MEDS: Lisinopril 5 MG Tab PO SCH (09:33)
[2021-09-13] MEDS: metFORMIN 500 MG Tab PO SCH ×2 (09:36→17:59)
[2021-09-13] MEDS: methylPREDNISolone Sodium Succinate 40 MG/1 ML SDV IVPUSH SCH (09:36)
[2021-09-13] MEDS: Enoxaparin 40 MG/0.4 ML Syringe SUBCUT SCH (09:37)
[2021-09-13] MEDS: Insulin Isophane NPH, Human 100 Units/ML 3 ML Vial SQ SCH ×2 (09:43→21:44)
[2021-09-13] MEDS: Insulin Lispro 100 Units/ML 3 ML Vial SUBCUT SCH ×4 (09:44→21:45)
[2021-09-13] MEDS ORDERED: Budesonide 0.5 MG/2 ML Neb Susp ONE (10:35)
[2021-09-13] MEDS ORDERED: Albuterol/Ipratropium 3.0-0.5 MG/3 ML Neb Soln ONE ×2 (10:36→18:47)
[2021-09-13] MEDS: Budesonide 0.5 MG/2 ML Neb Susp NEB SCH ×2 (10:43→18:52)
[2021-09-13] MEDS: Albuterol/Ipratropium 3.0-0.5 MG/3 ML Neb Soln NEB PRN ×2 (10:44→18:53)
--- NOTE | 2021-09-13 11:22 | PCM.PN ---
- General Info Date of Service: 09/13/21 Admission Dx/Problem (Free Text): The patient was admitted with shortness of breath likely COPD exacerbation and that did not improve with nebulizer treatment at home and came to hospital for admission. The patient has past medical history which is significant for tobacco abuse, COPD diabetes and hypertension. Subjective Update: The patient was seen today during rounds and he is doing much better and will be able to go home soon but she still feels tired and exhausted we will continue to monitor and possibly will be discharge in the next few days. Today she denied nausea vomiting fever chills dysuria polyuria. Functional Status: Reports: Pain Controlled, Tolerating Diet, Urinating - Review of Systems General: Reports: Weakness, Malaise, Appetite (acceptable). Denies: Fever HEENT: Denies: Headaches, Sinus Congestion, Sore Throat, Visual Changes Pulmonary: Reports: Cough. Denies: Shortness of Breath Cardiovascular: Denies: Chest Pain, Edema, Lightheadedness Gastrointestinal: Denies: Abdominal Pain, Difficulty Swallowing, Nausea, Vomiting Genitourinary: Denies: Dysuria, Urgency, Retention, Flank Pain Musculoskeletal: Denies: Neck Pain, Leg Pain, Foot Pain, Joint Swelling Skin: Denies: Jaundice, Bruising, Pruritis Neurological: Reports: Weakness. Denies: Confusion, Headache, Trouble Speaking Psychiatric: Denies: Confusion, Depression, Anxiety - Patient Data Vitals - Most Recent: Last Vital Signs Temp 36.0 C L 09/13/21 08:00 Pulse 85 09/13/21 10:44 Resp 22 H 09/13/21 08:00 BP 148/73 H 09/13/21 09:33 Pulse Ox 91 L 09/13/21 08:00 Weight - Most Recent: 127.459 kg I&O - Last 24 Hours: Intake & Output 09/12/21 09/13/21 09/13/21 22:59 06:59 14:59 Intake Total 540 100 Output Total 3000 900 Balance -2460 -800 Lab Results Last 24 Hours: Laboratory Results - last 24 hr 09/12/21 09/12/21 09/12/21 Range/Units 11:41 16:47 20:44 WBC (5.0-10.0) 10^3/uL RBC (4.2-5.4) 10^6/uL Hgb (12.0-16.0) g/dL Hct (37.0-47.0) % MCV (80-100) fL MCH (27.0-34.0) pg MCHC (33.0-35.0) g/dL Plt Count (150-450) 10^3/uL Sodium (136-145) mmol/L Potassium (3.5-5.1) mmol/L Chloride (98-107) mmol/L Carbon Dioxide (21-32) mmol/L Anion Gap (7-13) mEq/L BUN (7-18) mg/dL Creatinine (0.55-1.02) mg/dL Est Cr Clr Drug Dosing mL/min Estimated GFR (MDRD) Glucose (70-99) mg/dL POC Glucose 136 H 221 H 190 H (70-99) mg/dL Calcium (8.5-10.1) mg/dL 09/13/21 09/13/21 09/13/21 Range/Units 06:15 06:15 08:02 WBC 13.9 H (5.0-10.0) 10^3/uL RBC 5.26 (4.2-5.4) 10^6/uL Hgb 11.3 L (12.0-16.0) g/dL Hct 41.4 (37.0-47.0) % MCV 78.7 L (80-100) fL MCH 21.5 L (27.0-34.0) pg MCHC 27.3 L (33.0-35.0) g/dL Plt Count 291 (150-450) 10^3/uL Sodium 148 H (136-145) mmol/L Potassium 4.0 (3.5-5.1) mmol/L Chloride 101 (98-107) mmol/L Carbon Dioxide 43 H* (21-32) mmol/L Anion Gap 8.0 (7-13) mEq/L BUN 30 H (7-18) mg/dL Creatinine 1.01 (0.55-1.02) mg/dL Est Cr Clr Drug Dosing 41.65 mL/min Estimated GFR (MDRD) > 60 Glucose 104 H (70-99) mg/dL POC Glucose 92 (70-99) mg/dL Calcium 8.4 L (8.5-10.1) mg/dL Oz Results Last 24 Hours: Microbiology 09/08/21 20:01 Gram Stain - Final Sputum - Expectorated Sputum Culture - Final Normal [place] Med Orders - Current: Current Medications Acetaminophen (Acetaminophen 325 Mg Tab) 650 mg PO Q4H PRN PRN Reason: Pain (Mild 1-3)/fever Last Admin: 09/12/21 00:30 Dose: 650 mg Documented by: Acetazolamide (Acetazolamide 250 Mg Tab) 250 mg PO DAILY COUNT INCLUDES THE [facility] Albuterol/Ipratropium (Albuterol/Ipratropium 3.0-0.5 Mg/3 Ml Neb Soln) 3 ml NEB Q4H PRN PRN Reason: shortness of breath/wheezing Last Admin: 09/13/21 10:44 Dose: 3 ml Documented by: Ammonium Lactate (Ammonium Lactate 12% Lotion 225 Gm Bottle) 0 gm TOP BID COUNT INCLUDES THE [facility] Last Admin: 09/12/21 20:39 Dose: Not Given Documented by: Budesonide (Budesonide 0.5 Mg/2 Ml Neb Susp) 0.5 mg NEB BIDRT COUNT INCLUDES THE [facility] Last Admin: 09/13/21 10:43 Dose: 0.5 mg Documented by: Dextrose/Water (50% Dextrose In Water 50 Ml Syringe) 50 ml IVPUSH Q15M PRN PRN Reason: Hypoglycemia Emollient Ointment (Isopropyl Myristate/Mineral Oil/Water Lotion 240 Ml Bottle) 3 ml TOP BID COUNT INCLUDES THE [facility] Last Admin: 09/12/21 20:39 Dose: Not Given Documented by: Enoxaparin Sodium (Enoxaparin 40 Mg/0.4 Ml Syringe) 40 mg SUBCUT DAILY COUNT INCLUDES THE [facility] Last Admin: 09/13/21 09:37 Dose: 40 mg Documented by: Ferrous Sulfate (Ferrous Sulfate 325 Mg Tab) 325 mg PO BIDMEALS COUNT INCLUDES THE [facility] Last Admin: 09/13/21 09:33 Dose: 325 mg Documented by: Furosemide (Furosemide 20 Mg/2 Ml Vial) 20 mg IVPUSH Q8H COUNT INCLUDES THE [facility] Last Admin: 09/13/21 09:34 Dose: 20 mg Documented by: Glucagon (Glucagon,Human Recombinant 1 Mg Vial) 1 mg IM Q15M PRN PRN Reason: Hypoglycemia Ceftriaxone Sodium 1 gm/ (Sodium Chloride) 50 mls @ 100 mls/hr IV Q24H COUNT INCLUDES THE [facility] Last Admin: 09/12/21 17:36 Dose: 100 mls/hr Documented by: Dextrose/Water (Dextrose 5% In Water) 1,000 mls @ 50 mls/hr IV ASDIRECTED COUNT INCLUDES THE [facility] Insulin Human Lispro (Insulin Lispro 100 Units/Ml 3 Ml Vial) 0 unit SUBCUT WITHMEALSANDBED COUNT INCLUDES THE [facility]; Protocol Last Admin: 09/13/21 09:44 Dose: 5 units Documented by: Insulin Human NPH (Insulin Isophane Nph, Human 100 Units/Ml 3 Ml Vial) 5 unit SQ BID@0800,2000 COUNT INCLUDES THE [facility] Last Admin: 09/13/21 09:43 Dose: 5 unit Documented by: Lisinopril (Lisinopril 5 Mg Tab) 5 mg PO DAILY COUNT INCLUDES THE [facility] Last Admin: 09/13/21 09:33 Dose: 5 mg Documented by: Metformin HCl (Metformin 500 Mg Tab) 500 mg PO BIDMEALS COUNT INCLUDES THE [facility] Last Admin: 09/13/21 09:36 Dose: 500 mg Documented by: Pantoprazole Sodium (Pantoprazole 40 Mg Vial) 40 mg IVPUSH Q12H COUNT INCLUDES THE [facility] Last Admin: 09/13/21 05:34 Dose: 40 mg Documented by: Polyethylene Glycol (Polyethylene Glycol 3350 Powder 17 Gm Packet) 17 gm PO DAILY PRN PRN Reason: Constipation Sodium Chloride (Sodium Chloride 0.9% 10 Ml Syringe) 10 ml FLUSH 0900,2100 COUNT INCLUDES THE [facility] Last Admin: 09/13/21 09:37 Dose: 10 ml Documented by: Temazepam (Temazepam 15 Mg Cap) 15 mg PO BEDTIME PRN PRN Reason: Sleep Last Admin: 09/12/21 22:50 Dose: 15 mg Documented by: Venlafaxine HCl (Venlafaxine 37.5 Mg Cap.Er) 75 mg PO WITHBREAKFAST COUNT INCLUDES THE [facility] Last Admin: 09/13/21 09:33 Dose: 75 mg Documented by: Verapamil HCl (Verapamil 180 Mg Tab.Er) 180 mg PO BEDTIME COUNT INCLUDES THE [facility] Last Admin: 09/12/21 20:39 Dose: 180 mg Documented by: Discontinued Medications Acetaminophen (Acetaminophen 325 Mg Tab) 650 mg PO BID COUNT INCLUDES THE [facility] Albuterol/Ipratropium (Albuterol/Ipratropium 3.0-0.5 Mg/3 Ml Neb Soln) 3 ml NEB ONETIME ONE Stop: 09/08/21 10:51 Last Admin: 09/08/21 11:00 Dose: 3 ml Documented by: Albuterol/Ipratropium (Albuterol/Ipratropium 3.0-0.5 Mg/3 Ml Neb Soln) 3 ml NEB QIDRT TONNY Last Admin: 09/09/21 01:45 Dose: Not Given Documented by: Albuterol/Ipratropium (Albuterol/Ipratropium 3.0-0.5 Mg/3 Ml Neb Soln) 3 ml INH Q4H PRN PRN Reason: Shortness of Breath Albuterol/Ipratropium (Albuterol/Ipratropium 3.0-0.5 Mg/3 Ml Neb Soln) Confirm Administered Dose 3 ml .ROUTE .STK-MED ONE Stop: 09/13/21 10:37 Budesonide (Budesonide 0.5 Mg/2 Ml Neb Susp) Confirm Administered Dose 0.5 mg .ROUTE .STK-MED ONE Stop: 09/12/21 10:02 Last Admin: 09/12/21 10:25 Dose: 0.5 mg Documented by: Budesonide (Budesonide 0.5 Mg/2 Ml Neb Susp) Confirm Administered Dose 0.5 mg .ROUTE .STK-MED ONE Stop: 09/13/21 10:36 Cholecalciferol (Cholecalciferol (Vitamin D3) 25 Mcg Tab) 25 mcg PO ONETIME ONE Stop: 09/11/21 07:55 Last Admin: 09/11/21 18:23 Dose: Not Given Documented by: Dextrose/Water (50% Dextrose In Water 50 Ml Syringe) 50 ml IVPUSH Q15M PRN PRN Reason: Hypoglycemia Ergocalciferol (Ergocalciferol (Vitamin D2) 1.25 Mg Cap) 1.25 mg PO DAILY COUNT INCLUDES THE [facility] Ergocalciferol (Ergocalciferol (Vitamin D2) 1.25 Mg Cap) 1.25 mg PO ONETIME ONE Stop: 09/11/21 09:01 Last Admin: 09/11/21 08:58 Dose: 1.25 mg Documented by: Furosemide (Furosemide 40 Mg/4 Ml Vial) 40 mg IVPUSH BIDDIURETIC TONNY Last Admin: 09/10/21 08:26 Dose: 40 mg Documented by: Glucagon (Glucagon,Human Recombinant 1 Mg Vial) 1 mg IM Q15M PRN PRN Reason: Hypoglycemia Ceftriaxone Sodium 1 gm/ (Sodium Chloride) 50 mls @ 100 mls/hr IV ONETIME ONE Stop: 09/08/21 11:49 Last Admin: 09/08/21 12:36 Dose: 100 mls/hr Documented by: Metronidazole 500 mg/ Premix 100 mls @ 100 mls/hr IV ONETIME ONE Stop: 09/08/21 12:29 Last Admin: 09/08/21 12:13 Dose: 100 mls/hr Documented by: Piperacillin Sod/Tazobactam (Sod 4.5 gm/ Sodium Chloride) 100 mls @ 200 mls/hr IV Q6HR COUNT INCLUDES THE [facility] Ceftriaxone Sodium 1 gm/ (Sodium Chloride) 50 mls @ 100 mls/hr IV Q24H COUNT INCLUDES THE [facility] Metronidazole 500 mg/ Premix 100 mls @ 100 mls/hr IV Q8H COUNT INCLUDES THE [facility] Levofloxacin/Dextrose 750 mg/ (Premix) 150 mls @ 100 mls/hr IV ONETIME ONE Stop: 09/08/21 19:25 Last Admin: 09/08/21 19:11 Dose: 100 mls/hr Documented by: Dextrose/Water (Dextrose 5% In Water) 250 mls @ 100 mls/hr IV ASDIRECTED COUNT INCLUDES THE [facility] Last Admin: 09/11/21 09:04 Dose: 100 mls/hr Documented by: Insulin Glargine (Insulin Glarg,Human.Rec.Analog 100 Unit/Ml) 10 unit SUBCUT ONETIME ONE Stop: 09/11/21 17:46 Last Admin: 09/11/21 18:05 Dose: 10 units Documented by: Insulin Human NPH (Insulin Isophane Nph, Human 100 Units/Ml 3 Ml Vial) 5 unit SQ BID COUNT INCLUDES THE [facility] Last Admin: 09/10/21 03:28 Dose: Not Given Documented by: Insulin Human NPH (Insulin Isophane Nph, Human 100 Units/Ml 3 Ml Vial) 5 unit SQ BID@0800,2000 COUNT INCLUDES THE [facility] Metformin HCl (Metformin 500 Mg Tab) 500 mg PO ONETIME ONE Stop: 09/11/21 14:00 Last Admin: 09/11/21 14:10 Dose: 500 mg Documented by: Methylprednisolone Sodium Succinate (Methylprednisolone Sodium Succinate 125 Mg/2 Ml Sdv) 125 mg IVPUSH ONETIME ONE Stop: 09/08/21 11:22 Last Admin: 09/08/21 12:37 Dose: 125 mg Documented by: Methylprednisolone Sodium Succinate (Methylprednisolone Sodium Succinate 40 Mg/1 Ml Sdv) 40 mg IVPUSH Q6H COUNT INCLUDES THE [facility] Last Admin: 09/10/21 18:05 Dose: 40 mg Documented by: Methylprednisolone Sodium Succinate (Methylprednisolone Sodium Succinate 40 Mg/1 Ml Sdv) 40 mg IVPUSH Q12H COUNT INCLUDES THE [facility] Last Admin: 09/11/21 05:58 Dose: 40 mg Documented by: Methylprednisolone Sodium Succinate (Methylprednisolone Sodium Succinate 40 Mg/1 Ml Sdv) 40 mg IVPUSH Q6H COUNT INCLUDES THE [facility] Methylprednisolone Sodium Succinate (Methylprednisolone Sodium Succinate 40 Mg/1 Ml Sdv) 40 mg IVPUSH DAILY COUNT INCLUDES THE [facility] Stop: 09/13/21 09:01 Last Admin: 09/13/21 09:36 Dose: 40 mg Documented by: Metolazone (Metolazone 2.5 Mg Tab) 2.5 mg PO DAILY COUNT INCLUDES [facility] Metronidazole (Metronidazole 250 Mg Tab) 500 mg PO Q8HR COUNT INCLUDES THE [facility] Last Admin: 09/11/21 14:08 Dose: 500 mg Documented by: Non-Formulary Medication (Umeclidinium Brm/Vilanterol Tr [Anoro Ellipta 62.5-25 Mcg]) 1 puff IH DAILY COUNT INCLUDES THE [facility] Non-Formulary Medication (Fluticasone/Vilanterol) 1 puff INH DAILY COUNT INCLUDES THE [facility] Omeprazole (Omeprazole 20 Mg Cap.Cr) 40 mg PO ACBREAKFAST COUNT INCLUDES THE [facility] Last Admin: 09/09/21 05:52 Dose: 40 mg Documented by: - Exam Quality Assessment: Supplemental Oxygen, DVT Prophylaxis. No: Urine Catheter Urinary Catheter Total Time: 4Days 13Hours General: Alert, Oriented, Cooperative, No Acute Distress HEENT: Pupils Equal, EOMI, Mucous Membr. Moist/[place] Neck: No JVD, No Thyromegaly Lungs: Clear to Auscultation, Normal Respiratory Effort. No: Crackles, Wheezing Cardiovascular: Regular Rate, Regular Rhythm, No Murmurs GI/Abdominal Exam: Normal Bowel Sounds, Soft, Non-Tender, No Organomegaly. No: Guarding, Rigid (Female) Exam: Deferred Back Exam: Normal Inspection Extremities: Normal Inspection, No Pedal Edema Skin: Warm, Dry, Intact Neurological: No New Focal Deficit Psy/Mental Status: Alert, Normal Affect, Normal Mood - Patient Data Lab Results Last 24 hrs: Laboratory Results - last 24 hr 09/12/21 09/12/21 09/12/21 Range/Units 11:41 16:47 20:44 WBC (5.0-10.0) 10^3/uL RBC (4.2-5.4) 10^6/uL Hgb (12.0-16.0) g/dL Hct (37.0-47.0) % MCV (80-100) fL MCH (27.0-34.0) pg MCHC (33.0-35.0) g/dL Plt Count (150-450) 10^3/uL Sodium (136-145) mmol/L Potassium (3.5-5.1) mmol/L Chloride (98-107) mmol/L Carbon Dioxide (21-32) mmol/L Anion Gap (7-13) mEq/L BUN (7-18) mg/dL Creatinine (0.55-1.02) mg/dL Est Cr Clr Drug Dosing mL/min Estimated GFR (MDRD) Glucose (70-99) mg/dL POC Glucose 136 H 221 H 190 H (70-99) mg/dL Calcium (8.5-10.1) mg/dL 09/13/21 09/13/21 09/13/21 Range/Units 06:15 06:15 08:02 WBC 13.9 H (5.0-10.0) 10^3/uL RBC 5.26 (4.2-5.4) 10^6/uL Hgb 11.3 L (12.0-16.0) g/dL Hct 41.4 (37.0-47.0) % MCV 78.7 L (80-100) fL MCH 21.5 L (27.0-34.0) pg MCHC 27.3 L (33.0-35.0) g/dL Plt Count 291 (150-450) 10^3/uL Sodium 148 H (136-145) mmol/L Potassium 4.0 (3.5-5.1) mmol/L Chloride 101 (98-107) mmol/L Carbon Dioxide 43 H* (21-32) mmol/L Anion Gap 8.0 (7-13) mEq/L BUN 30 H (7-18) mg/dL Creatinine 1.01 (0.55-1.02) mg/dL Est Cr Clr Drug Dosing 41.65 mL/min Estimated GFR (MDRD) > 60 Glucose 104 H (70-99) mg/dL POC Glucose 92 (70-99) mg/dL Calcium 8.4 L (8.5-10.1) mg/dL Result Diagrams: 09/13/21 06:15 09/13/21 06:15 Oz Results Last 24 hrs: Microbiology 09/08/21 20:01 Gram Stain - Final Sputum - Expectorated Sputum Culture - Final Normal [place] Sepsis Event Note - Evaluation Sepsis Screening Result: Sepsis Risk - Focused Exam Vital Signs: Vital Signs Temp Pulse Resp BP BP BP Pulse Ox 09/13/21 10:44 85 09/13/21 09:33 148/73 H 09/13/21 08:00 36.0 C L 79 22 H 148/83 H 91 L 09/13/21 03:21 36.6 C 72 20 148/83 H 93 L - Problem List Review Problem List Initiated/Reviewed/Updated: Yes - My Orders Last 24 Hours: My Active Orders 09/13/21 09:15 Dextrose 5% in Water 1,000 ml IV ASDIRECTED acetaZOLAMIDE [Diamox] 250 mg PO DAILY - Plan Plan:: This is a 71-year-old female admitted with COPD exacerbation and weakness. Impression and plan: 1. COPD evaluation: The patient was admitted with a COPD exacerbations and she was on Solu-Medrol which has complete been completed and now she is on DuoNeb nebulizer as well as ceftriaxone. She is doing better now but she still feels weak and will continue to monitor for another or 2 days before making any decision for her discharge. 2. CHF exacerbation: Patient was shown to have fluid overloaded status and she is still on Lasix 20 mg IV every 8 hours. Continue to check daily I and O recording and daily weights. 3. Diabetes type 2: Patient is on insulin and and will cover high blood sugar with sliding scale as per coverage protocol. 4. Hypertension: Her blood pressure is acceptable now and will continue her on verapamil at 180 mg daily and Lisinopril at 5 mg daily. 5. GI prophylaxis: The patient is on Protonix before meal and will continue that. 6. DVT prophylaxis. We will continue with enoxaparin 40 mg subq daily. 7. Metabolic alkalosis: This is most likely secondary to COPD and she is not on any CPAP or BiPAP, will start her on acetazolamide at 250 mg daily for 2 days and see if that improves the alkalosis if not then it is chronic and will not do any other treatment for that.
[2021-09-13] MEDS: acetaZOLAMIDE 250 MG Tab PO SCH (11:25)
[2021-09-13] MEDS: Non-Formulary Medication 1 Each (Umeclidinium Brm/Vilanterol Tr [Anoro Ellipta 62.5-25 Mcg IH SCH ×3 (11:59→15:55)
[2021-09-13] MEDS: Isopropyl Myristate/Mineral Oil/Water Lotion 240 ML Bottle TOP SCH ×3 (13:19→13:33)
[2021-09-13] MEDS: cefTRIAXone 1 GM in Sodium Chloride 0.9% 50 ML IV SCH (20:00)
[2021-09-13] MEDS: Verapamil 180 MG Tab.ER PO SCH (21:43)
[2021-09-14] MEDS: Furosemide 20 MG/2 ML VIAL IVPUSH SCH ×3 (01:37→17:21)
[2021-09-14] MEDS: Isopropyl Myristate/Mineral Oil/Water Lotion 240 ML Bottle TOP SCH ×3 (02:24→22:06)
[2021-09-14] MEDS: Pantoprazole 40 MG Vial IVPUSH SCH ×2 (06:11→17:17)
[2021-09-14] MEDS: Albuterol/Ipratropium 3.0-0.5 MG/3 ML Neb Soln NEB PRN ×2 (07:02→17:41)
[2021-09-14] MEDS: Budesonide 0.5 MG/2 ML Neb Susp NEB SCH ×2 (07:02→17:41)
[2021-09-14 07:10] LABS: ANION GAP 10.9 mEq/L (7-13); CHLORIDE,CL 101 mmol/L (98-107); SODIUM,NA 144 mmol/L (136-145)
[2021-09-14] MEDS: acetaZOLAMIDE 250 MG Tab PO SCH (08:25)
[2021-09-14] MEDS: metFORMIN 500 MG Tab PO SCH ×2 (08:25→17:16)
[2021-09-14] MEDS: Ferrous Sulfate 325 MG Tab PO SCH ×2 (08:25→17:16)
[2021-09-14] MEDS: Lisinopril 5 MG Tab PO SCH (08:25)
[2021-09-14] MEDS: Insulin Lispro 100 Units/ML 3 ML Vial SUBCUT SCH ×4 (08:26→21:59)
[2021-09-14] MEDS: Enoxaparin 40 MG/0.4 ML Syringe SUBCUT SCH (08:27)
[2021-09-14] MEDS: Sodium Chloride 0.9% 10 ML Syringe FLUSH SCH (08:30)
[2021-09-14] MEDS: Insulin Isophane NPH, Human 100 Units/ML 3 ML Vial SQ SCH ×2 (08:38→22:06)
--- NOTE | 2021-09-14 15:00 | PCM.PN ---
- General Info Date of Service: 09/14/21 Admission Dx/Problem (Free Text): The patient was admitted with shortness of breath likely COPD exacerbation and that did not improve with nebulizer treatment at home and came to hospital for admission. The patient has past medical history which is significant for tobacco abuse, COPD diabetes and hypertension. Pt was seen in room today during rounds and she is doing well but could not go back to [place] because Dr. Landon can not see her in clinic today, she will here today and will go [facility] tomorrow Functional Status: Reports: Pain Controlled, Tolerating Diet, Urinating - Review of Systems General: Reports: Weakness, Appetite (good). Denies: Fever HEENT: Denies: Dysphasia, Headaches, Sinus Congestion, Sore Throat Pulmonary: Denies: Shortness of Breath, Cough, Sputum, Wheezing Cardiovascular: Denies: Chest Pain, Edema, Lightheadedness Gastrointestinal: Denies: Abdominal Pain, Diarrhea, Difficulty Swallowing, Nausea, Vomiting Genitourinary: Denies: Dysuria, Burning, Flank Pain Musculoskeletal: Denies: Neck Pain, Shoulder Pain, Back Pain Skin: Denies: Jaundice, Bruising, Pruritis Neurological: Reports: Weakness. Denies: Confusion, Tremors Psychiatric: Denies: Confusion, Anxiety - Patient Data Vitals - Most Recent: Last Vital Signs Temp 35.7 C L 09/14/21 12:00 Pulse 88 09/14/21 12:00 Resp 22 H 09/14/21 12:00 BP 110/66 09/14/21 12:00 Pulse Ox 88 L 09/14/21 12:00 Weight - Most Recent: 124.42 kg I&O - Last 24 Hours: Intake & Output 09/13/21 09/14/21 09/14/21 22:59 06:59 14:59 Intake Total 900 200 Output Total 1000 2325 Balance 900 -1000 -2125 Lab Results Last 24 Hours: Laboratory Results - last 24 hr 09/13/21 09/13/21 09/14/21 Range/Units 16:27 21:09 06:35 Sodium 144 (136-145) mmol/L Potassium 3.9 (3.5-5.1) mmol/L Chloride 101 (98-107) mmol/L Carbon Dioxide 36 H (21-32) mmol/L Anion Gap 10.9 (7-13) mEq/L BUN 33 H (7-18) mg/dL Creatinine 1.06 H (0.55-1.02) mg/dL Est Cr Clr Drug Dosing 39.68 mL/min Estimated GFR (MDRD) > 60 Glucose 96 (70-99) mg/dL POC Glucose 197 H 182 H (70-99) mg/dL Calcium 8.8 (8.5-10.1) mg/dL 09/14/21 09/14/21 Range/Units 07:40 11:53 Sodium (136-145) mmol/L Potassium (3.5-5.1) mmol/L Chloride (98-107) mmol/L Carbon Dioxide (21-32) mmol/L Anion Gap (7-13) mEq/L BUN (7-18) mg/dL Creatinine (0.55-1.02) mg/dL Est Cr Clr Drug Dosing mL/min Estimated GFR (MDRD) Glucose (70-99) mg/dL POC Glucose 98 158 H (70-99) mg/dL Calcium (8.5-10.1) mg/dL Med Orders - Current: Current Medications Acetaminophen (Acetaminophen 325 Mg Tab) 650 mg PO Q4H PRN PRN Reason: Pain (Mild 1-3)/fever Last Admin: 09/12/21 00:30 Dose: 650 mg Documented by: Acetazolamide (Acetazolamide 250 Mg Tab) 250 mg PO DAILY [facility] Last Admin: 09/14/21 08:25 Dose: 250 mg Documented by: Albuterol/Ipratropium (Albuterol/Ipratropium 3.0-0.5 Mg/3 Ml Neb Soln) 3 ml NEB Q4H PRN PRN Reason: shortness of breath/wheezing Last Admin: 09/14/21 07:02 Dose: 3 ml Documented by: Ammonium Lactate (Ammonium Lactate 12% Lotion 225 Gm Bottle) 0 gm TOP BID [facility] Last Admin: 09/14/21 08:35 Dose: 1 applic Documented by: Budesonide (Budesonide 0.5 Mg/2 Ml Neb Susp) 0.5 mg NEB BIDRT [facility] Last Admin: 09/14/21 07:02 Dose: 0.5 mg Documented by: Dextrose/Water (50% Dextrose In Water 50 Ml Syringe) 50 ml IVPUSH Q15M PRN PRN Reason: Hypoglycemia Emollient Ointment (Isopropyl Myristate/Mineral Oil/Water Lotion 240 Ml Bottle) 3 ml TOP BID [facility] Last Admin: 09/14/21 08:36 Dose: Not Given Documented by: Enoxaparin Sodium (Enoxaparin 40 Mg/0.4 Ml Syringe) 40 mg SUBCUT DAILY [facility] Last Admin: 09/14/21 08:27 Dose: 40 mg Documented by: Ferrous Sulfate (Ferrous Sulfate 325 Mg Tab) 325 mg PO BIDMEALS [facility] Last Admin: 09/14/21 08:25 Dose: 325 mg Documented by: Furosemide (Furosemide 20 Mg/2 Ml Vial) 20 mg IVPUSH Q8H [facility] Last Admin: 09/14/21 08:30 Dose: 20 mg Documented by: Glucagon (Glucagon,Human Recombinant 1 Mg Vial) 1 mg IM Q15M PRN PRN Reason: Hypoglycemia Ceftriaxone Sodium 1 gm/ (Sodium Chloride) 50 mls @ 100 mls/hr IV Q24H [facility] Last Admin: 09/13/21 20:00 Dose: 100 mls/hr Documented by: Dextrose/Water (Dextrose 5% In Water) 1,000 mls @ 50 mls/hr IV ASDIRECTED [facility] Insulin Human Lispro (Insulin Lispro 100 Units/Ml 3 Ml Vial) 0 unit SUBCUT WITHMEALSANDBED [facility]; Protocol Last Admin: 09/14/21 12:58 Dose: 2 units Documented by: Insulin Human NPH (Insulin Isophane Nph, Human 100 Units/Ml 3 Ml Vial) 5 unit SQ BID@0800,2000 [facility] Last Admin: 09/14/21 08:38 Dose: 5 unit Documented by: Lisinopril (Lisinopril 5 Mg Tab) 5 mg PO DAILY [facility] Last Admin: 09/14/21 08:25 Dose: 5 mg Documented by: Metformin HCl (Metformin 500 Mg Tab) 500 mg PO BIDMEALS [facility] Last Admin: 09/14/21 08:25 Dose: 500 mg Documented by: Pantoprazole Sodium (Pantoprazole 40 Mg Vial) 40 mg IVPUSH Q12H [facility] Last Admin: 09/14/21 06:11 Dose: 40 mg Documented by: Polyethylene Glycol (Polyethylene Glycol 3350 Powder 17 Gm Packet) 17 gm PO DAILY PRN PRN Reason: Constipation Sodium Chloride (Sodium Chloride 0.9% 10 Ml Syringe) 10 ml FLUSH 0900,2100 [facility] Last Admin: 09/14/21 08:30 Dose: 10 ml Documented by: Temazepam (Temazepam 15 Mg Cap) 15 mg PO BEDTIME PRN PRN Reason: Sleep Last Admin: 09/12/21 22:50 Dose: 15 mg Documented by: Verapamil HCl (Verapamil 180 Mg Tab.Er) 180 mg PO BEDTIME [facility] Last Admin: 09/13/21 21:43 Dose: 180 mg Documented by: Discontinued Medications Acetaminophen (Acetaminophen 325 Mg Tab) 650 mg PO BID [facility] Albuterol/Ipratropium (Albuterol/Ipratropium 3.0-0.5 Mg/3 Ml Neb Soln) 3 ml NEB ONETIME ONE Stop: 09/08/21 10:51 Last Admin: 09/08/21 11:00 Dose: 3 ml Documented by: Albuterol/Ipratropium (Albuterol/Ipratropium 3.0-0.5 Mg/3 Ml Neb Soln) 3 ml NEB QIDRT [facility] Last Admin: 09/09/21 01:45 Dose: Not Given Documented by: Albuterol/Ipratropium (Albuterol/Ipratropium 3.0-0.5 Mg/3 Ml Neb Soln) 3 ml INH Q4H PRN PRN Reason: Shortness of Breath Albuterol/Ipratropium (Albuterol/Ipratropium 3.0-0.5 Mg/3 Ml Neb Soln) Confirm Administered Dose 3 ml .ROUTE .STK-MED ONE Stop: 09/13/21 10:37 Last Admin: 09/13/21 13:19 Dose: Not Given Documented by: Albuterol/Ipratropium (Albuterol/Ipratropium 3.0-0.5 Mg/3 Ml Neb Soln) Confirm Administered Dose 3 ml .ROUTE .STK-MED ONE Stop: 09/13/21 18:48 Last Admin: 09/13/21 20:01 Dose: Not Given Documented by: Budesonide (Budesonide 0.5 Mg/2 Ml Neb Susp) Confirm Administered Dose 0.5 mg .ROUTE .STK-MED ONE Stop: 09/12/21 10:02 Last Admin: 09/12/21 10:25 Dose: 0.5 mg Documented by: Budesonide (Budesonide 0.5 Mg/2 Ml Neb Susp) Confirm Administered Dose 0.5 mg .ROUTE .STK-MED ONE Stop: 09/13/21 10:36 Last Admin: 09/13/21 13:18 Dose: Not Given Documented by: Cholecalciferol (Cholecalciferol (Vitamin D3) 25 Mcg Tab) 25 mcg PO ONETIME ONE Stop: 09/11/21 07:55 Last Admin: 09/11/21 18:23 Dose: Not Given Documented by: Dextrose/Water (50% Dextrose In Water 50 Ml Syringe) 50 ml IVPUSH Q15M PRN PRN Reason: Hypoglycemia Ergocalciferol (Ergocalciferol (Vitamin D2) 1.25 Mg Cap) 1.25 mg PO DAILY [facility] Ergocalciferol (Ergocalciferol (Vitamin D2) 1.25 Mg Cap) 1.25 mg PO ONETIME ONE Stop: 09/11/21 09:01 Last Admin: 09/11/21 08:58 Dose: 1.25 mg Documented by: Furosemide (Furosemide 40 Mg/4 Ml Vial) 40 mg IVPUSH BIDDIURETIC [facility] Last Admin: 09/10/21 08:26 Dose: 40 mg Documented by: Glucagon (Glucagon,Human Recombinant 1 Mg Vial) 1 mg IM Q15M PRN PRN Reason: Hypoglycemia Ceftriaxone Sodium 1 gm/ (Sodium Chloride) 50 mls @ 100 mls/hr IV ONETIME ONE Stop: 09/08/21 11:49 Last Admin: 09/08/21 12:36 Dose: 100 mls/hr Documented by: Metronidazole 500 mg/ Premix 100 mls @ 100 mls/hr IV ONETIME ONE Stop: 09/08/21 12:29 Last Admin: 09/08/21 12:13 Dose: 100 mls/hr Documented by: Piperacillin Sod/Tazobactam (Sod 4.5 gm/ Sodium Chloride) 100 mls @ 200 mls/hr IV Q6HR [facility] Ceftriaxone Sodium 1 gm/ (Sodium Chloride) 50 mls @ 100 mls/hr IV Q24H [facility] Metronidazole 500 mg/ Premix 100 mls @ 100 mls/hr IV Q8H [facility] Levofloxacin/Dextrose 750 mg/ (Premix) 150 mls @ 100 mls/hr IV ONETIME ONE Stop: 09/08/21 19:25 Last Admin: 09/08/21 19:11 Dose: 100 mls/hr Documented by: Dextrose/Water (Dextrose 5% In Water) 250 mls @ 100 mls/hr IV ASDIRECTED [facility] Last Admin: 09/11/21 09:04 Dose: 100 mls/hr Documented by: Insulin Glargine (Insulin Glarg,Human.Rec.Analog 100 Unit/Ml) 10 unit SUBCUT ONETIME ONE Stop: 09/11/21 17:46 Last Admin: 09/11/21 18:05 Dose: 10 units Documented by: Insulin Human NPH (Insulin Isophane Nph, Human 100 Units/Ml 3 Ml Vial) 5 unit SQ BID [facility] Last Admin: 09/10/21 03:28 Dose: Not Given Documented by: Insulin Human NPH (Insulin Isophane Nph, Human 100 Units/Ml 3 Ml Vial) 5 unit SQ BID@0800,2000 [facility] Metformin HCl (Metformin 500 Mg Tab) 500 mg PO ONETIME ONE Stop: 09/11/21 14:00 Last Admin: 09/11/21 14:10 Dose: 500 mg Documented by: Methylprednisolone Sodium Succinate (Methylprednisolone Sodium Succinate 125 Mg/2 Ml Sdv) 125 mg IVPUSH ONETIME ONE Stop: 09/08/21 11:22 Last Admin: 09/08/21 12:37 Dose: 125 mg Documented by: Methylprednisolone Sodium Succinate (Methylprednisolone Sodium Succinate 40 Mg/1 Ml Sdv) 40 mg IVPUSH Q6H [facility] Last Admin: 09/10/21 18:05 Dose: 40 mg Documented by: Methylprednisolone Sodium Succinate (Methylprednisolone Sodium Succinate 40 Mg/1 Ml Sdv) 40 mg IVPUSH Q12H [facility] Last Admin: 09/11/21 05:58 Dose: 40 mg Documented by: Methylprednisolone Sodium Succinate (Methylprednisolone Sodium Succinate 40 Mg/1 Ml Sdv) 40 mg IVPUSH Q6H [facility] Methylprednisolone Sodium Succinate (Methylprednisolone Sodium Succinate 40 Mg/1 Ml Sdv) 40 mg IVPUSH DAILY [facility] Stop: 09/13/21 09:01 Last Admin: 09/13/21 09:36 Dose: 40 mg Documented by: Metolazone (Metolazone 2.5 Mg Tab) 2.5 mg PO DAILY [facility] Metronidazole (Metronidazole 250 Mg Tab) 500 mg PO Q8HR [facility] Last Admin: 09/11/21 14:08 Dose: 500 mg Documented by: Non-Formulary Medication (Umeclidinium Brm/Vilanterol Tr [Anoro Ellipta 62.5-25 Mcg]) 1 puff IH DAILY [facility] Last Admin: 09/13/21 15:55 Dose: Not Given Documented by: Non-Formulary Medication (Fluticasone/Vilanterol) 1 puff INH DAILY [facility] Omeprazole (Omeprazole 20 Mg Cap.Cr) 40 mg PO ACBREAKFAST [facility] Last Admin: 09/09/21 05:52 Dose: 40 mg Documented by: Venlafaxine HCl (Venlafaxine 37.5 Mg Cap.Er) 75 mg PO WITHBREAKFAST [facility] Last Admin: 09/13/21 09:33 Dose: 75 mg Documented by: - Exam Quality Assessment: Supplemental Oxygen, DVT Prophylaxis. No: Central Line/PICC, Urine Catheter Urinary Catheter Total Time: 5Days 16Hours General: Alert, Oriented, Cooperative, No Acute Distress HEENT: Pupils Equal, Pupils Reactive, EOMI, Mucous Membr. Moist/[place] Neck: Supple, No JVD, No Thyromegaly Lungs: Clear to Auscultation, Normal Respiratory Effort Cardiovascular: Regular Rate, Regular Rhythm, Murmurs GI/Abdominal Exam: Normal Bowel Sounds, Soft, Non-Tender. No: Guarding, Rigid (Female) Exam: Deferred Back Exam: Normal Inspection Extremities: Normal Inspection, No Pedal Edema Skin: Warm, Dry, Intact Neurological: No New Focal Deficit Psy/Mental Status: Alert, Normal Affect, Normal Mood - Patient Data Lab Results Last 24 hrs: Laboratory Results - last 24 hr 09/13/21 09/13/21 09/14/21 Range/Units 16:27 21:09 06:35 Sodium 144 (136-145) mmol/L Potassium 3.9 (3.5-5.1) mmol/L Chloride 101 (98-107) mmol/L Carbon Dioxide 36 H (21-32) mmol/L Anion Gap 10.9 (7-13) mEq/L BUN 33 H (7-18) mg/dL Creatinine 1.06 H (0.55-1.02) mg/dL Est Cr Clr Drug Dosing 39.68 mL/min Estimated GFR (MDRD) > 60 Glucose 96 (70-99) mg/dL POC Glucose 197 H 182 H (70-99) mg/dL Calcium 8.8 (8.5-10.1) mg/dL 09/14/21 09/14/21 Range/Units 07:40 11:53 Sodium (136-145) mmol/L Potassium (3.5-5.1) mmol/L Chloride (98-107) mmol/L Carbon Dioxide (21-32) mmol/L Anion Gap (7-13) mEq/L BUN (7-18) mg/dL Creatinine (0.55-1.02) mg/dL Est Cr Clr Drug Dosing mL/min Estimated GFR (MDRD) Glucose (70-99) mg/dL POC Glucose 98 158 H (70-99) mg/dL Calcium (8.5-10.1) mg/dL Result Diagrams: 09/13/21 06:15 09/14/21 06:35 Sepsis Event Note - Evaluation Sepsis Screening Result: Sepsis Risk - Focused Exam Vital Signs: Vital Signs Temp Pulse Resp BP BP BP Pulse Ox 09/14/21 12:00 35.7 C L 88 22 H 110/66 88 L 09/14/21 08:25 140/65 09/14/21 08:00 36.4 C 71 24 H 140/65 91 L 09/14/21 04:00 36.7 C 78 18 150/81 H 89 L - Problem List Review Problem List Initiated/Reviewed/Updated: Yes - My Orders Last 24 Hours: My Active Orders 09/13/21 16:36 PT Evaluation and Treatment [CONS] Routine 09/13/21 16:37 OT Evaluation and Treatment [CONS] Routine 09/14/21 09:14 CORONAVIRUS COVID-19 [facility] [[facility]] Routine - Plan Plan:: This is a 71-year-old female admitted with COPD exacerbation and weakness. Impression and plan: 1. COPD evaluation: The patient was admitted with a COPD exacerbations and she was on Solu-Medrol and now she is on DuoNeb nebulizer as well as ceftriaxone. She is doing better and to discharge her today, but her primary physician Dr. Landon, will not be able to see her in the clinic today and for that reason we cannot transfer her to the [facility]. She will be able to go back to [facility] tomorrow. 2. CHF exacerbation: Patient was shown to have fluid overloaded status and she is still on Lasix 20 mg IV every 8 hours. Continue to check daily I and O recording and daily weights. 3. Diabetes type 2: Patient is on insulin and and will cover high blood sugar with sliding scale as per coverage protocol. 4. Hypertension: Her blood pressure is acceptable now and will continue her on verapamil at 180 mg daily and Lisinopril at 5 mg daily. 5. GI prophylaxis: The patient is on Protonix before meal and will continue that. 6. DVT prophylaxis. We will continue with enoxaparin 40 mg subq daily. 7. Metabolic alkalosis: This is most likely secondary to COPD and she is not on CPAP or BiPAP, will continue acetazolamide at 250 mg daily for 2 days and will not prescribe on discharge
[2021-09-14] MEDS: cefTRIAXone 1 GM in Sodium Chloride 0.9% 50 ML IV SCH (17:31)
[2021-09-14] MEDS: Verapamil 180 MG Tab.ER PO SCH (21:58)
[2021-09-14] MEDS: Temazepam 15 MG Cap PO PRN (21:58)
[2021-09-15] MEDS: Sodium Chloride 0.9% 10 ML Syringe FLUSH SCH ×2 (01:37→09:48)
[2021-09-15] MEDS: Furosemide 20 MG/2 ML VIAL IVPUSH SCH ×2 (01:37→09:48)
[2021-09-15] MEDS: Pantoprazole 40 MG Vial IVPUSH SCH (06:37)
[2021-09-15] MEDS: Budesonide 0.5 MG/2 ML Neb Susp NEB SCH (07:26)
[2021-09-15] MEDS: Albuterol/Ipratropium 3.0-0.5 MG/3 ML Neb Soln NEB PRN (07:26)
--- NOTE | 2021-09-15 09:40 | PCM.DCSUM1 ---
Discharge Summary - Hospital Course Free Text/Narrative:: The patient was admitted with shortness of breath likely COPD exacerbation and that did not improve with nebulizer treatment at home and came to hospital for admission. The patient has past medical history which is significant for tobacco abuse, COPD diabetes and hypertension. Pt was seen in room today during rounds and she is doing well and she will go back to [place] and follow with Dr. Landon Pt was treated for COPD exacerbations with Solu-Medrol and DuoNeb nebulizer as well as ceftriaxone. She is doing well now and ready to go back home. We will send her on ciprofloxacin 250 mg 2 times a day for another 5 days course. Diagnosis: Stroke: No - Discharge Data Discharge Date: 09/15/21 Discharge Disposition: Home, Self-Care 01 Condition: Good - Referral to Home Health Primary Care Physician: PCP None - Patient Summary/Data Consults: Consultations 09/13/21 16:36 PT Evaluation and Treatment [CONS] Routine 09/13/21 16:37 OT Evaluation and Treatment [CONS] Routine - Patient Instructions Diet: Heart Healthy Diet Activity: As Tolerated Showering/Bathing: May Shower Other/Special Instructions: The patient was admitted with shortness of breath likely COPD exacerbation and that did not improve with nebulizer treatment at home and came to hospital for admission. The patient has past medical history which is significant for tobacco abuse, COPD diabetes and hypertension. Pt was seen in room today during rounds and she is doing well and she will go back to [place] and follow with Dr. Landon. Pt was treated for COPD exacerbations with Solu-Medrol and DuoNeb nebulizer as well as ceftriaxone. She is doing well now and ready to go back home. We will send her on ciprofloxacin 250 mg 2 times a day for another 5 days course and will also continue lasix at 40 mg PO daily - Discharge Plan *PRESCRIPTION DRUG MONITORING PROGRAM REVIEWED*: Not Applicable *COPY OF PRESCRIPTION DRUG MONITORING REPORT IN PATIENT SONJA: Not Applicable Prescriptions/Med Rec: Ciprofloxacin HCl [Cipro] 250 mg PO BID #10 tablet Furosemide [Lasix] 40 mg PO DAILY #15 tablet Home Medications: Home Meds Verapamil HCl [Verapamil Sr] 180 mg PO BEDTIME 10/21/20 [History] Albuterol/Ipratropium [DuoNeb 3.0-0.5 MG/3 ML] 3 ml NEB QID 02/09/21 [History] Ferrous Sulfate 325 mg PO BIDMEALS 30 Days #60 tablet 02/17/21 [Rx] Insulin Isophane NPH, Human [NovoLIN N] 5 unit SQ BID 06/01/21 [History] Omeprazole 40 mg PO DAILY 06/01/21 [History] Umeclidinium Brm/Vilanterol Tr [Anoro Ellipta 62.5-25 MCG] 1 puff IH DAILY 06/01/21 [History] sitaGLIPtin Phosphate [Januvia] 50 mg PO DAILY 06/01/21 [History] Acetaminophen 650 mg PO BID 09/08/21 [History] Acetaminophen 650 mg PO Q6H PRN 09/08/21 [History] Calcium Carbonate [Calcium] 1,000 mg PO ASDIRECTED PRN 09/08/21 [History] Melatonin 6 mg PO BEDTIME PRN 09/08/21 [History] Nicotine Polacrilex [Nicotine Lozenge] 2 mg PO Q1H PRN 09/08/21 [History] Oxybutynin [Oxybutynin ER] 5 mg PO DAILY 09/08/21 [History] Trolamine Salicylate/Aloe Vera [Aspercreme 10%] 0 gm TOP TID 09/08/21 [History] Ciprofloxacin HCl [Cipro] 250 mg PO BID #10 tablet 09/15/21 [Rx] Furosemide [Lasix] 40 mg PO DAILY #15 tablet 09/15/21 [Rx] Patient Handouts: Chronic Obstructive Pulmonary Disease Exacerbation, [id number], Community-Acquired Pneumonia, Adult, [id number] - Discharge Summary/Plan Comment DC Time >30 min.: Yes (Time spend on discharge of this patient >30 minutes) Total # of Minutes for Discharge Time: Total time spend today was >30 minutes Discharge Summary/Plan Comment: This is a 71-year-old female admitted with COPD exacerbation and weakness. Impression and plan: 1. COPD evaluation: The patient was admitted with a COPD exacerbations and she was on Solu-Medrol and now she is on DuoNeb nebulizer as well as ceftriaxone and she will go home on ciprofloxacin to 50 mg twice a day for 5 more days. She is doing better and will discharge her today, and will see Dr. Barbi white at clinic 2. CHF exacerbation: Patient was shown to have fluid overloaded status and and will go home on Lasix at 40 mg p.o. daily. 3. Diabetes type 2: Patient is on insulin and and will cover high blood sugar with sliding scale as per coverage protocol. 4. Hypertension: Her blood pressure is acceptable now and will continue her on verapamil at 180 mg daily and Lisinopril at 5 mg daily. 5. GI prophylaxis: The patient is on Protonix before meal and will continue that. 6. DVT prophylaxis. We will continue with enoxaparin 40 mg subq daily. 7. Metabolic alkalosis: This is most likely secondary to COPD and she is not on CPAP or BiPAP, will stop acetazolamide [ was at 250 mg daily for 2 days] Patient is advised to follow-up with primary care physician after discharge from the hospital. - General Info Date of Service: 09/15/21 Admission Dx/Problem (Free Text: The patient was admitted with shortness of breath likely COPD exacerbation and that did not improve with nebulizer treatment at home Subjective Update: The patient was seen today during rounds and she is doing much better and will be able to go back to [place] Today she denied nausea vomiting fever chills dysuria polyuria. Functional Status: Reports: Pain Controlled, Tolerating Diet, Urinating - Review of Systems General: Reports: Weakness, Appetite (acceptable). Denies: Fever, Chills HEENT: Denies: Dysphasia, Headaches, Sinus Congestion, Visual Changes Pulmonary: Reports: Shortness of Breath (on chronic oxygen). Denies: Cough, Wheezing Cardiovascular: Denies: Chest Pain, Palpitations, Lightheadedness Gastrointestinal: Denies: Abdominal Pain, Difficulty Swallowing, Melena, Nausea, Vomiting Genitourinary: Denies: Dysuria, Frequency, Burning, Urgency Musculoskeletal: Denies: Neck Pain, Leg Pain, Joint Pain, Joint Swelling Skin: Denies: Cyanosis, Jaundice, Bruising, Pruritis, Rash Neurological: Denies: Confusion, Numbness, Tremors Psychiatric: Denies: Confusion, Anxiety - Patient Data Vitals - Most Recent: Last Vital Signs Temp 36.4 C 09/15/21 07:30 Pulse 77 09/15/21 07:30 Resp 18 09/15/21 07:30 BP 121/60 09/15/21 07:30 Pulse Ox 92 L 09/15/21 07:30 Weight - Most Recent: 121.88 kg I&O - Last 24 hours: Intake & Output 09/14/21 09/15/21 09/15/21 22:59 06:59 14:59 Intake Total 550 400 Output Total 1700 900 Balance -1700 -350 400 Lab Results - Last 24 hrs: Laboratory Results - last 24 hr 09/14/21 09/14/21 09/14/21 Range/Units 11:53 17:01 21:21 POC Glucose 158 H 113 H 136 H (70-99) mg/dL SARS-CoV-2 RNA (SARMAD) (NEGATIVE) 09/15/21 09/15/21 Range/Units 06:44 07:20 POC Glucose 105 H (70-99) mg/dL SARS-CoV-2 RNA (SARMAD) Negative (NEGATIVE) Med Orders - Current: Current Medications Acetaminophen (Acetaminophen 325 Mg Tab) 650 mg PO Q4H PRN PRN Reason: Pain (Mild 1-3)/fever Last Admin: 09/12/21 00:30 Dose: 650 mg Documented by: Acetazolamide (Acetazolamide 250 Mg Tab) 250 mg PO DAILY [facility] Last Admin: 09/14/21 08:25 Dose: 250 mg Documented by: Albuterol/Ipratropium (Albuterol/Ipratropium 3.0-0.5 Mg/3 Ml Neb Soln) 3 ml NEB Q4H PRN PRN Reason: shortness of breath/wheezing Last Admin: 09/15/21 07:26 Dose: 3 ml Documented by: Ammonium Lactate (Ammonium Lactate 12% Lotion 225 Gm Bottle) 0 gm TOP BID [facility] Last Admin: 09/14/21 22:01 Dose: 1 applic Documented by: Budesonide (Budesonide 0.5 Mg/2 Ml Neb Susp) 0.5 mg NEB BIDRT [facility] Last Admin: 09/15/21 07:26 Dose: 0.5 mg Documented by: Dextrose/Water (50% Dextrose In Water 50 Ml Syringe) 50 ml IVPUSH Q15M PRN PRN Reason: Hypoglycemia Emollient Ointment (Isopropyl Myristate/Mineral Oil/Water Lotion 240 Ml Bottle) 3 ml TOP BID [facility] Last Admin: 09/14/21 22:06 Dose: Not Given Documented by: Enoxaparin Sodium (Enoxaparin 40 Mg/0.4 Ml Syringe) 40 mg SUBCUT DAILY [facility] Last Admin: 09/14/21 08:27 Dose: 40 mg Documented by: Ferrous Sulfate (Ferrous Sulfate 325 Mg Tab) 325 mg PO BIDMEALS [facility] Last Admin: 09/14/21 17:16 Dose: 325 mg Documented by: Furosemide (Furosemide 20 Mg/2 Ml Vial) 20 mg IVPUSH Q8H [facility] Last Admin: 09/15/21 01:37 Dose: 20 mg Documented by: Glucagon (Glucagon,Human Recombinant 1 Mg Vial) 1 mg IM Q15M PRN PRN Reason: Hypoglycemia Ceftriaxone Sodium 1 gm/ (Sodium Chloride) 50 mls @ 100 mls/hr IV Q24H [facility] Last Infusion: 09/14/21 18:10 Dose: Infused Documented by: Dextrose/Water (Dextrose 5% In Water) 1,000 mls @ 50 mls/hr IV ASDIRECTED [facility] Insulin Human Lispro (Insulin Lispro 100 Units/Ml 3 Ml Vial) 0 unit SUBCUT WITHMEALSANDBED [facility]; Protocol Last Admin: 09/14/21 21:59 Dose: Not Given Documented by: Insulin Human NPH (Insulin Isophane Nph, Human 100 Units/Ml 3 Ml Vial) 5 unit SQ BID@0800,2000 [facility] Last Admin: 09/14/21 22:06 Dose: 5 unit Documented by: Lisinopril (Lisinopril 5 Mg Tab) 5 mg PO DAILY [facility] Last Admin: 09/14/21 08:25 Dose: 5 mg Documented by: Metformin HCl (Metformin 500 Mg Tab) 500 mg PO BIDMEALS [facility] Last Admin: 09/14/21 17:16 Dose: 500 mg Documented by: Pantoprazole Sodium (Pantoprazole 40 Mg Vial) 40 mg IVPUSH Q12H [facility] Last Admin: 09/15/21 06:37 Dose: 40 mg Documented by: Polyethylene Glycol (Polyethylene Glycol 3350 Powder 17 Gm Packet) 17 gm PO DAILY PRN PRN Reason: Constipation Sodium Chloride (Sodium Chloride 0.9% 10 Ml Syringe) 10 ml FLUSH 0900,2100 [facility] Last Admin: 09/15/21 01:37 Dose: 10 ml Documented by: Temazepam (Temazepam 15 Mg Cap) 15 mg PO BEDTIME PRN PRN Reason: Sleep Last Admin: 09/14/21 21:58 Dose: 15 mg Documented by: Verapamil HCl (Verapamil 180 Mg Tab.Er) 180 mg PO BEDTIME [facility] Last Admin: 09/14/21 21:58 Dose: 180 mg Documented by: Discontinued Medications Acetaminophen (Acetaminophen 325 Mg Tab) 650 mg PO BID [facility] Albuterol/Ipratropium (Albuterol/Ipratropium 3.0-0.5 Mg/3 Ml Neb Soln) 3 ml NEB ONETIME ONE Stop: 09/08/21 10:51 Last Admin: 09/08/21 11:00 Dose: 3 ml Documented by: Albuterol/Ipratropium (Albuterol/Ipratropium 3.0-0.5 Mg/3 Ml Neb Soln) 3 ml NEB QIDRT [facility] Last Admin: 09/09/21 01:45 Dose: Not Given Documented by: Albuterol/Ipratropium (Albuterol/Ipratropium 3.0-0.5 Mg/3 Ml Neb Soln) 3 ml INH Q4H PRN PRN Reason: Shortness of Breath Albuterol/Ipratropium (Albuterol/Ipratropium 3.0-0.5 Mg/3 Ml Neb Soln) Confirm Administered Dose 3 ml .ROUTE .STK-MED ONE Stop: 09/13/21 10:37 Last Admin: 09/13/21 13:19 Dose: Not Given Documented by: Albuterol/Ipratropium (Albuterol/Ipratropium 3.0-0.5 Mg/3 Ml Neb Soln) Confirm Administered Dose 3 ml .ROUTE .STK-MED ONE Stop: 09/13/21 18:48 Last Admin: 09/13/21 20:01 Dose: Not Given Documented by: Budesonide (Budesonide 0.5 Mg/2 Ml Neb Susp) Confirm Administered Dose 0.5 mg .ROUTE .STK-MED ONE Stop: 09/12/21 10:02 Last Admin: 09/12/21 10:25 Dose: 0.5 mg Documented by: Budesonide (Budesonide 0.5 Mg/2 Ml Neb Susp) Confirm Administered Dose 0.5 mg .ROUTE .STK-MED ONE Stop: 09/13/21 10:36 Last Admin: 09/13/21 13:18 Dose: Not Given Documented by: Cholecalciferol (Cholecalciferol (Vitamin D3) 25 Mcg Tab) 25 mcg PO ONETIME ONE Stop: 09/11/21 07:55 Last Admin: 09/11/21 18:23 Dose: Not Given Documented by: Dextrose/Water (50% Dextrose In Water 50 Ml Syringe) 50 ml IVPUSH Q15M PRN PRN Reason: Hypoglycemia Ergocalciferol (Ergocalciferol (Vitamin D2) 1.25 Mg Cap) 1.25 mg PO DAILY [facility] Ergocalciferol (Ergocalciferol (Vitamin D2) 1.25 Mg Cap) 1.25 mg PO ONETIME ONE Stop: 09/11/21 09:01 Last Admin: 09/11/21 08:58 Dose: 1.25 mg Documented by: Furosemide (Furosemide 40 Mg/4 Ml Vial) 40 mg IVPUSH BIDDIURETIC [facility] Last Admin: 09/10/21 08:26 Dose: 40 mg Documented by: Glucagon (Glucagon,Human Recombinant 1 Mg Vial) 1 mg IM Q15M PRN PRN Reason: Hypoglycemia Ceftriaxone Sodium 1 gm/ (Sodium Chloride) 50 mls @ 100 mls/hr IV ONETIME ONE Stop: 09/08/21 11:49 Last Admin: 09/08/21 12:36 Dose: 100 mls/hr Documented by: Metronidazole 500 mg/ Premix 100 mls @ 100 mls/hr IV ONETIME ONE Stop: 09/08/21 12:29 Last Admin: 09/08/21 12:13 Dose: 100 mls/hr Documented by: Piperacillin Sod/Tazobactam (Sod 4.5 gm/ Sodium Chloride) 100 mls @ 200 mls/hr IV Q6HR [facility] Ceftriaxone Sodium 1 gm/ (Sodium Chloride) 50 mls @ 100 mls/hr IV Q24H [facility] Metronidazole 500 mg/ Premix 100 mls @ 100 mls/hr IV Q8H [facility] Levofloxacin/Dextrose 750 mg/ (Premix) 150 mls @ 100 mls/hr IV ONETIME ONE Stop: 09/08/21 19:25 Last Admin: 09/08/21 19:11 Dose: 100 mls/hr Documented by: Dextrose/Water (Dextrose 5% In Water) 250 mls @ 100 mls/hr IV ASDIRECTED [facility] Last Admin: 09/11/21 09:04 Dose: 100 mls/hr Documented by: Insulin Glargine (Insulin Glarg,Human.Rec.Analog 100 Unit/Ml) 10 unit SUBCUT ONETIME ONE Stop: 09/11/21 17:46 Last Admin: 09/11/21 18:05 Dose: 10 units Documented by: Insulin Human NPH (Insulin Isophane Nph, Human 100 Units/Ml 3 Ml Vial) 5 unit SQ BID [facility] Last Admin: 09/10/21 03:28 Dose: Not Given Documented by: Insulin Human NPH (Insulin Isophane Nph, Human 100 Units/Ml 3 Ml Vial) 5 unit SQ BID@0800,2000 [facility] Metformin HCl (Metformin 500 Mg Tab) 500 mg PO ONETIME ONE Stop: 09/11/21 14:00 Last Admin: 09/11/21 14:10 Dose: 500 mg Documented by: Methylprednisolone Sodium Succinate (Methylprednisolone Sodium Succinate 125 Mg/2 Ml Sdv) 125 mg IVPUSH ONETIME ONE Stop: 09/08/21 11:22 Last Admin: 09/08/21 12:37 Dose: 125 mg Documented by: Methylprednisolone Sodium Succinate (Methylprednisolone Sodium Succinate 40 Mg/1 Ml Sdv) 40 mg IVPUSH Q6H [facility] Last Admin: 09/10/21 18:05 Dose: 40 mg Documented by: Methylprednisolone Sodium Succinate (Methylprednisolone Sodium Succinate 40 Mg/1 Ml Sdv) 40 mg IVPUSH Q12H [facility] Last Admin: 09/11/21 05:58 Dose: 40 mg Documented by: Methylprednisolone Sodium Succinate (Methylprednisolone Sodium Succinate 40 Mg/1 Ml Sdv) 40 mg IVPUSH Q6H [facility] Methylprednisolone Sodium Succinate (Methylprednisolone Sodium Succinate 40 Mg/1 Ml Sdv) 40 mg IVPUSH DAILY [facility] Stop: 09/13/21 09:01 Last Admin: 09/13/21 09:36 Dose: 40 mg Documented by: Metolazone (Metolazone 2.5 Mg Tab) 2.5 mg PO DAILY [facility] Metronidazole (Metronidazole 250 Mg Tab) 500 mg PO Q8HR [facility] Last Admin: 09/11/21 14:08 Dose: 500 mg Documented by: Non-Formulary Medication (Umeclidinium Brm/Vilanterol Tr [Anoro Ellipta 62.5-25 Mcg]) 1 puff IH DAILY [facility] Last Admin: 09/13/21 15:55 Dose: Not Given Documented by: Non-Formulary Medication (Fluticasone/Vilanterol) 1 puff INH DAILY [facility] Omeprazole (Omeprazole 20 Mg Cap.Cr) 40 mg PO ACBREAKFAST [facility] Last Admin: 09/09/21 05:52 Dose: 40 mg Documented by: Venlafaxine HCl (Venlafaxine 37.5 Mg Cap.Er) 75 mg PO WITHBREAKFAST [facility] Last Admin: 09/13/21 09:33 Dose: 75 mg Documented by: - Exam Quality Assessment: Reports: Supplemental Oxygen, Urine Catheter (Will be removed before Discharge). Denies: Central Line/PICC General: Reports: Alert, Oriented, Cooperative, No Acute Distress HEENT: Reports: Pupils Equal, Pupils Reactive, EOMI, Mucous Membr. Moist/[place] Neck: Reports: Supple, No JVD, No Thyromegaly Lungs: Reports: Clear to Auscultation, Normal Respiratory Effort Cardiovascular: Reports: Regular Rate, Regular Rhythm, Murmurs GI/Abdominal Exam: Normal Bowel Sounds, Non-Tender. No: Rigid, Rebound, Tender (Female) Exam: Deferred Rectal (Female) Exam: Deferred Back Exam: Reports: Normal Inspection Extremities: Normal Inspection, No Pedal Edema Skin: Reports: Warm, Dry, Intact Neurological: Reports: No New Focal Deficit Psy/Mental Status: Reports: Alert, Normal Affect, Normal Mood
[2021-09-15] MEDS: Lisinopril 5 MG Tab PO SCH (09:46)
[2021-09-15] MEDS: Ferrous Sulfate 325 MG Tab PO SCH (09:46)
[2021-09-15] MEDS: metFORMIN 500 MG Tab PO SCH (09:46)
[2021-09-15] MEDS: acetaZOLAMIDE 250 MG Tab PO SCH (09:46)
[2021-09-15] MEDS: Insulin Lispro 100 Units/ML 3 ML Vial SUBCUT SCH (09:46)
[2021-09-15] MEDS: Insulin Isophane NPH, Human 100 Units/ML 3 ML Vial SQ SCH (09:47)
[2021-09-15] MEDS: Isopropyl Myristate/Mineral Oil/Water Lotion 240 ML Bottle TOP SCH (09:48)
[2021-09-15] MEDS: Enoxaparin 40 MG/0.4 ML Syringe SUBCUT SCH (09:48)
== END 2021-09-15 10:30 | disposition home or self-care (01) | DRG 291 ==
LOC: DL.ED 09:31 → DL.MS 12:51
PROVIDERS: ADMIT Internal Medicine; ATTEND Internal Medicine Nephrology
DX: I11.0 Hypertensive heart disease with heart failure (principal); I50.33 Acute on chronic diastolic (congestive) heart failure; J18.9 Pneumonia, unspecified organism; J96.21 Acute and chronic respiratory failure with hypoxia; I50.9 Heart failure, unspecified; J44.1 Chronic obstructive pulmonary disease with (acute) exacerbation; E87.3 Alkalosis; N39.0 Urinary tract infection, site not specified; Z68.43 Body mass index [BMI] 50.0-59.9, adult; J44.0 Chronic obstructive pulmonary disease with (acute) lower respiratory infection; F17.210 Nicotine dependence, cigarettes, uncomplicated; E11.65 Type 2 diabetes mellitus with hyperglycemia; D64.9 Anemia, unspecified; K57.90 Diverticulosis of intestine, part unspecified, without perforation or abscess without bleeding; Z20.822 Contact with and (suspected) exposure to COVID-19; E66.9 Obesity, unspecified; H54.7 Unspecified visual loss; E78.00 Pure hypercholesterolemia, unspecified; K21.9 Gastro-esophageal reflux disease without esophagitis; Z79.51 Long term (current) use of inhaled steroids; M19.90 Unspecified osteoarthritis, unspecified site; R32 Unspecified urinary incontinence; Z85.820 Personal history of malignant melanoma of skin; Z90.710 Acquired absence of both cervix and uterus; Z88.5 Allergy status to narcotic agent; Z88.0 Allergy status to penicillin; Z79.899 Other long term (current) drug therapy; Z79.4 Long term (current) use of insulin; Z79.52 Long term (current) use of systemic steroids; I25.2 Old myocardial infarction; Z88.1 Allergy status to other antibiotic agents; Z88.2 Allergy status to sulfonamides; Z91.048 Other nonmedicinal substance allergy status
CPT/HCPCS: 0240U; 36415; 36600; 51702; 71045; 80048; 80053; 81001; 82306; 82803; 82947; 83605; 83880; 84484; 85025; 85027; 87070; 87086; 87088; 87186; 87205; 93005; 94640; 94660; 99285; 93010; 99232; 99238; A9270-GY; C9113; J0696; J1650; J1815; J1815-GY; J1940; J1956; J2920; J2930; J3490; J7060; J7620-GY; U0002

== ENCOUNTER 2022-01-28 18:20 | Inpatient (IN) | payer MEDICARE, MEDICAID ==
[2022-01-28 19:36] LABS: ANION GAP 9.2 mEq/L (7-13); CHLORIDE,CL 101 mmol/L (98-107); SODIUM,NA 140 mmol/L (136-145)
[2022-01-28] MEDS ORDERED: Iopamidol 755 Mg/ML 100 ML Bottle IVPUSH ONE (19:44)
[2022-01-28 20:41] LABS: CORONAVIRUS COVID-19 NAA NEGATIVE (NEGATIVE)
[2022-01-28] MEDS ORDERED: cefTRIAXone 1 GM in Sodium Chloride 0.9% 50 ML IV ONE (21:23)
[2022-01-28] MEDS ORDERED: Azithromycin 500 MG in Sodium Chloride 0.9% 250 ML IV ONE (21:24)
[2022-01-28] MEDS ORDERED: HYDROmorphone 0.5 MG/0.5 ML Syringe IVPUSH PRN (22:37)
[2022-01-28] MEDS ORDERED: Albuterol/Ipratropium 3.0-0.5 MG/3 ML Neb Soln NEB PRN (22:37)
[2022-01-28] MEDS ORDERED: Magnesium Hydroxide 400 MG/5 ML Susp 30 ML Cup PO PRN (22:37)
[2022-01-28] MEDS ORDERED: Acetaminophen/oxyCODONE 325-5 MG Tab PO PRN (22:37)
[2022-01-28] MEDS ORDERED: Zolpidem 5 MG Tab PO PRN (22:37)
[2022-01-28] MEDS ORDERED: Docusate Sodium 100 MG Cap PO PRN (22:37)
[2022-01-28] MEDS ORDERED: Bisacodyl 5 MG Tab PO PRN (22:37)
[2022-01-28] MEDS ORDERED: Ondansetron 4 MG/2 ML SDV IVPUSH PRN (22:37)
[2022-01-28] MEDS ORDERED: Polyethylene Glycol 3350 Powder 17 GM Packet PO PRN (22:37)
[2022-01-28] MEDS ORDERED: Non-Formulary Medication 1 Each (Nicotine Polacrilex [Nicotine Lozenge] 2 MG Lozenge) PO PRN (22:44)
[2022-01-28] MEDS ORDERED: Calcium Carbonate 500 MG Tab.Chew PO PRN (22:44)
[2022-01-28] MEDS ORDERED: guaiFENesin/Dextromethorphan 100-10 MG/5 ML Soln 5 ML Cup PO PRN (22:52)
[2022-01-28] MEDS ORDERED: hydrALAZINE 20 MG/ML SDV IVPUSH PRN (22:52)
[2022-01-28] MEDS ORDERED: Metoprolol Tartrate 5 MG/5 ML SDV IVPUSH PRN (22:52)
[2022-01-29] MEDS ORDERED: Glucagon,Human Recombinant 1 MG Vial IM PRN (00:27)
[2022-01-29] MEDS ORDERED: Enoxaparin 80 MG/0.8 ML Syringe SUBCUT ONE ×2 (00:27→03:15)
[2022-01-29] MEDS ORDERED: 50% Dextrose in Water 50 ML Syringe IVPUSH PRN (00:27)
[2022-01-29] MEDS: Omeprazole 20 MG Cap.CR PO SCH (06:47)
[2022-01-29] MEDS ORDERED: Enoxaparin 40 MG/0.4 ML Syringe SUBCUT SCH (09:00)
[2022-01-29] MEDS: Albuterol/Ipratropium 3.0-0.5 MG/3 ML Neb Soln NEB SCH ×4 (09:23→21:50)
[2022-01-29] MEDS ORDERED: Nystatin Topical Powder 30 GM Bottle TOP PRN (09:25)
[2022-01-29] MEDS: Insulin Lispro 100 Units/ML 3 ML Vial SUBCUT SCH ×3 (09:36→17:21)
[2022-01-29] MEDS: Acetaminophen 325 MG Tab PO SCH (09:41)
[2022-01-29] MEDS: Ferrous Sulfate 325 MG Tab PO SCH ×2 (09:41→17:43)
[2022-01-29] MEDS: Furosemide 40 MG Tab PO SCH (09:41)
[2022-01-29 10:38] LABS: ANION GAP 7.5 mEq/L (7-13); CHLORIDE,CL 103 mmol/L (98-107); SODIUM,NA 141 mmol/L (136-145)
[2022-01-29] MEDS: Verapamil 180 MG Tab.ER PO SCH (13:18)
[2022-01-29] MEDS ORDERED: Enoxaparin 80 MG/0.8 ML Syringe SUBCUT SCH (16:00)
[2022-01-29] MEDS: Acetaminophen 325 MG Tab PO PRN (18:53)
[2022-01-29] MEDS ORDERED: ALOE VERA TOP SCH (21:00)
[2022-01-29] MEDS ORDERED: TROLAMINE SALICYLATE TOP SCH (21:00)
[2022-01-29] MEDS ORDERED: Enoxaparin 100 MG/1 ML Syringe SUBCUT SCH (21:00)
[2022-01-29] MEDS: Oxybutynin 5 MG Tab PO SCH (21:42)
[2022-01-29] MEDS: cefTRIAXone 2 GM in Sodium Chloride 0.9% 100 ML IV SCH (21:45)
[2022-01-29] MEDS ORDERED: Furosemide 40 MG/4 ML VIAL IVPUSH ONE (22:09)
[2022-01-29] MEDS ORDERED: diphenhydrAMINE 50 MG/ML SDV IVPUSH ONE (22:17)
[2022-01-29] MEDS: Azithromycin 500 MG in Sodium Chloride 0.9% 250 ML IV SCH (22:29)
[2022-01-29] MEDS: methylPREDNISolone Sodium Succinate 125 MG/2 ML SDV IVPUSH SCH (22:47)
[2022-01-30] MEDS ORDERED: diphenhydrAMINE 50 MG/ML SDV IVPUSH ONE (00:37)
[2022-01-30] MEDS: Acetaminophen 325 MG Tab PO SCH ×3 (00:45→20:23)
[2022-01-30] MEDS: Melatonin 3 MG Tab PO PRN (00:46)
[2022-01-30] MEDS: TROLAMINE SALICYLATE TOP SCH (06:01)
[2022-01-30] MEDS: ALOE VERA TOP SCH (06:01)
[2022-01-30] MEDS: Omeprazole 20 MG Cap.CR PO SCH (06:57)
[2022-01-30] MEDS: methylPREDNISolone Sodium Succinate 125 MG/2 ML SDV IVPUSH SCH ×3 (06:57→21:44)
[2022-01-30] MEDS: Ferrous Sulfate 325 MG Tab PO SCH ×2 (08:10→18:21)
[2022-01-30] MEDS: Verapamil 180 MG Tab.ER PO SCH (08:10)
[2022-01-30] MEDS: Furosemide 40 MG Tab PO SCH (08:10)
[2022-01-30] MEDS: Oxybutynin 5 MG Tab PO SCH ×2 (08:10→20:22)
[2022-01-30] MEDS: Insulin Lispro 100 Units/ML 3 ML Vial SUBCUT SCH ×3 (08:13→18:22)
[2022-01-30] MEDS: Enoxaparin 40 MG/0.4 ML Syringe SUBCUT SCH (08:13)
[2022-01-30] MEDS: SITAGLIPTIN PHOSPHATE 50 MG PO SCH (08:19)
[2022-01-30] MEDS: UMECLIDINIUM INH SCH (08:19)
[2022-01-30] MEDS: VILANTEROL INH SCH (08:19)
[2022-01-30] MEDS: Albuterol/Ipratropium 3.0-0.5 MG/3 ML Neb Soln NEB SCH ×4 (09:43→20:22)
[2022-01-30 10:55] LABS: ANION GAP 8.9 mEq/L (7-13); CHLORIDE,CL 102 mmol/L (98-107); SODIUM,NA 142 mmol/L (136-145)
[2022-01-30] MEDS: cefTRIAXone 2 GM in Sodium Chloride 0.9% 100 ML IV SCH (20:23)
[2022-01-30] MEDS: Azithromycin 500 MG in Sodium Chloride 0.9% 250 ML IV SCH (21:47)
[2022-01-31] MEDS: methylPREDNISolone Sodium Succinate 125 MG/2 ML SDV IVPUSH SCH ×3 (06:09→16:05)
[2022-01-31] MEDS: Omeprazole 20 MG Cap.CR PO SCH (06:09)
[2022-01-31 07:05] LABS: ANION GAP 9.8 mEq/L (7-13); CHLORIDE,CL 101 mmol/L (98-107); SODIUM,NA 141 mmol/L (136-145)
[2022-01-31] MEDS ORDERED: 50% Dextrose in Water 50 ML Syringe IVPUSH PRN (07:31)
[2022-01-31] MEDS ORDERED: Glucagon,Human Recombinant 1 MG Vial IM PRN (07:31)
[2022-01-31] MEDS: Albuterol/Ipratropium 3.0-0.5 MG/3 ML Neb Soln NEB SCH ×4 (07:49→20:27)
[2022-01-31] MEDS ORDERED: Furosemide 40 MG/4 ML VIAL IVPUSH ONE (07:54)
[2022-01-31] MEDS: UMECLIDINIUM INH SCH (08:01)
[2022-01-31] MEDS: VILANTEROL INH SCH (08:01)
[2022-01-31] MEDS: SITAGLIPTIN PHOSPHATE 50 MG PO SCH (08:04)
[2022-01-31] MEDS: Insulin Lispro 100 Units/ML 3 ML Vial SUBCUT SCH ×3 (08:05→17:34)
[2022-01-31] MEDS: Enoxaparin 40 MG/0.4 ML Syringe SUBCUT SCH (08:10)
[2022-01-31] MEDS: Furosemide 40 MG Tab PO SCH (08:10)
[2022-01-31] MEDS: Acetaminophen 325 MG Tab PO SCH ×2 (08:11→20:28)
[2022-01-31] MEDS: Oxybutynin 5 MG Tab PO SCH ×2 (08:11→20:28)
[2022-01-31] MEDS: Ferrous Sulfate 325 MG Tab PO SCH ×2 (08:12→17:34)
[2022-01-31] MEDS: Verapamil 180 MG Tab.ER PO SCH (08:13)
[2022-01-31] MEDS: Insulin Glarg,Human.Rec.Analog 100 Unit/ML SUBCUT SCH (08:54)
[2022-01-31] MEDS ORDERED: Albuterol/Ipratropium 3.0-0.5 MG/3 ML Neb Soln ONE (13:57)
[2022-01-31] MEDS: cefTRIAXone 2 GM in Sodium Chloride 0.9% 100 ML IV SCH (20:28)
[2022-01-31] MEDS ORDERED: Insulin Lispro 100 Units/ML 3 ML Vial SUBCUT ONE (21:12)
[2022-01-31] MEDS ORDERED: Insulin Glarg,Human.Rec.Analog 100 Unit/ML SUBCUT ONE (21:16)
[2022-01-31] MEDS: Azithromycin 500 MG in Sodium Chloride 0.9% 250 ML IV SCH (22:19)
[2022-02-01] MEDS: methylPREDNISolone Sodium Succinate 125 MG/2 ML SDV IVPUSH SCH ×4 (00:27→21:12)
[2022-02-01] MEDS: Acetaminophen 325 MG Tab PO PRN (00:48)
[2022-02-01] MEDS: Melatonin 3 MG Tab PO PRN ×2 (00:49→21:53)
[2022-02-01] MEDS: Omeprazole 20 MG Cap.CR PO SCH (05:56)
[2022-02-01 07:18] LABS: ANION GAP 6.5 mEq/L (7-13); CHLORIDE,CL 97 mmol/L (98-107); SODIUM,NA 136 mmol/L (136-145)
[2022-02-01] MEDS: Insulin Lispro 100 Units/ML 3 ML Vial SUBCUT SCH ×4 (08:23→21:15)
[2022-02-01] MEDS: Insulin Glarg,Human.Rec.Analog 100 Unit/ML SUBCUT SCH ×3 (08:24→21:10)
[2022-02-01] MEDS: Enoxaparin 40 MG/0.4 ML Syringe SUBCUT SCH (08:26)
[2022-02-01] MEDS: Verapamil 180 MG Tab.ER PO SCH (08:27)
[2022-02-01] MEDS: VILANTEROL INH SCH (08:27)
[2022-02-01] MEDS: UMECLIDINIUM INH SCH (08:27)
[2022-02-01] MEDS: SITAGLIPTIN PHOSPHATE 50 MG PO SCH (08:27)
[2022-02-01] MEDS: Acetaminophen 325 MG Tab PO SCH ×2 (08:28→20:35)
[2022-02-01] MEDS: Ferrous Sulfate 325 MG Tab PO SCH ×2 (08:28→17:37)
[2022-02-01] MEDS: Furosemide 40 MG Tab PO SCH (08:29)
[2022-02-01] MEDS: Oxybutynin 5 MG Tab PO SCH ×2 (08:29→20:35)
[2022-02-01] MEDS ORDERED: Insulin Glarg,Human.Rec.Analog 100 Unit/ML SUBCUT SCH (09:00)
[2022-02-01] MEDS: Albuterol/Ipratropium 3.0-0.5 MG/3 ML Neb Soln NEB SCH ×4 (09:06→20:36)
[2022-02-01] MEDS: cefTRIAXone 2 GM in Sodium Chloride 0.9% 100 ML IV SCH (20:41)
[2022-02-01] MEDS ORDERED: Insulin Lispro 100 Units/ML 3 ML Vial SUBCUT ONE (21:01)
[2022-02-01] MEDS: Azithromycin 500 MG in Sodium Chloride 0.9% 250 ML IV SCH (21:54)
[2022-02-02] MEDS: Omeprazole 20 MG Cap.CR PO SCH (05:36)
[2022-02-02 07:00] LABS: ANION GAP 8.6 mEq/L (7-13); CHLORIDE,CL 97 mmol/L (98-107); SODIUM,NA 141 mmol/L (136-145)
[2022-02-02] MEDS: Oxybutynin 5 MG Tab PO SCH (08:40)
[2022-02-02] MEDS: Furosemide 40 MG Tab PO SCH (08:41)
[2022-02-02] MEDS: Ferrous Sulfate 325 MG Tab PO SCH (08:41)
[2022-02-02] MEDS: Acetaminophen 325 MG Tab PO SCH (08:41)
[2022-02-02] MEDS: Verapamil 180 MG Tab.ER PO SCH (08:41)
[2022-02-02] MEDS: Enoxaparin 40 MG/0.4 ML Syringe SUBCUT SCH (08:43)
[2022-02-02] MEDS: Insulin Lispro 100 Units/ML 3 ML Vial SUBCUT SCH ×2 (08:47→12:15)
[2022-02-02] MEDS: Insulin Glarg,Human.Rec.Analog 100 Unit/ML SUBCUT SCH (08:49)
[2022-02-02] MEDS: methylPREDNISolone Sodium Succinate 125 MG/2 ML SDV IVPUSH SCH (08:50)
[2022-02-02] MEDS: SITAGLIPTIN PHOSPHATE 50 MG PO SCH (08:55)
[2022-02-02] MEDS: Albuterol/Ipratropium 3.0-0.5 MG/3 ML Neb Soln NEB SCH ×2 (08:58→12:00)
== END 2022-02-02 12:45 | DRG 177 ==
LOC: DL.ED 18:20 → UNDOADMIN 21:54 → DL.MS 21:54
PROVIDERS: ADMIT Internal Medicine; ATTEND Internal Medicine
DX: J15.6 Pneumonia due to other Gram-negative bacteria (principal); H54.7 Unspecified visual loss; I50.9 Heart failure, unspecified; J96.21 Acute and chronic respiratory failure with hypoxia; J44.1 Chronic obstructive pulmonary disease with (acute) exacerbation; J44.9 Chronic obstructive pulmonary disease, unspecified; J44.0 Chronic obstructive pulmonary disease with (acute) lower respiratory infection; Z68.43 Body mass index [BMI] 50.0-59.9, adult; I50.32 Chronic diastolic (congestive) heart failure; R32 Unspecified urinary incontinence; M19.90 Unspecified osteoarthritis, unspecified site; Z85.820 Personal history of malignant melanoma of skin; Z87.19 Personal history of other diseases of the digestive system; Z88.1 Allergy status to other antibiotic agents; J96.12 Chronic respiratory failure with hypercapnia; Z20.822 Contact with and (suspected) exposure to COVID-19; E11.65 Type 2 diabetes mellitus with hyperglycemia; N28.9 Disorder of kidney and ureter, unspecified; E66.01 Morbid (severe) obesity due to excess calories; Z99.81 Dependence on supplemental oxygen; G47.33 Obstructive sleep apnea (adult) (pediatric); E78.5 Hyperlipidemia, unspecified; F17.200 Nicotine dependence, unspecified, uncomplicated; I11.0 Hypertensive heart disease with heart failure; K21.9 Gastro-esophageal reflux disease without esophagitis; E78.00 Pure hypercholesterolemia, unspecified; Z96.619 Presence of unspecified artificial shoulder joint; M10.9 Gout, unspecified; K57.90 Diverticulosis of intestine, part unspecified, without perforation or abscess without bleeding; N32.81 Overactive bladder; N39.46 Mixed incontinence; E88.09 Other disorders of plasma-protein metabolism, not elsewhere classified; D50.9 Iron deficiency anemia, unspecified; Z88.0 Allergy status to penicillin; Z88.2 Allergy status to sulfonamides; Z79.4 Long term (current) use of insulin; Z79.899 Other long term (current) drug therapy; I25.2 Old myocardial infarction; Z88.5 Allergy status to narcotic agent; Z88.8 Allergy status to other drugs, medicaments and biological substances; Z91.048 Other nonmedicinal substance allergy status; Z90.710 Acquired absence of both cervix and uterus; Z98.51 Tubal ligation status; Z90.49 Acquired absence of other specified parts of digestive tract
CPT/HCPCS: 0240U; 36415; 51701; 51702; 71045; 71260; 74177; 80048; 80053; 82272; 82947; 83605; 83690; 83735; 83880; 85025; 85379; 86140; 87040; 87081; 93005; 93010; 93970; 94640; 96365; 96367; 97110-GP; 97161-GP; 97166-GO; 99284; 99285-25; A9270-GY; J0456; J0696; J1200; J1650; J1815-GY; J1940; J2930; J7050; J7620-GY; Q9967; U0002

== ENCOUNTER 2022-05-20 12:30 | Emergency (ER) | payer MEDICARE, MEDICAID ==
[2022-05-20] MEDS ORDERED: methylPREDNISolone Sodium Succinate 125 MG/2 ML SDV IVPUSH ONE (13:02)
[2022-05-20] MEDS ORDERED: Albuterol/Ipratropium 3.0-0.5 MG/3 ML Neb Soln NEB ONE (13:02)
[2022-05-20] MEDS: Sodium Chloride 0.9% 10 ML Syringe FLUSH PRN ×2 (13:52→14:30)
[2022-05-20 13:58] LABS: ANION GAP 7.2 mEq/L (7-13)
[2022-05-20 14:04] LABS: PTT,PARTIAL THROMBOPLSTIN TIME 23.4 SEC (22.0-34.0)
[2022-05-20 14:16] LABS: CORONAVIRUS COVID-19 NAA NEGATIVE (NEGATIVE); RESPIRATORY SYNCYTIAL VIR NAA NEGATIVE (NEGATIVE)
[2022-05-20] MEDS ORDERED: Levofloxacin/Dextrose 5%-Water 750 MG in Premix Bag 1 BAG IV ONE (14:21)
== END 2022-05-20 16:30 | disposition home or self-care (01) ==
LOC: DL.ED 12:30
DX: J18.9 Pneumonia, unspecified organism (principal); J44.1 Chronic obstructive pulmonary disease with (acute) exacerbation; E78.00 Pure hypercholesterolemia, unspecified; I11.0 Hypertensive heart disease with heart failure; I50.9 Heart failure, unspecified; I25.2 Old myocardial infarction; K21.9 Gastro-esophageal reflux disease without esophagitis; E66.9 Obesity, unspecified; Z88.5 Allergy status to narcotic agent; Z88.0 Allergy status to penicillin; Z91.048 Other nonmedicinal substance allergy status; Z88.2 Allergy status to sulfonamides; Z88.1 Allergy status to other antibiotic agents; Z79.4 Long term (current) use of insulin; Z79.899 Other long term (current) drug therapy; Z87.891 Personal history of nicotine dependence; Z20.822 Contact with and (suspected) exposure to COVID-19; Z68.43 Body mass index [BMI] 50.0-59.9, adult
CPT/HCPCS: 0241U; 36415; 71045; 80053; 81003; 83605; 83880; 84145; 84484; 85025; 85610; 85730; 87040; 93005; 94640; 96365; 96366; 96375; 99285; J1956; J2930; J3490; J7620-GY

== ENCOUNTER 2022-07-01 07:10 | Emergency (ER) | payer MEDICARE, MEDICAID ==
[2022-07-25 14:07] LABS: ANION GAP 5.7 mEq/L (7-13); CHLORIDE,CL 103 mmol/L (98-107); ESTIMATED GFR 61 mL/min (>=60); SODIUM,NA 143 mmol/L (136-145)
== END 2022-07-01 09:43 ==
LOC: DL.ED 07:10
DX: K92.2 Gastrointestinal hemorrhage, unspecified (principal); J44.9 Chronic obstructive pulmonary disease, unspecified; I11.0 Hypertensive heart disease with heart failure; I50.9 Heart failure, unspecified; E11.9 Type 2 diabetes mellitus without complications
CPT/HCPCS: 36415; 36430; 80053; 80307; 82150; 83605; 83690; 83735; 84484; 85025; 85610; 85730; 86140; 86850; 86900; 86901; 86920; 86922; 96365; 96375; 96376; 99285; P9016